=== PATIENT | male | born 1970 | race Caucasian/White ===

== ENCOUNTER 2017-05-17 10:29 | Emergency (ER) | payer MEDICAID ==
[~2017-05-17] VITALS: Ht 182.9 cm; Wt 77.2 kg
[2017-05-17 10:31] VITALS: BP 146/86; PULSE 102; RESP 20; TEMP 99; O2SAT 96
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
[2017-05-17] MEDS ORDERED: KALETRA200 PO (10:55)
[2017-05-17] MEDS ORDERED: LORA-475 PO (10:55)
[2017-05-17] MEDS ORDERED: OXYC-395 PO (10:55)
[2017-05-17] MEDS ORDERED: EMTR1TAB5 PO (10:55)
[2017-05-17] MEDS ORDERED: ACETAMINOPHEN/HYDROcodone 325 MG/7.5 MG TAB PO ONE (11:30)
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
[2017-05-17 12:39] VITALS: BP 133/86; PULSE 90; RESP 17; O2SAT 97
[2017-05-17 16:01] VITALS: BP 127/82; PULSE 100; RESP 20; O2SAT 97
[2017-05-17 22:09] VITALS: BP 135/67; PULSE 69; RESP 17; O2SAT 95
[2017-05-18] MEDS ORDERED: IBUPROFEN 800 MG TAB PO ONE (00:15)
[2017-05-18 02:00] VITALS: BP 128/75; PULSE 94; RESP 17; O2SAT 99
[2017-05-18 06:10] VITALS: BP 140/88; PULSE 77; RESP 18; O2SAT 97
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
== END 2017-05-18 12:06 | disposition home or self-care (01) ==
LOC: NEPD 10:29 → NEPJ 05-18 12:06
DX: R68.84 Jaw pain (principal); F43.20 Adjustment disorder, unspecified
CPT/HCPCS: 70450; 70486; 72125; 99285

== ENCOUNTER 2017-05-27 09:24 | Inpatient (IN) | payer MEDICAID, OTHER ==
[~2017-05-27] VITALS: Ht 182.9 cm; Wt 79.8 kg
[~2017-05-27 09:24] MED LIST: EMTR1TAB5 PO; KALETRA200 PO; LORA-475 PO; OXYC-395 PO
[2017-05-27 09:36] VITALS: BP 127/81; PULSE 84; RESP 18; TEMP 97.9; O2SAT 99
[2017-05-27] MEDS ORDERED: REME15TA PO (09:44)
[2017-05-27] MEDS ORDERED: SODIUM CHLOR 0.9% 1000 ML INJ 1,000 ML IV ONE (09:45)
[2017-05-27] MEDS ORDERED: LORazepam 2 MG/ML VIAL IV PUSH ONE (09:45)
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
[2017-05-27 10:14] VITALS: BP 118/74; PULSE 77; RESP 16; O2SAT 98
[2017-05-27 10:14] LABS: HEMATOCRIT 39.7 % (39.0-51.0); MEAN CELL VOLUME 92.2 FL (80.0-100.0); MEAN CORPUSCULAR HGB CONC 34.7 % (32.0-36.0); PLATELET COUNT 94 TH/MM3 (150-450); RED BLOOD COUNT 4.31 MIL/MM3 (4.50-5.90); RED CELL DISTRIBUTION WIDTH 17.2 % (11.6-17.2); WHITE BLOOD COUNT 1.9 TH/MM3 (4.0-11.0)
[2017-05-27 10:16] LABS: HEMO FLAGS AUTO DIFF
[2017-05-27 10:39] LABS: BICARBONATE 24.4 MEQ/L (21.0-32.0); POTASSIUM 3.3 MEQ/L (3.5-5.1)
[2017-05-27 10:49] LABS: EOSINOPHILS 2 % (0-4); NEUTROPHIL # MANUAL DIFF 0.6 TH/MM3 (1.8-7.7); PLATELET ESTIMATE SMEAR LOW (NORMAL); PLATELET MORPHOLOGY NORMAL (NORMAL); POLYS (SEG NEUTROPHILS) 34 % (16-70); SCAN/DIFF FINAL DIFF MANUAL; WBC DIFF SAMPLE 100
[2017-05-27] MEDS ORDERED: POTASSIUM CHLORIDE 20 MEQ CONTROLLED RELEASE TAB PO ONE (11:00)
[2017-05-27 12:50] VITALS: BP 130/88; PULSE 62; RESP 16; O2SAT 100
[2017-05-27 17:30] VITALS: BP 124/72; PULSE 72; RESP 18; O2SAT 99
[2017-05-27 19:00] VITALS: BP 133/94; PULSE 70; RESP 18; O2SAT 99
[2017-05-27] MEDS ORDERED: LORazepam 2 MG/ML VIAL IV PUSH PRN ×4 (20:15)
[2017-05-27] MEDS ORDERED: FLUMAZENIL 0.5 MG/5 ML VIAL IV PUSH PRN (20:15)
[2017-05-27] MEDS: LORazepam 2 MG TAB PO PRN (20:23)
[2017-05-28] MEDS: LORazepam 1 MG TAB PO PRN ×3 (02:49→20:08)
[2017-05-28 03:01] VITALS: BP 149/74; PULSE 64; RESP 18; O2SAT 97
[2017-05-28 04:02] LABS: BLOOD, URINE NEG (NEG); GLUCOSE,URINE NEG (NEG); KETONE, URINE NEG (NEG); MUCUS URINE FEW /lpf (OCC); NITRITE,URINE NEG (NEG); URINE COLOR YELLOW (YELLW/STRAW)
[2017-05-28 04:09] LABS: COMMENT (UR) CULT NOT INDICATED; CULTURE IF INDICATED CULT NOT INDICATED
[2017-05-28] MEDS: LORazepam 2 MG TAB PO PRN (06:25)
[2017-05-28 06:45] VITALS: BP 154/92; PULSE 60; RESP 18; O2SAT 96
[2017-05-28 11:52] VITALS: BP 135/89; PULSE 57; RESP 18; TEMP 96.2; O2SAT 98
[2017-05-28] MEDS ORDERED: LORazepam 2 MG/ML VIAL IV PUSH PRN ×4 (13:30)
[2017-05-28] MEDS ORDERED: FLUMAZENIL 0.5 MG/5 ML VIAL IV PUSH PRN (13:30)
[2017-05-28] MEDS ORDERED: MAGNESIUM HYDROXIDE SUSP 30 ML CUP PO PRN (14:30)
[2017-05-28] MEDS ORDERED: ALUMINUM/MAGNESIUM/SIMETH 30 ML CUP PO PRN (14:30)
--- NOTE | 2017-05-28 15:58 | EKG ---
Date Performed: 05/27/2017 Time Performed: 09:44:04 PTAGE: 46 years EKG: Sinus rhythm POSSIBLE RIGHT VENTRICULAR CONDUCTION DELAY BORDERLINE ECG NO PREVIOUS TRACING DOCTOR: Beto Gaitan Interpretating Date/Time 05/28/2017 15:58:17
[2017-05-28 17:04] VITALS: BP 128/82; PULSE 68
[2017-05-28 17:48] VITALS: BP 132/85; PULSE 92; RESP 18; O2SAT 99
--- NOTE | 2017-05-28 18:24 | PD.PSY.CON ---
Provisional Diagnosis Admission Date May 28, 2017 at 14:33 [place] I. Major depressive disorder, single episode, severe without psychotic features [place] II. deferred [place] III. HIV [place] IV. limited social support, chronic mental illness [place] V. 35 History of Present Illness Service Psychiatry Consult Requested By ED Reason for Consult psychiatric evaluation Primary Care Physician No Primary Care Physician HPI Patient is a 46 y/o man, single, employed, on disability, domiciled in a hotel, past psychiatric history of bipolar disorder and depression as per patient, 2 prior psychiatric admissions (last 1 year ago), no previous suicide attempts or self injurious behavior, past medical history of HIV, currently with hospice services, recent diagnosis of melanoma (face) who was seen in the ED for weakness but reported feeling depressed with suicidal ideations which psychiatry was consulted for evaluation. Patient was found lying on hospital bed , calm and cooperative with interview. Patient states that he has not been feeling well "I'm at the end" reporting having hospice services. "I know my CD4 cound is low" despite being compliant with his HIV medications. He states that he recently moved here from [place] has last saw his ID physician two months ago. He reports not having any services here at this time. Patient states that he has been drinking more than 12 beers daily since having arrived and reports having disturbed sleep, feeling depressed but denies change in energy, concentration and endorses suicidal ideations. He states "I want to be done, sick of all these pills". Neva deneis any manic or psychotic symptoms but continues to endorse SI at this time. Past psychiatric history: previous diagnosis of depression, bipolar disorder as per pt, 2 prior admissions, no previous suicde attempts or self injurious behaviors. Substance use history : alcohol use as stated above PMH: HIV Allergie: NKDA Social history: single, lives in a hotel, employed, on disability, highest education: master's degree BAL: 189 Review of Systems Constitutional: COMPLAINS OF: Diaphoretic episodes, Chills Endocrine: DENIES: Heat/cold intolerance, Polydipsia, Polyuria, Polyphagia Eyes: DENIES: Blurred vision, Diplopia, Eye inflammation, Eye pain, Vision loss , Photosensitivity, Double Vision Ears, nose, mouth, throat: DENIES: Tinnitus, Hearing loss, Vertigo, Nasal discharge, Oral lesions, Throat pain, Hoarseness, Ear Pain, Running Nose, Epistaxis, Sinus Pain, Toothache, Odynophagia Respiratory: DENIES: Apneas, Cough, Snoring, Wheezing, Hemoptysis, Sputum production, Shortness of breath Cardiovascular: DENIES: Chest pain, Palpitations, Syncope, Dyspnea on Exertion , PND, Lower Extremity Edema, Orthopnea, Claudication Gastrointestinal: DENIES: Abdominal pain, Black stools, Bloody stools, Constipation, Diarrhea, Nausea, Vomiting, Difficulty Swallowing, Anorexia Genitourinary: DENIES: Sexual dysfunction, Urinary frequency, Urinary incontinence, Urgency, Hematuria, Dysuria, Nocturia, Penile Discharge, Testicular Pain, Testicular Swelling Musculoskeletal: DENIES: Joint pain, Muscle aches, Stiffness, Joint Swelling, Back pain, Neck pain Integumentary: DENIES: Abnormal pigmentation, Nail changes, Pruritus, Rash Hematologic/lymphatic: DENIES: Bruising, Lymphadenopathy Immunologic/allergic: DENIES: Eczema, Urticaria Neurologic: DENIES: Abnormal gait, Headache, Localized weakness, Paresthesias, Seizures, Speech Problems, Tremor, Poor Balance Past Family Social History Coded Allergies: No Known Allergies (Unverified , 05/27/17) Reported Medications Mirtazapine (Remeron) 15 Mg Tab, 15 MG PO HS for Depression Control, #30 TAB 0 Refills 05/27/17 Lopinavir-Ritonavir (Kaletra) 200-50 Mg Tab, 1 TAB PO BID for Mgmt Viral Infection, #60 TAB 0 Refills 05/17/17 Oxycodone (Oxycodone) 10 Mg Tab, 10 MG PO Q6H Y for PAIN, TAB 0 Refills 05/17/17 Lorazepam (Ativan) 2 Mg Tab, 2 MG PO Q6H Y for ANXIETY AND/OR AGITATION, TAB 0 Refills 05/17/17 Emtricitabine-Tenofovir Disoproxil Fumarate (Truvada) 100-150 Mg Tab, 1 TAB PO DAILY for Mgmt Viral Infection, #30 TAB 0 Refills 05/17/17 Current Medications Medications (Trade) Dose Ordered Sig/Marilee Route Start Time Stop Time Status Last Admin (Ativan) 1 mg Q4H PRN PO 05/28/17 13:30 (Ativan Inj) 1 mg Q4H PRN IV PUSH 05/28/17 13:30 (Ativan) 2 mg Q2H PRN PO 05/28/17 13:30 (Ativan Inj) 2 mg Q2H PRN IV PUSH 05/28/17 13:30 (Ativan Inj) 2 mg Q1H PRN IV PUSH 05/28/17 13:30 (Ativan Inj) 2 mg Q15M PRN IV PUSH 05/28/17 13:30 (Romazicon Inj) 0.2 mg Q1M PRN IV PUSH 05/28/17 13:30 (Benadryl) 50 mg HS PRN PO 05/28/17 14:30 (Tylenol) 650 mg Q4H PRN PO 05/28/17 14:30 (Milk Of Magnesia Liq) 30 ml DAILY PRN PO 05/28/17 14:30 (Mag-Al Plus Susp Liq) 30 ml Q6H PRN PO 05/28/17 14:30 (Atarax) 50 mg Q6H PRN PO 05/28/17 14:30 (Remeron) 15 mg HS PO 05/28/17 21:00 Patient's Strengths (min. 2) verbal and communicative Physical Exam Vital Signs Vital Signs Date Time Temp Pulse Resp B/P (MAP) Pulse Ox O2 Delivery O2 Flow Rate FiO2 05/28/17 17:48 92 18 132/85 (101) 99 Room Air 05/28/17 11:52 96.2 Lab Results Labs reviewed Laboratory Tests Test 05/27/17 10:00 05/28/17 03:00 White Blood Count 1.9 TH/MM3 (4.0-11.0) Red Blood Count 4.31 MIL/MM3 (4.50-5.90) Platelet Count 94 TH/MM3 (150-450) Lymphocytes % 47 % (9-44) Monocytes % 17 % (0-8) Neutrophils # (Manual) 0.6 TH/MM3 (1.8-7.7) Platelet Estimate LOW (NORMAL) Blood Urea Nitrogen 6 MG/DL (7-18) Calcium Level 7.8 MG/DL (8.5-10.1) Potassium Level 3.3 MEQ/L (3.5-5.1) Chloride Level 109 MEQ/L (98-107) Ethyl Alcohol Level 189 MG/DL (0-5) Urine Mucus FEW /lpf (OCC) Mental Status Examination Appearance Appears stated age, in [facility], calm and cooperative with interview, fair eye contact, noted with mild tremors, diaphoretic Speech: Unremarkable Orientation: Person Memory: Unremarkable Thought Process: Linear Thought Content: Unremarkable Language fluent and spontaneous Fund of Knowledge average Hallucination Type: None Attention and Concentration: Good Suicidal Ideation: Yes Homicidal Ideation: No Previous Homicide Attempts: No Insight: Fair Judgment: WNL Affect: Anxious Mood: Anxious Motor Activity: Normal gait Assessment & Plan Problem List: (1) Major depressive disorder, single episode, severe without psychotic features ICD Codes: F32.2 - Major depressive disorder, single episode, severe without psychotic features Assessment & Plan Patient is a 46 y/o man who carries a diagnosis of depression, past medical history of HIV, recently put on hospice care, who at this time is endorsing depressive symptoms along with suicidal ideations with method of overdose in the context of worsening chronic medical conditions. Patient at this time will require inpatient psychiatric admission for safety and stabilization. Patient may be transferred to inpatient psychiatry unit if bed available or may need transfer to another facility if there in no capacity to have patient transferred here. Jaya Espino MD May 28, 2017 18:24
[2017-05-28 19:50] VITALS: BP 140/88; PULSE 79; RESP 16; TEMP 98.1
[2017-05-28] MEDS: diphenhydrAMINE HCL 50 MG CAP PO PRN (20:09)
[2017-05-28] MEDS: MIRTAZAPINE 15 MG TAB PO SCH (21:08)
[2017-05-29 05:34] VITALS: BP 119/62; PULSE 80; RESP 18; TEMP 98.6; O2SAT 95
[2017-05-29] MEDS: LORazepam 1 MG TAB PO PRN ×2 (06:23→18:17)
[2017-05-29] MEDS ORDERED: REMOVE OLD PATCH T-DERMAL SCH (09:00)
[2017-05-29] MEDS ORDERED: NICOTINE 21 MG/24 HR PATCH T-DERMAL SCH (09:00)
[2017-05-29] MEDS: LORazepam 2 MG TAB PO PRN ×2 (09:45→14:08)
[2017-05-29 14:01] LABS: ANION GAP 7 MEQ/L (5-15); BICARBONATE 26.9 MEQ/L (21.0-32.0); BLOOD UREA NITROGEN 9 MG/DL (7-18); CHLORIDE 105 MEQ/L (98-107); GLOMERULAR FILTRATION RATE 105 ML/MIN (>89); POTASSIUM 3.9 MEQ/L (3.5-5.1); SODIUM (NA) 139 MEQ/L (136-145)
[2017-05-29 14:11] LABS: HDL CHOLESTEROL 45.1 MG/DL (40.0-60.0); LDL CHOLESTEROL 86 MG/DL (0-99)
[2017-05-29] MEDS ORDERED: NON-FORMULARY DRUG (Emtricitabine-Tenofovir Disoproxil Fumarate (Truvada) 1 TAB) PO SCH (16:15)
--- NOTE | 2017-05-29 17:00 | PD.CONS ---
HPI Service [facility] Consult Requested By Psychiatry team, Dr. Espino Reason for Consult Evaluate medical conditions for management. Hx of HIV. Primary Care Physician No Primary Care Physician Diagnoses: History of Present Illness Written by Wally Henderson, acting as scribe for Dr. Prabhakar on 05/29/17 at 16: 41. Patient is a 46-year-old male with primary medical history of bladder cancer, skin cancer, HIV on HAART medications, chronic back pain who came in to the hospital with complaints of generalized weakness, suicidal ideation. Patient has prior history of bipolar disorder, depression. He is now admitted to inpatient psychiatry unit for further evaluation. Consulted for medical management. Patient seen and examined today. Verified all his medical and surgical history. Patient states that he hasn't been given his HIV medications for 2 days, reports he's taking Kaletra and Truvada. Complaints of back pain mid lower back area, states is a skeletal pain secondary to compression fracture after falling off the ladder, dull, achy, rated 6/10, nonradiating. Patient states that he takes oxycodone 20 mg. 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 States that his grandmother and he continues to feel depressed. Reports lithium has been helping him a lot. Reports he had diarrhea yesterday, but has none today. Eating well. Denies SOB / dyspnea. Denies chest pain, palpitations, headaches, dizziness. Denies fevers , chills, n/v/d. Denies dysuria. Review of Systems Psychiatric: COMPLAINS OF: Anxiety, Depression Except as stated in HPI: all other systems reviewed are Neg Past Family Social History Allergies: Coded Allergies: No Known Allergies (Unverified , 05/27/17) Past Medical History Bladder cancer Skin cancer HIV Depression Bipolar disorder Anxiety Chronic back pain Past Surgical History Cystoscopy Reported Medications Reported Meds & Active Scripts Active Reported Remeron (Mirtazapine) 15 Mg Tab 15 Mg PO HS Kaletra (Lopinavir/Ritonavir) 200-50 Mg Tab 1 Tab PO BID Oxycodone (Oxycodone HCl) 10 Mg Tab 10 Mg PO Q6H PRN Ativan (Lorazepam) 2 Mg Tab 2 Mg PO Q6H PRN Truvada (Emtricitabine-Tenofovir Disoproxil Fumarate) 100-150 Mg Tab 1 Tab PO DAILY Active Ordered Medications Current Medications Medications (Trade) Dose Ordered Sig/Marilee Route Start Time Stop Time Status Last Admin (Ativan) 1 mg Q4H PRN PO 05/28/17 13:30 05/29/17 06:23 (Ativan Inj) 1 mg Q4H PRN IV PUSH 05/28/17 13:30 (Ativan) 2 mg Q2H PRN PO 05/28/17 13:30 05/29/17 14:08 (Ativan Inj) 2 mg Q2H PRN IV PUSH 05/28/17 13:30 (Ativan Inj) 2 mg Q1H PRN IV PUSH 05/28/17 13:30 (Ativan Inj) 2 mg Q15M PRN IV PUSH 05/28/17 13:30 (Romazicon Inj) 0.2 mg Q1M PRN IV PUSH 05/28/17 13:30 (Benadryl) 50 mg HS PRN PO 05/28/17 14:30 05/28/17 20:09 (Tylenol) 650 mg Q4H PRN PO 05/28/17 14:30 (Milk Of Magnesia Liq) 30 ml DAILY PRN PO 05/28/17 14:30 (Mag-Al Plus Susp Liq) 30 ml Q6H PRN PO 05/28/17 14:30 (Atarax) 50 mg Q6H PRN PO 05/28/17 14:30 (Remeron) 15 mg HS PO 05/28/17 21:00 05/28/17 21:08 (Kaletra 200-50 Mg) 1 tab BID PO 05/29/17 21:00 (Truvada 200-300 Mg) 1 tab DAILY PO 05/30/17 09:00 (Roxicodone) 5 mg Q6H PRN PO 05/29/17 16:30 Family History Cancer on mother's side. Father is doing okay. Social History Reports alcohol use about 12 pack almost every day. Occasional tobacco use 4-5 cigarettes, every 2-3 days Denies illicit drug use Physical Exam Vital Signs Vital Signs Date Time Temp Pulse Resp B/P (MAP) Pulse Ox O2 Delivery O2 Flow Rate FiO2 05/29/17 05:34 98.6 80 18 119/62 (81) 95 05/28/17 19:50 98.1 79 16 140/88 (105) 05/28/17 19:39 05/28/17 17:48 92 18 132/85 (101) 99 Room Air 05/28/17 17:04 68 128/82 (97) Physical Exam GENERAL: This is a thinly appearing, well-developed patient, in no apparent distress. SKIN: Appears to have sun exposure, sunburnt skin, patchy erythema facial area, peeling skin. Warm and dry. HEAD: Normocephalic. EYES: Pupils equal round and reactive. No scleral icterus. No injection or drainage. ENT: Nose without bleeding. Throat without erythema. Uvula midline. Airway patent. NECK: Trachea midline. Supple. CARDIOVASCULAR: Regular rate and rhythm without murmurs, gallops, or rubs. RESPIRATORY: Clear to auscultation. Breath sounds equal bilaterally. No wheezes , rales, or rhonchi. GASTROINTESTINAL: Abdomen soft, non-tender, nondistended. Bowel sounds active 4. No guarding. MUSCULOSKELETAL: Extremities without clubbing, cyanosis, or edema. Patient lower back tenderness to palpate. NEUROLOGICAL: Awake and alert. Oriented to person, time, place. Motor and sensory grossly within normal limits. Normal speech. Laboratory Laboratory Tests Test 05/29/17 12:52 Blood Urea Nitrogen 9 Creatinine 0.80 Random Glucose 89 Calcium Level 8.5 Sodium Level 139 Potassium Level 3.9 Chloride Level 105 Carbon Dioxide Level 26.9 Anion Gap 7 Estimat Glomerular Filtration Rate 105 Triglycerides Level 125 Cholesterol Level 156 LDL Cholesterol 86 HDL Cholesterol 45.1 Cholesterol/HDL Ratio 3.45 Thyroid Stimulating Hormone 3rd Gen 1.970 Result Diagram: 05/27/17 1000 05/29/17 1252 Assessment and Plan Problem List: (1) HIV (human immunodeficiency virus infection) ICD Code: B20 - Human immunodeficiency virus [HIV] disease Status: Chronic (2) Major depressive disorder, single episode, severe without psychotic features ICD Code: F32.2 - Major depressive disorder, single episode, severe without psychotic features (3) Generalized weakness ICD Code: R53.1 - Weakness Status: Acute Assessment and Plan Patient is a 46-year-old male with primary medical history of bladder cancer, skin cancer, HIV on HAART medications, chronic back pain who came in to the hospital with complaints of generalized weakness, suicidal ideation. Patient has prior history of bipolar disorder, depression. He is now admitted to inpatient psychiatry unit for further evaluation. Consulted for medical management. Depression, suicidal ideation, anxiety, bipolar disorder - Managed by psychiatry team - Patient states he is on lithium. Obtain lithium level. - TSH 1.97 HIV Hepatitis Neutropenia - States last CD4 count 450, about 2 months ago - Continue HAART medication Truvada and Kaletra - Hepatitis, follow-up as an outpatient with infectious disease - Discuss with patient if he is moving today area he needs to coordinate all his medications properly with infectious disease doctor for follow-up as an outpatient. - Labs reviewed noted WBC 1.9, monitor. Neutropenia possibly related to HIV. Recheck CD4 if with notable symptoms. Chronic back pain - Lumbar pain, reports compression fracture from falling off the ladder injury. Has not been treated surgically secondary to lower CD4 count as per patient account - Restart oxycodone 20 mg DVT prop ambulatory Code Status Full code Discussed Condition With Patient, nursing This note was transcribed by amber Henderson. I, Dr. Francisco Edmondson personally performed the history, physical exam, and medical decision making; and confirmed the accuracy of the information in the transcribed note. Authenticated by Dr. Francisco Edmondson on 05/29/17 at 17:01. Wally Haynes May 29, 2017 17:00 Francisco Colin MD May 29, 2017 17:10
[2017-05-29 17:05] LABS: HEMOGLOBIN A1b 0.7 %; HEMOGLOBIN Ao 86.5 %; HEMOGLOBIN F 0.9 %; HEMOGLOBIN LA1C 2.1 %; HEMOGLOBIN P3 3.4 %
--- NOTE | 2017-05-29 18:09 | HHI.HP ---
Provisional Diagnosis Admission Date May 28, 2017 at 14:33 [place] I. Major depressive disorder, single episode, severe without psychotic features [place] II. deferred [place] III. HIV [place] IV. limited social support, chronic mental illness [place] V. 35 Certification of Person's Competence To Provide Express and Informed Consent I have personally examined Adam Reynoso , a person being served at [facility] on, May 29, 2017 17:59. Express and informed consent means consent voluntarily given in writing, by a competent person, after sufficient explanation and disclosure of the subject matter involved to enable the person to make a knowing and willful decision without any element of force, fraud, deceit, duress, or other form of constraint or coercion. This person is 18 years of age or older, is not now known to be incompetent to consent to treatment with a guardian advocate, and does not have a health care surrogate or proxy currently making medical treatment decisions. I have found this person to be one of the following: [x] Competent to provide express and informed consent, as defined above, for voluntary admission to this facility and is competent to provide express and informed consent for treatment. He/she has the consistent capacity to make well reasoned, willful, and knowing decisions concerning his or her medical or mental health treatment. The person fully and consistently understands the purpose of the admission for examination/placement and is fully capable of personally exercising all rights assured under [place] Incompetent to provide express and informed consent to voluntary admission, and this is incompetent to provide express and informed consent to treatment. The person must be transferred to involuntary status and a petition for a guardian advocate filed with the Circuit Court. [] Refusing to provide express and informed consent to voluntary admission but is competent to provide express and informed consent for treatment. The person must be discharged or transferred to involuntary status. Form shall be completed within 24 hours of a person's arrival at the receiving facility and filed in the clinical record of each person: 1. Admitted on a voluntary basis 2. Permitted to provide express and informed consent to his/her own treatment 3. Allowed to transfer from involuntary to voluntary status 4. Prior to permitting a person to consent to his or her own treatment after having been previously found incompetent to consent to treatment. History of Present Illness Capacity: Has Capacity HPI Patient is a 46 y/o man, single, employed, on disability, domiciled in a hotel, past psychiatric history of bipolar disorder and depression as per patient, 2 prior psychiatric admissions (last 1 year ago), no previous suicide attempts or self injurious behavior, past medical history of HIV, currently with hospice services, recent diagnosis of melanoma (face) who was seen in the ED for weakness but reported feeling depressed with suicidal ideations which psychiatry was consulted for evaluation. Patient was found lying on hospital bed , calm and cooperative with interview. Patient states that he has not been feeling well "I'm at the end" reporting having hospice services. "I know my CD4 cound is low" despite being compliant with his HIV medications. He states that he recently moved here from [place] has last saw his ID physician two months ago. He reports not having any services here at this time. Patient states that he has been drinking more than 12 beers daily since having arrived and reports having disturbed sleep, feeling depressed but denies change in energy, concentration and endorses suicidal ideations. He states "I want to be done, sick of all these pills". Neva deneis any manic or psychotic symptoms but continues to endorse SI at this time. Past psychiatric history: previous diagnosis of depression, bipolar disorder as per pt, 2 prior admissions, no previous suicde attempts or self injurious behaviors. Substance use history : alcohol use as stated above PMH: HIV Allergie: NKDA Social history: single, lives in a hotel, employed, on disability, highest education: master's degree BAL: 189 05/29/17 Patient seen today, found sitting in the common area, calm and cooperative in interview. Patient states that he hasn't feeling "better", reports tolerating mirtazapine at night. Patient states that he is not eating as much as he would like. Patient reports that his current feeling of depression as 6 out of 10 ( 10 being at its worse) patient continued to report suicidal ideations. Patient states that he was previously on lithium prior to him moving to [place] and would like to restart that as he states it was helpful in the past. Review of Systems Except as stated in HPI: all other systems reviewed are Neg Past Psych History Violence risk - others (6 mos) Low Violence risk - self (6 mos) Moderate Substance Abuse History Drugs/Alcohol past 12 months Alcohol use, more than 12 beers daily for the past several weeks. Past Family Social History Coded Allergies: No Known Allergies (Unverified , 05/27/17) Reported Medications Mirtazapine (Remeron) 15 Mg Tab, 15 MG PO HS for Depression Control, #30 TAB 0 Refills 05/27/17 Lopinavir-Ritonavir (Kaletra) 200-50 Mg Tab, 1 TAB PO BID for Mgmt Viral Infection, #60 TAB 0 Refills 05/17/17 Oxycodone (Oxycodone) 10 Mg Tab, 10 MG PO Q6H Y for PAIN, TAB 0 Refills 05/17/17 Lorazepam (Ativan) 2 Mg Tab, 2 MG PO Q6H Y for ANXIETY AND/OR AGITATION, TAB 0 Refills 05/17/17 Emtricitabine-Tenofovir Disoproxil Fumarate (Truvada) 100-150 Mg Tab, 1 TAB PO DAILY for Mgmt Viral Infection, #30 TAB 0 Refills 05/17/17 Current Medications Medications (Trade) Dose Ordered Sig/Marilee Route Start Time Stop Time Status Last Admin (Ativan) 1 mg Q4H PRN PO 05/28/17 13:30 05/29/17 06:23 (Ativan Inj) 1 mg Q4H PRN IV PUSH 05/28/17 13:30 (Ativan) 2 mg Q2H PRN PO 05/28/17 13:30 05/29/17 14:08 (Ativan Inj) 2 mg Q2H PRN IV PUSH 05/28/17 13:30 (Ativan Inj) 2 mg Q1H PRN IV PUSH 05/28/17 13:30 (Ativan Inj) 2 mg Q15M PRN IV PUSH 05/28/17 13:30 (Romazicon Inj) 0.2 mg Q1M PRN IV PUSH 05/28/17 13:30 (Benadryl) 50 mg HS PRN PO 05/28/17 14:30 05/28/17 20:09 (Tylenol) 650 mg Q4H PRN PO 05/28/17 14:30 (Milk Of Magnesia Liq) 30 ml DAILY PRN PO 05/28/17 14:30 (Mag-Al Plus Susp Liq) 30 ml Q6H PRN PO 05/28/17 14:30 (Atarax) 50 mg Q6H PRN PO 05/28/17 14:30 (Remeron) 15 mg HS PO 05/28/17 21:00 05/28/17 21:08 (Kaletra 200-50 Mg) 1 tab BID PO 05/29/17 21:00 (Truvada 200-300 Mg) 1 tab DAILY PO 05/30/17 09:00 (Roxicodone) 5 mg Q6H PRN PO 05/29/17 16:30 Social History single, lives in a hotel, employed, on disability, highest education: master's degree Patient's Strengths (min. 2) verbal and communicative Physical Exam No gross tremors, no EPS, slightly diaphoretic, no gait disturbances, no psychomotor agitation or retardation noted Vital Signs Vital Signs Date Time Temp Pulse Resp B/P (MAP) Pulse Ox O2 Delivery O2 Flow Rate FiO2 05/29/17 05:34 98.6 80 18 119/62 (81) 95 05/28/17 17:48 Room Air Lab Results Labs reviewed Laboratory Tests Test 05/27/17 10:00 05/28/17 03:00 05/29/17 12:52 White Blood Count 1.9 TH/MM3 (4.0-11.0) Red Blood Count 4.31 MIL/MM3 (4.50-5.90) Platelet Count 94 TH/MM3 (150-450) Lymphocytes % 47 % (9-44) Monocytes % 17 % (0-8) Neutrophils # (Manual) 0.6 TH/MM3 (1.8-7.7) Platelet Estimate LOW (NORMAL) Blood Urea Nitrogen 6 MG/DL (7-18) Calcium Level 7.8 MG/DL (8.5-10.1) Potassium Level 3.3 MEQ/L (3.5-5.1) Chloride Level 109 MEQ/L (98-107) Ethyl Alcohol Level 189 MG/DL (0-5) Urine Mucus FEW /lpf (OCC) Mental Status Examination Appearance Appears stated age, in hospital [facility], fair hygiene and grooming, calm and cooperative interview, fair eye contact Speech: Unremarkable Orientation: Person Memory: Unremarkable Thought Process: Linear Thought Content: Unremarkable Language Fluent and spontaneous Fund of Knowledge Average Hallucination Type: None Attention and Concentration: Good Suicidal Ideation: Yes Previous Suicide Attempts: No Homicidal Ideation: No Previous Homicide Attempts: No Insight: Fair Judgment: WNL Affect: Sad Mood: Sad Motor Activity: Normal gait Assessment & Plan Problem List: (1) Major depressive disorder, single episode, severe without psychotic features ICD Codes: F32.2 - Major depressive disorder, single episode, severe without psychotic features Assessment & Plan Estimated LOS: 5- days. Patient is a 46 y/o man who carries a diagnosis of depression, past medical history of HIV, recently put on hospice care, who at this time is endorsing depressive symptoms along with suicidal ideations with method of overdose in the context of worsening chronic medical conditions. Patient at this time will sign for voluntary admission and will require inpatient psychiatric admission for safety and stabilization. Recommendations as per primary medical team. Continue mirtazaJaya Wayne MD May 29, 2017 18:09
[2017-05-29] MEDS: LITHIUM CARBONATE 300 MG TAB PO SCH (21:10)
[2017-05-29] MEDS: MIRTAZAPINE 15 MG TAB PO SCH (21:10)
[2017-05-29] MEDS: LOPINAVIR/RITONAVIR 200 MG/50 MG TAB PO SCH (21:10)
[2017-05-30 05:51] VITALS: BP 118/69; PULSE 82; RESP 17; TEMP 97.9; O2SAT 97
[2017-05-30] MEDS: LITHIUM CARBONATE 300 MG TAB PO SCH ×2 (08:54→20:42)
[2017-05-30] MEDS: EMTRICITABINE/TENOFOVIR 200 MG/300 MG TAB PO SCH (08:54)
[2017-05-30] MEDS: LOPINAVIR/RITONAVIR 200 MG/50 MG TAB PO SCH ×2 (08:54→20:41)
[2017-05-30] MEDS: LORazepam 1 MG TAB PO PRN ×2 (10:35→14:34)
--- NOTE | 2017-05-30 14:42 | HHI.PYPN ---
Subjective Remarks Patient seen for follow-up, chart review. Patient found lying in hospital bed noted recall cooperative interview. Patient states that he sitting better than yesterday although a little anxious. Patient states that he was glad that palliative care was going to see him today.. Patient reported that because he had hospice services implemented previously admitted feeling hopeless and that he was "not going to live his life these other people". Patient noted to be slightly more hopeful today stating that he feels better being on his medications and was goal-directed stating that he needs a place to stay permanently. 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 Patient requested nicotine patch. Patient denies any perceptual disturbances or any psychotic symptoms. Review of Systems Except as stated in HPI: all other systems reviewed are Neg Objective Alert: Yes [place]: Person, Place, Date Mood: Calm Affect: Appropriate Memory Intact: Comment (contact) Hallucinations: Other (denies) Delusions: No Delusion Type: Other (denies) Suicidal: Ideation (continues to endorse) Homicidal: Ideation (denies) Insight/Judgment Fair insight, impulse control and judgment Labs Laboratory Tests Test 05/28/17 03:00 05/29/17 12:52 Urine Mucus FEW /lpf (OCC) Vitals/IOs Vital Signs Date Time Temp Pulse Resp B/P (MAP) Pulse Ox O2 Delivery O2 Flow Rate FiO2 05/30/17 05:51 97.9 82 17 118/69 (85) 97 05/28/17 17:48 Room Air Assessment & Plan Problem List: (1) Major depressive disorder, single episode, severe without psychotic features ICD Codes: F32.2 - Major depressive disorder, single episode, severe without psychotic features Assessment & Plan Patient continues to endorse some depressive symptoms along with passive suicidal ideations but stated that his mood is improving slowly. Due to having had hospice care January previously prior to this admission patient reported feeling hopeless but currently now feeling more future oriented. Weaver Dobby Loom spoke with palliative care and discussed their evaluation which she does not meet criteria for hospice at this time it unclear under what diagnosis he was accepted to have hospice previously. Consult input appreciated. Patient to continue current treatment. Will draw lithium levels in a few days. Supportive psychotherapy provided. Discharge planning in progress Justification for Cont. Inpt. Patient at risk for further decompensation if at a lower level of care Jaya Espino MD May 30, 2017 14:42
--- NOTE | 2017-05-30 14:50 | HHI.HCPN ---
Mr. Reynoso is a 46-year-old male with a medical history significant for bipolar disorder, depression, HIV on HAART, skin and bladder cancer, hypertension and hepatitis. Patient presented to ED on 05/27/17 endorsing generalized weakness and not feeling well. Patient requested a psych consultation secondary to suicidal ideations. Patient was evaluated by psychiatry, Dr. Espino on 05/28/17. Patient diagnosed with major depressive disorder without psychotic features. Patient was admitted into psychiatric floor for safety and his stability sedation. During psychiatric evaluation, patient was found with fair insight and judgment within normal limits. Patient seen in psychiatric floor. He was resting in bed in no acute distress. Alert and oriented x self, place and situation. In this first visit, introduced palliative care in regards to symptom management as well as assistance in goals of care discussion. Patient declined palliative care consultation. He reports that he is returning to [place] upon discharge. Patient reports that he has an established primary care provider and infectious disease physician who he follows for HIV management. Patient reports that he is under hospice services in [place]. Patient further tells me that he already has transportation available for his return to [place]. Case discussed with Danna from [facility] and Dr. Espino. Base of medical records and physical exam, patient does not appear terminal at this time /not hospice eligible. As per patient, his last CD4 count 2 months ago was 450. In addition, patient independent with all ADLs, ambulatory, appears in good physical condition. Patient with history of bladder and skin cancer. During prior ED visit on 05/17/17, CT of cervical spine and head negative for acute process or metastatic disease. Discussed recommendations with Dr. Espino, palliative care will continue to follow-up peripherally as patient has declined our consultation. Recommendation is to maximize his medical and psychiatric management, may consider CD4 count to evaluate progression of HIV. Telephone call to [facility] in [place]. Confirmed that they have received a referral last week from [facility], ER physician Michelle Lara. [facility] was unable to enroll patient for services. Patient reports that he is under hospice services in [place] with [facility] Confirmed with [facility] [place] that patient is not enroll into their services. . Brenda Mora May 30, 2017 14:50
[2017-05-30] MEDS: NICOTINE 21 MG/24 HR PATCH T-DERMAL SCH (15:00)
[2017-05-30] MEDS: THIAMINE HCL 100 MG TAB PO SCH (17:45)
[2017-05-30] MEDS: FOLIC ACID 1 MG TAB PO SCH (17:45)
[2017-05-30 18:01] VITALS: BP 112/70; PULSE 74; RESP 18; TEMP 98.4; O2SAT 74
[2017-05-30] MEDS: hydrOXYzine HCL 50 MG TAB PO PRN (19:44)
[2017-05-30] MEDS: MIRTAZAPINE 15 MG TAB PO SCH (20:41)
[2017-05-30] MEDS: diphenhydrAMINE HCL 50 MG CAP PO PRN (21:25)
[2017-05-31] MEDS: LORazepam 1 MG TAB PO PRN ×2 (01:06→09:27)
[2017-05-31 05:56] VITALS: BP 94/64; PULSE 73; RESP 18; TEMP 98.4; O2SAT 98
[2017-05-31] MEDS: LOPINAVIR/RITONAVIR 200 MG/50 MG TAB PO SCH ×2 (08:39→20:31)
[2017-05-31] MEDS: THIAMINE HCL 100 MG TAB PO SCH (08:39)
[2017-05-31] MEDS: LITHIUM CARBONATE 300 MG TAB PO SCH ×2 (08:39→20:30)
[2017-05-31] MEDS: EMTRICITABINE/TENOFOVIR 200 MG/300 MG TAB PO SCH (08:39)
[2017-05-31] MEDS: FOLIC ACID 1 MG TAB PO SCH (08:39)
[2017-05-31] MEDS: NICOTINE 21 MG/24 HR PATCH T-DERMAL SCH (08:40)
[2017-05-31] MEDS: REMOVE OLD PATCH T-DERMAL SCH (08:40)
--- NOTE | 2017-05-31 13:46 | HHI.PYPN ---
Subjective Remarks Patient seen for follow-up, chart reviewed. Patient states that he continues to feel sad and depressed but much better than he first arrived. Patient mentioned that he had difficulty sleeping last evening. Patient was concerned about his current CD4 count which labs were drawn better today to determine his CD4 count of R load. Patient states that he had been seen by palliative care yesterday and that he was told that he is not qualified for hospice at this time. Patient states that he is motivated to once he feels better to be able to participate in voluntary work. Patient reported eating and drinking okay with good appetite is slightly decreased energy due to poor sleep last night. Patient at this time denies any SI, HI, AVH or delusions. Review of Systems Except as stated in HPI: all other systems reviewed are Neg Objective Alert: Yes [place]: Person, Place, Date Mood: Calm Affect: Appropriate Memory Intact: Comment (contact) Hallucinations: Other (denies) Delusions: No Delusion Type: Other (denies) Suicidal: Ideation (continues to endorse) Homicidal: Ideation (denies) Insight/Judgment Fair insight, impulse control and judgment Labs Test 05/31/17 12:30 Vitals/IOs Vital Signs Date Time Temp Pulse Resp B/P (MAP) Pulse Ox O2 Delivery O2 Flow Rate FiO2 05/31/17 05:56 98.4 73 18 94/64 (74) 98 05/28/17 17:48 Room Air Assessment & Plan Problem List: (1) Major depressive disorder, single episode, severe without psychotic features ICD Codes: F32.2 - Major depressive disorder, single episode, severe without psychotic features Assessment & Plan Patient at this time continues to endorse some depressive symptoms but no longer endorses suicidal ideations. Patient tolerating medication well reports feeling better with current regimen. We'll start trazodone 50 mg at bedtime for insomnia. Labs ordered (CD4 count and vital load). Continue current treatment. Patient encouraged to maintain personal hygiene and participate in groups and activities while on the unit. Discharge planning in progress Justification for Cont. Inpt. Patient at risk for further decompensation if at a lower level of care Jaya Espino MD May 31, 2017 13:46
--- NOTE | 2017-05-31 15:18 | HHI.PR ---
Subjective Remarks The patient was watching a movie in a common room. He was concerned about his low white blood cell count. He wanted to know if he could be put back on Bactrim and azithromycin. He said there seemed to be some confusion regarding hospice. He requested increased pain medication for his compression fracture. Discussed with nursing. Objective Vitals Vital Signs Date Time Temp Pulse Resp B/P (MAP) Pulse Ox O2 Delivery O2 Flow Rate FiO2 05/31/17 05:56 98.4 73 18 94/64 (74) 98 05/30/17 18:01 98.4 74 18 112/70 (84) 74 Result Diagram: 05/27/17 1000 05/29/17 1252 Objective Remarks GENERAL: This is a thin appearing, well-developed patient, in no apparent distress. SKIN: Appears to have sun exposure, sunburnt skin, patchy erythema facial area, peeling skin. Warm and dry. HEAD: Normocephalic. EYES: Pupils equal round and reactive. No scleral icterus. No injection or drainage. ENT: Nose without bleeding. Throat without erythema. Uvula midline. Airway patent. NECK: Trachea midline. Supple. CARDIOVASCULAR: Regular rate and rhythm without murmurs, gallops, or rubs. RESPIRATORY: Clear to auscultation. Breath sounds equal bilaterally. No wheezes , rales, or rhonchi. GASTROINTESTINAL: Abdomen soft, non-tender, nondistended. Bowel sounds active 4. No guarding. MUSCULOSKELETAL: Extremities without clubbing, cyanosis, or edema. Patient lower back tenderness to palpation. NEUROLOGICAL: Awake and alert. Oriented to person, time, place. Motor and sensory grossly within normal limits. Normal speech. PSYCH: Mood and affect Medications and IVs Current Medications Medications (Trade) Dose Ordered Sig/Marilee Route Start Time Stop Time Status Last Admin (Ativan) 1 mg Q4H PRN PO 05/28/17 13:30 05/31/17 09:27 (Ativan Inj) 1 mg Q4H PRN IV PUSH 05/28/17 13:30 (Ativan) 2 mg Q2H PRN PO 05/28/17 13:30 05/29/17 14:08 (Ativan Inj) 2 mg Q2H PRN IV PUSH 05/28/17 13:30 (Ativan Inj) 2 mg Q1H PRN IV PUSH 05/28/17 13:30 (Ativan Inj) 2 mg Q15M PRN IV PUSH 05/28/17 13:30 (Romazicon Inj) 0.2 mg Q1M PRN IV PUSH 05/28/17 13:30 (Benadryl) 50 mg HS PRN PO 05/28/17 14:30 05/30/17 21:25 (Tylenol) 650 mg Q4H PRN PO 05/28/17 14:30 (Milk Of Magnesia Liq) 30 ml DAILY PRN PO 05/28/17 14:30 (Mag-Al Plus Susp Liq) 30 ml Q6H PRN PO 05/28/17 14:30 (Atarax) 50 mg Q6H PRN PO 05/28/17 14:30 05/30/17 19:44 (Remeron) 15 mg HS PO 05/28/17 21:00 05/30/17 20:41 (Kaletra 200-50 Mg) 1 tab BID PO 05/29/17 21:00 05/31/17 08:39 (Truvada 200-300 Mg) 1 tab DAILY PO 05/30/17 09:00 05/31/17 08:39 (Roxicodone) 5 mg Q6H PRN PO 05/29/17 16:30 05/31/17 11:59 (Lithotabs) 300 mg Q12HR PO 05/29/17 21:00 05/31/17 08:39 (Habitrol 21 Mg Patch.24 Hr) 1 patch DAILY T-DERMAL 05/30/17 15:00 05/31/17 08:40 Miscellaneous Information 1 DAILY T-DERMAL 05/31/17 09:00 05/31/17 08:40 (Folate) 1 mg DAILY PO 05/30/17 17:45 05/31/17 08:39 (Vitamin B1) 100 mg DAILY PO 05/30/17 17:45 05/31/17 08:39 (Desyrel) 50 mg HS PO 05/31/17 21:00 (Bactrim Ds 800-160 Mg) 1 tab MoWeFr@09 PO 05/31/17 15:15 UNV A/P Problem List: (1) HIV (human immunodeficiency virus infection) ICD Code: B20 - Human immunodeficiency virus [HIV] disease Status: Chronic (2) Major depressive disorder, single episode, severe without psychotic features ICD Code: F32.2 - Major depressive disorder, single episode, severe without psychotic features (3) Generalized weakness ICD Code: R53.1 - Weakness Status: Acute Assessment and Plan Patient is a 46-year-old male with primary medical history of bladder cancer, skin cancer, HIV on HAART medications, chronic back pain who came in to the hospital with complaints of generalized weakness, suicidal ideation. Patient has prior history of bipolar disorder, depression. He is now admitted to inpatient psychiatry unit for further evaluation. Consulted for medical management. Depression, suicidal ideation, anxiety, bipolar disorder - Managed by psychiatry team - Patient states he is on lithium. Obtain lithium level per psych. - TSH 1.97 HIV Hepatitis Neutropenia - States last CD4 count 450, about 2 months ago - Continue HAART medication Truvada and Kaletra - Hepatitis, follow-up as an outpatient with infectious disease - Discuss with patient if he is moving today area he needs to coordinate all his medications properly with infectious disease doctor for follow-up as an outpatient. - Labs reviewed noted WBC 1.9, monitor. Neutropenia possibly related to HIV. Recheck CD4. Neutropenic precautions. - Bactrim started for prophylaxis. Chronic back pain - Lumbar pain, reports compression fracture from falling off the ladder injury. Has not been treated surgically secondary to lower CD4 count as per patient account - Restart oxycodone DVT prop ambulatory Nelson Mccoy DO May 31, 2017 15:18
[2017-05-31] MEDS: SULFAMETHOXAZOLE-TRIMETHOPRIM DS 800-160 MG TAB PO SCH (15:30)
[2017-05-31] MEDS: hydrOXYzine HCL 50 MG TAB PO PRN (16:13)
[2017-05-31 18:00] VITALS: BP 105/78; PULSE 83; RESP 18; TEMP 98; O2SAT 95
[2017-05-31] MEDS: MIRTAZAPINE 15 MG TAB PO SCH (20:31)
[2017-05-31] MEDS: traZODone HCL 50 MG TAB PO SCH (20:31)
[2017-06-01 05:55] VITALS: BP 100/62; PULSE 65; RESP 16; TEMP 98.3
[2017-06-01] MEDS: LITHIUM CARBONATE 300 MG TAB PO SCH ×2 (08:36→21:43)
[2017-06-01] MEDS: LOPINAVIR/RITONAVIR 200 MG/50 MG TAB PO SCH ×2 (08:36→21:43)
[2017-06-01] MEDS: THIAMINE HCL 100 MG TAB PO SCH (08:36)
[2017-06-01] MEDS: EMTRICITABINE/TENOFOVIR 200 MG/300 MG TAB PO SCH (08:36)
[2017-06-01] MEDS: FOLIC ACID 1 MG TAB PO SCH (08:36)
[2017-06-01] MEDS: REMOVE OLD PATCH T-DERMAL SCH (09:00)
[2017-06-01] MEDS: NICOTINE 21 MG/24 HR PATCH T-DERMAL SCH (09:00)
[2017-06-01 12:12] LABS: AUTOMATED NEUTROPHIL # 1.1 TH/MM3 (1.8-7.7); BASOPHIL % 0.1 % (0.0-2.0); EOSINOPHIL # 0.1 TH/MM3 (0-0.4); EOSINOPHIL % 2.5 % (0.0-4.0); HEMATOCRIT 44.4 % (39.0-51.0); LYMPH % 55.9 % (9.0-44.0); LYMPHOCYTE # 2.3 TH/MM3 (1.0-4.8); MEAN CORPUSCULAR HEMOGLOBIN 31.5 PG (27.0-34.0); MEAN CORPUSCULAR HGB CONC 33.5 % (32.0-36.0); MONO % 14.8 % (0.0-8.0); NEUT % 26.7 % (16.0-70.0); PLATELET COUNT 128 TH/MM3 (150-450); RED BLOOD COUNT 4.72 MIL/MM3 (4.50-5.90); RED CELL DISTRIBUTION WIDTH 17.9 % (11.6-17.2); WHITE BLOOD COUNT 4.2 TH/MM3 (4.0-11.0)
[2017-06-01 12:17] LABS: HEMO FLAGS AUTO DIFF
[2017-06-01 13:29] LABS: SCAN/DIFF AUTO DIFF CONFIRMED
--- NOTE | 2017-06-01 16:53 | HHI.PYPN ---
Subjective Remarks Patient seen for follow-up, chart reviewed. Also discussed with nursing staff, labs are pending, continues to have occasional suicidal ideation, focused on medical issues at this time sleeping well. Patient states that his mood has been "better", reports having spoken to his father which went well. He states that he is tolerating medications well without adverse drug reactions. States the sleeping well as well. Patient is wondering how the results from his recent lab work but was notified that results were not any. Patient this time denies SI, HI, AVH or delusions. Review of Systems Except as stated in HPI: all other systems reviewed are Neg Objective Alert: Yes [place]: Person, Place, Date Mood: Calm Affect: Appropriate Memory Intact: Comment (intact) Hallucinations: Other (denies) Delusions: No Delusion Type: Other (denies) Suicidal: Ideation (continues to endorse) Homicidal: Ideation (denies) Insight/Judgment Fair insight, impulse control and judgment Labs Labs reviewed. Test 06/01/17 11:26 White Blood Count 4.2 TH/MM3 Red Blood Count 4.72 MIL/MM3 Hemoglobin 14.9 GM/DL Hematocrit 44.4 % Mean Corpuscular Volume 94.0 FL Mean Corpuscular Hemoglobin 31.5 PG Mean Corpuscular Hemoglobin Concent 33.5 % Red Cell Distribution Width 17.9 % Platelet Count 128 TH/MM3 Mean Platelet Volume 8.7 FL Neutrophils (%) (Auto) 26.7 % Lymphocytes (%) (Auto) 55.9 % Monocytes (%) (Auto) 14.8 % Eosinophils (%) (Auto) 2.5 % Basophils (%) (Auto) 0.1 % Neutrophils # (Auto) 1.1 TH/MM3 Lymphocytes # (Auto) 2.3 TH/MM3 Monocytes # (Auto) 0.6 TH/MM3 Eosinophils # (Auto) 0.1 TH/MM3 Basophils # (Auto) 0.0 TH/MM3 CBC Comment AUTO DIFF Differential Comment AUTO DIFF CONFIRMED Vitals/IOs Vital Signs Date Time Temp Pulse Resp B/P (MAP) Pulse Ox O2 Delivery O2 Flow Rate FiO2 06/01/17 05:55 98.3 65 16 100/62 (75) 05/31/17 18:00 95 05/28/17 17:48 Room Air Intake and Output 06/01/17 06/01/17 06/02/17 08:00 16:00 00:00 Intake Total 240 ml Balance 240 ml Assessment & Plan Problem List: (1) Major depressive disorder, single episode, severe without psychotic features ICD Codes: F32.2 - Major depressive disorder, single episode, severe without psychotic features Assessment & Plan Patient noted to have improved mood, continued to have occasional passive suicide ideation. Patient compliant with medications and tolerating well. Continue current treatment, his CD4 count and viral load pending. Discharge planning in progress Justification for Cont. Inpt. Patient at risk for further decompensation if at a lower level of care Jaya Espino MD Jun 01, 2017 16:53
[2017-06-01 18:46] VITALS: BP 126/83; PULSE 93; RESP 18; TEMP 98; O2SAT 97
[2017-06-01] MEDS: LORazepam 1 MG TAB PO PRN (20:40)
[2017-06-01] MEDS: traZODone HCL 50 MG TAB PO SCH (21:43)
[2017-06-01] MEDS: MIRTAZAPINE 15 MG TAB PO SCH (21:44)
[2017-06-02 05:14] VITALS: BP 97/62; PULSE 76; RESP 17; TEMP 97.8; O2SAT 94
[2017-06-02 07:52] LABS: CD4/CD8 RATIO 0.1 (0.86-5.00)
[2017-06-02] MEDS: THIAMINE HCL 100 MG TAB PO SCH (08:16)
[2017-06-02] MEDS: SULFAMETHOXAZOLE-TRIMETHOPRIM DS 800-160 MG TAB PO SCH (08:16)
[2017-06-02] MEDS: EMTRICITABINE/TENOFOVIR 200 MG/300 MG TAB PO SCH (08:16)
[2017-06-02] MEDS: FOLIC ACID 1 MG TAB PO SCH (08:16)
[2017-06-02] MEDS: LOPINAVIR/RITONAVIR 200 MG/50 MG TAB PO SCH ×2 (08:16→21:08)
[2017-06-02] MEDS: LITHIUM CARBONATE 300 MG TAB PO SCH ×2 (08:58→21:09)
[2017-06-02] MEDS: REMOVE OLD PATCH T-DERMAL SCH (08:59)
[2017-06-02] MEDS: NICOTINE 21 MG/24 HR PATCH T-DERMAL SCH (08:59)
--- NOTE | 2017-06-02 16:53 | HHI.PYPN ---
Subjective Remarks Patient seen for follow-up, chart reviewed. Patient found in group was able participate in interview today. Patient states that she is feeling "okay" but mentions that he was a found out that an acquaintance of his had fatal overdose on heroin which she was somewhat sad about. Patient reports that this morning feeling a little groggy and feels that the medication in the evening is likely the cause. Patient states that he is also pleased that he was approved for his apartment here in [place]. Patient states that he hasn't felt suicidal but continues to try to stay positive and occasionally feels a little sad at times. Patient this time denies SI, HI, AVH or delusions Review of Systems Except as stated in HPI: all other systems reviewed are Neg Objective Alert: Yes [place]: Person, Place, Date Mood: Other (a little sad) Affect: Appropriate Memory Intact: Comment (intact) Hallucinations: Other (denies) Delusions: No Delusion Type: Other (denies) Suicidal: Ideation (continues to endorse) Homicidal: Ideation (denies) Insight/Judgment Fair insight, impulse control and judgment Vitals/IOs Vital Signs Date Time Temp Pulse Resp B/P (MAP) Pulse Ox O2 Delivery O2 Flow Rate FiO2 06/02/17 05:14 97.8 76 17 97/62 (04) 94 Assessment & Plan Problem List: (1) Major depressive disorder, single episode, severe without psychotic features ICD Codes: F32.2 - Major depressive disorder, single episode, severe without psychotic features Assessment & Plan Patient this time continues to be noted to have improved mood the longer having suicidal ideations. Patient reports having feelings of grogginess in the morning. Well reduce hydroxyzine to 25 mg by mouth at bedtime for insomnia. Continue mirtazapine with increased dose of 30 mg by mouth at bedtime for depression. Monitor for medication which wasn't adverse drug reactions. Discharge planning in progress Justification for Cont. Inpt. Patient at risk for further decompensation if at a lower level of care Jaya Espino MD Jun 02, 2017 16:53
[2017-06-02] MEDS ORDERED: PILL SPLITTER OTHER PRN (17:15)
[2017-06-02 17:44] VITALS: BP 126/73; PULSE 81; RESP 16; TEMP 97.6; O2SAT 96
[2017-06-02 19:52] LABS: HIV RNA LOG COPIES 4.86 (<1.30)
[2017-06-02] MEDS: traZODone HCL 50 MG TAB PO SCH (21:09)
[2017-06-02] MEDS: LORazepam 1 MG TAB PO PRN (21:09)
[2017-06-02] MEDS: MIRTAZAPINE 15 MG TAB PO SCH (21:10)
[2017-06-03 06:03] VITALS: BP 98/58; PULSE 64; RESP 17; TEMP 97.2; O2SAT 98
[2017-06-03] MEDS: EMTRICITABINE/TENOFOVIR 200 MG/300 MG TAB PO SCH (08:26)
[2017-06-03] MEDS: LOPINAVIR/RITONAVIR 200 MG/50 MG TAB PO SCH ×2 (08:26→21:07)
[2017-06-03] MEDS: THIAMINE HCL 100 MG TAB PO SCH (08:27)
[2017-06-03] MEDS: FOLIC ACID 1 MG TAB PO SCH (08:27)
[2017-06-03] MEDS: LITHIUM CARBONATE 300 MG TAB PO SCH ×2 (08:27→21:07)
[2017-06-03] MEDS: REMOVE OLD PATCH T-DERMAL SCH (08:29)
[2017-06-03] MEDS: NICOTINE 21 MG/24 HR PATCH T-DERMAL SCH (08:54)
[2017-06-03] MEDS: LORazepam 1 MG TAB PO PRN (14:02)
--- NOTE | 2017-06-03 15:10 | HHI.PYPN ---
Subjective Remarks Pt seen and discussed with staff. He has been entitled and demanding with staff at times. He remains depressed and c/o SI intermittently.He reports that he is struggling with grief due to close friend's from overdose and coming to terms with entering into hospice care. No medication side effects. He reports that sleep has improved. Objective Alert: Yes [place]: Person, Place, Date Mood: Depressed Affect: Restricted Memory Intact: Comment (intact) Hallucinations: Other (denies) Delusions: No Delusion Type: Other (denies) Suicidal: Ideation (continues to endorse) Homicidal: Ideation (denies) Insight/Judgment fair Labs Test 06/03/17 07:50 [place] Level 0.8 MEQ/L Vitals/IOs Vital Signs Date Time Temp Pulse Resp B/P (MAP) Pulse Ox O2 Delivery O2 Flow Rate FiO2 06/03/17 06:03 97.2 64 17 98/58 (71) 98 Assessment & Plan Problem List: (1) Major depressive disorder, single episode, severe without psychotic features ICD Codes: F32.2 - Major depressive disorder, single episode, severe without psychotic features Assessment & Plan Continue current tx plan. Estimated LOS: days Justification for Cont. Inpt. impairments in safety Hayley Jones MD Jun 03, 2017 15:10
[2017-06-03 17:43] VITALS: BP 125/76; PULSE 64; RESP 18; TEMP 98.1; O2SAT 98
[2017-06-03] MEDS: traZODone HCL 50 MG TAB PO SCH (21:05)
[2017-06-03] MEDS: MIRTAZAPINE 15 MG TAB PO SCH (21:06)
[2017-06-03] MEDS: hydrOXYzine HCL 50 MG TAB PO PRN (21:35)
[2017-06-04 06:26] VITALS: BP 86/51; PULSE 64; RESP 17; TEMP 98.8; O2SAT 98
[2017-06-04] MEDS: LOPINAVIR/RITONAVIR 200 MG/50 MG TAB PO SCH ×2 (08:55→20:34)
[2017-06-04] MEDS: EMTRICITABINE/TENOFOVIR 200 MG/300 MG TAB PO SCH (08:55)
[2017-06-04] MEDS: THIAMINE HCL 100 MG TAB PO SCH (08:56)
[2017-06-04] MEDS: LITHIUM CARBONATE 300 MG TAB PO SCH ×2 (08:56→20:35)
[2017-06-04] MEDS: FOLIC ACID 1 MG TAB PO SCH (08:56)
[2017-06-04] MEDS: REMOVE OLD PATCH T-DERMAL SCH (09:00)
[2017-06-04] MEDS: NICOTINE 21 MG/24 HR PATCH T-DERMAL SCH (09:00)
[2017-06-04] MEDS: LORazepam 1 MG TAB PO PRN ×2 (11:58→18:33)
--- NOTE | 2017-06-04 15:44 | HHI.PYPN ---
Subjective Remarks Pt seen and discussed with staff. He has been out of his room and more engaged in unit activities today. Depression has decreased and he denied SI/HI today. Last CIWA score was 0. Objective Alert: Yes [place]: Person, Place, Date Mood: Depressed Affect: Restricted Memory Intact: Comment (intact) Hallucinations: Other (denies) Delusions: No Delusion Type: Other (denies) Suicidal: Ideation (denies today) Homicidal: Ideation (denies) Insight/Judgment improving Vitals/IOs Vital Signs Date Time Temp Pulse Resp B/P (MAP) Pulse Ox O2 Delivery O2 Flow Rate FiO2 06/04/17 06:26 98.8 64 17 86/51 (63) 98 Assessment & Plan Problem List: (1) Major depressive disorder, single episode, severe without psychotic features ICD Codes: F32.2 - Major depressive disorder, single episode, severe without psychotic features Assessment & Plan Pt improving. Continue current tx plan. Estimated LOS: days Justification for Cont. Inpt. risk of decompensation Hayley Jones MD Jun 04, 2017 15:44
[2017-06-04 16:14] VITALS: BP 91/60; PULSE 70; RESP 18; TEMP 98.6; O2SAT 97
[2017-06-04] MEDS: ACETAMINOPHEN 325 MG TAB PO PRN (18:34)
[2017-06-04] MEDS: traZODone HCL 50 MG TAB PO SCH (20:36)
[2017-06-04] MEDS: MIRTAZAPINE 15 MG TAB PO SCH (20:36)
[2017-06-05 06:13] VITALS: BP 99/58; PULSE 52; RESP 18; TEMP 97.6; O2SAT 98
[2017-06-05] MEDS: LOPINAVIR/RITONAVIR 200 MG/50 MG TAB PO SCH ×2 (08:03→20:01)
[2017-06-05] MEDS: SULFAMETHOXAZOLE-TRIMETHOPRIM DS 800-160 MG TAB PO SCH (08:03)
[2017-06-05] MEDS: EMTRICITABINE/TENOFOVIR 200 MG/300 MG TAB PO SCH (08:03)
[2017-06-05] MEDS: THIAMINE HCL 100 MG TAB PO SCH (08:03)
[2017-06-05] MEDS: FOLIC ACID 1 MG TAB PO SCH (08:04)
[2017-06-05] MEDS: LITHIUM CARBONATE 300 MG TAB PO SCH ×2 (08:04→20:03)
[2017-06-05] MEDS: NICOTINE 21 MG/24 HR PATCH T-DERMAL SCH (08:06)
[2017-06-05] MEDS: REMOVE OLD PATCH T-DERMAL SCH (08:06)
[2017-06-05] MEDS: LORazepam 1 MG TAB PO PRN (11:08)
[2017-06-05] MEDS: ACETAMINOPHEN 325 MG TAB PO PRN (11:49)
--- NOTE | 2017-06-05 13:45 | HHI.PYPN ---
Subjective Remarks Patient seen for follow-up, chart reviewed. Patient found in group psychotherapy but able to engage in interview. Patient states that this past weekend it has been a "perfect weekend...I'm good". He reports sleeping well, eating and drinking well, reports tolerating the medications well, denies any ADRs. Patient reports feeling worried about his recent lab results and would like to have his medical services in place for outpatient follow up. Denies SI and states not having any suicidal ideations for the past couple of days. He reports feeling sad at times but overall better. Review of Systems Except as stated in HPI: all other systems reviewed are Neg Objective Alert: Yes [place]: Person, Place, Date Mood: Calm Affect: Appropriate Memory Intact: Comment (intact) Hallucinations: Other (denies) Delusions: No Delusion Type: Other (denies) Suicidal: Ideation (denies today) Homicidal: Ideation (denies) Insight/Judgment Fair insight, impulse control and judgement Vitals/IOs Vital Signs Date Time Temp Pulse Resp B/P (MAP) Pulse Ox O2 Delivery O2 Flow Rate FiO2 06/05/17 06:13 97.6 52 18 99/58 (72) 98 Assessment & Plan Problem List: (1) Major depressive disorder, single episode, severe without psychotic features ICD Codes: F32.2 - Major depressive disorder, single episode, severe without psychotic features Assessment & Plan Patient currently responding well to current treatment, reports having improved mood no longer having suicidal ideations for the past couple of days although feeling sad at times. Patient currently worried about recent labwork as CD4 count was 52 and followed [id number]. The patient consult was requested along with palliative care consult. [place] level within therapeutic range. Continue current treatment. Discharge planning in progress. Justification for Cont. Inpt. At risk for further decompensation if at lower level of care. Jaya Espino MD Jun 05, 2017 13:45
--- NOTE | 2017-06-05 14:42 | HHI.HCPN ---
Palliative care chart review. As per medical records, patient has expressed his wishes to enroll into hospice services; however, has previously declined palliative care consultation. Reviewed laboratory results from 05/31/17. Patient with a primary hospice diagnosis of HIV, most recent CD4 count 52, Viral load 28953. Patient independent with all ADLs -PPS 90%. As per medical records, no history of toxoplasmosis, lymphoma, wasting, chronic diarrhea, CHF or advanced dementia. Has continue with HIV disease specific treatment/HAART. Based on the above, Mr. Reynoso does not appears to meet medical criteria for hospice admission at this time. In addition, goals of therapy not in line with hospice/comfort-directed care as patient has continued taking HAART. Palliative care will continue to follow-up peripherally. Should you have any questions, please contact our office at . Brenda Mora Jun 05, 2017 14:42
[2017-06-05] MEDS: PENICILLIN V POTASSIUM 250 MG TAB PO SCH ×2 (14:45→19:00)
--- NOTE | 2017-06-05 15:08 | HHI.PR ---
Subjective Remarks The patient was surprised to hear that his CD4 count was so low. He said he has been taking his medication regularly. He is not currently following with an infectious disease specialist in this area. He says he has a toothache in his left lower mouth. He currently denies any other symptom. 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 Objective Vitals Vital Signs Date Time Temp Pulse Resp B/P (MAP) Pulse Ox O2 Delivery O2 Flow Rate FiO2 06/05/17 06:13 97.6 52 18 99/58 (72) 98 06/04/17 16:14 98.6 70 18 91/60 (70) 97 Result Diagram: 06/01/17 1126 Objective Remarks GENERAL: This is a thin appearing, well-developed patient, in no apparent distress. SKIN: Appears to have sun exposure, sunburnt skin, patchy erythema facial area, peeling skin. Warm and dry. Kaposi sarcoma noted on lower extremities. HEAD: Normocephalic. EYES: Pupils equal round and reactive. No scleral icterus. No injection or drainage. ENT: Nose without bleeding. Throat without erythema. Uvula midline. Airway patent. NECK: Trachea midline. Supple. CARDIOVASCULAR: Regular rate and rhythm without murmurs, gallops, or rubs. RESPIRATORY: Clear to auscultation. Breath sounds equal bilaterally. No wheezes , rales, or rhonchi. GASTROINTESTINAL: Abdomen soft, non-tender, nondistended. Bowel sounds active 4. No guarding. MUSCULOSKELETAL: Extremities without clubbing, cyanosis, or edema. Patient lower back tenderness to palpation. NEUROLOGICAL: Awake and alert. Oriented to person, time, place. Motor and sensory grossly within normal limits. Normal speech. PSYCH: Mood and affect Medications and IVs Current Medications Medications (Trade) Dose Ordered Sig/Marilee Route Start Time Stop Time Status Last Admin (Romazicon Inj) 0.2 mg Q1M PRN IV PUSH 05/28/17 13:30 (Benadryl) 50 mg HS PRN PO 05/28/17 14:30 05/30/17 21:25 (Tylenol) 650 mg Q4H PRN PO 05/28/17 14:30 06/05/17 11:49 (Milk Of Magnesia Liq) 30 ml DAILY PRN PO 05/28/17 14:30 (Mag-Al Plus Susp Liq) 30 ml Q6H PRN PO 05/28/17 14:30 (Atarax) 50 mg Q6H PRN PO 05/28/17 14:30 06/03/17 21:35 (Kaletra 200-50 Mg) 1 tab BID PO 05/29/17 21:00 06/05/17 08:03 (Truvada 200-300 Mg) 1 tab DAILY PO 05/30/17 09:00 06/05/17 08:03 (Roxicodone) 5 mg Q6H PRN PO 05/29/17 16:30 06/05/17 13:30 (Lithotabs) 300 mg Q12HR PO 05/29/17 21:00 06/05/17 08:04 (Habitrol 21 Mg Patch.24 Hr) 1 patch DAILY T-DERMAL 05/30/17 15:00 06/01/17 09:00 Miscellaneous Information 1 DAILY T-DERMAL 05/31/17 09:00 06/01/17 09:00 (Folate) 1 mg DAILY PO 05/30/17 17:45 06/05/17 08:04 (Vitamin B1) 100 mg DAILY PO 05/30/17 17:45 06/05/17 08:03 (Bactrim Ds 800-160 Mg) 1 tab MoWeFr@09 PO 05/31/17 15:30 06/05/17 08:03 (Desyrel) 25 mg HS PO 06/02/17 21:00 06/04/17 20:36 (Remeron) 30 mg HS PO 06/02/17 21:00 06/04/17 20:36 (Pill Splitter) 1 ea UNSCH PRN OTHER 06/02/17 17:15 (Veetids) 250 mg Q6HR PO 06/05/17 14:45 (Motrin) 800 mg Q8H PRN PO 06/05/17 14:45 A/P Problem List: (1) HIV (human immunodeficiency virus infection) ICD Code: B20 - Human immunodeficiency virus [HIV] disease Status: Chronic (2) Major depressive disorder, single episode, severe without psychotic features ICD Code: F32.2 - Major depressive disorder, single episode, severe without psychotic features (3) Generalized weakness ICD Code: R53.1 - Weakness Status: Acute Assessment and Plan Patient is a 46-year-old male with primary medical history of bladder cancer, skin cancer, HIV on HAART medications, chronic back pain who came in to the hospital with complaints of generalized weakness, suicidal ideation. Patient has prior history of bipolar disorder, depression. He is now admitted to inpatient psychiatry unit for further evaluation. Consulted for medical management. Depression, suicidal ideation, anxiety, bipolar disorder - Managed by psychiatry team - Patient states he is on lithium. Obtain lithium level per psych. 0.8. - TSH 1.97 HIV Hepatitis Neutropenia - States last CD4 count 450, about 2 months ago. Repeat level was 52. - Continue HAART medication Truvada and Kaletra - Hepatitis, follow-up as an outpatient with infectious disease - Discuss with patient if he is moving today area he needs to coordinate all his medications properly with infectious disease doctor for follow-up as an outpatient. - Labs reviewed noted WBC 1.9, monitor. Neutropenia possibly related to HIV. Recheck CD4. Neutropenic precautions. Resolved. - Bactrim started for prophylaxis. - ID consult placed in light of low CD4 count and no current ID provider. Tooth infection The pt states he has a tooth infection that has responded well to penicillin in the past. - PCN ordered. - ibuprofen for pain. - ID consult pending. Chronic back pain - Lumbar pain, reports compression fracture from falling off the ladder injury. Has not been treated surgically secondary to lower CD4 count as per patient account - Restart oxycodone DVT prop ambulatory Nelson Mccoy DO Jun 05, 2017 15:08
[2017-06-05] MEDS: IBUPROFEN 800 MG TAB PO PRN (15:28)
[2017-06-05 16:51] VITALS: BP 115/68; PULSE 60; RESP 18; TEMP 98.2; O2SAT 98
[2017-06-05] MEDS: MIRTAZAPINE 15 MG TAB PO SCH (20:02)
[2017-06-05] MEDS: traZODone HCL 50 MG TAB PO SCH (20:02)
[2017-06-06] MEDS: PENICILLIN V POTASSIUM 250 MG TAB PO SCH ×4 (01:57→17:57)
[2017-06-06 05:42] VITALS: BP 103/52; PULSE 53; RESP 18; TEMP 98.3; O2SAT 99
[2017-06-06 06:09] VITALS: BP 103/52; PULSE 53; RESP 18; TEMP 98.3; O2SAT 99
[2017-06-06] MEDS: REMOVE OLD PATCH T-DERMAL SCH (09:00)
[2017-06-06] MEDS: NICOTINE 21 MG/24 HR PATCH T-DERMAL SCH (09:00)
[2017-06-06] MEDS: THIAMINE HCL 100 MG TAB PO SCH (09:14)
[2017-06-06] MEDS: EMTRICITABINE/TENOFOVIR 200 MG/300 MG TAB PO SCH (09:14)
[2017-06-06] MEDS: LOPINAVIR/RITONAVIR 200 MG/50 MG TAB PO SCH ×2 (09:14→20:14)
[2017-06-06] MEDS: FOLIC ACID 1 MG TAB PO SCH (09:14)
[2017-06-06] MEDS: LITHIUM CARBONATE 300 MG TAB PO SCH ×2 (09:14→20:14)
[2017-06-06] MEDS: IBUPROFEN 800 MG TAB PO PRN ×2 (09:15→20:31)
--- NOTE | 2017-06-06 10:10 | HHI.HCPN ---
Palliative care reconsulted. Patient seen and psychiatry floor, he was resting in bed in moderate distress secondary to toothache. Patient declined palliative care consult; however, receptive to follow-up once his pain is better controlled. Brief introduction to advance directives -living will and designation of healthcare surrogate. Patient verbalized that he is and would likely designate his father as HCS. Advance directives left with patient for review. As per notes, patient has expressed his wishes to enroll into hospice services. Reviewed most recent laboratory results from 05/31/17. Patient with a primary hospice diagnosis of HIV, most recent CD4 count 52, Viral load [id number]. Patient independent with all ADLs -PPS 90%. There appears no history of toxoplasmosis, lymphoma, wasting, chronic diarrhea, CHF or advanced dementia. Has continue with HIV disease specific treatment/HAART. Infectious disease has been consulted. Based on the above, Mr. Reynoso does not appears to meet medical criteria for hospice admission at this time. In addition, goals of therapy not in line with hospice/comfort-directed care as patient has continued HAART medications. Palliative care will continue to follow-up peripherally. Case has been discussed with referring physician, Dr. Espino. Should you have any questions, please contact our office at . Brenda Mora Jun 06, 2017 10:10
[2017-06-06 13:10] LABS: BICARBONATE 28.1 MEQ/L (21.0-32.0); MAGNESIUM 2.2 MG/DL (1.5-2.5); POTASSIUM 4.3 MEQ/L (3.5-5.1)
[2017-06-06 13:46] LABS: HEMATOCRIT 48.5 % (39.0-51.0); MEAN CELL VOLUME 94.8 FL (80.0-100.0); MEAN CORPUSCULAR HEMOGLOBIN 30.9 PG (27.0-34.0); MEAN CORPUSCULAR HGB CONC 32.6 % (32.0-36.0); PLATELET COUNT 146 TH/MM3 (150-450); RED BLOOD COUNT 5.12 MIL/MM3 (4.50-5.90); RED CELL DISTRIBUTION WIDTH 17.5 % (11.6-17.2); REVIEW FLAG FINAL; WHITE BLOOD COUNT 4.1 TH/MM3 (4.0-11.0)
--- NOTE | 2017-06-06 14:11 | HHI.PYPN ---
Subjective Remarks Patient seen for follow-up, chart reviewed. After discussion with nursing staff patient noted to be slightly irritable and requesting pain medication due to tooth pain. Patient found lying in hospital bed, reports that he isn't having to think for the past 2 days busy feeling "okay" he states that he plans to go to the dentist upon discharge. Patient reports that his mood has been "pretty good" denies any suicidality and states that he has contacted some friends will help him after his discharge from the hospital. Review of Systems Except as stated in HPI: all other systems reviewed are Neg Objective Alert: Yes [place]: Person, Place, Date Mood: Calm Affect: Appropriate Memory Intact: Comment (intact) Hallucinations: Other (denies) Delusions: No Delusion Type: Other (denies) Suicidal: Ideation (denies today) Homicidal: Ideation (denies) Insight/Judgment Fair insight, impulse control and judgment Labs Labs reviewed. Test 06/06/17 11:28 White Blood Count 4.1 TH/MM3 Red Blood Count 5.12 MIL/MM3 Hemoglobin 15.8 GM/DL Hematocrit 48.5 % Mean Corpuscular Volume 94.8 FL Mean Corpuscular Hemoglobin 30.9 PG Mean Corpuscular Hemoglobin Concent 32.6 % Red Cell Distribution Width 17.5 % Platelet Count 146 TH/MM3 Mean Platelet Volume 9.4 FL Blood Urea Nitrogen 12 MG/DL Creatinine 1.17 MG/DL Random Glucose 68 MG/DL Calcium Level 8.5 MG/DL Magnesium Level 2.2 MG/DL Sodium Level 138 MEQ/L Potassium Level 4.3 MEQ/L Chloride Level 103 MEQ/L Carbon Dioxide Level 28.1 MEQ/L Anion Gap 7 MEQ/L Estimat Glomerular Filtration Rate 67 ML/MIN Vitals/IOs Vital Signs Date Time Temp Pulse Resp B/P (MAP) Pulse Ox O2 Delivery O2 Flow Rate FiO2 06/06/17 06:09 98.3 53 18 103/52 (69) 99 Assessment & Plan Problem List: (1) Major depressive disorder, single episode, severe without psychotic features ICD Codes: F32.2 - Major depressive disorder, single episode, severe without psychotic features Assessment & Plan Patient at this time continues to endorse stable mood denies any suicidal ideations and continues on medical management for HIV. Palliative care input appreciated. As per infectious disease, patient will likely require outpatient follow-up for management/changes to his current HAART regimen. Continue current treatment treatment, discharge planning in progress Justification for Cont. Inpt. At risk for further decompensation if at lower level of care. Jaya Espino MD Jun 06, 2017 14:11
[2017-06-06] MEDS: ACETAMINOPHEN 325 MG TAB PO PRN (14:13)
[2017-06-06 18:09] VITALS: BP 99/52; PULSE 58; RESP 19; TEMP 98.9
[2017-06-06] MEDS: MIRTAZAPINE 15 MG TAB PO SCH (20:14)
[2017-06-06] MEDS: traZODone HCL 50 MG TAB PO SCH (20:15)
[2017-06-06] MEDS: hydrOXYzine HCL 50 MG TAB PO PRN (20:30)
[2017-06-07] MEDS: ACETAMINOPHEN 325 MG TAB PO PRN (00:30)
[2017-06-07] MEDS: PENICILLIN V POTASSIUM 250 MG TAB PO SCH ×4 (00:30→18:15)
[2017-06-07] MEDS: hydrOXYzine HCL 50 MG TAB PO PRN (06:16)
[2017-06-07] MEDS: IBUPROFEN 800 MG TAB PO PRN ×3 (06:17→21:16)
[2017-06-07 06:33] VITALS: BP 100/55; PULSE 57; RESP 17; TEMP 98.1; O2SAT 96
[2017-06-07] MEDS: REMOVE OLD PATCH T-DERMAL SCH (09:00)
[2017-06-07] MEDS: NICOTINE 21 MG/24 HR PATCH T-DERMAL SCH (09:00)
[2017-06-07] MEDS: SULFAMETHOXAZOLE-TRIMETHOPRIM DS 800-160 MG TAB PO SCH (09:14)
[2017-06-07] MEDS: THIAMINE HCL 100 MG TAB PO SCH (09:14)
[2017-06-07] MEDS: FOLIC ACID 1 MG TAB PO SCH (09:14)
[2017-06-07] MEDS: EMTRICITABINE/TENOFOVIR 200 MG/300 MG TAB PO SCH (09:14)
[2017-06-07] MEDS: LOPINAVIR/RITONAVIR 200 MG/50 MG TAB PO SCH ×2 (09:14→21:00)
[2017-06-07] MEDS: LITHIUM CARBONATE 300 MG TAB PO SCH ×2 (09:14→21:15)
--- NOTE | 2017-06-07 11:06 | HHI.PR ---
Subjective Remarks Follow up HIV and tooth ache. Patient seen and examined today. Sitting at table comfortably. Complaints of continued tooth pain. Denies any new acute complaints overnight. Denies any recent fever, chills, cough, sob, n/v/d, dysuria. Objective Vitals Vital Signs Date Time Temp Pulse Resp B/P (MAP) Pulse Ox O2 Delivery O2 Flow Rate FiO2 06/07/17 06:33 98.1 57 17 100/55 (70) 96 06/06/17 18:09 98.9 58 19 99/52 (68) I/O 06/06/17 06/06/17 06/06/17 06/07/17 06/07/17 06/07/17 06:59 14:59 22:59 06:59 14:59 22:59 Intake Total 640 ml Balance 640 ml Intake Oral 640 ml Result Diagram: 06/06/17 1128 06/06/17 1128 Objective Remarks GENERAL: This is a thin appearing, well-developed patient, in no apparent distress. SKIN: Appears to have sun exposure, sunburnt skin, patchy erythema facial area, peeling skin. Warm and dry. Kaposi sarcoma noted on lower extremities. HEAD: Normocephalic. EYES: Pupils equal round and reactive. No scleral icterus. No injection or drainage. ENT: Nose without bleeding. Throat without erythema. Uvula midline. Airway patent. NECK: Trachea midline. Supple. Left Anterior cervical lymph nodes swollen. CARDIOVASCULAR: Regular rate and rhythm without murmurs, gallops, or rubs. RESPIRATORY: Clear to auscultation. Breath sounds equal bilaterally. No wheezes , rales, or rhonchi. GASTROINTESTINAL: Abdomen soft, non-tender, nondistended. Bowel sounds active 4. No guarding. MUSCULOSKELETAL: Extremities without clubbing, cyanosis, or edema. Patient lower back tenderness to palpation. NEUROLOGICAL: Awake and alert. Oriented to person, time, place. Motor and sensory grossly within normal limits. Normal speech. A/P Problem List: (1) HIV (human immunodeficiency virus infection) ICD Code: B20 - Human immunodeficiency virus [HIV] disease Status: Chronic (2) Major depressive disorder, single episode, severe without psychotic features ICD Code: F32.2 - Major depressive disorder, single episode, severe without psychotic features (3) Generalized weakness ICD Code: R53.1 - Weakness Status: Acute Assessment and Plan Patient is a 46-year-old male with primary medical history of bladder cancer, skin cancer, HIV on HAART medications, chronic back pain who came in to the hospital with complaints of generalized weakness, suicidal ideation. Patient has prior history of bipolar disorder, depression. He is now admitted to inpatient psychiatry unit for further evaluation. Consulted for medical management. Depression, suicidal ideation, anxiety, bipolar disorder - Managed by psychiatry team - Patient states he is on lithium. Obtain lithium level per psych. 0.8. - TSH 1.97 HIV Hepatitis Neutropenia - States last CD4 count 450 about 2 months ago. Repeat level was 52. - Continue HAART medication Truvada and Kaletra - Hepatitis, follow-up as an outpatient with infectious disease - Discuss with patient if he is moving today area he needs to coordinate all his medications properly with infectious disease doctor for follow-up as an outpatient. - Labs reviewed noted WBC 1.9-->4.1, monitor. Neutropenia possibly related to HIV. Recheck CD4 52. Neutropenic precautions. Resolved. - Bactrim started for prophylaxis. Tooth infection The pt states he has a tooth infection that has responded well to penicillin in the past. - PCN ordered. - ibuprofen for pain. - Patient states he has a dentist appointment later this week. - ID reviewed patient record and has signed off, agreeable to plan and current HIV antibiotic regimen. Chronic back pain - Lumbar pain, reports compression fracture from falling off the ladder injury. Has not been treated surgically secondary to lower CD4 count as per patient account - Oxycodone DVT prop ambulatory Patient stable at this time and will sign off, reconsult as needed. Dolores Minaya Jun 07, 2017 11:06
--- NOTE | 2017-06-07 16:27 | HHI.PYPN ---
Subjective Remarks Patient seen for follow-up, chart reviewed. Patient reports he continues to have this pain which is the management of medical team for pain and was given antibiotic treatment for the same. Patient aware that he will need to follow up with outpatient infectious disease service for management of his HIV. Patient states that he is feeling slightly depressed due to some of the intense tooth pain states that his mood lately has been "okay". Patient continues to be worried about what his prognosis with his chronic medical illness will be. Patient at this time denies SI, HI, AVH or delusions. Review of Systems Except as stated in HPI: all other systems reviewed are Neg Objective Alert: Yes [place]: Person, Place, Date Mood: Calm Affect: Appropriate Memory Intact: Comment (intact) Hallucinations: Other (denies) Delusions: No Delusion Type: Other (denies) Suicidal: Ideation (denies today) Homicidal: Ideation (denies) Insight/Judgment Fair insight, impulse control and judgment Vitals/IOs Vital Signs Date Time Temp Pulse Resp B/P (MAP) Pulse Ox O2 Delivery O2 Flow Rate FiO2 06/07/17 06:33 98.1 57 17 100/55 (70) 96 Intake and Output 06/07/17 06/07/17 06/07/17 07:59 15:59 23:59 Intake Total 240 ml Balance 240 ml Assessment & Plan Problem List: (1) Major depressive disorder, single episode, severe without psychotic features ICD Codes: F32.2 - Major depressive disorder, single episode, severe without psychotic features Assessment & Plan Patient at this time continues to respond well to current treatment I will has periods of feeling depressed due to current medical illnesses and recent tooth pain which may require dental intervention after discharge. We'll continue current treatment for now. Patient likely be discharged by the end of the week. Discharge planning in progress Justification for Cont. Inpt. At risk for further decompensation if at lower level of care Jaya Espino MD Jun 07, 2017 16:27
[2017-06-07 18:23] VITALS: BP 102/60; PULSE 61; RESP 17; TEMP 97.9; O2SAT 97
[2017-06-07] MEDS: MIRTAZAPINE 15 MG TAB PO SCH (21:15)
[2017-06-07] MEDS: diphenhydrAMINE HCL 50 MG CAP PO PRN (21:15)
[2017-06-07] MEDS: traZODone HCL 50 MG TAB PO SCH (21:16)
[2017-06-08] MEDS: PENICILLIN V POTASSIUM 250 MG TAB PO SCH ×5 (01:07→22:39)
[2017-06-08] MEDS: IBUPROFEN 800 MG TAB PO PRN ×3 (05:11→21:43)
[2017-06-08] MEDS: hydrOXYzine HCL 50 MG TAB PO PRN (05:19)
[2017-06-08 05:35] VITALS: BP 93/60; PULSE 83; RESP 18; TEMP 98.3; O2SAT 95
[2017-06-08] MEDS: REMOVE OLD PATCH T-DERMAL SCH (09:00)
[2017-06-08] MEDS: NICOTINE 21 MG/24 HR PATCH T-DERMAL SCH (09:00)
[2017-06-08] MEDS: LOPINAVIR/RITONAVIR 200 MG/50 MG TAB PO SCH ×2 (09:05→20:19)
[2017-06-08] MEDS: FOLIC ACID 1 MG TAB PO SCH (09:06)
[2017-06-08] MEDS: THIAMINE HCL 100 MG TAB PO SCH (09:06)
[2017-06-08] MEDS: LITHIUM CARBONATE 300 MG TAB PO SCH ×2 (09:06→20:19)
[2017-06-08] MEDS: EMTRICITABINE/TENOFOVIR 200 MG/300 MG TAB PO SCH (09:06)
--- NOTE | 2017-06-08 10:11 | HHI.HCPN ---
Palliative care follow up, patient declined visit. Patient verbalized not having any questions regarding advance directives previously left in his room. Patient declined assistance with completion of living will or designation of healthcare surrogate decision maker. No further follow-ups at this time. Should you have any questions, please contact palliative care at . Brenda Mora Jun 08, 2017 10:11
[2017-06-08] MEDS: ACETAMINOPHEN 325 MG TAB PO PRN ×2 (11:41→20:18)
--- NOTE | 2017-06-08 16:30 | HHI.PYPN ---
Subjective Remarks Patient seen for follow-up, chart reviewed. Patient found sitting on hospital chair, calm and cooperative with interview. Patient states that he has been feeling "fine", reports feeling somewhat "groggy" in the morning after taking medication to help him sleep. Patient reports wanting to try and sleep without medication this evening.. He reports no longer feeling depressed, is hopeful and no longer having suicidal ideations. Review of Systems Except as stated in HPI: all other systems reviewed are Neg Objective Alert: Yes [place]: Person, Place, Date Mood: Calm Affect: Appropriate Memory Intact: Comment (intact) Hallucinations: Other (denies) Delusions: No Delusion Type: Other (denies) Suicidal: Ideation (denies today) Homicidal: Ideation (denies) Insight/Judgment fair insight, impulse control and judgement Vitals/IOs Vital Signs Date Time Temp Pulse Resp B/P (MAP) Pulse Ox O2 Delivery O2 Flow Rate FiO2 06/08/17 05:35 98.3 83 18 93/60 (71) 95 Intake and Output 06/08/17 06/08/17 06/08/17 07:59 15:59 23:59 Intake Total 240 ml 240 ml Balance 240 ml 240 ml Assessment & Plan Problem List: (1) Major depressive disorder, single episode, severe without psychotic features ICD Codes: F32.2 - Major depressive disorder, single episode, severe without psychotic features Assessment & Plan Patient reports euthymic mood, denies any depressive symptoms or suicidality. Patient to continue treatment. Likely for discharge tomorrow. Justification for Cont. Inpt. At risk for decompensation if at lower level of care Jaya Espino MD Jun 08, 2017 16:30
[2017-06-08 18:17] VITALS: BP 120/62; PULSE 62; RESP 18; TEMP 98.9; O2SAT 98
[2017-06-08] MEDS: traZODone HCL 50 MG TAB PO SCH (20:19)
[2017-06-08] MEDS: MIRTAZAPINE 15 MG TAB PO SCH (20:19)
[2017-06-09 05:12] VITALS: BP 100/62; PULSE 52; RESP 18; TEMP 97.6; O2SAT 94
[2017-06-09] MEDS: PENICILLIN V POTASSIUM 250 MG TAB PO SCH ×2 (05:39→12:00)
[2017-06-09] MEDS: IBUPROFEN 800 MG TAB PO PRN (06:49)
[2017-06-09] MEDS: REMOVE OLD PATCH T-DERMAL SCH (09:00)
[2017-06-09] MEDS: NICOTINE 21 MG/24 HR PATCH T-DERMAL SCH (09:00)
[2017-06-09] MEDS: LITHIUM CARBONATE 300 MG TAB PO SCH (09:15)
[2017-06-09] MEDS: SULFAMETHOXAZOLE-TRIMETHOPRIM DS 800-160 MG TAB PO SCH (09:15)
[2017-06-09] MEDS: FOLIC ACID 1 MG TAB PO SCH (09:15)
[2017-06-09] MEDS: LOPINAVIR/RITONAVIR 200 MG/50 MG TAB PO SCH (09:15)
[2017-06-09] MEDS: THIAMINE HCL 100 MG TAB PO SCH (09:15)
[2017-06-09] MEDS: EMTRICITABINE/TENOFOVIR 200 MG/300 MG TAB PO SCH (09:15)
[2017-06-09] MEDS ORDERED: MIRTA15 PO (10:36)
[2017-06-09] MEDS ORDERED: GNP100TA3 PO (10:36)
[2017-06-09] MEDS ORDERED: SULF1TAB23 PO (10:36)
[2017-06-09] MEDS ORDERED: LITH300T3 PO (10:36)
[2017-06-09] MEDS ORDERED: TRAZ50TA12 PO (10:36)
[2017-06-09] MEDS ORDERED: EMTR1TAB PO (10:36)
[2017-06-09] MEDS ORDERED: FOLI1TAB6 PO (10:36)
[2017-06-09] MEDS ORDERED: KALETRA200 PO (10:36)
[2017-06-09] MEDS ORDERED: NICO21DI25 T-DERMAL (10:36)
--- NOTE | 2017-06-09 10:37 | HHI.DS ---
Psychiatry Discharge Summary Inpatient Psychiatric care?: Yes Advance Directive: No Reason Not Provided: not interested Mental Health AdvanceDirective: No Health Care Proxy: No Admission Admission Date May 28, 2017 at 14:33 Admission Diagnosis: (1) Major depressive disorder, single episode, severe without psychotic features ICD Code: F32.2 - Major depressive disorder, single episode, severe without psychotic features Brief History Patient is a 46 y/o man, single, employed, on disability, domiciled in a hotel, past psychiatric history of bipolar disorder and depression as per patient, 2 prior psychiatric admissions (last 1 year ago), no previous suicide attempts or self injurious behavior, past medical history of HIV, currently with hospice services, recent diagnosis of melanoma (face) who was seen in the ED for weakness but reported feeling depressed with suicidal ideations which psychiatry was consulted for evaluation. Patient was found lying on hospital bed , calm and cooperative with interview. Patient states that he has not been feeling well "I'm at the end" reporting having hospice services. "I know my CD4 cound is low" despite being compliant with his HIV medications. He states that he recently moved here from [place] has last saw his ID physician two months ago. He reports not having any services here at this time. Patient states that he has been drinking more than 12 beers daily since having arrived and reports having disturbed sleep, feeling depressed but denies change in energy, concentration and endorses suicidal ideations. He states "I want to be done, sick of all these pills". Neva deneis any manic or psychotic symptoms but continues to endorse SI at this time. Past psychiatric history: previous diagnosis of depression, bipolar disorder as per pt, 2 prior admissions, no previous suicde attempts or self injurious behaviors. Substance use history : alcohol use as stated above PMH: HIV Allergie: NKDA Social history: single, lives in a hotel, employed, on disability, highest education: master's degree BAL: 189 05/29/17 Patient seen today, found sitting in the common area, calm and cooperative in interview. Patient states that he hasn't feeling "better", reports tolerating mirtazapine at night. Patient states that he is not eating as much as he would like. Patient reports that his current feeling of depression as 6 out of 10 ( 10 being at its worse) patient continued to report suicidal ideations. Patient states that he was previously on lithium prior to him moving to [place] and would like to restart that as he states it was helpful in the past. Tobacco Use In Past 30 Days: 5 or More Cigarettes/Day Alcohol Use: 4 or More Times Per Week Hospital Course Patient is a 46 y/o man, single, employed, on disability, domiciled in a hotel, past psychiatric history of bipolar disorder and depression as per patient, 2 prior psychiatric admissions (last 1 year ago), no previous suicide attempts or self injurious behavior, past medical history of HIV, currently with hospice services, recent diagnosis of melanoma (face) who was seen in the ED for weakness but reported feeling depressed with suicidal ideations which he was admitted to the inpatient psychiatry unit for further evaluation and management. Patient was started on mirtazapine 15mg PO HS, lithium 300mg PO BID for mood stabilization. Patient continued with treatment, responded well to regimen with improved mood, appetite, sleep, noted to be more hopeful and future -oriented. Patient continued on HAART for HIV and was followed closely by the medical team. Patient upon discharge was found to be future-oriented, reports feeling pretty good, had plans to continue current treatment and engage in outpatient medical and mental health follow up for continuity of care. Supportive psychotherapy provided. Results Blood Pressure 100 / 62 Vital Signs Date Time Temp Pulse Resp B/P (MAP) Pulse Ox O2 Delivery O2 Flow Rate FiO2 06/09/17 05:12 97.6 52 18 100/62 (75) 94 Laboratory Tests Test 06/06/17 11:28 Red Cell Distribution Width 17.5 % (11.6-17.2) Platelet Count 146 TH/MM3 (150-450) Random Glucose 68 MG/DL (74-106) Estimat Glomerular Filtration Rate 67 ML/MIN (>89) Laboratory Results Test 05/29/17 12:52 06/03/17 07:50 Cholesterol Level 156 MG/DL (120-200) HDL Cholesterol 45.1 MG/DL (40.0-60.0) Hemoglobin A1c 4.9 % (4.3-6.0) LDL Cholesterol 86 MG/DL (0-99) Triglycerides Level 125 MG/DL (42-150) [place] Level 0.8 MEQ/L (0.5-1.5) Summary of Procedures None Pending results at discharge: No Medications # of Antipsychotic meds at D/C: 0 Approp Antipsych med options 1 - Minimum of three failed multiple trials of monotherapy. 2 - Documented plan to taper to monotherapy due to previous use of multiple meds OR cross-taper in progress at D/C. 3 - Documentation of augmentation of Clozapine. 4 - Justification other than those listed in allowable values 1-3, document here : Discharge Discharge Date: Jun 09, 2017 Discharge Diagnosis: (1) Major depressive disorder, single episode, severe without psychotic features Diagnosis: Principal ICD Code: F32.2 - Major depressive disorder, single episode, severe without psychotic features Mental Status Exam at Disch Appearance/Behavior: appears stated age, in hospital [facility], fair grooming and hygiene, calm and cooperative with interview; fair eye contact; no psychomotor agitation nor retardation noted. Speech: Normal rate tone and prosody Mood: Pretty good Affect: Full, euthymic Thought process: Linear, future oriented, goal directed Thought content: Denies SI, HI, AVH or delusions Insight/impulse control/judgment: Fair Alert and oriented 3 Pt Condition on Discharge: Stable Discharge Disposition: Discharge Home Discharge Instructions Diet Instructions: Heart Healthy Diet Activities you can perform: Regular-No Restrictions Scheduled Appointment: Paul Huertas Appointment Date: Jun 13, 2017 Appointment Time: 730 Discharge Time > 30 minutes Discharge/Advance Care Plan Health Problems: (1) Major depressive disorder, single episode, severe without psychotic features Goals to promote your health * To prevent worsening of your condition and complications * To maintain your health at the optimal level Directions to meet your goals Take your medications as prescribed Follow your dietary instruction Follow activity as directed Keep your appointments as scheduled Take your immunizations and boosters as scheduled If your symptoms worsen call your PCP, if no PCP go to Urgent Care Center or Emergency Room For 24/ questions related to your inpatient stay or results of tests pending at discharge, please contact Dr. Jaya Espino at Smoking is Dangerous to Your Health. Avoid second hand smoking Jaya Espino MD Jun 09, 2017 10:37
== END 2017-06-09 11:40 | disposition home or self-care (01) | DRG 885 ==
LOC: NEPE 09:24 → NEDA 05-28 14:33 → H250 05-28 19:45 → H260 05-29 17:05
PROVIDERS: ADMIT Student in an Organized Health Care Education/Training Program; ATTEND Student in an Organized Health Care Education/Training Program
DX: F32.2 Major depressive disorder, single episode, severe without psychotic features (principal); B20 Human immunodeficiency virus [HIV] disease; C46.0 Kaposi's sarcoma of skin; D70.9 Neutropenia, unspecified; R45.851 Suicidal ideations; Z85.51 Personal history of malignant neoplasm of bladder; G89.29 Other chronic pain; R53.1 Weakness; Z85.820 Personal history of malignant melanoma of skin; K04.7 Periapical abscess without sinus; M54.5 Low back pain; I10 Essential (primary) hypertension; K75.9 Inflammatory liver disease, unspecified; F41.9 Anxiety disorder, unspecified; G47.00 Insomnia, unspecified
CPT/HCPCS: 80048; 80061; 80178; 80307; 81001; 83036; 83735; 84443; 85007; 85025; 85027; 86355; 86357; 86359; 86360; 87536; 93005; 96361; 96374; J2060; J7030; Q0163

== ENCOUNTER 2017-06-27 22:26 | Inpatient (IN) | payer MEDICAID, OTHER ==
[~2017-06-27] VITALS: Ht 185.4 cm; Wt 75.8 kg
[~2017-06-27 22:26] MED LIST changes: +EMTR1TAB PO; -EMTR1TAB5 PO; +FOLI1TAB6 PO; +GNP100TA3 PO; +LITH300T3 PO; +MIRTA15 PO; +NICO21DI25 T-DERMAL; +REME15TA PO; +SULF1TAB23 PO; +TRAZ50TA12 PO
[2017-06-27 22:53] VITALS: BP 135/88; PULSE 90; RESP 18; TEMP 98.9; O2SAT 97
[2017-06-27] MEDS ORDERED: SODIUM CHLOR 0.9% 1000 ML INJ 800 ML IV ONE (22:59)
[2017-06-27] MEDS ORDERED: SODIUM CHLOR 0.9% 1000 ML INJ 1,000 ML IV ONE (22:59)
[2017-06-27] MEDS ORDERED: LORazepam 2 MG/ML VIAL IV PUSH ONE (23:00)
--- NOTE | 2017-06-27 23:17 | PD ---
HPI Chief Complaint: General Weakness Time Seen by Provider: 22:32 Travel History International Travel<30 days: No Contact w/Intl Traveler<30days: No Traveled to known affect area: No History of Present Illness HPI 47-year-old male with history of HIV, last CD4 count in the 40s, on antiretroviral therapy, bladder cancer in remission brought in by ambulance from home for evaluation of generalized weakness. The patient admits to drinking alcohol throughout the day today and believes he may have drank too much alcohol. He admits to drinking about 12 beers today. He denies illicit drug use or IVDU. He is feeling overall generalized weak and is having a nonproductive cough. No fevers. No abdominal pain. He tells me that he is feeling very depressed and no longer wants to live. He denies any toxic ingestions. He was admitted to psychiatry on 05/28/17 and was diagnosed with major depressive disorder. He tells me he is not on any medications for depression. The patient tells me he was approved for hospice care, however has not actually had any hospice care. PFSH Past Medical History Autoimmune Disease: Yes (HIV+) Depression: Yes Cancer: Yes (Melanoma) Cardiovascular Problems: No Diabetes: No Patient Takes Glucophage: No Diminished Hearing: No Genitourinary: Yes (HX BLADDER CA) Headaches: Yes (he states because he is withdrawing ) Hepatitis: Yes (HEP C) Hypertension: Yes Immune Disorder: Yes (HEP C) Musculoskeletal: No Neurologic: No Psychiatric: Yes Reproductive: No Respiratory: No Seizures: No Social History Alcohol Use: Yes (12 PACK DAILY) Tobacco Use: Yes Substance Use: No Allergies-Medications (Allergen,Severity, Reaction): Coded Allergies: No Known Allergies (Unverified , 05/27/17) Reported Meds & Prescriptions Reported Meds & Active Scripts Active Sulfamethoxazole-Trimethoprim 800-160 Mg Tab 1 Tab PO MOWEFR@09 30 Days Gnp Vitamin B-1 (Thiamine HCl) 100 Mg Tab 100 Mg PO DAILY 30 Days Folic Acid 1 Mg Tablet 1 Mg PO DAILY 30 Days [place] Carbonate 300 Mg Tab 300 Mg PO Q12HR 30 Days Kaletra (Lopinavir/Ritonavir) 200-50 Mg Tab 1 Tab PO BID 30 Days Truvada (Emtricitabine-Tenofovir Disoproxil Fumarate) 200-300 Mg Tab 1 Tab PO DAILY 30 Days Reported Remeron (Mirtazapine) 15 Mg Tab 15 Mg PO HS Oxycodone (Oxycodone HCl) 10 Mg Tab 10 Mg PO Q6H PRN Ativan (Lorazepam) 2 Mg Tab 2 Mg PO Q6H PRN Review of Systems Except as stated in HPI: all other systems reviewed are Neg Physical Exam Narrative GENERAL: Well-developed, well-nourished, awake, alert, no apparent distress. SKIN: Focused skin assessment warm/dry. HEAD: Atraumatic. Normocephalic. EYES: Pupils equal and round. No scleral icterus. No injection or drainage. ENT: No nasal bleeding or discharge. Mucous membranes pink and dry. NECK: Trachea midline. No JVD. No nuchal rigidity. CARDIOVASCULAR: Regular rate and rhythm. No murmur appreciated. RESPIRATORY: No accessory muscle use. Clear to auscultation. Breath sounds equal bilaterally. GASTROINTESTINAL: Abdomen soft, non-tender, nondistended. MUSCULOSKELETAL: No obvious deformities. No clubbing. No cyanosis. No edema. NEUROLOGICAL: Awake and alert. No obvious cranial nerve deficits. Motor grossly within normal limits. Normal speech. PSYCHIATRIC: Depressed mood. Flat affect. Data Data Last Documented VS Vital Signs Date Time Temp Pulse Resp B/P (MAP) Pulse Ox O2 Delivery O2 Flow Rate FiO2 06/27/17 23:23 96 06/27/17 22:53 98.9 90 18 Room Air Orders Orders Complete Blood Count With Diff (06/27/17 22:59) Comprehensive Metabolic Panel (06/27/17 22:59) Prothrombin Time / Inr (Pt) (06/27/17 22:59) Act Partial Throm Time (Ptt) (06/27/17 22:59) Urinalysis - C+S If Indicated (06/27/17 22:59) Chest, Single Ap (06/27/17 22:59) Ecg Monitoring (06/27/17 22:59) Iv Access Insert/Monitor (06/27/17 22:59) Oximetry (06/27/17 22:59) Sodium Chlor 0.9% 1000 Ml Inj (Ns 1000 M (06/27/17 22:59) Sodium Chlor 0.9% 1000 Ml Inj (Ns 1000 M (06/27/17 22:59) Creatine Kinase (Cpk) (06/27/17 22:59) Alcohol (Ethanol) (06/27/17 22:59) Lorazepam Inj (Ativan Inj) (06/27/17 23:00) [place] (Li) (06/27/17 23:02) Ceftriaxone Inj (Rocephin Inj) (06/27/17 23:45) Azithromycin Inj (Zithromax Inj) (06/27/17 23:45) Blood Culture (06/27/17 23:43) Sputum Culture And Gram Stain (06/27/17 23:43) Sputum Afb Culture And Stain (06/27/17 23:43) Labs Laboratory Tests Test 06/27/17 23:05 White Blood Count 2.4 TH/MM3 Red Blood Count 4.11 MIL/MM3 Hemoglobin 12.9 GM/DL Hematocrit 37.9 % Mean Corpuscular Volume 92.2 FL Mean Corpuscular Hemoglobin 31.4 PG Mean Corpuscular Hemoglobin Concent 34.0 % Red Cell Distribution Width 17.3 % Platelet Count 118 TH/MM3 Mean Platelet Volume 8.4 FL CBC Comment AUTO DIFF Differential Total Cells Counted 100 Neutrophils % (Manual) 20 % Lymphocytes % 72 % Monocytes % 8 % Neutrophils # (Manual) 0.5 TH/MM3 Differential Comment FINAL DIFF MANUAL Platelet Estimate LOW Platelet Morphology Comment NORMAL Red Cell Morphology Comment NORMAL Prothrombin Time 10.3 SEC Prothromb Time International Ratio 0.9 RATIO Activated Partial Thromboplast Time 26.5 SEC Blood Urea Nitrogen 5 MG/DL Creatinine 0.85 MG/DL Random Glucose 106 MG/DL Total Protein 8.0 GM/DL Albumin 3.0 GM/DL Calcium Level 7.7 MG/DL Alkaline Phosphatase 78 U/L Aspartate Amino Transf (AST/SGOT) 102 U/L Alanine Aminotransferase (ALT/SGPT) 113 U/L Total Bilirubin 0.2 MG/DL Sodium Level 140 MEQ/L Potassium Level 3.4 MEQ/L Chloride Level 108 MEQ/L Carbon Dioxide Level 22.2 MEQ/L Anion Gap 10 MEQ/L Estimat Glomerular Filtration Rate 97 ML/MIN Total Creatine Kinase 112 U/L [place] Level LESS THAN 0.1 MEQ/L Ethyl Alcohol Level 152 MG/DL [facility] Medical Decision Making Medical Screen Exam Complete: Yes Emergency Medical Condition: Yes Medical Record Reviewed: Yes Differential Diagnosis Alcohol intoxication, generalized malaise, depression, metabolic abnormality Narrative Course Vital signs show heart rate 90, blood pressure 135/88, pulse ox 96% on room air , oral temp of 98.9F. CBC shows WBC 2.4, hemoglobin 12.9, hematocrit 37.9, platelets 118, neutrophils 20% manual diff neutrophils 0.5. CMP is markable for AST 102, ALT 113. Alcohol level is 152. Chest x-ray shows right lower lobe infiltrate. Absolute neutrophil count is 480. Blood cultures obtained and the patient was started on IV Rocephin and IV azithromycin. Sputum culture ordered. Patient tells me that he was approved for home hospice by [facility], however has not actually received any hospice care. [facility] was contacted and he is not in their system. He recently moved here from [place] about a month ago and has no local physicians. At this point I believe he requires medical admission for further IV antibiotic therapy for neutropenia and pneumonia. The patient also reports feeling depressed and no longer wishing to live. He will also need a psychiatry evaluation. Case discussed with hospitalist Dr. Phillips who will admit the patient to her service. Diagnosis Primary Impression: Pneumonia Qualified Codes: J18.1 - Lobar pneumonia, unspecified organism Additional Impressions: Neutropenia Qualified Codes: D70.8 - Other neutropenia Alcohol intoxication Qualified Codes: F10.920 - Alcohol use, unspecified with intoxication, uncomplicated Depression with suicidal ideation Admitting Information Admitting Physician Requests: Admit Kenneth Hopper MD Jun 27, 2017 23:17
[2017-06-27 23:18] LABS: HEMATOCRIT 37.9 % (39.0-51.0); MEAN CELL VOLUME 92.2 FL (80.0-100.0); MEAN CORPUSCULAR HEMOGLOBIN 31.4 PG (27.0-34.0); PLATELET COUNT 118 TH/MM3 (150-450); RED BLOOD COUNT 4.11 MIL/MM3 (4.50-5.90); RED CELL DISTRIBUTION WIDTH 17.3 % (11.6-17.2); WHITE BLOOD COUNT 2.4 TH/MM3 (4.0-11.0)
[2017-06-27 23:23] VITALS: O2SAT 96
[2017-06-27 23:30] LABS: HEMO FLAGS AUTO DIFF
--- NOTE | 2017-06-27 23:32 | RADRPT ---
EXAM DATE/TIME: 06/27/2017 23:08 [place] COMPARISON: No previous studies available for comparison. INDICATIONS : Cough for several days. MEDICAL HISTORY : None. SURGICAL HISTORY : None. ENCOUNTER: Initial ACUITY: 1 day PAIN SCORE: 0/10 LOCATION: Bilateral chest FINDINGS: A single portable frontal view the chest is a subtle opacity within the medial right lung base. Remai bruna lungs are clear. No effusions. Heart normal in size. Bony structures are normal. CONCLUSION: Right lower lobe infiltrate. Jasson Matthews Jr., MD on June 27, 2017 at 23:30 Board Certified Radiologist. This report was verified electronically.
[2017-06-27 23:37] LABS: ANION GAP 10 MEQ/L (5-15); AST (GOT) 102 U/L (15-37); BICARBONATE 22.2 MEQ/L (21.0-32.0); BLOOD UREA NITROGEN 5 MG/DL (7-18); CHLORIDE 108 MEQ/L (98-107); GLOMERULAR FILTRATION RATE 97 ML/MIN (>89); POTASSIUM 3.4 MEQ/L (3.5-5.1); SODIUM (NA) 140 MEQ/L (136-145)
[2017-06-27 23:38] LABS: ALT (GPT) 113 U/L (12-78)
[2017-06-27 23:40] LABS: ALKALINE PHOSPHATASE 78 U/L (45-117); CREATINE KINASE 112 U/L (39-308); TOTAL BILIRUBIN ADULT 0.2 MG/DL (0.2-1.0)
[2017-06-27 23:41] LABS: ALCOHOL 152 MG/DL (0-5)
[2017-06-27 23:44] LABS: APTT (PATIENT) 26.5 SEC (24.3-30.1); INTERNATIONAL NORMALIZED RATIO 0.9 RATIO; PROTHROMBIN TIME - PATIENT 10.3 SEC (9.8-11.6)
[2017-06-27] MEDS ORDERED: cefTRIAXone INJ 1,000 MG in SODIUM CHLORIDE 0.9% INJ 100 ML IV ONE (23:45)
[2017-06-27] MEDS ORDERED: AZITHROMYCIN INJ 500 MG in SODIUM CHLOR 0.9% 250 ML INJ 250 ML IV ONE (23:45)
[2017-06-27 23:56] LABS: NEUTROPHIL # MANUAL DIFF 0.5 TH/MM3 (1.8-7.7); POLYS (SEG NEUTROPHILS) 20 % (16-70); WBC DIFF SAMPLE 100
[2017-06-27 23:58] LABS: PLATELET ESTIMATE SMEAR LOW (NORMAL); PLATELET MORPHOLOGY NORMAL (NORMAL); SCAN/DIFF FINAL DIFF MANUAL
[2017-06-28] VITALS (11 sets, daily range): BP systolic 119–148; BP diastolic 76–89; PULSE 53–92; RESP 17–20; TEMP 97.8–98.7; O2SAT 93–97
[2017-06-28] MEDS ORDERED: NALOXONE HCL 0.4 MG/ML AMP IV PUSH PRN (01:00)
[2017-06-28] MEDS ORDERED: SODIUM CHLORIDE 0.9% FLUSH 10 ML FLUSH IV FLUSH PRN (01:00)
--- NOTE | 2017-06-28 03:05 | HHI.HP ---
[facility] Admission Diagnosis pneumonia, neutropenia, EtOH, suicidal ideation Diagnoses: (1) Pneumonia Chief Complaint: weakness, feeling poorly Travel History International Travel<30 Days: No Contact w/Intl Traveler <30 Da: No Traveled to Known Affected Are: No History of Present Illness Written by Estefany Davis, acting as scribe for Dr. Phillips on 06/28/17 at 03:05. Patient states he doesn't feel good. He feels weak. He reports cough with yellow sputum. Symptoms present x 1 day. He reports being brought in to ER by EMS. He is quite sleepy during interview and frequently nods off during visit. Denies any associated nausea, vomiting, diarrhea, dysuria, dizziness, falls, syncopal, black or red stool, dysuria, or hematuria. . Review of Systems Except as stated in HPI: all other systems reviewed are Neg Past Family Social History Past Medical History Hypertension Bladder cancer [place] Sarcoma AIDS - CD4 - 40 about one month ago Denies diabetes, heart problems, breathing problems, liver problems, kidney problems, DVT, PE, CVA, seizures, or thyroid problems . Past Surgical History Bladder cancer resection . Reported Medications Kaletra two pill BID Truvada once a day Oxycodone Remeron [place] Zithromax Ativan Allergies: Coded Allergies: No Known Allergies (Unverified , 05/27/17) Active Ordered Medications . Current Medications Sodium Chloride 1,000 ml @ 1,000 mls/hr Q1H ONCE IV Last administered on 23:13; Start 06/27/17 at 22:59; Stop 06/27/17 at 23:58; Status DC Sodium Chloride 800 ml @ 1,000 mls/hr Q48M ONCE IV Last administered on 00:16; Start 06/27/17 at 22:59; Stop 06/27/17 at 23:46; Status DC Lorazepam (Ativan Inj) 1 mg ONCE ONCE IV PUSH Last administered on 06/27/17 23:13; Start 06/27/17 at 23:00; Stop 06/27/17 at 23:02; Status DC Ceftriaxone Sodium 1000 mg/ Sodium Chloride 100 ml @ 200 mls/hr ONCE ONCE IV Last administered on 06/28/17 00:16; Start 06/27/17 at 23:45; Stop 06/28/17 at 00:14; Status DC Azithromycin 500 mg/Sodium Chloride 250 ml @ 250 mls/hr ONCE ONCE IV Last administered on 06/27/17 00:05; Start 06/27/17 at 23:45; Stop 06/28/17 at 00:44 ; Status DC Sodium Chloride (NS Flush) 2 ml UNSCH PRN IV FLUSH FLUSH AFTER USING IV ACCESS ; Start 06/28/17 at 01:00 Sodium Chloride (NS Flush) 2 ml BID IV FLUSH ; Start 06/28/17 at 09:00 Naloxone HCl (Narcan Inj) 0.4 mg UNSCH PRN IV PUSH SEE LABEL COMMENTS; Start at 01:00 Family History Aunt with brain CA . Social History Tobacco: 1 ppd Alcohol: 12 pack per day Illicit Drugs: denies . Physical Exam Vital Signs Vital Signs Date Time Temp Pulse Resp B/P (MAP) Pulse Ox O2 Delivery O2 Flow Rate FiO2 06/28/17 02:30 98.7 92 18 119/76 (90) 95 06/27/17 23:23 96 06/27/17 22:53 98.9 90 18 135/88 (104) 97 Room Air 06/27/17 22:50 18 Room Air Physical Exam GENERAL: This is a drowsy male patient, in no apparent distress. Smells of alcohol. SKIN: No rashes, ecchymoses or lesions. Cool and dry. HEAD: Atraumatic. Normocephalic. EYES: No scleral icterus. No injection or drainage. ENT: Nose without bleeding, purulent drainage. Airway patent. NECK: Trachea midline. No JVD or lymphadenopathy. Supple, nontender, no meningeal signs. CARDIOVASCULAR: Regular rate and rhythm without murmurs, gallops, or rubs. RESPIRATORY: Clear to auscultation. Breath sounds equal bilaterally. No wheezes , rales, or rhonchi. GASTROINTESTINAL: Abdomen soft, non-tender, nondistended. No guarding. MUSCULOSKELETAL: Extremities without clubbing, cyanosis, or edema. No calf tenderness. NEUROLOGICAL: Drowsy. Motor and sensory grossly within normal limits. Normal speech. . Laboratory Laboratory Tests Test 06/27/17 23:05 White Blood Count 2.4 Red Blood Count 4.11 Hemoglobin 12.9 Hematocrit 37.9 Mean Corpuscular Volume 92.2 Mean Corpuscular Hemoglobin 31.4 Mean Corpuscular Hemoglobin Concent 34.0 Red Cell Distribution Width 17.3 Platelet Count 118 Mean Platelet Volume 8.4 CBC Comment AUTO DIFF Differential Total Cells Counted 100 Neutrophils % (Manual) 20 Lymphocytes % 72 Monocytes % 8 Neutrophils # (Manual) 0.5 Differential Comment FINAL DIFF MANUAL Platelet Estimate LOW Platelet Morphology Comment NORMAL Red Cell Morphology Comment NORMAL Prothrombin Time 10.3 Prothromb Time International Ratio 0.9 Activated Partial Thromboplast Time 26.5 Blood Urea Nitrogen 5 Creatinine 0.85 Random Glucose 106 Total Protein 8.0 Albumin 3.0 Calcium Level 7.7 Alkaline Phosphatase 78 Aspartate Amino Transf (AST/SGOT) 102 Alanine Aminotransferase (ALT/SGPT) 113 Total Bilirubin 0.2 Sodium Level 140 Potassium Level 3.4 Chloride Level 108 Carbon Dioxide Level 22.2 Anion Gap 10 Estimat Glomerular Filtration Rate 97 Total Creatine Kinase 112 [place] Level LESS THAN 0.1 Ethyl Alcohol Level 152 Date/Time Source Procedure Growth Status 06/28/17 00:10 Blood Peripheral Aerobic Blood Culture Pending Received 06/28/17 00:10 Blood Peripheral Anaerobic Blood Culture Pending Received 06/28/17 00:05 Sputum Expectorated Sputum Acid Fast Stain Pending Received 06/28/17 00:05 Sputum Expectorated Sputum Mycobacterial Culture Pending Received Result Diagram: 06/27/[id number]/27/[id number] Imaging Last Impressions Chest X-Ray 06/27/172258 Signed Impressions: Service Date/Time: Tuesday, June 27, 2017 23:08 - CONCLUSION: Right lower lobe infiltrate. Jasson Matthews Jr., MD . Caprini VTE Risk Assessment Caprini VTE Risk Assessment: Mod/High Risk (score >= 2) Caprini Risk Assessment Model Point Value = 1 Point Value = 2 Point Value = 3 Point Value = 5 Age 41-60 Minor surgery BMI > 25 kg/m2 Swollen legs Varicose veins or History of unexplained or recurrent spontaneous Oral contraceptives or hormone replacement Sepsis (< 1 month) Serious lung disease, including pneumonia (< 1 month) Abnormal pulmonary function Acute myocardial infarction Congestive heart failure (< 1 month) History of inflammatory bowel disease Medical patient at bed rest Age 61-74 Arthroscopic surgery Major open surgery (> 45 min) Laparoscopic surgery (> 45 min) Malignancy Confined to bed (> 72 hours) Immobilizing plaster cast Central venous access Age >= 75 History of VTE Family history of VTE Factor V Leiden Prothrombin [id number] Lupus anticoagulant Anticardiolipin antibodies Elevated serum homocysteine Heparin-induced thrombocytopenia Other congenital or acquired thrombophilia Stroke (< 1 month) Elective arthroplasty Hip, pelvis, or leg fracture Acute spinal cord injury (< 1 month) Prophylaxis Regimen Total Risk Factor Score Risk Level Prophylaxis Regimen 0-1 Low Early ambulation 2 Moderate Order ONE of the following: *Sequential Compression Device (SCD) *Heparin 5000 units SQ BID 3-4 Higher Order ONE of the following medications: *Heparin 5000 units SQ TID *Enoxaparin/Lovenox 40 mg SQ daily (WT < 150 kg, CrCl > 30 mL/min) *Enoxaparin/Lovenox 30 mg SQ daily (WT < 150 kg, CrCl > 10-29 mL/min) *Enoxaparin/Lovenox 30 mg SQ BID (WT < 150 kg, CrCl > 30 mL/min) AND/OR *Sequential Compression Device (SCD) 5 or more Highest Order ONE of the following medications: *Heparin 5000 units SQ TID (Preferred with Epidurals) *Enoxaparin/Lovenox 40 mg SQ daily (WT < 150 kg, CrCl > 30 mL/min) *Enoxaparin/Lovenox 30 mg SQ daily (WT < 150 kg, CrCl > 10-29 mL/min) *Enoxaparin/Lovenox 30 mg SQ BID (WT < 150 kg, CrCl > 30 mL/min) AND *Sequential Compression Device (SCD) Assessment and Plan Problem List: (1) Pneumonia ICD Code: J18.9 - Pneumonia, unspecified organism Status: Acute (2) Neutropenia ICD Code: D70.9 - Neutropenia, unspecified Status: Acute (3) Alcohol withdrawal ICD Code: F10.239 - Alcohol dependence with withdrawal, unspecified Assessment and Plan 47 y/o male with HIV/AIDS who presented to the ED with generalized weakness: Pneumonia, right lower lobe infiltrate on CXR - Rocephin and Azithromycin IV in Ed - Antibiotics: Cefepime 2 gm q12h IV and Clindamycin 600 mg q6h IV - consult infectious disease specialist - appreciate assistance - physical therapy to prevent deconditioning - check CD4 and CD8 counts Neutropenia - neutropenic precautions - monitor CBC Alcohol withdrawal anticipated - Ativan 1 mg IV q2h withdrawal symptoms - Librium 25 mg TID p.o. - Protonix 40 mg p.o. daily DVT prophylaxis - Lovenox 40 mg qday - closely monitor platelets . This note was transcribed by scribe [Estefany Davis]. I, Dr. Fabiola Phillips personally performed the history, physical exam, and medical decision making; and confirmed the accuracy of the information in the transcribed note. Authenticated by Dr. Fabiola Phillips on 06/28/17 at 03:05. Discussed Condition With ER physician, patient, and RN . Problem Qualifiers (1) Pneumonia: Qualified Codes: J18.1 - Lobar pneumonia, unspecified organism (2) Neutropenia: Qualified Codes: D70.8 - Other neutropenia Estefany Davis Jun 28, 2017 03:05 Fabiola Phillips MD Jun 28, 2017 05:48
[2017-06-28] MEDS: CLINDAMYCIN INJ 600 MG in SODIUM CHLORIDE 0.9% INJ 100 ML IV SCH ×2 (03:54→11:15)
[2017-06-28] MEDS: LORazepam 2 MG/ML VIAL IV PUSH PRN ×3 (06:03→21:17)
[2017-06-28] MEDS ORDERED: CEFEPIME INJ 2,000 MG in SODIUM CHLORIDE 0.9% INJ 100 ML IV SCH (09:00)
[2017-06-28] MEDS: FOLIC ACID 1 MG TAB PO SCH (10:17)
[2017-06-28] MEDS: LACTOBACILLUS ACIDOPHILUS TAB PO SCH ×3 (10:17→18:38)
[2017-06-28] MEDS: THIAMINE HCL 100 MG TAB PO SCH (10:17)
[2017-06-28] MEDS: ENOXAPARIN SODIUM 40 MG/0.4 ML SYRINGE SQ SCH (10:18)
[2017-06-28] MEDS: LITHIUM CARBONATE 300 MG TAB PO SCH ×2 (10:18→20:54)
[2017-06-28] MEDS: chlordiazePOXIDE 25 MG CAP PO SCH ×3 (10:18→18:39)
[2017-06-28] MEDS: PANTOPRAZOLE SOD 40 MG DELAYED RELEASE TAB PO SCH (10:18)
[2017-06-28] MEDS: EMTRICITABINE/TENOFOVIR 200 MG/300 MG TAB PO SCH (10:19)
[2017-06-28] MEDS: LOPINAVIR/RITONAVIR 200 MG/50 MG TAB PO SCH ×2 (10:19→20:54)
[2017-06-28] MEDS: SULFAMETHOXAZOLE-TRIMETHOPRIM DS 800-160 MG TAB PO SCH (10:19)
[2017-06-28] MEDS: SODIUM CHLORIDE 0.9% FLUSH 10 ML FLUSH IV FLUSH SCH ×2 (10:28→20:55)
--- NOTE | 2017-06-28 15:03 | MB ---
cc: KISHAN MURILLO MD,BETINA CANNON DATE OF CONSULTATION: 06/28/[address] Phillips. REASON FOR CONSULTATION AIDS patient with neutropenic fever. Pneumonia. HISTORY OF PRESENT ILLNESS This is a 47-year-old white male who has HIV disease. The patient presented to the emergency department yesterday evening with generalized weakness. He states that this began two days ago. He started feeling generally weak and he also notes having a nonproductive cough and also some diarrhea. He states that he feels rundown like he is getting the flu. The patient also was noted to be consuming alcohol heavily throughout the day yesterday. He was noted to have a white count of 2.4 and elevated liver function tests and a high alcohol level. Chest x-ray was obtained and it shows a right lower lobe infiltrate. The patient notes that his CD4 count was 50 last month. He is on HIV medication and states that he is taking his medication regularly. The patient was noted to be very sleepy during the interview by another physician yesterday evening. Currently he is awake but he does look somewhat drowsy. PAST MEDICAL HISTORY 1. Hypertension. 2. Bladder cancer. 3. Kaposi's sarcoma. 4. AIDS. PAST SURGICAL HISTORY Significant for bladder cancer resection. ALLERGIES No known drug allergies. MEDICATIONS 1. Truvada. 2. Kaletra. 3. Protonix. 4. Lovenox. 5. Lactinex. 6. Remeron. 7. [place] carbonate. 8. Folic acid. 9. Bactrim. 10.Clindamycin. 11.Thiamine. SOCIAL HISTORY The patient smokes a pack of cigarettes a day. Positive alcohol. No illicit drugs reported. FAMILY HISTORY Noncontributory. REVIEW OF SYSTEMS Pertinent features mentioned above. Otherwise negative on 10-point review. PHYSICAL EXAMINATION GENERAL: This is a slender male who is awake and alert although somewhat drowsy. He is in no acute distress. VITAL SIGNS: Temperature 98.1, BP 127/81, respirations 20, heart rate 70. HEENT: Head is head is atraumatic. Extraocular movements grossly intact. Pupils reactive to light. No icterus. No conjunctival erythema. Nasal septum is midline. Oropharynx moist mucosa without visible lesions. NECK: Supple. No adenopathy. LUNGS: Rhonchi at the right base. HEART: Regular S1 and S2. No murmurs. ABDOMEN: Bowel sounds present. Soft, nontender. RECTAL: Not performed. EXTREMITIES: No clubbing, cyanosis or edema. SKIN: No rash. NEUROLOGIC: No gross focal findings. PSYCHIATRIC: The patient is calm, however, his affect appears somewhat flat. LABORATORY DATA WBC 2.4, platelets 118, 20% neutrophils, 72% lymphocytes, hemoglobin 12.9, creatinine 0.85, BUN 5, sodium 140, AST 102, ALT 113. Sputum culture pending. Blood culture pending. IMPRESSION 1. Right lower lobe pneumonia. 2. HIV disease/AIDS. 3. Leukopenia and elevated liver function tests, likely secondary to alcohol effect. RECOMMENDATIONS 1. Discontinue cefepime. 2. Discontinue clindamycin. 3. Begin ceftriaxone. 4. Begin azithromycin. 5. Continue treatment for HIV disease with the patient's current HIV medications. 6. Monitor the patient's clinical response. 7. Monitor white blood cell count. 8. Monitor blood cultures. Thank you for this consultation. I will follow the patient's progress with you and make further recommendations upon follow-up if necessary. Kishan Murillo MD FD/STEVO /2:01 PM /2:45 PM
[2017-06-28] MEDS: AZITHROMYCIN 250 MG TAB PO SCH (15:15)
[2017-06-28] MEDS: cefTRIAXone INJ 2,000 MG in SODIUM CHLORIDE 0.9% INJ 100 ML IV SCH (16:42)
[2017-06-28] MEDS: MIRTAZAPINE 15 MG TAB PO SCH (20:54)
[2017-06-29] VITALS (10 sets, daily range): BP systolic 97–145; BP diastolic 66–80; PULSE 68–90; RESP 18–20; TEMP 97.7–99.3; O2SAT 95–97
[2017-06-29 06:43] LABS: AUTOMATED NEUTROPHIL # 0.8 TH/MM3 (1.8-7.7); BASOPHIL % 0.1 % (0.0-2.0); EOSINOPHIL # 0.1 TH/MM3 (0-0.4); EOSINOPHIL % 4.1 % (0.0-4.0); HEMATOCRIT 38.9 % (39.0-51.0); LYMPH % 46.1 % (9.0-44.0); MEAN CORPUSCULAR HEMOGLOBIN 31.4 PG (27.0-34.0); MEAN CORPUSCULAR HGB CONC 33.7 % (32.0-36.0); MONO % 13.2 % (0.0-8.0); NEUT % 36.5 % (16.0-70.0); PLATELET COUNT 91 TH/MM3 (150-450); RED BLOOD COUNT 4.18 MIL/MM3 (4.50-5.90); RED CELL DISTRIBUTION WIDTH 16.9 % (11.6-17.2); WHITE BLOOD COUNT 2.2 TH/MM3 (4.0-11.0)
[2017-06-29 06:51] LABS: HEMO FLAGS AUTO DIFF
[2017-06-29 07:08] LABS: BICARBONATE 24.6 MEQ/L (21.0-32.0); POTASSIUM 3.3 MEQ/L (3.5-5.1)
[2017-06-29 07:29] LABS: BANDS 1 % (0-6); EOSINOPHILS 5 % (0-4); NEUTROPHIL # MANUAL DIFF 1.1 TH/MM3 (1.8-7.7); POLYS (SEG NEUTROPHILS) 51 % (16-70); WBC DIFF SAMPLE 100
[2017-06-29 07:32] LABS: PLATELET ESTIMATE SMEAR LOW (NORMAL); PLATELET MORPHOLOGY NORMAL (NORMAL); SCAN/DIFF FINAL DIFF MANUAL
[2017-06-29] MEDS: PANTOPRAZOLE SOD 40 MG DELAYED RELEASE TAB PO SCH (09:08)
[2017-06-29] MEDS: SODIUM CHLORIDE 0.9% FLUSH 10 ML FLUSH IV FLUSH SCH ×2 (09:08→20:40)
[2017-06-29] MEDS: LOPINAVIR/RITONAVIR 200 MG/50 MG TAB PO SCH ×2 (09:10→20:40)
[2017-06-29] MEDS: AZITHROMYCIN 250 MG TAB PO SCH (09:10)
[2017-06-29] MEDS: FOLIC ACID 1 MG TAB PO SCH (09:10)
[2017-06-29] MEDS: EMTRICITABINE/TENOFOVIR 200 MG/300 MG TAB PO SCH (09:10)
[2017-06-29] MEDS: THIAMINE HCL 100 MG TAB PO SCH (09:10)
[2017-06-29] MEDS: LACTOBACILLUS ACIDOPHILUS TAB PO SCH ×3 (09:10→17:32)
[2017-06-29] MEDS: LITHIUM CARBONATE 300 MG TAB PO SCH ×2 (09:11→20:40)
[2017-06-29] MEDS: chlordiazePOXIDE 25 MG CAP PO SCH ×3 (09:11→17:32)
[2017-06-29] MEDS: ENOXAPARIN SODIUM 40 MG/0.4 ML SYRINGE SQ SCH (10:45)
[2017-06-29] MEDS: LORazepam 2 MG/ML VIAL IV PUSH PRN ×2 (12:01→18:38)
--- NOTE | 2017-06-29 13:00 | HHI.IDPN ---
Note Infectious Disease Note Patient says he feels a little better. Notes that he is coughing up slight yellow sputum and gets anterior chest pain. Afebrile. No chills. (+) SOB. PAST MEDICAL HISTORY 1. Hypertension. 2. Bladder cancer. 3. Kaposi's sarcoma. 4. AIDS. PAST SURGICAL HISTORY Significant for bladder cancer resection. ALLERGIES No known drug allergies. MEDICATIONS 1. Ceftriaxone. 2. Bactrim. 3. Azithromycin. SOCIAL HISTORY The patient smokes a pack of cigarettes a day. Positive alcohol. No illicit drugs reported. OBJECTIVE: Vital Signs Date Time Temp Pulse Resp B/P (MAP) Pulse Ox O2 Delivery O2 Flow Rate FiO2 06/29/17 11:51 77 06/29/17 08:00 99.0 80 20 114/80 (91) 95 06/29/17 08:00 68 06/29/17 04:00 68 06/29/17 04:00 98.2 81 18 121/75 (90) 95 06/29/17 03:01 90 06/29/17 00:00 97.7 74 18 145/75 (98) 95 06/28/17 22:15 16 06/28/17 22:10 97.8 66 17 148/89 (108) 95 06/28/17 19:18 98.1 70 18 128/85 (99) 97 06/28/17 16:39 53 06/28/17 14:50 98.2 70 129/76 (93) 97 Laboratory Tests Test 06/27/17 23:05 06/29/17 05:56 White Blood Count 2.4 TH/MM3 2.2 TH/MM3 Red Blood Count 4.11 MIL/MM3 4.18 MIL/MM3 Hemoglobin 12.9 GM/DL 13.1 GM/DL Hematocrit 37.9 % 38.9 % Mean Corpuscular Volume 92.2 FL 93.0 FL Mean Corpuscular Hemoglobin 31.4 PG 31.4 PG Mean Corpuscular Hemoglobin Concent 34.0 % 33.7 % Red Cell Distribution Width 17.3 % 16.9 % Platelet Count 118 TH/MM3 91 TH/MM3 Mean Platelet Volume 8.4 FL 9.7 FL CBC Comment AUTO DIFF AUTO DIFF Differential Total Cells Counted 100 100 Neutrophils % (Manual) 20 % 51 % Lymphocytes % 72 % 24 % Monocytes % 8 % 19 % Neutrophils # (Manual) 0.5 TH/MM3 1.1 TH/MM3 Differential Comment FINAL DIFF MANUAL FINAL DIFF MANUAL Platelet Estimate LOW LOW Platelet Morphology Comment NORMAL NORMAL Red Cell Morphology Comment NORMAL Neutrophils (%) (Auto) 36.5 % Lymphocytes (%) (Auto) 46.1 % Monocytes (%) (Auto) 13.2 % Eosinophils (%) (Auto) 4.1 % Basophils (%) (Auto) 0.1 % Neutrophils # (Auto) 0.8 TH/MM3 Lymphocytes # (Auto) 1.0 TH/MM3 Monocytes # (Auto) 0.3 TH/MM3 Eosinophils # (Auto) 0.1 TH/MM3 Basophils # (Auto) 0.0 TH/MM3 Band Neutrophils % 1 % Eosinophils % 5 % Laboratory Tests Test 06/27/17 23:05 06/29/17 05:56 Blood Urea Nitrogen 5 MG/DL 5 MG/DL Creatinine 0.85 MG/DL 0.90 MG/DL Random Glucose 106 MG/DL 97 MG/DL Total Protein 8.0 GM/DL Albumin 3.0 GM/DL Calcium Level 7.7 MG/DL 7.7 MG/DL Alkaline Phosphatase 78 U/L Aspartate Amino Transf (AST/SGOT) 102 U/L Alanine Aminotransferase (ALT/SGPT) 113 U/L Total Bilirubin 0.2 MG/DL Sodium Level 140 MEQ/L 137 MEQ/L Potassium Level 3.4 MEQ/L 3.3 MEQ/L Chloride Level 108 MEQ/L 106 MEQ/L Carbon Dioxide Level 22.2 MEQ/L 24.6 MEQ/L Anion Gap 10 MEQ/L 6 MEQ/L Estimat Glomerular Filtration Rate 97 ML/MIN 91 ML/MIN Total Creatine Kinase 112 U/L Microbiology Date/Time Source Procedure Growth Status 06/28/17 00:10 Blood Peripheral Aerobic Blood Culture - Preliminary NO GROWTH IN 1 DAY Resulted 06/28/17 00:10 Blood Peripheral Anaerobic Blood Culture - Preliminary NO GROWTH IN 1 DAY Resulted 06/28/17 00:05 Blood Peripheral Aerobic Blood Culture - Preliminary NO GROWTH IN 1 DAY Resulted 06/28/17 00:05 Blood Peripheral Anaerobic Blood Culture - Preliminary NO GROWTH IN 1 DAY Resulted 06/28/17 00:05 Sputum Expectorated Sputum Acid Fast Stain - Final NO ACID FAST BACILLI SEEN Resulted 06/28/17 00:05 Sputum Expectorated Sputum Mycobacterial Culture Pending Resulted 06/28/17 00:05 Sputum Expectorated Sputum Gram Stain - Final Resulted 06/28/17 00:05 Sputum Expectorated Sputum Sputum Culture - Preliminary HEAVY GROWTH NORMAL RESPIRATORY ELIZABETH... Resulted PHYSICAL EXAMINATION GENERAL: No acute distress. HEENT: No icterus. No conjunctival erythema. Nasal septum is midline. Oropharynx moist mucosa without visible lesions. NECK: Supple. No adenopathy. LUNGS: Rhonchi at the right base. HEART: Regular S1 and S2. No murmurs. ABDOMEN: Bowel sounds present. Soft, nontender. EXTREMITIES: No clubbing, cyanosis or edema. SKIN: No rash. NEUROLOGIC: No gross focal findings. PSYCHIATRIC: The patient is calm. IMPRESSION 1. Right lower lobe pneumonia. 2. HIV disease/AIDS. 3. Leukopenia and elevated liver function tests, likely secondary to alcohol effect. RECOMMENDATIONS 1. Continue ceftriaxone. 2. Continue azithromycin. 3. Continue treatment for HIV disease with the patient's current HIV medications. 4. Monitor the patient's clinical response. 5. Monitor white blood cell count. 6. Monitor blood cultures. Kishan Prasad MD Jun 29, 2017 13:00
--- NOTE | 2017-06-29 14:18 | HHI.PR ---
Subjective Remarks Patient in bed, still have some cough He requested to have psychiatry because he feels significantly down, I discussed with the nurse no clear suicide ideation No fever or chills Objective Vitals Vital Signs Date Time Temp Pulse Resp B/P (MAP) Pulse Ox O2 Delivery O2 Flow Rate FiO2 06/29/17 12:00 99.2 78 20 105/75 (85) 97 06/29/17 11:51 77 06/29/17 08:00 99.0 80 20 114/80 (91) 95 06/29/17 08:00 68 06/29/17 04:00 68 06/29/17 04:00 98.2 81 18 121/75 (90) 95 06/29/17 03:01 90 06/29/17 00:00 97.7 74 18 145/75 (98) 95 06/28/17 22:15 16 06/28/17 22:10 97.8 66 17 148/89 (108) 95 06/28/17 19:18 98.1 70 18 128/85 (99) 97 06/28/17 16:39 53 06/28/17 14:50 98.2 70 129/76 (93) 97 I/O 06/28/17 06/28/17 06/28/17 06/29/17 06/29/17 06/29/17 07:00 15:00 23:00 07:00 15:00 23:00 Intake Total 2250 ml Output Total 200 ml 1800 ml 1000 ml Balance 2050 ml -1800 ml -1000 ml Intake IV Total 2250 ml Output Urine Total 200 ml 1800 ml 1000 ml # Voids 1 # Bowel Movements 1 Result Diagram: 06/29/17 0556 06/29/17 0556 Objective Remarks GENERAL: This is a well-nourished, well-developed patient, in no apparent distress. SKIN: No rashes, warm and dry HEAD: Atraumatic. Normocephalic. EYES: Pupils equal round and reactive. Extraocular motions intact. No scleral icterus. ENT: Nose without bleeding, or drainage, Airway patent. NECK: Trachea midline. Supple CARDIOVASCULAR: Regular rate and rhythm without murmurs, gallops, or rubs. RESPIRATORY: Genesis breath sounds bibasilar but more on the right side GASTROINTESTINAL: Abdomen soft, non-tender, nondistended. Positive bowel sounds MUSCULOSKELETAL: Extremities without clubbing, cyanosis, or edema. Pedal pulses appreciated NEUROLOGICAL: Awake and alert. Moves all extremity. Normal speech.no focal neurological deficit A/P Problem List: (1) Pneumonia ICD Code: J18.9 - Pneumonia, unspecified organism Status: Acute (2) Neutropenia ICD Code: D70.9 - Neutropenia, unspecified Status: Acute (3) Alcohol withdrawal ICD Code: F10.239 - Alcohol dependence with withdrawal, unspecified Assessment and Plan 47 y/o male with HIV/AIDS who presented to the ED with generalized weakness: Pneumonia, right lower lobe infiltrate on CXR - Rocephin and Azithromycin IV in Ed - Antibiotics: Cefepime 2 gm q12h IV and Clindamycin 600 mg q6h IV -Appreciate ID consultation, recommended continuing iv antibiotic as above, and follow culture - physical therapy to prevent deconditioning Depressed mood, patient requested psych consult -Psychiatry consulted Neutropenia still at 2.2 - neutropenic precautions - monitor CBC Alcohol withdrawal anticipated - Ativan 1 mg IV q2h withdrawal symptoms - Librium 25 mg TID p.o. - Protonix 40 mg p.o. daily DVT prophylaxis - Lovenox 40 mg qday - closely monitor platelets Problem Qualifiers (1) Pneumonia: Qualified Codes: J18.1 - Lobar pneumonia, unspecified organism (2) Neutropenia: Qualified Codes: D70.8 - Other neutropenia Dagoberto Blake MD Jun 29, 2017 14:18
[2017-06-29] MEDS: cefTRIAXone INJ 2,000 MG in SODIUM CHLORIDE 0.9% INJ 100 ML IV SCH (16:49)
[2017-06-29] MEDS: MIRTAZAPINE 15 MG TAB PO SCH (20:41)
[2017-06-29 22:27] LABS: BLOOD, URINE NEG (NEG); GLUCOSE,URINE NEG (NEG); KETONE, URINE NEG (NEG); NITRITE,URINE NEG (NEG); PH, URINE 6.5 (5.0-8.5); URINE COLOR LIGHT-YELLOW (YELLW/STRAW)
[2017-06-29 22:28] LABS: COMMENT (UR) CATH-CULT NOT IND; CULTURE IF INDICATED CATH CULTURE NOT IND
[2017-06-30] VITALS (12 sets, daily range): BP systolic 103–153; BP diastolic 61–71; PULSE 64–75; RESP 18–19; TEMP 96.2–98.9; O2SAT 94–99
[2017-06-30 03:52] LABS: CD4/CD8 RATIO 0.1 (0.86-5.00)
[2017-06-30] MEDS: LACTOBACILLUS ACIDOPHILUS TAB PO SCH ×3 (08:22→17:00)
[2017-06-30] MEDS: ENOXAPARIN SODIUM 40 MG/0.4 ML SYRINGE SQ SCH (08:22)
[2017-06-30] MEDS: LITHIUM CARBONATE 300 MG TAB PO SCH ×2 (08:23→20:19)
[2017-06-30] MEDS: FOLIC ACID 1 MG TAB PO SCH (08:23)
[2017-06-30] MEDS: SULFAMETHOXAZOLE-TRIMETHOPRIM DS 800-160 MG TAB PO SCH (08:23)
[2017-06-30] MEDS: EMTRICITABINE/TENOFOVIR 200 MG/300 MG TAB PO SCH (08:23)
[2017-06-30] MEDS: chlordiazePOXIDE 25 MG CAP PO SCH ×3 (08:23→17:00)
[2017-06-30] MEDS: THIAMINE HCL 100 MG TAB PO SCH (08:23)
[2017-06-30] MEDS: AZITHROMYCIN 250 MG TAB PO SCH (08:23)
[2017-06-30] MEDS: LOPINAVIR/RITONAVIR 200 MG/50 MG TAB PO SCH ×2 (08:23→20:16)
[2017-06-30] MEDS: PANTOPRAZOLE SOD 40 MG DELAYED RELEASE TAB PO SCH (08:23)
[2017-06-30] MEDS: LORazepam 2 MG/ML VIAL IV PUSH PRN ×3 (08:24→22:14)
[2017-06-30] MEDS: SODIUM CHLORIDE 0.9% FLUSH 10 ML FLUSH IV FLUSH SCH ×2 (08:24→20:19)
--- NOTE | 2017-06-30 12:12 | HHI.IDPN ---
Note Infectious Disease Note Patient is comfortable on room air. Notes that he is still coughing up slight yellow sputum and gets anterior chest pain. Notes diarrhea. 4 stools today. Afebrile. No chills. Less SOB. PAST MEDICAL HISTORY 1. Hypertension. 2. Bladder cancer. 3. Kaposi's sarcoma. 4. AIDS. PAST SURGICAL HISTORY Significant for bladder cancer resection. ALLERGIES No known drug allergies. MEDICATIONS 1. Ceftriaxone. 2. Azithromycin. Bactrim prophylaxis. SOCIAL HISTORY The patient smokes a pack of cigarettes a day. Positive alcohol. No illicit drugs reported. OBJECTIVE: Vital Signs Date Time Temp Pulse Resp B/P (MAP) Pulse Ox O2 Delivery O2 Flow Rate FiO2 06/30/17 12:01 75 06/30/17 08:02 67 06/30/17 08:00 96.2 70 19 112/69 (83) 99 06/30/17 04:04 64 06/30/17 04:00 97.8 66 18 106/66 (79) 95 06/30/17 00:34 98.9 73 18 103/71 (82) 94 06/30/17 00:01 71 06/29/17 20:07 76 06/29/17 20:00 99.1 80 20 97/66 (76) 96 06/29/17 16:50 99.3 70 20 106/72 (83) 97 06/29/17 16:00 70 Laboratory Tests Test 06/29/17 05:56 White Blood Count 2.2 TH/MM3 Red Blood Count 4.18 MIL/MM3 Hemoglobin 13.1 GM/DL Hematocrit 38.9 % Mean Corpuscular Volume 93.0 FL Mean Corpuscular Hemoglobin 31.4 PG Mean Corpuscular Hemoglobin Concent 33.7 % Red Cell Distribution Width 16.9 % Platelet Count 91 TH/MM3 Mean Platelet Volume 9.7 FL Neutrophils (%) (Auto) 36.5 % Lymphocytes (%) (Auto) 46.1 % Monocytes (%) (Auto) 13.2 % Eosinophils (%) (Auto) 4.1 % Basophils (%) (Auto) 0.1 % Neutrophils # (Auto) 0.8 TH/MM3 Lymphocytes # (Auto) 1.0 TH/MM3 Monocytes # (Auto) 0.3 TH/MM3 Eosinophils # (Auto) 0.1 TH/MM3 Basophils # (Auto) 0.0 TH/MM3 CBC Comment AUTO DIFF Differential Total Cells Counted 100 Neutrophils % (Manual) 51 % Band Neutrophils % 1 % Lymphocytes % 24 % Monocytes % 19 % Eosinophils % 5 % Neutrophils # (Manual) 1.1 TH/MM3 Differential Comment FINAL DIFF MANUAL Platelet Estimate LOW Platelet Morphology Comment NORMAL Laboratory Tests Test 06/29/17 05:56 Blood Urea Nitrogen 5 MG/DL Creatinine 0.90 MG/DL Random Glucose 97 MG/DL Calcium Level 7.7 MG/DL Sodium Level 137 MEQ/L Potassium Level 3.3 MEQ/L Chloride Level 106 MEQ/L Carbon Dioxide Level 24.6 MEQ/L Anion Gap 6 MEQ/L Estimat Glomerular Filtration Rate 91 ML/MIN Microbiology Date/Time Source Procedure Growth Status 06/28/17 00:10 Blood Peripheral Aerobic Blood Culture - Preliminary NO GROWTH IN 2 DAYS Resulted 06/28/17 00:10 Blood Peripheral Anaerobic Blood Culture - Preliminary NO GROWTH IN 2 DAYS Resulted 06/28/17 00:05 Blood Peripheral Aerobic Blood Culture - Preliminary NO GROWTH IN 2 DAYS Resulted 06/28/17 00:05 Blood Peripheral Anaerobic Blood Culture - Preliminary NO GROWTH IN 2 DAYS Resulted 06/28/17 00:05 Sputum Expectorated Sputum Acid Fast Stain - Final NO ACID FAST BACILLI SEEN Resulted 06/28/17 00:05 Sputum Expectorated Sputum Mycobacterial Culture Pending Resulted 06/28/17 00:05 Sputum Expectorated Sputum Gram Stain - Final Complete 06/28/17 00:05 Sputum Expectorated Sputum Sputum Culture - Final HEAVY GROWTH NORMAL RESPIRATORY ELIZABETH Complete PHYSICAL EXAMINATION GENERAL: No acute distress. HEENT: No icterus. No conjunctival erythema. Nasal septum is midline. Oropharynx moist mucosa without visible lesions. NECK: Supple. No adenopathy. LUNGS: Rhonchi at the right base. Breath sounds decreased. HEART: Regular S1 and S2. No murmurs. ABDOMEN: Bowel sounds present. Soft, nontender. EXTREMITIES: No clubbing, cyanosis or edema. SKIN: No rash. NEUROLOGIC: No gross focal findings. PSYCHIATRIC: The patient is calm. Anxious. IMPRESSION 1. Right lower lobe pneumonia. 2. HIV disease/AIDS. 3. Leukopenia and elevated liver function tests, likely secondary to alcohol effect vs HIV. RECOMMENDATIONS 1. Continue ceftriaxone. 2. Continue azithromycin. 3. Continue treatment for HIV disease with the patient's current HIV medications. 4. Repeat the CXR. 5. Sub Q neupogen x 1 for leukopenia. 6. Stool for c. diff and O&P. 7. Monitor white blood cell count. Kishan Prasad MD Jun 30, 2017 12:12
[2017-06-30] MEDS ORDERED: FILGRASTIM 300 MCG/ML VIAL SQ ONE (12:15)
[2017-06-30 12:44] LABS: AUTOMATED NEUTROPHIL # 1.1 TH/MM3 (1.8-7.7); BASOPHIL % 0.2 % (0.0-2.0); EOSINOPHIL # 0.1 TH/MM3 (0-0.4); HEMATOCRIT 42.2 % (39.0-51.0); LYMPH % 49.6 % (9.0-44.0); LYMPHOCYTE # 1.6 TH/MM3 (1.0-4.8); MEAN CELL VOLUME 94.3 FL (80.0-100.0); MEAN CORPUSCULAR HEMOGLOBIN 31.1 PG (27.0-34.0); NEUT % 34.2 % (16.0-70.0); PLATELET COUNT 92 TH/MM3 (150-450); RED BLOOD COUNT 4.48 MIL/MM3 (4.50-5.90); RED CELL DISTRIBUTION WIDTH 17.2 % (11.6-17.2); WHITE BLOOD COUNT 3.3 TH/MM3 (4.0-11.0)
[2017-06-30 12:50] LABS: HEMO FLAGS AUTO DIFF
[2017-06-30 13:05] LABS: POTASSIUM 3.6 MEQ/L (3.5-5.1)
[2017-06-30 13:09] LABS: INDIRECT BILIRUBIN 0.6 MG/DL (0.0-0.8); TOTAL BILIRUBIN ADULT 0.8 MG/DL (0.2-1.0)
[2017-06-30 13:18] LABS: PLATELET ESTIMATE SMEAR LOW (NORMAL); PLATELET MORPHOLOGY ENLARGED (NORMAL); SCAN/DIFF AUTO DIFF CONFIRMED
--- NOTE | 2017-06-30 15:01 | RADRPT ---
EXAM DATE/TIME: 06/30/2017 13:39 [facility] COMPARISON: CHEST SINGLE AP, June 27, 2017, 23:08. INDICATIONS : Evaluate for pneumonia. MEDICAL HISTORY : Hypertension. Carcinoma, bladder. SURGICAL HISTORY : None. ENCOUNTER: Subsequent ACUITY: 3 days PAIN SCORE: 0/10 LOCATION: Bilateral chest FINDINGS: A single view of the chest demonstrates the lungs to be symmetrically aerated without evidence of mas s, infiltrate or effusion. Left basilar density. The cardiomediastinal contours are unremarkable. Os seous structures are intact. CONCLUSION: Left basilar density could be atelectasis or infiltrate. Jaya Pascual MD on June 30, 2017 at 14:59 Board Certified Radiologist. This report was verified electronically.
[2017-06-30] MEDS: cefTRIAXone INJ 2,000 MG in SODIUM CHLORIDE 0.9% INJ 100 ML IV SCH (16:00)
--- NOTE | 2017-06-30 16:21 | HHI.PR ---
Subjective Remarks Patient resting in bed, no fever or chills, slight cough with yellowish phlegm Awaiting psych consult Objective Vitals Vital Signs Date Time Temp Pulse Resp B/P (MAP) Pulse Ox O2 Delivery O2 Flow Rate FiO2 06/30/17 12:21 96.9 71 19 112/70 (84) 99 06/30/17 12:01 75 06/30/17 08:02 67 06/30/17 08:00 96.2 70 19 112/69 (83) 99 06/30/17 04:04 64 06/30/17 04:00 97.8 66 18 106/66 (79) 95 06/30/17 00:34 98.9 73 18 103/71 (82) 94 06/30/17 00:01 71 06/29/17 20:07 76 06/29/17 20:00 99.1 80 20 97/66 (76) 96 06/29/17 16:50 99.3 70 20 106/72 (83) 97 I/O 06/29/17 06/29/17 06/29/17 06/30/17 06/30/17 06/30/17 07:00 15:00 23:00 07:00 15:00 23:00 Intake Total 440 ml Output Total 1000 ml 400 ml 700 ml Balance -1000 ml 40 ml -700 ml Intake Oral 440 ml Output Urine Total 1000 ml 400 ml 700 ml # Voids 11 # Bowel Movements 2 Result Diagram: 06/30/17 1137 06/30/17 1137 Objective Remarks GENERAL: This is a well-nourished, well-developed patient, in no apparent distress. SKIN: No rashes, warm and dry HEAD: Atraumatic. Normocephalic. EYES: Pupils equal round and reactive. Extraocular motions intact. No scleral icterus. ENT: Nose without bleeding, or drainage, Airway patent. NECK: Trachea midline. Supple CARDIOVASCULAR: Regular rate and rhythm without murmurs, gallops, or rubs. RESPIRATORY: Genesis breath sounds bibasilar but more on the right side GASTROINTESTINAL: Abdomen soft, non-tender, nondistended. Positive bowel sounds MUSCULOSKELETAL: Extremities without clubbing, cyanosis, or edema. Pedal pulses appreciated NEUROLOGICAL: Awake and alert. Moves all extremity. Normal speech.no focal neurological deficit A/P Problem List: (1) Pneumonia ICD Code: J18.9 - Pneumonia, unspecified organism Status: Acute (2) Neutropenia ICD Code: D70.9 - Neutropenia, unspecified Status: Acute (3) Alcohol withdrawal ICD Code: F10.239 - Alcohol dependence with withdrawal, unspecified Assessment and Plan 47 y/o male with HIV/AIDS who presented to the ED with generalized weakness: Pneumonia, right lower lobe infiltrate on CXR - Rocephin and Azithromycin IV in Ed - Antibiotics: Cefepime 2 gm q12h IV and Clindamycin 600 mg q6h IV -Appreciate ID consultation, recommended continuing iv antibiotic as above, and follow culture - physical therapy to prevent deconditioning Depressed mood, patient requested psych consult -Psychiatry consulted Neutropenia still at 2.2 - neutropenic precautions - monitor CBC Increase transaminase Repeat LFT in a.m., most likely alcoholic hepatitis Alcohol withdrawal anticipated - Ativan 1 mg IV q2h withdrawal symptoms - Librium 25 mg TID p.o. - Protonix 40 mg p.o. daily DVT prophylaxis - Lovenox 40 mg qday - closely monitor platelets Problem Qualifiers (1) Pneumonia: Qualified Codes: J18.1 - Lobar pneumonia, unspecified organism (2) Neutropenia: Qualified Codes: D70.8 - Other neutropenia Dagoberto Blake MD Jun 30, 2017 16:20
[2017-06-30] MEDS: MIRTAZAPINE 15 MG TAB PO SCH (20:19)
[2017-07-01] VITALS (11 sets, daily range): BP systolic 92–112; BP diastolic 56–70; PULSE 66–91; RESP 16–19; TEMP 97.2–99.3; O2SAT 92–99
[2017-07-01 07:20] LABS: AUTOMATED NEUTROPHIL # 14.5 TH/MM3 (1.8-7.7); BASOPHIL % 0.1 % (0.0-2.0); EOSINOPHIL # 0.2 TH/MM3 (0-0.4); EOSINOPHIL % 1.2 % (0.0-4.0); HEMATOCRIT 40.7 % (39.0-51.0); LYMPH % 10.4 % (9.0-44.0); LYMPHOCYTE # 1.8 TH/MM3 (1.0-4.8); MEAN CORPUSCULAR HEMOGLOBIN 31.3 PG (27.0-34.0); MEAN CORPUSCULAR HGB CONC 33.2 % (32.0-36.0); MONO % 3.1 % (0.0-8.0); NEUT % 85.2 % (16.0-70.0); PLATELET COUNT 94 TH/MM3 (150-450); RED BLOOD COUNT 4.33 MIL/MM3 (4.50-5.90); RED CELL DISTRIBUTION WIDTH 16.9 % (11.6-17.2)
[2017-07-01 08:19] LABS: HEMO FLAGS AUTO DIFF
[2017-07-01] MEDS: FOLIC ACID 1 MG TAB PO SCH (09:20)
[2017-07-01] MEDS: LITHIUM CARBONATE 300 MG TAB PO SCH ×2 (09:20→22:06)
[2017-07-01] MEDS: PANTOPRAZOLE SOD 40 MG DELAYED RELEASE TAB PO SCH (09:20)
[2017-07-01] MEDS: AZITHROMYCIN 250 MG TAB PO SCH (09:20)
[2017-07-01] MEDS: THIAMINE HCL 100 MG TAB PO SCH (09:20)
[2017-07-01] MEDS: LACTOBACILLUS ACIDOPHILUS TAB PO SCH ×3 (09:21→17:16)
[2017-07-01] MEDS: LOPINAVIR/RITONAVIR 200 MG/50 MG TAB PO SCH ×2 (09:21→22:06)
[2017-07-01] MEDS: chlordiazePOXIDE 25 MG CAP PO SCH ×3 (09:21→17:16)
[2017-07-01] MEDS: ENOXAPARIN SODIUM 40 MG/0.4 ML SYRINGE SQ SCH (09:21)
[2017-07-01] MEDS: EMTRICITABINE/TENOFOVIR 200 MG/300 MG TAB PO SCH (09:21)
[2017-07-01] MEDS: SODIUM CHLORIDE 0.9% FLUSH 10 ML FLUSH IV FLUSH SCH ×2 (09:22→22:05)
[2017-07-01] MEDS: LORazepam 2 MG/ML VIAL IV PUSH PRN ×3 (10:01→22:05)
[2017-07-01 11:19] LABS: BANDS 10 % (0-6); NEUTROPHIL # MANUAL DIFF 16.3 TH/MM3 (1.8-7.7); POLYS (SEG NEUTROPHILS) 86 % (16-70); WBC DIFF SAMPLE 100
[2017-07-01 11:20] LABS: PLATELET ESTIMATE SMEAR LOW (NORMAL); PLATELET MORPHOLOGY ENLARGED (NORMAL); SCAN/DIFF FINAL DIFF MANUAL
--- NOTE | 2017-07-01 11:37 | HHI.PR ---
Subjective Remarks Patient having positive wheezes today, he also complained of diarrhea we will check for C. difficile, no fever or chills or abdominal pain, WBC increased to 17 K questionable reconstitution immunity, patient has been on Epogen 1 dose by ID Objective Vitals Vital Signs Date Time Temp Pulse Resp B/P (MAP) Pulse Ox O2 Delivery O2 Flow Rate FiO2 07/01/17 09:50 110/70 (83) 07/01/17 09:00 97.7 77 16 102/64 (77) 92 07/01/17 04:13 66 07/01/17 04:00 97.5 68 19 92/57 (69) 95 07/01/17 00:37 70 07/01/17 00:00 97.2 76 18 103/65 (78) 96 06/30/17 21:35 16 06/30/17 20:15 73 06/30/17 20:00 97.8 68 19 112/68 (83) 97 06/30/17 16:41 97.3 75 19 153/61 (91) 97 06/30/17 16:00 72 06/30/17 12:21 96.9 71 19 112/70 (84) 99 06/30/17 12:01 75 I/O 06/30/17 06/30/17 06/30/17 07/01/17 07/01/17 07/01/17 07:00 15:00 23:00 07:00 15:00 23:00 Intake Total 3360 ml 240 ml Output Total 700 ml 200 ml 275 ml Balance -700 ml 3160 ml -35 ml Intake Oral 3360 ml 240 ml Output Urine Total 700 ml 200 ml 275 ml # Voids 10 # Bowel Movements 1 Result Diagram: 07/01/17 0530 06/30/17 1137 Objective Remarks GENERAL: This is a well-nourished, well-developed patient, in no apparent distress. SKIN: No rashes, warm and dry HEAD: Atraumatic. Normocephalic. EYES: Pupils equal round and reactive. Extraocular motions intact. No scleral icterus. ENT: Nose without bleeding, or drainage, Airway patent. NECK: Trachea midline. Supple CARDIOVASCULAR: Regular rate and rhythm without murmurs, gallops, or rubs. RESPIRATORY: Genesis breath sounds bibasilar but more on the right side GASTROINTESTINAL: Abdomen soft, non-tender, nondistended. Positive bowel sounds MUSCULOSKELETAL: Extremities without clubbing, cyanosis, or edema. Pedal pulses appreciated NEUROLOGICAL: Awake and alert. Moves all extremity. Normal speech.no focal neurological deficit A/P Problem List: (1) Pneumonia ICD Code: J18.9 - Pneumonia, unspecified organism Status: Acute (2) Neutropenia ICD Code: D70.9 - Neutropenia, unspecified Status: Acute (3) Alcohol withdrawal ICD Code: F10.239 - Alcohol dependence with withdrawal, unspecified Assessment and Plan 07/01: Patient reported diarrhea will need to check C. difficile, positive wheezes with DuoNeb Neutropenia change to leukocytosis today 17.4> patient was given 1 dose of Neupogen and he is on HAART ? Immunity constitution, will monitor closely for any fever, repeat CBC in a.m. Platelet 95 today so monitor closely A/P: 47 y/o male with HIV/AIDS who presented to the ED with generalized weakness: Pneumonia, right lower lobe infiltrate on CXR - Rocephin and Azithromycin IV in Ed - Antibiotics: Cefepime 2 gm q12h IV and Clindamycin 600 mg q6h IV -Appreciate ID consultation, recommended continuing iv antibiotic as above, and follow culture - physical therapy to prevent deconditioning Depressed mood, patient requested psych consult -Psychiatry consulted Neutropenia still at 2.2 - neutropenic precautions - monitor CBC Increase transaminase Repeat LFT in a.m., most likely alcoholic hepatitis Alcohol withdrawal anticipated - Ativan 1 mg IV q2h withdrawal symptoms - Librium 25 mg TID p.o. - Protonix 40 mg p.o. daily DVT prophylaxis - Lovenox 40 mg qday - closely monitor platelets Problem Qualifiers (1) Pneumonia: Qualified Codes: J18.1 - Lobar pneumonia, unspecified organism (2) Neutropenia: Qualified Codes: D70.8 - Other neutropenia Dagoberto Blake MD Jul 01, 2017 11:37
--- NOTE | 2017-07-01 13:12 | HHI.PYPN ---
Subjective Remarks Patient wants therapy with Dr. Jaya Espino. Inappropriate request for psychiatric consult. Review of Systems Except as stated in HPI: all other systems reviewed are Neg Objective Alert: Yes [place]: Person, Place, Date, Situation Mood: Calm Affect: Euthymic Memory Intact: Immediate, Recent, Remote Hallucinations: Other Delusions: No Delusion Type: Other Suicidal: Ideation (no) Homicidal: Ideation (no) Insight/Judgment Adequate Labs Test 07/01/17 05:30 White Blood Count 17.0 TH/MM3 Red Blood Count 4.33 MIL/MM3 Hemoglobin 13.5 GM/DL Hematocrit 40.7 % Mean Corpuscular Volume 94.0 FL Mean Corpuscular Hemoglobin 31.3 PG Mean Corpuscular Hemoglobin Concent 33.2 % Red Cell Distribution Width 16.9 % Platelet Count 94 TH/MM3 Mean Platelet Volume 9.7 FL Neutrophils (%) (Auto) 85.2 % Lymphocytes (%) (Auto) 10.4 % Monocytes (%) (Auto) 3.1 % Eosinophils (%) (Auto) 1.2 % Basophils (%) (Auto) 0.1 % Neutrophils # (Auto) 14.5 TH/MM3 Lymphocytes # (Auto) 1.8 TH/MM3 Monocytes # (Auto) 0.5 TH/MM3 Eosinophils # (Auto) 0.2 TH/MM3 Basophils # (Auto) 0.0 TH/MM3 CBC Comment AUTO DIFF Differential Total Cells Counted 100 Neutrophils % (Manual) 86 % Band Neutrophils % 10 % Lymphocytes % 2 % Monocytes % 2 % Neutrophils # (Manual) 16.3 TH/MM3 Differential Comment FINAL DIFF MANUAL Platelet Estimate LOW Platelet Morphology Comment ENLARGED Date/Time Source Procedure Growth Status 06/28/17 00:10 Blood Peripheral Aerobic Blood Culture - Preliminary NO GROWTH IN 3 DAYS Resulted 06/28/17 00:10 Blood Peripheral Anaerobic Blood Culture - Preliminary NO GROWTH IN 3 DAYS Resulted 06/28/17 00:05 Sputum Expectorated Sputum Acid Fast Stain - Final NO ACID FAST BACILLI SEEN Resulted 06/28/17 00:05 Sputum Expectorated Sputum Mycobacterial Culture Pending Resulted Vitals/IOs Vital Signs Date Time Temp Pulse Resp B/P (MAP) Pulse Ox O2 Delivery O2 Flow Rate FiO2 07/01/17 12:13 112/62 (79) 07/01/17 09:00 97.7 77 16 92 06/27/17 22:53 Room Air Intake and Output 07/01/17 07/01/17 07/02/17 08:00 16:00 00:00 Intake Total 240 ml Output Total 275 ml Balance -35 ml Assessment & Plan Problem List: (1) Adjustment disorder with depressed mood ICD Codes: F43.21 - Adjustment disorder with depressed mood Assessment & Plan Estimated LOS: days patient should see a therapist on outpatient basis. Justification for Cont. Inpt. None Beto Bruno MD Jul 01, 2017 13:12
[2017-07-01] MEDS: RESP: ALBUTEROL 2.5 MG/IPRATROPIUM 0.5 MG NEB (SCH) NEB ×5 (15:43→23:37)
[2017-07-01] MEDS: NICOTINE 21 MG/24 HR PATCH T-DERMAL SCH (17:15)
[2017-07-01] MEDS: cefTRIAXone INJ 2,000 MG in SODIUM CHLORIDE 0.9% INJ 100 ML IV SCH (17:16)
[2017-07-01] MEDS: REMOVE OLD PATCH T-DERMAL SCH (21:00)
[2017-07-02] VITALS (12 sets, daily range): BP systolic 94–114; BP diastolic 53–70; PULSE 75–94; RESP 15–16; TEMP 96.6–98.3; O2SAT 94–100
[2017-07-02] MEDS: MIRTAZAPINE 15 MG TAB PO SCH ×2 (01:00→21:36)
[2017-07-02] MEDS: RESP: ALBUTEROL 2.5 MG/IPRATROPIUM 0.5 MG NEB (SCH) NEB ×6 (02:00→15:24)
[2017-07-02] MEDS: NICOTINE 21 MG/24 HR PATCH T-DERMAL SCH (08:24)
[2017-07-02] MEDS: SODIUM CHLORIDE 0.9% FLUSH 10 ML FLUSH IV FLUSH SCH ×2 (08:24→21:00)
[2017-07-02] MEDS: ENOXAPARIN SODIUM 40 MG/0.4 ML SYRINGE SQ SCH (08:24)
[2017-07-02] MEDS: PANTOPRAZOLE SOD 40 MG DELAYED RELEASE TAB PO SCH (08:25)
[2017-07-02] MEDS: chlordiazePOXIDE 25 MG CAP PO SCH ×3 (08:25→16:08)
[2017-07-02] MEDS: THIAMINE HCL 100 MG TAB PO SCH (08:25)
[2017-07-02] MEDS: LACTOBACILLUS ACIDOPHILUS TAB PO SCH ×3 (08:25→16:07)
[2017-07-02] MEDS: EMTRICITABINE/TENOFOVIR 200 MG/300 MG TAB PO SCH (08:25)
[2017-07-02] MEDS: LITHIUM CARBONATE 300 MG TAB PO SCH ×2 (08:25→20:54)
[2017-07-02] MEDS: AZITHROMYCIN 250 MG TAB PO SCH (08:25)
[2017-07-02] MEDS: LORazepam 2 MG/ML VIAL IV PUSH PRN ×2 (08:26→22:05)
[2017-07-02] MEDS: FOLIC ACID 1 MG TAB PO SCH (08:26)
[2017-07-02] MEDS: LOPINAVIR/RITONAVIR 200 MG/50 MG TAB PO SCH ×2 (08:26→20:54)
[2017-07-02 09:01] LABS: AUTOMATED NEUTROPHIL # 4.9 TH/MM3 (1.8-7.7); BASOPHIL % 0.1 % (0.0-2.0); EOSINOPHIL # 0.1 TH/MM3 (0-0.4); EOSINOPHIL % 1.8 % (0.0-4.0); HEMATOCRIT 38.5 % (39.0-51.0); HEMO FLAGS DIFF FINAL; LYMPH % 31.6 % (9.0-44.0); LYMPHOCYTE # 2.5 TH/MM3 (1.0-4.8); MEAN CELL VOLUME 94.3 FL (80.0-100.0); MEAN CORPUSCULAR HEMOGLOBIN 31.7 PG (27.0-34.0); MEAN CORPUSCULAR HGB CONC 33.6 % (32.0-36.0); MONO % 5.2 % (0.0-8.0); NEUT % 61.3 % (16.0-70.0); PLATELET COUNT 106 TH/MM3 (150-450); RED BLOOD COUNT 4.08 MIL/MM3 (4.50-5.90); RED CELL DISTRIBUTION WIDTH 16.7 % (11.6-17.2); WHITE BLOOD COUNT 7.9 TH/MM3 (4.0-11.0)
--- NOTE | 2017-07-02 13:48 | HHI.PR ---
Subjective Remarks still having mild cough but no f/c , no chest tightness Objective Vitals Vital Signs Date Time Temp Pulse Resp B/P (MAP) Pulse Ox O2 Delivery O2 Flow Rate FiO2 07/02/17 12:00 97.4 78 16 110/70 (83) 94 07/02/17 08:14 97.1 82 16 114/64 (81) 95 07/02/17 04:03 85 07/02/17 04:00 97.1 91 16 94/53 (67) 97 07/02/17 02:31 16 07/02/17 00:14 92 07/02/17 00:00 98.3 89 16 103/57 (72) 100 07/01/17 20:15 91 07/01/17 20:00 98.0 81 17 107/65 (79) 99 07/01/17 16:00 99.3 78 18 110/56 (74) 98 I/O 07/01/17 07/01/17 07/01/17 07/02/17 07/02/17 07/02/17 07:00 15:00 23:00 07:00 15:00 23:00 Intake Total 240 ml 1320 ml 480 ml Output Total 275 ml 400 ml Balance -35 ml 1320 ml 80 ml Intake Oral 240 ml 1320 ml 480 ml Output Urine Total 275 ml 400 ml # Voids 14 2 # Bowel Movements 4 Result Diagram: 07/02/17 0821 06/30/17 1137 Objective Remarks GENERAL: This is a well-nourished, well-developed patient, in no apparent distress. SKIN: No rashes, warm and dry HEAD: Atraumatic. Normocephalic. EYES: Pupils equal round and reactive. Extraocular motions intact. No scleral icterus. ENT: Nose without bleeding, or drainage, Airway patent. NECK: Trachea midline. Supple CARDIOVASCULAR: Regular rate and rhythm without murmurs, gallops, or rubs. RESPIRATORY: Genesis breath sounds bibasilar but more on the right side GASTROINTESTINAL: Abdomen soft, non-tender, nondistended. Positive bowel sounds MUSCULOSKELETAL: Extremities without clubbing, cyanosis, or edema. Pedal pulses appreciated NEUROLOGICAL: Awake and alert. Moves all extremity. Normal speech.no focal neurological deficit A/P Problem List: (1) Pneumonia ICD Code: J18.9 - Pneumonia, unspecified organism Status: Acute (2) Neutropenia ICD Code: D70.9 - Neutropenia, unspecified Status: Acute (3) Alcohol withdrawal ICD Code: F10.239 - Alcohol dependence with withdrawal, unspecified Assessment and Plan 07/01: Patient reported diarrhea will need to check C. difficile, positive wheezes with DuoNeb Neutropenia change to leukocytosis today 17.4> patient was given 1 dose of Neupogen and he is on HAART ? Immunity constitution, will monitor closely for any fever, repeat CBC in a.m. Platelet 95 today so monitor closely 07/02: repeat cbc today Pending , cont abx , ff with ID A/P: 47 y/o male with HIV/AIDS who presented to the ED with generalized weakness: Pneumonia, right lower lobe infiltrate on CXR - Rocephin and Azithromycin IV in Ed - Antibiotics: Cefepime 2 gm q12h IV and Clindamycin 600 mg q6h IV -Appreciate ID consultation, recommended continuing iv antibiotic as above, and follow culture - physical therapy to prevent deconditioning Depressed mood, patient requested psych consult -Psychiatry consulted Neutropenia still at 2.2 - neutropenic precautions - monitor CBC Increase transaminase Repeat LFT in a.m., most likely alcoholic hepatitis Alcohol withdrawal anticipated - Ativan 1 mg IV q2h withdrawal symptoms - Librium 25 mg TID p.o. - Protonix 40 mg p.o. daily DVT prophylaxis - Lovenox 40 mg qday - closely monitor platelets Problem Qualifiers (1) Pneumonia: Qualified Codes: J18.1 - Lobar pneumonia, unspecified organism (2) Neutropenia: Qualified Codes: D70.8 - Other neutropenia Dagoberto Blake MD Jul 02, 2017 13:48
[2017-07-02] MEDS: cefTRIAXone INJ 2,000 MG in SODIUM CHLORIDE 0.9% INJ 100 ML IV SCH (16:07)
[2017-07-02] MEDS: REMOVE OLD PATCH T-DERMAL SCH (21:01)
[2017-07-03] VITALS (11 sets, daily range): BP systolic 93–112; BP diastolic 55–78; PULSE 75–93; RESP 16–20; TEMP 96.1–98.1; O2SAT 92–98
[2017-07-03] MEDS: SULFAMETHOXAZOLE-TRIMETHOPRIM DS 800-160 MG TAB PO SCH (09:50)
[2017-07-03] MEDS: FOLIC ACID 1 MG TAB PO SCH (09:50)
[2017-07-03] MEDS: LOPINAVIR/RITONAVIR 200 MG/50 MG TAB PO SCH ×2 (09:50→21:21)
[2017-07-03] MEDS: AZITHROMYCIN 250 MG TAB PO SCH (09:50)
[2017-07-03] MEDS: chlordiazePOXIDE 25 MG CAP PO SCH ×3 (09:50→18:55)
[2017-07-03] MEDS: LITHIUM CARBONATE 300 MG TAB PO SCH ×2 (09:50→21:21)
[2017-07-03] MEDS: THIAMINE HCL 100 MG TAB PO SCH (09:51)
[2017-07-03] MEDS: ENOXAPARIN SODIUM 40 MG/0.4 ML SYRINGE SQ SCH (09:51)
[2017-07-03] MEDS: LACTOBACILLUS ACIDOPHILUS TAB PO SCH ×3 (09:51→18:55)
[2017-07-03] MEDS: PANTOPRAZOLE SOD 40 MG DELAYED RELEASE TAB PO SCH (09:51)
[2017-07-03] MEDS: EMTRICITABINE/TENOFOVIR 200 MG/300 MG TAB PO SCH (09:51)
[2017-07-03] MEDS: NICOTINE 21 MG/24 HR PATCH T-DERMAL SCH (09:52)
[2017-07-03] MEDS: SODIUM CHLORIDE 0.9% FLUSH 10 ML FLUSH IV FLUSH SCH ×2 (10:01→21:19)
[2017-07-03] MEDS: LORazepam 2 MG/ML VIAL IV PUSH PRN ×4 (11:21→22:42)
--- NOTE | 2017-07-03 13:03 | HHI.IDPN ---
Note Infectious Disease Note Patient looks drowsy. No complaints except that he feels suicidal. Afebrile. No chills. No SOB. PAST MEDICAL HISTORY 1. Hypertension. 2. Bladder cancer. 3. Kaposi's sarcoma. 4. AIDS. PAST SURGICAL HISTORY Significant for bladder cancer resection. ALLERGIES No known drug allergies. MEDICATIONS 1. Ceftriaxone. 2. Azithromycin. Bactrim prophylaxis. SOCIAL HISTORY The patient smokes a pack of cigarettes a day. Positive alcohol. No illicit drugs reported. OBJECTIVE: Vital Signs Date Time Temp Pulse Resp B/P (MAP) Pulse Ox O2 Delivery O2 Flow Rate FiO2 07/03/17 12:32 97.6 78 20 104/63 (77) 96 07/03/17 11:37 77 112/69 (83) 97 07/03/17 08:48 97.4 80 20 93/55 (68) 93 Manual Cuff/Auscultation 07/03/17 04:32 97.0 76 16 93/55 (68) 98 07/03/17 04:00 75 07/03/17 00:01 91 07/03/17 00:00 98.1 93 17 107/68 (81) 97 07/02/17 20:25 92 07/02/17 20:00 97.6 88 16 111/67 (82) 95 07/02/17 16:15 89 07/02/17 15:59 96.6 94 15 102/63 (76) 95 IMAGING: Chest X-Ray 06/30/17 0000 Signed Impressions: Service Date/Time: Friday, June 30, 2017 13:39 - CONCLUSION: Left basilar density could be atelectasis or infiltrate. Jaya Pascual MD PHYSICAL EXAMINATION GENERAL: No acute distress. HEENT: No icterus. Oropharynx moist mucosa without visible lesions. NECK: Supple. No adenopathy. LUNGS: Breath sounds decreased. No rhonchi. HEART: Regular S1 and S2. No murmurs. ABDOMEN: Bowel sounds present. Soft, nontender. EXTREMITIES: No clubbing, cyanosis or edema. SKIN: No rash. NEUROLOGIC: No gross focal findings. PSYCHIATRIC: The patient is calm. Appears anxious. IMPRESSION 1. Right lower lobe pneumonia. Improved. 2. HIV disease/AIDS. 3. Leukopenia and elevated liver function tests, likely secondary to alcohol effect vs HIV. WBC increased. RECOMMENDATIONS 1. Stop ceftriaxone. 2. Continue azithromycin x 5 days more 3. Continue treatment for HIV disease. Increase the Kaletra to 2 tabs bid. Patient is currently stable from infection standpoint. I will sign off now. Kishan Prasad MD Jul 03, 2017 13:03
--- NOTE | 2017-07-03 14:21 | HHI.PR ---
Subjective Remarks Follow up for HIV, pneumonia, suicidal ideations. Patient is hemodynamically stable and has been cleared from ID standpoint. However, he reports being stressed and depressed due to various life events including loss of family members, his diagnosis of HIV. He says he will likely do something stupid such as commit suicide if he is discharged. He would like to be admitted under psychiatry service. Objective Vitals Vital Signs Date Time Temp Pulse Resp B/P (MAP) Pulse Ox O2 Delivery O2 Flow Rate FiO2 07/03/17 12:32 97.6 78 20 104/63 (77) 96 07/03/17 11:37 77 112/69 (83) 97 07/03/17 08:48 97.4 80 20 93/55 (68) 93 Manual Cuff/Auscultation 07/03/17 04:32 97.0 76 16 93/55 (68) 98 07/03/17 04:00 75 07/03/17 00:01 91 07/03/17 00:00 98.1 93 17 107/68 (81) 97 07/02/17 20:25 92 07/02/17 20:00 97.6 88 16 111/67 (82) 95 07/02/17 16:15 89 07/02/17 15:59 96.6 94 15 102/63 (76) 95 I/O 07/02/17 07/02/17 07/02/17 07/03/17 07/03/17 07/03/17 07:00 15:00 23:00 07:00 15:00 23:00 Intake Total 480 ml 1920 ml 480 ml Output Total 400 ml 200 ml 900 ml Balance 80 ml 1720 ml -420 ml Intake Oral 480 ml 1920 ml 480 ml Output Urine Total 400 ml 200 ml 900 ml # Voids 2 7 # Bowel Movements 3 Result Diagram: 07/02/17 0821 06/30/17 1137 Imaging Last Impressions Chest X-Ray 06/30/17 0000 Signed Impressions: Service Date/Time: Friday, June 30, 2017 13:39 - CONCLUSION: Left basilar density could be atelectasis or infiltrate. Jaya Pascual MD Objective Remarks GENERAL: Alert, NAD. SKIN: Warm and dry. HEAD: Normocephalic. EYES: No scleral icterus. No injection or drainage. NECK: Supple, trachea midline. No JVD or lymphadenopathy. CARDIOVASCULAR: Regular rate and rhythm without murmurs, gallops, or rubs. RESPIRATORY: Breath sounds equal bilaterally. No accessory muscle use. GASTROINTESTINAL: Abdomen soft, non-tender, nondistended. MUSCULOSKELETAL: No cyanosis, or edema. BACK: Nontender without obvious deformity. No CVA tenderness. Procedures None A/P Problem List: (1) Pneumonia ICD Code: J18.9 - Pneumonia, unspecified organism Status: Acute (2) Neutropenia ICD Code: D70.9 - Neutropenia, unspecified Status: Acute (3) Alcohol withdrawal ICD Code: F10.239 - Alcohol dependence with withdrawal, unspecified Assessment and Plan Mr. Reynoso is a 47 year old male with a history of HIV with CD4 count in the 40s, bladder cancer who was brought to the hospital due to generalized weakness. He was drinking a lot of alcohol throughout the day on the day of ED visit on 06/27/2017. CXR showed RLL pneumonia. ID was consulted, patient was given Ceftriaxone and Azithromycin. - Right lower lobe pneumonia - Patient received Ceftriaxone and Azithromycin. - ID recommends 5 more days of Azithromycin. Cleared from ID perspective to discharge patient. - Patient is on room air. - HIV with low CD4 count - Encouraged patient to follow up an ID physician in the outpatient setting. - If his insurance approves, he could follow up with Dr. Weber in [place], [place]. - Counselled patient that if he follows up with ID and takes meds, his HIV would be like a chronic disease. - Continue Bactrim for PCP prophylaxis. Likely should also continue Azithromycin for MAC prophylaxis. - Suicidal ideations - Severe depression - Patient repeated mentions he would do something stupid, possibly commit suicide if he goes out of the hospital now. - Will consult Psychiatry to see if patient can be admitted to the psychiatry service for severe depression. - Alcohol abuse - Continue Librium, Ativan PRN. Full code. Continue Sitter. Lovenox for DVT Prophylaxis. Problem Qualifiers (1) Pneumonia: Qualified Codes: J18.1 - Lobar pneumonia, unspecified organism (2) Neutropenia: Qualified Codes: D70.8 - Other neutropenia Charly Wang DO Jul 03, 2017 14:21
[2017-07-03] MEDS: cefTRIAXone INJ 2,000 MG in SODIUM CHLORIDE 0.9% INJ 100 ML IV SCH (16:01)
[2017-07-03] MEDS: REMOVE OLD PATCH T-DERMAL SCH (21:00)
[2017-07-03] MEDS: MIRTAZAPINE 15 MG TAB PO SCH (21:21)
[2017-07-04] VITALS (11 sets, daily range): BP systolic 102–115; BP diastolic 57–94; PULSE 70–94; RESP 17–20; TEMP 96.5–98.9; O2SAT 91–98
[2017-07-04] MEDS: RESP: ALBUTEROL 2.5 MG/IPRATROPIUM 0.5 MG NEB (PRN) NEB (09:14)
[2017-07-04] MEDS: ENOXAPARIN SODIUM 40 MG/0.4 ML SYRINGE SQ SCH (09:44)
[2017-07-04] MEDS: NICOTINE 21 MG/24 HR PATCH T-DERMAL SCH (09:44)
[2017-07-04] MEDS: chlordiazePOXIDE 25 MG CAP PO SCH ×3 (09:45→18:41)
[2017-07-04] MEDS: LACTOBACILLUS ACIDOPHILUS TAB PO SCH ×3 (09:45→18:41)
[2017-07-04] MEDS: LOPINAVIR/RITONAVIR 200 MG/50 MG TAB PO SCH ×2 (09:45→20:11)
[2017-07-04] MEDS: LITHIUM CARBONATE 300 MG TAB PO SCH ×2 (09:45→20:11)
[2017-07-04] MEDS: AZITHROMYCIN 250 MG TAB PO SCH (09:45)
[2017-07-04] MEDS: THIAMINE HCL 100 MG TAB PO SCH (09:45)
[2017-07-04] MEDS: EMTRICITABINE/TENOFOVIR 200 MG/300 MG TAB PO SCH (09:45)
[2017-07-04] MEDS: LORazepam 1 MG TAB PO PRN ×3 (09:45→22:58)
[2017-07-04] MEDS: FOLIC ACID 1 MG TAB PO SCH (09:45)
[2017-07-04] MEDS: PANTOPRAZOLE SOD 40 MG DELAYED RELEASE TAB PO SCH (09:45)
[2017-07-04] MEDS: SODIUM CHLORIDE 0.9% FLUSH 10 ML FLUSH IV FLUSH SCH ×2 (09:46→20:21)
--- NOTE | 2017-07-04 09:49 | HHI.PR ---
Subjective Remarks Follow up for HIV, pneumonia, suicidal ideations. Patient is currently doing well. Denies any chest pain, shortness of breath, fever or chills. Waiting for psychiatric evaluation. Objective Vitals Vital Signs Date Time Temp Pulse Resp B/P (MAP) Pulse Ox O2 Delivery O2 Flow Rate FiO2 07/04/17 05:11 98.0 07/04/17 04:04 85 07/04/17 04:00 96.5 73 18 104/57 (73) 94 07/04/17 00:03 85 07/04/17 00:00 96.5 88 17 107/94 (98) 94 07/03/17 22:28 85 112/77 (89) 07/03/17 20:07 89 07/03/17 20:00 96.1 89 18 97/78 (84) 92 07/03/17 17:26 97.1 77 20 107/67 (80) 94 07/03/17 12:32 97.6 78 20 104/63 (77) 96 07/03/17 11:37 77 112/69 (83) 97 I/O 07/03/17 07/03/17 07/03/17 07/04/17 07/04/17 07/04/17 07:00 15:00 23:00 07:00 15:00 23:00 Intake Total 480 ml 888 ml 480 ml Output Total 900 ml 950 ml 600 ml Balance -420 ml -62 ml -120 ml Intake Oral 480 ml 888 ml 480 ml Output Urine Total 900 ml 950 ml 600 ml # Voids 9 # Bowel Movements 1 Result Diagram: 07/02/17 0821 06/30/17 1137 Imaging Last Impressions Chest X-Ray 06/30/17 0000 Signed Impressions: Service Date/Time: Friday, June 30, 2017 13:39 - CONCLUSION: Left basilar density could be atelectasis or infiltrate. Jaya Pascual MD Objective Remarks GENERAL: Alert, NAD. SKIN: Warm and dry. HEAD: Normocephalic. EYES: No scleral icterus. No injection or drainage. NECK: Supple, trachea midline. No JVD or lymphadenopathy. CARDIOVASCULAR: Regular rate and rhythm without murmurs, gallops, or rubs. RESPIRATORY: Breath sounds equal bilaterally. No accessory muscle use. GASTROINTESTINAL: Abdomen soft, non-tender, nondistended. MUSCULOSKELETAL: No cyanosis, or edema. BACK: Nontender without obvious deformity. No CVA tenderness. Procedures None A/P Problem List: (1) Pneumonia ICD Code: J18.9 - Pneumonia, unspecified organism Status: Acute (2) Neutropenia ICD Code: D70.9 - Neutropenia, unspecified Status: Acute (3) Alcohol withdrawal ICD Code: F10.239 - Alcohol dependence with withdrawal, unspecified Assessment and Plan Mr. Reynoso is a 47 year old male with a history of HIV with CD4 count in the 40s, bladder cancer who was brought to the hospital due to generalized weakness. He was drinking a lot of alcohol throughout the day on the day of ED visit on 06/27/2017. CXR showed RLL pneumonia. ID was consulted, patient was given Ceftriaxone and Azithromycin. - Right lower lobe pneumonia - Patient received Ceftriaxone and Azithromycin. - ID recommends 5 more days of Azithromycin from 07/03/2017. Cleared from ID perspective to discharge patient. - Patient is on room air. - HIV with low CD4 count - Encouraged patient to follow up an ID physician in the outpatient setting. - If his insurance approves, he could follow up with Dr. Weber in [place], [place]. - Counselled patient that if he follows up with ID and takes meds, his HIV would be like a chronic disease. - Continue Bactrim for PCP prophylaxis. - CD4 count is 42. Patient will likely need MAC prophylaxis with Azithromycin as well. - After 07/08/2017, patient can be started on Azithromycin 1.2 g Qweekly or 600mg twice a week. - Suicidal ideations - Severe depression - Patient repeated mentions he would do something stupid, possibly commit suicide if he goes out of the hospital now. - Consulted Psychiatry to see if patient can be admitted to the psychiatry service for severe depression. - Discussed with psychiatric on 07/04/2017 regarding consultation. Patient will be seen today. - Alcohol abuse - Continue Librium, Ativan PRN. Full code. Continue Sitter. Lovenox for DVT Prophylaxis. Problem Qualifiers (1) Pneumonia: Qualified Codes: J18.1 - Lobar pneumonia, unspecified organism (2) Neutropenia: Qualified Codes: D70.8 - Other neutropenia Charly Wang DO Jul 04, 2017 09:49
[2017-07-04] MEDS: cefTRIAXone INJ 2,000 MG in SODIUM CHLORIDE 0.9% INJ 100 ML IV SCH (15:59)
[2017-07-04] MEDS: MIRTAZAPINE 15 MG TAB PO SCH (20:11)
[2017-07-04] MEDS: REMOVE OLD PATCH T-DERMAL SCH (20:22)
[2017-07-05] VITALS (7 sets, daily range): BP systolic 95–107; BP diastolic 57–82; PULSE 71–79; RESP 16–18; TEMP 96.9–98.6; O2SAT 94–98
[2017-07-05] MEDS: RESP: ALBUTEROL 2.5 MG/IPRATROPIUM 0.5 MG NEB (PRN) NEB (00:14)
[2017-07-05] MEDS: LORazepam 1 MG TAB PO PRN (05:52)
[2017-07-05] MEDS: LOPINAVIR/RITONAVIR 200 MG/50 MG TAB PO SCH (09:36)
[2017-07-05] MEDS: LACTOBACILLUS ACIDOPHILUS TAB PO SCH ×2 (09:36→12:23)
[2017-07-05] MEDS: SULFAMETHOXAZOLE-TRIMETHOPRIM DS 800-160 MG TAB PO SCH (09:36)
[2017-07-05] MEDS: ENOXAPARIN SODIUM 40 MG/0.4 ML SYRINGE SQ SCH (09:36)
[2017-07-05] MEDS: chlordiazePOXIDE 25 MG CAP PO SCH (09:37)
[2017-07-05] MEDS: EMTRICITABINE/TENOFOVIR 200 MG/300 MG TAB PO SCH (09:37)
[2017-07-05] MEDS: LITHIUM CARBONATE 300 MG TAB PO SCH (09:37)
[2017-07-05] MEDS: THIAMINE HCL 100 MG TAB PO SCH (09:37)
[2017-07-05] MEDS: AZITHROMYCIN 250 MG TAB PO SCH (09:37)
[2017-07-05] MEDS: PANTOPRAZOLE SOD 40 MG DELAYED RELEASE TAB PO SCH (09:37)
[2017-07-05] MEDS: FOLIC ACID 1 MG TAB PO SCH (09:37)
[2017-07-05] MEDS: SODIUM CHLORIDE 0.9% FLUSH 10 ML FLUSH IV FLUSH SCH (09:38)
[2017-07-05] MEDS: NICOTINE 21 MG/24 HR PATCH T-DERMAL SCH (09:39)
--- NOTE | 2017-07-05 13:38 | HHI.PYPN ---
Subjective Remarks Patient was seen today for psychiatric reevaluation, patient requesting to be admitted in psychiatry for 2 days. When I asked what is his recent to be admitted for 2 days, he says that he is upset because he was recently recommended to go to hospice. He explains that he does not thinking that he is a candidate for hospice and he doesn't feel that he is dying. Patient says that he wants to get better, is motivated to continue his medications. Patient says that he had a very good spirits he has last hospitalization with Dr. Espino and he feels that he would benefit of taking more psychotropics. I explained that he was discharged with a very good plan, the medications that he needs to stick with this plan. When I told him that he is not a good candidate for psychiatric admission at this moment patient says that I will be responsible if he kills him self, which is obviously a clear manipulative statement contradictory with his previous desired of no been hospice and to follow medical recommendations. Per nursing chart patient has been mostly calm and cooperative, eating of his foot, and demanding benzodiazepines even when his CIWA is negative. Review of Systems Other No somatic complaints Objective Alert: Yes [place]: Person, Place, Date, Situation Mood: Calm Affect: Euthymic Memory Intact: Immediate, Recent, Remote Hallucinations: Other Delusions: No Delusion Type: Other Suicidal: Ideation (vague and conditional SI) Homicidal: Ideation (no) Insight/Judgment Poor Labs Date/Time Source Procedure Growth Status 06/28/17 00:10 Blood Peripheral Aerobic Blood Culture - Final NO GROWTH IN 5 DAYS Complete 06/28/17 00:10 Blood Peripheral Anaerobic Blood Culture - Final NO GROWTH IN 5 DAYS Complete 06/28/17 00:05 Sputum Expectorated Sputum Acid Fast Stain - Final NO ACID FAST BACILLI SEEN Resulted 06/28/17 00:05 Sputum Expectorated Sputum Mycobacterial Culture Pending Resulted Vitals/IOs Vital Signs Date Time Temp Pulse Resp B/P (MAP) Pulse Ox O2 Delivery O2 Flow Rate FiO2 07/05/17 12:00 98.4 75 16 100/58 (72) 97 Intake and Output 07/05/17 07/05/17 07/06/17 08:00 16:00 00:00 Intake Total 240 ml 240 ml Balance 240 ml 240 ml Assessment & Plan Problem List: (1) Adjustment disorder with depressed mood ICD Codes: F43.21 - Adjustment disorder with depressed mood Assessment & Plan: Patient was seen today for psychiatric reevaluation, patient demands to be admitted in psychiatry "for 2 days". When explained that he is not a candidate for psychiatric admission at this moment, and he should continue Dr. Espino recommendations and psychotropic he endorsed SI, which is obviously manipulative behavior in a clear contradiction with previous which to follow medical recommendations, continue medication at not going to hospice. Patient should continue current psychotropics. No psychiatric admission is indicated or beneficial for this patient at this moment. Tried to regulate as much as possible narcotics and benzodiazepine in this patient. Hilario act will be lifted. Assessment & Plan Estimated LOS: days Justification for Cont. Inpt. Patient does not meet criteria for psychiatric admission at this moment. Les Palma MD Jul 05, 2017 13:38
[2017-07-05] MEDS ORDERED: KALETRA200 PO (14:03)
[2017-07-05] MEDS ORDERED: AZIT250T3 PO (14:03)
--- NOTE | 2017-07-05 14:06 | HHI.DS ---
Discharge Summary Admission Date Jun 28, 2017 at 03:24 Discharge Date: Jul 06, 2017 Admitting Diagnosis pneumonia, neutropenia, EtOH, suicidal ideation (1) Pneumonia ICD Code: J18.9 - Pneumonia, unspecified organism Diagnosis: Principal Status: Acute (2) Neutropenia ICD Code: D70.9 - Neutropenia, unspecified Diagnosis: Secondary Status: Acute (3) Alcohol withdrawal ICD Code: F10.239 - Alcohol dependence with withdrawal, unspecified Diagnosis: Secondary (4) AIDS (acquired immune deficiency syndrome) ICD Code: B20 - Human immunodeficiency virus [HIV] disease Diagnosis: Principal (5) Adjustment disorder with depressed mood ICD Code: F43.21 - Adjustment disorder with depressed mood Diagnosis: Principal Procedures None Brief History - From Admission Patient states he doesn't feel good. He feels weak. He reports cough with yellow sputum. Symptoms present x 1 day. He reports being brought in to ER by EMS. He is quite sleepy during interview and frequently nods off during visit. Denies any associated nausea, vomiting, diarrhea, dysuria, dizziness, falls, syncopal, black or red stool, dysuria, or hematuria. . CBC/BMP: 07/02/17 0821 Imaging Last Impressions Chest X-Ray 06/30/17 0000 Signed Impressions: Service Date/Time: Friday, June 30, 2017 13:39 - CONCLUSION: Left basilar density could be atelectasis or infiltrate. Jaya Pascual MD PE at Discharge GENERAL: Alert, NAD. CARDIOVASCULAR: Regular rate and rhythm without murmurs, gallops, or rubs. RESPIRATORY: Breath sounds equal bilaterally. No accessory muscle use. GASTROINTESTINAL: Abdomen soft, non-tender, nondistended. MUSCULOSKELETAL: No cyanosis, or edema. BACK: Nontender without obvious deformity. No CVA tenderness. Pt update on day of discharge Follow-up for pneumonia and questionable suicidal ideation Patient was found sleeping was awoken by me. Sitter was at the bedside. Patient stated he feels awful when I asked him why he stated "Is Dr. 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 He did not complain of suicidal or homicidal ideations. Dealt with patient's nurse who stated that patient he did not meet CIWA protocol but knew he had ativan IV in the EMR so would asked for it on the hour. Dealt with Dr. Palma in regards to patient. He stated that he is fully aware patient and will see patient today and that patient is very manipulative and will use suicidal ideations to get his way. Hospital Course Mr. Reynoso is a 47 year old male with a history of HIV with CD4 count in the 40s, bladder cancer who was brought to the hospital due to generalized weakness. He was drinking a lot of alcohol throughout the day on the day of ED visit on 06/27/2017. CXR showed RLL pneumonia. ID was consulted, patient was given Ceftriaxone and Azithromycin. - Right lower lobe pneumonia - Patient received Ceftriaxone and Azithromycin. Infectious disease was consulted to help assist with management. - ID recommends treatment of Azithromycin until 07/03/2017. - Clinically patient did well in terms of his pneumonia throughout the hospital course. - HIV with low CD4 count - Encouraged patient to follow up an ID physician in the outpatient setting. - If his insurance approves, he could follow up with Dr. Weber in [place], [place]. - Counselled patient that if he follows up with ID and takes meds, his HIV would be like a chronic disease. - Continue Bactrim for PCP prophylaxis. - Infectious disease did not recommend MAC prophylaxis. new guidelines do not recommend if patient already on JORDAN therapy. -Adjustment disorder - Throughout the hospital course patient would repeatedly use suicidal ideation to stay in the hospital. Psychiatrist was consulted multiple times in which he was cleared by multiple psychiatrists. Patient was using suicide ideation to be manipulative so he can stay in the hospital. - Alcohol abuse - He was initially put on a CIWA protocol. Education given. Patient is seeing a psychiatrist in which he is getting Ativan. Inpatient psychiatrist recommend being cautious with benzos and pain medication. Pt Condition on Discharge: Stable Discharge Disposition: Disch w/ Home Health Serv Discharge Time: > 30 minutes Discharge Instructions DIET: Follow Instructions for: As Tolerated, No Restrictions Activities you can perform: Regular-No Restrictions Follow up Referrals: Infectious Disease - 2 Weeks PCP Follow-up - 1 Week Psychiatry Adult - 1 Week New Medications: Azithromycin (Azithromycin) 250 Mg Tab 500 MG PO DAILY for infection, #3 TAB 0 Refills Lopinavir-Ritonavir (Kaletra) 200-50 Mg Tab 2 TAB PO BID for infection, #120 TAB 0 Refills Continued Medications: Emtricitabine-Tenofovir Disoproxil Fumarate (Truvada) 200-300 Mg Tab 1 TAB PO DAILY for health for 30 Days, #30 TAB Folic Acid (Folic Acid) 1 Mg Tablet 1 MG PO DAILY for health for 30 Days, #30 TAB [place] Carbonate ([place] Carbonate) 300 Mg Tab 300 MG PO Q12HR for health for 30 Days, #60 TAB Lorazepam (Ativan) 2 Mg Tab 2 MG PO Q6H PRN for ANXIETY AND/OR AGITATION, TAB 0 Refills Mirtazapine (Remeron) 15 Mg Tab 15 MG PO HS for Depression Control, #30 TAB 0 Refills Oxycodone (Oxycodone) 10 Mg Tab 10 MG PO Q6H PRN for PAIN, TAB 0 Refills Sulfamethoxazole-Trimethoprim (Sulfamethoxazole-Trimethoprim) 800-160 Mg Tab 1 TAB PO MoWeFr@09 for health for 30 Days, #12 TAB Thiamine HCl (Gnp Vitamin B-1) 100 Mg Tab 100 MG PO DAILY for health for 30 Days, #30 TAB Savanna Romero MD Jul 05, 2017 14:06
--- NOTE | 2017-07-05 14:06 | HHI.DCPOC ---
Discharge Care Plan Diagnosis: (1) Pneumonia (2) AIDS (acquired immune deficiency syndrome) (3) Adjustment disorder with depressed mood (4) Alcohol withdrawal Goals to Promote Your Health * To prevent worsening of your condition and complications * To maintain your health at the optimal level Directions to Meet Your Goals Take your medications as prescribed Follow your dietary instruction Follow activity as directed Keep your appointments as scheduled Take your immunizations and boosters as scheduled If your symptoms worsen call your PCP, if no PCP go to Urgent Care Center or Emergency Room Smoking is Dangerous to Your Health. Avoid second hand smoke Call the 24-hour hour crisis hotline for domestic abuse at Savanna Romero MD Jul 05, 2017 14:05
== END 2017-07-05 16:44 | disposition home or self-care (01) | DRG 975 ==
LOC: NEPD 22:26 → INTOOBSV 06-28 00:50 → NEDA 06-28 00:50 → NEPFCDU 06-28 02:34 → OBSVTOIN 06-28 03:24 → HOCA 06-28 22:03
PROVIDERS: ADMIT Family Medicine; ATTEND Family Medicine
DX: J18.9 Pneumonia, unspecified organism (principal); B20 Human immunodeficiency virus [HIV] disease; R45.851 Suicidal ideations; D70.8 Other neutropenia; I10 Essential (primary) hypertension; F32.9 Major depressive disorder, single episode, unspecified; F17.210 Nicotine dependence, cigarettes, uncomplicated; F43.21 Adjustment disorder with depressed mood; R19.7 Diarrhea, unspecified; Y90.6 Blood alcohol level of 120-199 mg/100 ml; F10.10 Alcohol abuse, uncomplicated; Z85.51 Personal history of malignant neoplasm of bladder; Z85.820 Personal history of malignant melanoma of skin
CPT/HCPCS: 71010; 76937; 80048; 80053; 80076; 80178; 80307; 81001; 82550; 85007; 85025; 85027; 85610; 85730; 86355; 86357; 86359; 86360; 87015; 87040; 87070; 87116; 87205; 87206; 94640; 94664; 96361; 96365; 96368; 96375; J0456; J0692; J0696; J1442; J1650; J2060; J7030; J7050

== ENCOUNTER 2017-07-06 04:03 | Emergency (ER) | payer MEDICAID, OTHER ==
[~2017-07-06 04:03] MED LIST changes: +AZIT250T3 PO; -MIRTA15 PO; -NICO21DI25 T-DERMAL; -TRAZ50TA12 PO
[2017-07-06 04:22] VITALS: BP 111/68; PULSE 79; RESP 18; TEMP 97.7; O2SAT 96
[2017-07-06 05:45] VITALS: BP 92/60; PULSE 77; RESP 18; TEMP 98.5; O2SAT 93
--- NOTE | 2017-07-06 05:58 | PD ---
HPI Chief Complaint: Psychiatric Symptoms Time Seen by Provider: 05:02 Travel History International Travel<30 days: No Contact w/Intl Traveler<30days: No Traveled to known affect area: No History of Present Illness HPI 47-year-old male with history of bladder cancer, melanoma, hep C, HIV presents to emergency department as a transfer from [facility] for psychiatric evaluation. Patient has been severely depressed. Does not want to live anymore. He tells me he is a hospice patient. He has no active plan for suicide at this time. He has no other symptoms to report. PFSH Past Medical History Autoimmune Disease: Yes (HIV+) Depression: Yes Cancer: Yes (Melanoma) Cardiovascular Problems: No Diabetes: No Diminished Hearing: No Genitourinary: Yes (HX BLADDER CA) Headaches: Yes (he states because he is withdrawing ) Hepatitis: Yes (HEP C) Hypertension: Yes Immune Disorder: Yes (HEP C) Musculoskeletal: No Neurologic: No Psychiatric: Yes Reproductive: No Respiratory: No Seizures: No Social History Alcohol Use: Yes (12 PACK DAILY) Tobacco Use: Yes Substance Use: No Allergies-Medications (Allergen,Severity, Reaction): Coded Allergies: No Known Allergies (Unverified , 05/27/17) Reported Meds & Prescriptions Reported Meds & Active Scripts Active Kaletra (Lopinavir/Ritonavir) 200-50 Mg Tab 2 Tab PO BID Azithromycin 250 Mg Tab 500 Mg PO DAILY Sulfamethoxazole-Trimethoprim 800-160 Mg Tab 1 Tab PO MOWEFR@09 30 Days Gnp Vitamin B-1 (Thiamine HCl) 100 Mg Tab 100 Mg PO DAILY 30 Days Folic Acid 1 Mg Tablet 1 Mg PO DAILY 30 Days [place] Carbonate 300 Mg Tab 300 Mg PO Q12HR 30 Days Kaletra (Lopinavir/Ritonavir) 200-50 Mg Tab 1 Tab PO BID 30 Days Truvada (Emtricitabine-Tenofovir Disoproxil Fumarate) 200-300 Mg Tab 1 Tab PO DAILY 30 Days Reported Remeron (Mirtazapine) 15 Mg Tab 15 Mg PO HS Oxycodone (Oxycodone HCl) 10 Mg Tab 10 Mg PO Q6H PRN Ativan (Lorazepam) 2 Mg Tab 2 Mg PO Q6H PRN Review of Systems Except as stated in HPI: all other systems reviewed are Neg Physical Exam Narrative GENERAL: Well-nourished, well-developed patient, ambulatory and in no acute distress. SKIN: Focused skin assessment warm/dry. HEAD: Normocephalic. EYES: No scleral icterus. No injection or drainage. NECK: Supple, trachea midline. No JVD or lymphadenopathy. CARDIOVASCULAR: Regular rate and rhythm without murmurs, gallops, or rubs. RESPIRATORY: Breath sounds equal bilaterally. No accessory muscle use. GASTROINTESTINAL: Abdomen soft, non-tender, nondistended. MUSCULOSKELETAL: No cyanosis, or edema. BACK: Nontender without obvious deformity. No CVA tenderness. Data Data Last Documented VS Vital Signs Date Time Temp Pulse Resp B/P (MAP) Pulse Ox O2 Delivery O2 Flow Rate FiO2 07/06/17 05:45 98.5 77 18 92/60 (71) 93 Room Air Orders Orders Psych Screen (07/06/17 04:25) Diet Regular Basic (07/06/17 Breakfast) MDM Medical Decision Making Medical Screen Exam Complete: Yes Emergency Medical Condition: Yes Medical Record Reviewed: Yes Differential Diagnosis Mood disorder versus personality disorder versus adjustment reaction disorder Narrative Course 47-year-old male presents to emergency department for evaluation as a transfer from [facility]. Patient has been medically cleared there. He reports being significantly depressed and not wanting to live anymore. He has no acute medical needs at this time. He remains medically cleared for psychiatric screening and further evaluation and disposition. Mental health screening discussed with the patient. Psychiatric screen ordered. Diagnosis Primary Impression: Adjustment disorder with depressed mood Condition: Romana Hogan Jul 06, 2017 05:58
--- NOTE | 2017-07-06 11:04 | PD ---
History of Present Illness Chief Complaint: Psychiatric Symptoms Time Seen by Provider: 10:30 Travel History International Travel<30 Days: No Contact w/Intl Traveler<30days: No Known affected area: No Legal Status Legal Status: Hilario Act Hilario Act Signed By: ALINE REAL History of Present Illness: 47-year-old male presents to the emergency department as a hilario act transfer from [facility]. According to the Hilario act, the patient is suicidal. This physician has met the patient and evaluated him on one previous occasion during his last hospitalization at [facility]. This physician has also reviewed the medical records from the patient's recent hospitalizations. This includes the note written by Dr. Broderick, which indicates the patient is manipulative and contradictory regarding his desire to live and receive treatment and his intermittent suicidal threats. This physician evaluated the patient on this occasion, in J pod and questioned him about the contradictory nature of his suicidality. The patient is now stating he wants to go to [place] and does not wish to seek treatment at [facility] or hospice. (Both options are available as the patient has a alcohol problem and multiple medical problems for which he has admittedly been accepted to hospice.) This physician offered to provide transportation to one of these 2 treatment centers but the patient declined, stating he would prefer to walk out the front door. The patient remains competent to make medical decisions. While he is not currently threatening suicide, this physician is aware of the patient's ongoing and unpredictable/unavoidable risk of the patient acting out. It is still counter therapeutic, however, to give into the patient's manipulative statements. Patient is not psychotic and his cognition is intact. Patient is currently homeless and was also offered [employer] pass. He declined. PFSH Past Medical History Autoimmune Disease: Yes (HIV+) Depression: Yes Cancer: Yes (Melanoma) Cardiovascular Problems: No Diabetes: No Diminished Hearing: No Genitourinary: Yes (HX BLADDER CA) Headaches: Yes (he states because he is withdrawing ) Hepatitis: Yes (HEP C) Hypertension: Yes Immune Disorder: Yes (HEP C) Musculoskeletal: No Neurologic: No Psychiatric: Yes Reproductive: No Respiratory: No Seizures: No Psychiatric History Psychiatric History Hx Psychiatric Treatment: PATIENT REPORTS TWO INPT STAYS AT [facility] WITH UNKNOWN DETAILS. RECORDS SHOW May-Jun. Jun- Jun. This physician reviewed the details of both hospitalizations. History of Inpatient Treatment: Yes Guns or firearms in home: No Social History Hx Alcohol Use: Yes (12 PACK DAILY) Hx Tobacco Use: Yes Hx Substance Use: No Substance Use Type: Alcohol Other Substances Used: DRINKS 12 PKG BEER PER DAY Hx of Substance Use Treatment: No Allergies-Medications (Allergen,Severity, Reaction): Coded Allergies: No Known Allergies (Unverified , 05/27/17) Reported Meds & Prescriptions Reported Meds & Active Scripts Active Kaletra (Lopinavir/Ritonavir) 200-50 Mg Tab 2 Tab PO BID Azithromycin 250 Mg Tab 500 Mg PO DAILY Sulfamethoxazole-Trimethoprim 800-160 Mg Tab 1 Tab PO MOWEFR@09 30 Days Gnp Vitamin B-1 (Thiamine HCl) 100 Mg Tab 100 Mg PO DAILY 30 Days Folic Acid 1 Mg Tablet 1 Mg PO DAILY 30 Days [place] Carbonate 300 Mg Tab 300 Mg PO Q12HR 30 Days Kaletra (Lopinavir/Ritonavir) 200-50 Mg Tab 1 Tab PO BID 30 Days Truvada (Emtricitabine-Tenofovir Disoproxil Fumarate) 200-300 Mg Tab 1 Tab PO DAILY 30 Days Reported Remeron (Mirtazapine) 15 Mg Tab 15 Mg PO HS Oxycodone (Oxycodone HCl) 10 Mg Tab 10 Mg PO Q6H PRN Ativan (Lorazepam) 2 Mg Tab 2 Mg PO Q6H PRN Review of Systems Except as stated in HPI: all other systems reviewed are Neg Exam Alert: Yes [place]: Person, Place, Date, Situation Mood: Calm Affect: Appropriate Speech: Clear, Logical Eye Contact: Normal Memory Intact: Immediate, Recent, Remote Insight/Judgement Adequate adequate MDM Medical Decision Making Medical Record Reviewed: Yes Assessment/Plan 47-year-old male evaluated under a Hilario act, interviewed in person and medical record reviewed. Case discussed with nurse Chadwick. Patient has multiple medical problems but is only interested in treating them intermittently and individually. Patient appears to use suicidal threats as a manipulation to gain admission. Patient also has a history of drug-seeking behavior. Patient has no cognitive deficits and no psychotic symptoms at this time. It is felt to be counter therapeutic to admit the patient to psychiatry as a result of his manipulations. However, he was offered treatment at [facility] for his alcohol abuse and at hospice because he indicates he has been accepted by hospice for further treatment. Patient is competently choosing to leave the hospital voluntarily and wants to return to [place]. He states he has money in the bank because of social security. Again, this physician understands the patient may act out and actually harm himself, but this is unpredictable and unavoidable. It remains counter therapeutic to admit the patient at this time to psychiatry due to his manipulations. Orders Orders Psych Screen (07/06/17 04:25) Diet Regular Basic (07/06/17 Breakfast) Diet Regular Basic (07/06/17 Lunch) Results Vital Signs Date Time Temp Pulse Resp B/P (MAP) Pulse Ox O2 Delivery O2 Flow Rate FiO2 07/06/17 05:45 98.5 77 18 92/60 (71) 93 Room Air 07/06/17 04:22 97.7 79 18 111/68 (82) 96 Room Air Diagnosis Primary Impression: Adjustment disorder with mixed disturbance of emotions and conduct Condition: Stable Beto Bruno MD Jul 06, 2017 11:04
[2017-07-06 11:27] VITALS: BP 92/60; TEMP 98.5
--- NOTE | 2017-07-06 11:52 | PD ---
Physical Exam Date Seen by Provider: Jul 06, 2017 Time Seen by Provider: 11:50 Narrative 47-year-old male that presents to the ED for evaluation of psychiatric evaluation after being transferred from a different facility. Please refer to the previous provider note. I was asked to disposition the patient after he was cleared by psychiatry for discharge. Please refer to the psychiatrist's note as well for further psychiatric evaluation. Data Data Last Documented VS Vital Signs Date Time Temp Pulse Resp B/P (MAP) Pulse Ox O2 Delivery O2 Flow Rate FiO2 07/06/17 11:27 98.5 77 18 92/60 (71) 93 07/06/17 05:45 Room Air Orders Orders Psych Screen (07/06/17 04:25) Diet Regular Basic (07/06/17 Breakfast) Diet Regular Basic (07/06/17 Lunch) MDM Medical Record Reviewed: Yes Supervised Visit with DARWIN: No Differential Diagnosis Depression versus suicidal ideation versus anxiety versus adjustment disorder versus mood disorder versus bipolar disorder versus schizophrenia versus paranoid disorder versus psychosis versus substance abuse versus alcohol abuse versus alcohol induced psychosis versus homicidality addition versus cutting versus personality disorder Narrative Course 47-year-old male that presents to the ED for evaluation of psych. Patient was properly examined by previous provider. Please refer to his note. Patient was deemed cleared by psychiatry and they recommended discharge. I was asked to disposition the patient. Please refer to the previous provider's note. Patient was given information as to outpatient psychiatric eval. See ED for worsening symptoms. Follow with PCP. Diagnosis Primary Impression: Adjustment disorder with mixed disturbance of emotions and conduct Patient Instructions: General Instructions, Mood Disorders (ED) Departure Forms: Tests/Procedures Additional Instruction: GIVEN LOCAL OUTPATIENT RESOURCE PACKET Disposition: 01 DISCHARGE HOME Condition: Rajesh Eaton Jul 06, 2017 11:52
== END 2017-07-06 12:12 | disposition home or self-care (01) ==
LOC: NEPJ 04:03
DX: F43.21 Adjustment disorder with depressed mood (principal); F43.25 Adjustment disorder with mixed disturbance of emotions and conduct; I10 Essential (primary) hypertension; Z72.0 Tobacco use; Z21 Asymptomatic human immunodeficiency virus [HIV] infection status; Z86.59 Personal history of other mental and behavioral disorders; Z85.828 Personal history of other malignant neoplasm of skin; Z85.51 Personal history of malignant neoplasm of bladder; Z86.19 Personal history of other infectious and parasitic diseases
CPT/HCPCS: 99284

== ENCOUNTER 2017-07-14 13:37 | Emergency (ER) | payer MEDICAID, OTHER ==
[~2017-07-14] VITALS: Ht 182.9 cm; Wt 75.0 kg
[2017-07-14 13:40] VITALS: BP 115/75; PULSE 114; RESP 16; TEMP 98.4; O2SAT 98
[2017-07-15] MEDS ORDERED: EMTR1TAB PO (22:40)
[2017-07-15] MEDS ORDERED: GNP100TA3 PO (22:40)
[2017-07-15] MEDS ORDERED: LITH300T3 PO (22:40)
[2017-07-15] MEDS ORDERED: KALETRA200 PO (22:40)
[2017-07-15] MEDS ORDERED: SULF1TAB23 PO (22:40)
[2017-07-15] MEDS ORDERED: FOLI1TAB6 PO (22:40)
== END 2017-07-14 16:52 | disposition left against medical advice (07) ==
LOC: NED 13:37
DX: Z04.3 Encounter for examination and observation following other accident (principal); Z53.21 Procedure and treatment not carried out due to patient leaving prior to being seen by health care provider
CPT/HCPCS: 99281

== ENCOUNTER 2017-07-15 17:58 | Emergency (ER) | payer MEDICAID ==
[~2017-07-15] VITALS: Ht 182.9 cm; Wt 75.0 kg
[2017-07-15 18:40] VITALS: BP 139/70; PULSE 86; RESP 13; TEMP 99.2; O2SAT 100
[2017-07-15 19:29] VITALS: BP 136/93; PULSE 83; RESP 20; TEMP 98.6; O2SAT 97
[2017-07-15 19:35] VITALS: O2SAT 98
[2017-07-15 19:36] VITALS: RESP 18; O2SAT 99
[2017-07-15] MEDS ORDERED: SODIUM CHLORIDE 0.9% FLUSH 10 ML FLUSH IVF PRN (19:45)
[2017-07-15] MEDS ORDERED: LORazepam 2 MG/ML VIAL IV PUSH ONE (19:45)
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
--- NOTE | 2017-07-15 20:46 | RADRPT ---
EXAM DATE/TIME: 07/15/2017 20:19 [facility] COMPARISON: CHEST SINGLE AP, June 30, 2017, 13:39. INDICATIONS : Cough. MEDICAL HISTORY : None. SURGICAL HISTORY : None. ENCOUNTER: Initial ACUITY: 1 day PAIN SCORE: 0/10 LOCATION: Bilateral chest FINDINGS: A single view of the chest demonstrates the lungs to be symmetrically aerated without evidence of mas s, infiltrate or effusion. The cardiomediastinal contours are unremarkable. Osseous structures are intact. CONCLUSION: No acute disease. Jamie Moctezuma MD on July 15, 2017 at 20:44 Board Certified Radiologist. This report was verified electronically.
[2017-07-15 21:09] LABS: BASOPHIL % 0.6 % (0.0-2.0); EOSINOPHIL % 2.5 % (0.0-4.0); HEMATOCRIT 40.4 % (39.0-51.0); LYMPH % 55.3 % (9.0-44.0); LYMPHOCYTE # 1.1 TH/MM3 (1.0-4.8); MEAN CORPUSCULAR HEMOGLOBIN 31.2 PG (27.0-34.0); MEAN CORPUSCULAR HGB CONC 33.6 % (32.0-36.0); MONO % 24.7 % (0.0-8.0); NEUT % 16.9 % (16.0-70.0); PLATELET COUNT 260 TH/MM3 (150-450); RED BLOOD COUNT 4.35 MIL/MM3 (4.50-5.90); RED CELL DISTRIBUTION WIDTH 15.9 % (11.6-17.2); WHITE BLOOD COUNT 1.9 TH/MM3 (4.0-11.0)
[2017-07-15 21:13] LABS: ANION GAP 7 MEQ/L (5-15); AST (GOT) 27 U/L (15-37); BLOOD UREA NITROGEN 9 MG/DL (7-18); CHLORIDE 105 MEQ/L (98-107); GLOMERULAR FILTRATION RATE 107 ML/MIN (>89); POTASSIUM 4.3 MEQ/L (3.5-5.1); SODIUM (NA) 137 MEQ/L (136-145)
[2017-07-15 21:14] LABS: ALT (GPT) 27 U/L (12-78)
[2017-07-15 21:16] LABS: ALKALINE PHOSPHATASE 58 U/L (45-117); TOTAL BILIRUBIN ADULT 0.7 MG/DL (0.2-1.0)
[2017-07-15 21:17] LABS: HEMO FLAGS AUTO DIFF
[2017-07-15 21:20] LABS: AUTOMATED NEUTROPHIL # 0.3 TH/MM3 (1.8-7.7)
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
[2017-07-15 22:07] VITALS: BP 128/79; PULSE 92; RESP 18; O2SAT 96
[2017-07-15 22:09] LABS: EOSINOPHILS 3 % (0-4); NEUTROPHIL # MANUAL DIFF 0.4 TH/MM3 (1.8-7.7); POLYS (SEG NEUTROPHILS) 21 % (16-70); WBC DIFF SAMPLE 100
[2017-07-15 22:10] LABS: PLATELET ESTIMATE SMEAR NORMAL (NORMAL); PLATELET MORPHOLOGY NORMAL (NORMAL); SCAN/DIFF FINAL DIFF MANUAL
[2017-07-15] MEDS ORDERED: GNP100TA3 PO (22:40)
[2017-07-15] MEDS ORDERED: FOLI1TAB6 PO (22:40)
[2017-07-15] MEDS ORDERED: KALETRA200 PO (22:40)
[2017-07-15] MEDS ORDERED: SULF1TAB23 PO (22:40)
[2017-07-15] MEDS ORDERED: LITH300T3 PO (22:40)
[2017-07-15] MEDS ORDERED: EMTR1TAB PO (22:40)
[2017-07-16 00:05] VITALS: BP 114/80; PULSE 84; RESP 18; O2SAT 97
[2017-07-16 04:22] VITALS: BP 121/79; PULSE 62; RESP 16; O2SAT 100
[2017-07-16 07:14] VITALS: BP 125/80; PULSE 62; RESP 16; O2SAT 100
[2017-07-16] MEDS ORDERED: LORazepam 2 MG/ML VIAL IV PUSH PRN ×4 (08:30)
[2017-07-16] MEDS ORDERED: LORazepam 1 MG TAB PO PRN (08:30)
[2017-07-16] MEDS ORDERED: FLUMAZENIL 0.5 MG/5 ML VIAL IV PUSH PRN (08:30)
[2017-07-16] MEDS ORDERED: HALOPERIDOL LACTATE 5 MG/ML AMP IM PRN (08:30)
[2017-07-16] MEDS ORDERED: ACETAMINOPHEN 325 MG TAB PO PRN (08:30)
[2017-07-16] MEDS: LORazepam 2 MG TAB PO PRN (08:45)
[2017-07-16 14:00] VITALS: BP 107/60; PULSE 80; RESP 18; TEMP 98.3; O2SAT 98
[2017-07-16 17:20] VITALS: BP 128/80; PULSE 81; RESP 16; TEMP 98.5; O2SAT 98
[2017-07-16 19:41] VITALS: BP 112/68; PULSE 82; RESP 20; O2SAT 97
[2017-07-17 01:00] VITALS: BP 108/76; PULSE 76; RESP 20; O2SAT 99
[2017-07-17 01:23] VITALS: BP 110/73; PULSE 80; RESP 18
[2017-07-17] MEDS: LORazepam 2 MG TAB PO PRN (02:01)
[2017-07-17 02:08] VITALS: BP 105/63; PULSE 84; RESP 18
[2017-07-17 06:25] VITALS: BP 105/63; PULSE 88; RESP 18
--- NOTE | 2017-07-17 09:50 | PD ---
Physical Exam Time Seen by Provider: 09:47 BRANDO Us has evaluated the patient and the patient will be discharged home with follow-up with Cheryl. Data Data Last Documented VS Vital Signs Date Time Temp Pulse Resp B/P (MAP) Pulse Ox O2 Delivery O2 Flow Rate FiO2 07/17/17 06:25 88 18 105/63 (77) 07/17/17 01:00 99 Room Air 07/16/17 17:20 98.5 Orders Orders Complete Blood Count With Diff (07/15/17 19:33) Comprehensive Metabolic Panel (07/15/17 19:33) Oximetry (07/15/17 19:33) Iv Access Insert/Monitor (07/15/17 19:33) Ecg Monitoring (07/15/17 19:33) Psych Screen (07/15/17 19:33) Sodium Chloride 0.9% Flush (Ns Flush) (07/15/17 19:45) Lorazepam Inj (Ativan Inj) (07/15/17 19:45) Drug Screen, Random Urine (07/15/17 19:33) Chest, Single Ap (07/15/17 ) Ct Brain W/O Iv Contrast(Rout) (07/15/17 ) Acetaminophen (Tylenol) (07/16/17 08:30) Alcohol Withdrawal Asmt-Ciwa Q4HX18 (07/16/17 08:29) Flumazenil Inj (Romazicon Inj) (07/16/17 08:30) Lorazepam (Ativan) (07/16/17 08:30) Lorazepam Inj (Ativan Inj) (07/16/17 08:30) Lorazepam (Ativan) (07/16/17 08:30) Lorazepam Inj (Ativan Inj) (07/16/17 08:30) Lorazepam Inj (Ativan Inj) (07/16/17 08:30) Lorazepam Inj (Ativan Inj) (07/16/17 08:30) Haloperidol Inj (Haldol Inj) (07/16/17 08:30) Oxycodone (Roxicodone) (07/16/17 08:30) Diet Regular Basic (07/16/17 Lunch) Diet Regular Basic (07/17/17 Breakfast) Labs Laboratory Tests Test 07/15/17 20:10 07/16/17 08:00 White Blood Count 1.9 TH/MM3 Red Blood Count 4.35 MIL/MM3 Hemoglobin 13.6 GM/DL Hematocrit 40.4 % Mean Corpuscular Volume 93.0 FL Mean Corpuscular Hemoglobin 31.2 PG Mean Corpuscular Hemoglobin Concent 33.6 % Red Cell Distribution Width 15.9 % Platelet Count 260 TH/MM3 Mean Platelet Volume 8.2 FL Neutrophils (%) (Auto) 16.9 % Lymphocytes (%) (Auto) 55.3 % Monocytes (%) (Auto) 24.7 % Eosinophils (%) (Auto) 2.5 % Basophils (%) (Auto) 0.6 % Neutrophils # (Auto) 0.3 TH/MM3 Lymphocytes # (Auto) 1.1 TH/MM3 Monocytes # (Auto) 0.5 TH/MM3 Eosinophils # (Auto) 0.0 TH/MM3 Basophils # (Auto) 0.0 TH/MM3 CBC Comment AUTO DIFF Differential Total Cells Counted 100 Neutrophils % (Manual) 21 % Lymphocytes % 42 % Monocytes % 34 % Eosinophils % 3 % Neutrophils # (Manual) 0.4 TH/MM3 Differential Comment FINAL DIFF MANUAL Atypical Lymphocytes % Platelet Estimate NORMAL Platelet Morphology Comment NORMAL Blood Urea Nitrogen 9 MG/DL Creatinine 0.78 MG/DL Random Glucose 63 MG/DL Total Protein 8.7 GM/DL Albumin 3.2 GM/DL Calcium Level 8.5 MG/DL Alkaline Phosphatase 58 U/L Aspartate Amino Transf (AST/SGOT) 27 U/L Alanine Aminotransferase (ALT/SGPT) 27 U/L Total Bilirubin 0.7 MG/DL Sodium Level 137 MEQ/L Potassium Level 4.3 MEQ/L Chloride Level 105 MEQ/L Carbon Dioxide Level 25.0 MEQ/L Anion Gap 7 MEQ/L Estimat Glomerular Filtration Rate 107 ML/MIN Urine Opiates Screen NEG Urine Barbiturates Screen NEG Urine Amphetamines Screen POS Urine Benzodiazepines Screen POS Urine Cocaine Screen POS Urine Cannabinoids Screen NEG MDM Supervised Visit with DARWIN: No Narrative Course BRANDO Ayala has evaluated the patient and the patient will be discharged home with follow-up with Cheryl. Patient contracts safety. Denies suicidal or homicidal ideations. Patient will be provided community resource packet to [facility]/ [facility] for follow-up. Has friends and family for support. Patient is medically cleared for discharge. Diagnosis Primary Impression: Medical clearance for psychiatric admission Additional Impressions: Suicidal ideation HIV (human immunodeficiency virus infection) Referrals: [facility] (Out patient) [facility] Primary Care Physician Psychiatrist Jaskaran [facility] Patient Instructions: General Instructions, Polysubstance Abuse (ED), Suicide Prevention for Adults (ED) Additional Instruction: Contract safety to your self and others Follow-up with psychiatry Follow-up with primary care provider Follow-up with Per Vela/JULIA Return to the emergency department immediately with worsening of symptoms Med/Other Pt SpecificInfo: Prescription(s) given Scripts Lopinavir-Ritonavir (Kaletra) 200-50 Mg Tab 2 TAB PO BID for infection, #120 TAB 0 Refills Prov: Chanel Ma 07/15/17 Sulfamethoxazole-Trimethoprim (Sulfamethoxazole-Trimethoprim) 800-160 Mg Tab 1 TAB PO MoWeFr@09 for health for 30 Days, #12 TAB Prov: Chanel Ma 07/15/17 Thiamine HCl (Gnp Vitamin B-1) 100 Mg Tab 100 MG PO DAILY for health for 30 Days, #30 TAB Prov: Chanel Ma 07/15/17 Folic Acid (Folic Acid) 1 Mg Tablet 1 MG PO DAILY for health for 30 Days, #30 TAB Prov: Chanel Ma 07/15/17 [place] Carbonate ([place] Carbonate) 300 Mg Tab 300 MG PO Q12HR for health for 30 Days, #60 TAB Prov: Chanel Ma 07/15/17 Emtricitabine-Tenofovir Disoproxil Fumarate (Truvada) 200-300 Mg Tab 1 TAB PO DAILY for health for 30 Days, #30 TAB Prov: Chanel Ma 07/15/17 Disposition: 01 DISCHARGE HOME Condition: Stable Ryann Orosco Jul 17, 2017 09:50
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
== END 2017-07-17 10:45 | disposition home or self-care (01) ==
LOC: NEPD 17:58 → NEPJ 07-17 10:45
DX: B20 Human immunodeficiency virus [HIV] disease (principal); R05 Cough; F17.200 Nicotine dependence, unspecified, uncomplicated; Y04.0XXA Assault by unarmed brawl or fight, initial encounter; Y92.59 Other trade areas as the place of occurrence of the external cause; Z79.899 Other long term (current) drug therapy
CPT/HCPCS: 70450; 71010; 80053; 80307; 85007; 85027; 96374; 96375; 99285; J2060

== ENCOUNTER 2017-07-18 22:46 | Emergency (ER) | payer MEDICAID ==
[~2017-07-18] VITALS: Ht 182.9 cm; Wt 75.0 kg
[2017-07-18 22:48] VITALS: BP 128/81; PULSE 93; RESP 16; TEMP 98.4; O2SAT 96
[2017-07-18] MEDS ORDERED: hydrOXYzine HCL 25 MG TAB PO ONE (23:45)
--- NOTE | 2017-07-18 23:57 | PD ---
HPI Chief Complaint: Psychiatric Symptoms Time Seen by Provider: 23:20 Travel History International Travel<30 days: No Contact w/Intl Traveler<30days: No Traveled to known affect area: No History of Present Illness HPI So 47-year-old man who presents to the emergency department complaining of increased depression symptoms. He states he is hearing voices are telling him to kill himself. He states he's been feeling more suicidal. States symptoms been constant worsening without aggravating or alleviating factors for several days, if not weeks. History Past Medical History Narrative Medical HIV, AIDS Social History Alcohol Use: Yes (12 PACK DAILY) Tobacco Use: Yes (1/2PPD) Allergies-Medications (Allergen,Severity, Reaction): Coded Allergies: No Known Allergies (Unverified , 07/18/17) Reported Meds & Prescriptions Reported Meds & Active Scripts Active Kaletra (Lopinavir/Ritonavir) 200-50 Mg Tab 2 Tab PO BID Sulfamethoxazole-Trimethoprim 800-160 Mg Tab 1 Tab PO MOWEFR@09 30 Days Gnp Vitamin B-1 (Thiamine HCl) 100 Mg Tab 100 Mg PO DAILY 30 Days Folic Acid 1 Mg Tablet 1 Mg PO DAILY 30 Days [place] Carbonate 300 Mg Tab 300 Mg PO Q12HR 30 Days Truvada (Emtricitabine-Tenofovir Disoproxil Fumarate) 200-300 Mg Tab 1 Tab PO DAILY 30 Days Azithromycin 250 Mg Tab 500 Mg PO DAILY Kaletra (Lopinavir/Ritonavir) 200-50 Mg Tab 1 Tab PO BID 30 Days Reported Remeron (Mirtazapine) 15 Mg Tab 15 Mg PO HS Oxycodone (Oxycodone HCl) 10 Mg Tab 10 Mg PO Q6H PRN Ativan (Lorazepam) 2 Mg Tab 2 Mg PO Q6H PRN Review of Systems Except as stated in HPI: all other systems reviewed are Neg Physical Exam Narrative GENERAL: 47-year-old man, no acute distress. SKIN: Focused skin assessment warm/dry. HEAD: Atraumatic. Normocephalic. CARDIOVASCULAR: Regular rate and rhythm. No murmur appreciated. RESPIRATORY: No accessory muscle use. Clear to auscultation. Breath sounds equal bilaterally. GASTROINTESTINAL: Abdomen soft, non-tender, nondistended. Hepatic and splenic margins not palpable. MUSCULOSKELETAL: No obvious deformities. No clubbing. No cyanosis. No edema. NEUROLOGICAL: Awake and alert. No obvious cranial nerve deficits. Motor grossly within normal limits. Normal speech. PSYCHIATRIC: Sad with some emotional lability and irritability, little bit grandiose, endorsing SI. Data Data Last Documented VS Vital Signs Date Time Temp Pulse Resp B/P (MAP) Pulse Ox O2 Delivery O2 Flow Rate FiO2 07/18/17 22:48 98.4 93 16 128/81 (97) 96 Orders Orders Psych Screen (07/18/17 23:35) Hydroxyzine Hcl (Atarax) (07/18/17 23:45) MDM Medical Decision Making Medical Screen Exam Complete: Yes Emergency Medical Condition: Yes Differential Diagnosis Malingering, substance-induced mood disorder, depression, other Narrative Course Medical decision making 47-year-old man endorsing worsening SI and increased suicidality. Lives alone. Is on HIV medications which he states he is taking. Recently seen by Lucy and thought to be malingering. Patient does not appear to be homeless and has no obvious secondary gain. We'll plan mental health screening and reassess. Labs deferred given that they were done recently. Patient is medically clear for psychiatric evaluation. Diagnosis Primary Impression: Adjustment disorder with depressed mood Yoav Parry MD Jul 18, 2017 23:57
[2017-07-19 08:32] VITALS: BP 108/77; PULSE 62; RESP 17; TEMP 98.2; O2SAT 97
--- NOTE | 2017-07-19 14:16 | PD ---
History of Present Illness Chief Complaint: Psychiatric Symptoms Time Seen by Provider: 14:15 Travel History International Travel<30 Days: No Contact w/Intl Traveler<30days: No Known affected area: No Legal Status Legal Status: Voluntary History of Present Illness: 47-year-old male presents voluntarily with self reports of suicidality and "hearing voices". Patient is known to this physician from previous hospitalization in which she was seen by Dr. Broderick and this physician. Patient has been repeatedly described as manipulative. He was also treated on [facility] [address]., a psychiatric unit, by Dr. Espino. Patient changes his mind regarding his symptoms and his suicidality very frequently. When confronted with the fact that he came to the hospital for assistance and now declares that he might as well , he refuses to acknowledge the contradictory newness of his behavior. He is currently stating he wants his infectious disease medicines overhauled and that he has no psychiatric complaints. However, this physician is well aware of the patient can change his mind very frequently and start again claiming that he is suicidal. Despite the patient's ongoing risk of acting out behavior, which can indeed be dangerous, this physician feels it is counter therapeutic to admit him. Patient's acting out behavior is done voluntarily and competently on his part. It can neither be predicted or avoided. Finally, this physician sees no significant objective clinical evidence the patient is "hearing voices" or in any way psychotic. PFSH Past Medical History Autoimmune Disease: Yes (HIV+) Depression: Yes Cancer: Yes (Melanoma, BLADDER CA) Cardiovascular Problems: No Diabetes: No Diminished Hearing: No Gastrointestinal Disorders: No Genitourinary: Yes (HX BLADDER CA) Headaches: Yes (he states because he is withdrawing ) Hepatitis: Yes (HEP C) Hypertension: Yes Immune Disorder: Yes (HEP C) Implanted Vascular Access Dvce: No Musculoskeletal: No Neurologic: No Psychiatric: Yes Reproductive: No Respiratory: No Seizures: No Past Surgical History Genitourinary Surgery: Yes (CYSTOSCOPY) Psychiatric History Psychiatric History Hx Psychiatric Treatment: REPORTS TWO INPT STAYS AT [facility] History of Inpatient Treatment: Yes Guns or firearms in home: No Social History Hx Alcohol Use: Yes (12 PACK DAILY) Hx Tobacco Use: Yes (1/2PPD) Hx Substance Use: Yes (DAILY ALCOHOL ABUSE) Substance Use Type: Alcohol, Amphetamines-Stimulants, Nicotine/Cigarettes, Benzos (Valium,Xanax), Cocaine Other Substances Used: DRINKS 12 PKG BEER PER DAY Hx of Substance Use Treatment: No Allergies-Medications (Allergen,Severity, Reaction): Coded Allergies: No Known Allergies (Unverified , 07/18/17) Reported Meds & Prescriptions Reported Meds & Active Scripts Active Kaletra (Lopinavir/Ritonavir) 200-50 Mg Tab 2 Tab PO BID Sulfamethoxazole-Trimethoprim 800-160 Mg Tab 1 Tab PO MOWEFR@09 30 Days Gnp Vitamin B-1 (Thiamine HCl) 100 Mg Tab 100 Mg PO DAILY 30 Days Folic Acid 1 Mg Tablet 1 Mg PO DAILY 30 Days [place] Carbonate 300 Mg Tab 300 Mg PO Q12HR 30 Days Truvada (Emtricitabine-Tenofovir Disoproxil Fumarate) 200-300 Mg Tab 1 Tab PO DAILY 30 Days Azithromycin 250 Mg Tab 500 Mg PO DAILY Kaletra (Lopinavir/Ritonavir) 200-50 Mg Tab 1 Tab PO BID 30 Days Reported Remeron (Mirtazapine) 15 Mg Tab 15 Mg PO HS Oxycodone (Oxycodone HCl) 10 Mg Tab 10 Mg PO Q6H PRN Ativan (Lorazepam) 2 Mg Tab 2 Mg PO Q6H PRN Review of Systems Except as stated in HPI: all other systems reviewed are Neg Mental Status Examination Appearance: Appropriate Consciousness: Alert Orientation: x4 Motor Activity: Normal gait Speech: Unremarkable Language: Adequate Fund of Knowledge: Adequate Attention and Concentration: Adequate Memory: Unremarkable Mood: Appropriate Affect: Appropriate Thought Process & Associations: Intact Thought Content: Appropriate Hallucination Type: None Delusion Type: None Suicidal Ideation: No Suicidal Plan: No Suicidal Intention: No Homicidal Ideation: No Homicidal Plan: No Homicidal Intention: No Insight: Adequate Judgment: Adequate MDM Medical Decision Making Medical Record Reviewed: Yes Assessment/Plan Patient interviewed at bedside, extensive medical record reviewed, and case discussed with nurseRod. This physician feels strongly the patient does not and should not qualify for Hilario act or inpatient psychiatric hospitalization. As noted in the medical record, patient has been psychiatrically hospitalized previously. This physician as well as Dr. Broderick feel the patient is manipulative and that it is counter therapeutic to give into his manipulations. If infectious disease is consulted, or ED physician is having to decide about discharge, they should be aware of the patient's manipulative behavior and not allow it to dictate recommendations. This physician recommends discharge with outpatient follow up. Orders Orders Psych Screen (07/18/17 23:35) Hydroxyzine Hcl (Atarax) (07/18/17 23:45) Diet Regular Basic (07/19/17 Breakfast) Results Vital Signs Date Time Temp Pulse Resp B/P (MAP) Pulse Ox O2 Delivery O2 Flow Rate FiO2 07/19/17 08:32 98.2 62 17 108/77 (87) 97 Room Air 07/18/17 22:48 98.4 93 16 128/81 (97) 96 Diagnosis Primary Impression: Adjustment disorder with mixed disturbance of emotions and conduct Beto Bruno MD Jul 19, 2017 14:16
--- NOTE | 2017-07-19 16:28 | PD ---
Physical Exam Date Seen by Provider: Jul 19, 2017 Time Seen by Provider: 16:26 Data Data Last Documented VS Vital Signs Date Time Temp Pulse Resp B/P (MAP) Pulse Ox O2 Delivery O2 Flow Rate FiO2 07/19/17 08:32 98.2 62 17 108/77 (87) 97 Room Air Orders Orders Psych Screen (07/18/17 23:35) Hydroxyzine Hcl (Atarax) (07/18/17 23:45) Diet Regular Basic (07/19/17 Breakfast) Ed Discharge Order (07/19/17 16:23) MDM Medical Record Reviewed: Yes Supervised Visit with DARWIN: No Narrative Course 47-year-old male with a history of depression, well-known to the emergency department, presented previously to the emergency room for suicidal ideation. Patient was seen and evaluated by psychiatrist with recommendations to discharge for outpatient follow-up. He was not felt to be a threat to himself or others at this time. Per Dr. Bruno's note, patient is manipulative and should not be admitted to avoid giving into his manipulations. Upon being told that he will be discharged, the patient continuously kept saying "I can't believe they're not admitting me." He is stable; communicating and ambulating without difficulty. He did request 3 bus passes. Diagnosis Primary Impression: Adjustment disorder with mixed disturbance of emotions and conduct Patient Instructions: General Instructions, Mood Disorders (ED) Departure Forms: Tests/Procedures Disposition: 01 DISCHARGE HOME Condition: Stable Shantal Mon Jul 19, 2017 16:28
[2017-07-19 16:40] VITALS: BP 118/77; PULSE 60; RESP 16; O2SAT 98
== END 2017-07-19 16:41 | disposition home or self-care (01) ==
LOC: NEPD 22:46
DX: F43.21 Adjustment disorder with depressed mood (principal); F43.25 Adjustment disorder with mixed disturbance of emotions and conduct; I10 Essential (primary) hypertension; F17.200 Nicotine dependence, unspecified, uncomplicated; Z21 Asymptomatic human immunodeficiency virus [HIV] infection status; Z85.828 Personal history of other malignant neoplasm of skin; Z85.51 Personal history of malignant neoplasm of bladder; Z86.59 Personal history of other mental and behavioral disorders
CPT/HCPCS: 99283

== ENCOUNTER 2017-07-27 08:40 | Emergency (ER) | payer MEDICAID ==
[~2017-07-27] VITALS: Ht 193 cm; Wt 75.0 kg
[2017-07-27 09:05] VITALS: BP 109/69; PULSE 69; RESP 16; TEMP 98.2; O2SAT 96
--- NOTE | 2017-07-27 09:43 | PD ---
HPI Chief Complaint: Psychiatric Symptoms Time Seen by Provider: 09:07 Travel History International Travel<30 days: No Contact w/Intl Traveler<30days: No Traveled to known affect area: No History of Present Illness HPI This is a 47 year old male who has a history of AIDS who resents to the emergency department with depression. He reports that he's been having increasing suicidal thoughts but he has no specific plan. He was accepted in transfer from [facility] by Dr. Espino from psychiatry. PFSH Past Medical History Autoimmune Disease: Yes (HIV+) Depression: Yes Cancer: Yes (Melanoma, BLADDER CA) Cardiovascular Problems: No Diabetes: No Diminished Hearing: No Gastrointestinal Disorders: No Genitourinary: Yes (HX BLADDER CA) Headaches: Yes (he states because he is withdrawing ) Hepatitis: Yes (HEP C) Hypertension: Yes Immune Disorder: Yes (HEP C) Implanted Vascular Access Dvce: No Musculoskeletal: No Neurologic: No Psychiatric: Yes Reproductive: No Respiratory: No Seizures: No Past Surgical History Genitourinary Surgery: Yes (CYSTOSCOPY) Social History Alcohol Use: Yes (12 PACK DAILY) Tobacco Use: Yes (1/2PPD) Substance Use: Yes (DAILY ALCOHOL ABUSE) Allergies-Medications (Allergen,Severity, Reaction): Coded Allergies: No Known Allergies (Unverified , 07/27/17) Reported Meds & Prescriptions Reported Meds & Active Scripts Active Kaletra (Lopinavir/Ritonavir) 200-50 Mg Tab 2 Tab PO BID Sulfamethoxazole-Trimethoprim 800-160 Mg Tab 1 Tab PO MOWEFR@09 30 Days Gnp Vitamin B-1 (Thiamine HCl) 100 Mg Tab 100 Mg PO DAILY 30 Days Folic Acid 1 Mg Tablet 1 Mg PO DAILY 30 Days [place] Carbonate 300 Mg Tab 300 Mg PO Q12HR 30 Days Truvada (Emtricitabine-Tenofovir Disoproxil Fumarate) 200-300 Mg Tab 1 Tab PO DAILY 30 Days Azithromycin 250 Mg Tab 500 Mg PO DAILY Kaletra (Lopinavir/Ritonavir) 200-50 Mg Tab 1 Tab PO BID 30 Days Reported Remeron (Mirtazapine) 15 Mg Tab 15 Mg PO HS Oxycodone (Oxycodone HCl) 10 Mg Tab 10 Mg PO Q6H PRN Ativan (Lorazepam) 2 Mg Tab 2 Mg PO Q6H PRN Review of Systems General / Constitutional: No: Fever, Chills Cardiovascular: No: Chest Pain or Discomfort Respiratory: No: Shortness of Breath Physical Exam Narrative GENERAL:Well appearing, no acute distress SKIN: Focused skin assessment warm and dry. HEAD: Atraumatic. Normocephalic. EYES: Pupils equal and round. No injection or drainage. ENT: Moist mucous membranes NECK: Trachea midline. CARDIOVASCULAR: Regular rate and rhythm. No murmur appreciated. RESPIRATORY: Clear to auscultation. Breath sounds equal bilaterally. GASTROINTESTINAL: Abdomen soft, non-tender, nondistended. MUSCULOSKELETAL: No obvious deformities. NEUROLOGICAL: Awake and alert. No obvious cranial nerve deficits. Moving all extremities. PSYCHIATRIC: Appropriate mood and affect; insight and judgment normal. Data Data Last Documented VS Vital Signs Date Time Temp Pulse Resp B/P (MAP) Pulse Ox O2 Delivery O2 Flow Rate FiO2 07/27/17 09:08 69 16 07/27/17 09:05 98.2 109/69 (82) 96 Orders Orders Psych Screen (07/27/17 09:21) Electrocardiogram (07/27/17 ) Diet Regular Basic (07/27/17 Lunch) MDM Medical Decision Making Medical Screen Exam Complete: Yes Emergency Medical Condition: Yes Differential Diagnosis depression, adjustment disorder, substance intoxication, substance induced mood disorder Narrative Course This is a 47-year-old male who presents to the emergency department transferred from [facility] for psychiatric evaluation under a Hilario act for suicidal ideation. He appears medically stable. He'll be evaluated by psychiatry. Yudy Watson MD Jul 27, 2017 09:43
--- NOTE | 2017-07-27 12:00 | PD ---
History of Present Illness Chief Complaint: Psychiatric Symptoms Time Seen by Provider: 11:45 Travel History International Travel<30 Days: No Contact w/Intl Traveler<30days: No Known affected area: No Legal Status Legal Status: Hilario Act History of Present Illness: 47-year-old male brought in under a Hilario act for suicidal ideation. Patient well known to this physician and he continues to abuse multiple drugs, denies it , does not except responsibility for his behavior, and then comes in stating his medicines are causing him to "feel funny" and that's what prompts his suicidality. When patient notified of his positive toxicology and alcohol screen, patient reacts in an incredulous manner but he has been positive for alcohol and or drugs previously. Despite patient's threats to harm himself, this physician feels it is inappropriate to admit the patient to a psychiatric unit when he is repeatedly abusing drugs and alcohol and does not make efforts to stop by attending AA, NA, obtain a sponsor, etc. By admitting the patient, this physician feels it is enabling his continued drug and alcohol abuse and it is therefore counter therapeutic. This physician understands well that the patient may act out and harm himself, but this is neither predictable or avoidable. PFSH Past Medical History Autoimmune Disease: Yes (HIV+) Depression: Yes Cancer: Yes (Melanoma, BLADDER CA) Cardiovascular Problems: No Diabetes: No Diminished Hearing: No Gastrointestinal Disorders: No Genitourinary: Yes (HX BLADDER CA) Headaches: Yes (he states because he is withdrawing ) Hepatitis: Yes (HEP C) Hypertension: Yes Immune Disorder: Yes (HEP C) Implanted Vascular Access Dvce: No Musculoskeletal: No Neurologic: No Psychiatric: Yes Reproductive: No Respiratory: No Seizures: No Past Surgical History Genitourinary Surgery: Yes (CYSTOSCOPY) Psychiatric History Psychiatric History Hx Psychiatric Treatment: REPORTS TWO INPT STAYS AT [facility]. This physician has admitted patient in the past for HIV medication evaluation and management. History of Inpatient Treatment: Yes Guns or firearms in home: No Social History Hx Alcohol Use: Yes (12 PACK DAILY) Hx Tobacco Use: Yes (1/2PPD) Hx Substance Use: Yes (DAILY ALCOHOL ABUSE) Substance Use Type: Alcohol, Amphetamines-Stimulants, Nicotine/Cigarettes, Benzos (Valium,Xanax), Cocaine Other Substances Used: DRINKS 12 PKG BEER PER DAY Hx of Substance Use Treatment: No Allergies-Medications (Allergen,Severity, Reaction): Coded Allergies: No Known Allergies (Unverified , 07/27/17) Reported Meds & Prescriptions Reported Meds & Active Scripts Active Kaletra (Lopinavir/Ritonavir) 200-50 Mg Tab 2 Tab PO BID Sulfamethoxazole-Trimethoprim 800-160 Mg Tab 1 Tab PO MOWEFR@09 30 Days Gnp Vitamin B-1 (Thiamine HCl) 100 Mg Tab 100 Mg PO DAILY 30 Days Folic Acid 1 Mg Tablet 1 Mg PO DAILY 30 Days [place] Carbonate 300 Mg Tab 300 Mg PO Q12HR 30 Days Truvada (Emtricitabine-Tenofovir Disoproxil Fumarate) 200-300 Mg Tab 1 Tab PO DAILY 30 Days Azithromycin 250 Mg Tab 500 Mg PO DAILY Kaletra (Lopinavir/Ritonavir) 200-50 Mg Tab 1 Tab PO BID 30 Days Reported Remeron (Mirtazapine) 15 Mg Tab 15 Mg PO HS Oxycodone (Oxycodone HCl) 10 Mg Tab 10 Mg PO Q6H PRN Ativan (Lorazepam) 2 Mg Tab 2 Mg PO Q6H PRN Review of Systems Psychiatric: COMPLAINS OF: Anxiety, Mood changes Except as stated in HPI: all other systems reviewed are Neg Mental Status Examination Appearance: Appropriate Consciousness: Alert Orientation: x4 Motor Activity: Normal gait Speech: Unremarkable Language: Adequate Fund of Knowledge: Adequate Attention and Concentration: Adequate Memory: Unremarkable Mood: Appropriate Affect: Appropriate Thought Process & Associations: Intact Thought Content: Appropriate Hallucination Type: None Delusion Type: None Suicidal Ideation: Yes Suicidal Plan: No Suicidal Intention: No Homicidal Ideation: No Homicidal Plan: No Homicidal Intention: No Insight: Adequate Judgment: Adequate [facility] Medical Decision Making Medical Record Reviewed: Yes Assessment/Plan Patient's Hilario act being lifted and he may be discharged home if he does not meet criteria for nonpsychiatric hospital admission. Again, this physician is aware of the patient's potential for acting out and a harmful manner, but it remains counter therapeutic to admit the patient to psychiatry when he continues to abuse drugs and alcohol. This physician has spoken with the patient regarding [facility] refusal to accept him due to his medical condition. This physician has asked the patient to attend AA and NA meetings and at least attempt a recovery lifestyle, including obtaining a sponsor. The patient has obviously not done that so far and continues to abuse drugs and alcohol. Therefore, the patient is being discharged and may seek treatment on an outpatient basis. Orders Orders Psych Screen (07/27/17 09:21) Electrocardiogram (07/27/17 ) Diet Regular Basic (07/27/17 Lunch) Results Vital Signs Date Time Temp Pulse Resp B/P (MAP) Pulse Ox O2 Delivery O2 Flow Rate FiO2 07/27/17 09:08 69 16 07/27/17 09:05 98.2 69 16 109/69 (82) 96 Diagnosis Primary Impression: Polysubstance abuse Additional Impression: Malingering Problem Qualifiers Beto Bruno MD Jul 27, 2017 12:00
--- NOTE | 2017-07-27 13:12 | PD ---
Data Data Last Documented VS Vital Signs Date Time Temp Pulse Resp B/P (MAP) Pulse Ox O2 Delivery O2 Flow Rate FiO2 07/27/17 09:08 69 16 07/27/17 09:05 98.2 109/69 (82) 96 Orders Orders Psych Screen (07/27/17 09:21) Electrocardiogram (07/27/17 ) Diet Regular Basic (07/27/17 Lunch) MDM Supervised Visit with DARWIN: No Narrative Course This is a 47 year old male who is well-known to Dr. Bruno who presents to the emergency department transferred from an outside hospital for depression. He is not suicidal. I think is appropriate for outpatient management. He was seen by Dr. Bruno who lifted the patient's Hilario act. Patient will be discharged home. Diagnosis Primary Impression: Polysubstance abuse Additional Impression: Malingering Patient Instructions: General Instructions Additional Instruction: Follow up with [facility] in regards to psychiatric or substance related issues at: [address] [place], [place] [id number] Med/Other Pt SpecificInfo: No Change to Meds Disposition: 01 DISCHARGE HOME Condition: Stable Yudy Watson MD Jul 27, 2017 13:12
--- NOTE | 2017-07-27 21:43 | EKG ---
Date Performed: 07/27/2017 Time Performed: 10:05:16 PTAGE: 47 years EKG: SINUS BRADYCARDIA POSSIBLE RIGHT VENTRICULAR CONDUCTION DELAY BORDERLINE ECG PREVIOUS TRACING : 05/27/2017 09.44 Compared to prior tracing no significant change DOCTOR: Laz Gaming Interpretating Date/Time 07/27/2017 21:42:47
== END 2017-07-27 13:45 | disposition home or self-care (01) ==
LOC: NEPD 08:40
DX: F19.10 Other psychoactive substance abuse, uncomplicated (principal); B19.20 Unspecified viral hepatitis C without hepatic coma; I10 Essential (primary) hypertension; F17.200 Nicotine dependence, unspecified, uncomplicated; Z76.5 Malingerer [conscious simulation]
CPT/HCPCS: 93005

== ENCOUNTER 2017-10-30 11:16 | Emergency (ER) | payer SELFPAY, MEDICAID ==
[2017-10-30] MEDS: SODIUM CHLOR 0.9% 1000 ML INJ 1,000 ML IV (13:29)
[2017-10-30 13:38] LABS: BASOPHIL % 0.1 % (0.0-2.0); EOSINOPHIL % 0.8 % (0.0-4.0); HEMO FLAGS DIFF FINAL; HEMOGLOBIN 14.1 GM/DL (13.0-17.0); LYMPHOCYTE # 0.9 TH/MM3 (1.0-4.8); MEAN CELL VOLUME 89.7 FL (80.0-100.0); MEAN CORPUSCULAR HEMOGLOBIN 30.9 PG (27.0-34.0); MEAN CORPUSCULAR HGB CONC 34.5 % (32.0-36.0); MEAN PLATELET VOLUME 8.7 FL (7.0-11.0); MONO % 14.7 % (0.0-8.0); MONOCYTE # 0.5 TH/MM3 (0-0.9); NEUT % 58.4 % (16.0-70.0); PLATELET COUNT 139 TH/MM3 (150-450); RED BLOOD COUNT 4.57 MIL/MM3 (4.50-5.90); RED CELL DISTRIBUTION WIDTH 15.4 % (11.6-17.2); WHITE BLOOD COUNT 3.5 TH/MM3 (4.0-11.0)
[2017-10-30 13:44] LABS: BILIRUBIN, URINE NEG (NEG); BLOOD, URINE NEG (NEG); GLUCOSE,URINE NEG (NEG); KETONE, URINE NEG (NEG); MUCUS URINE FEW /lpf (OCC); NITRITE,URINE NEG (NEG); PH, URINE 6.5 (5.0-8.5); URINE COLOR YELLOW (YELLW/STRAW); URINE LEUKOCYTE ESTERASE NEG (NEG)
[2017-10-30 13:54] LABS: COMMENT (UR) CATH-CULT NOT IND; CULTURE IF INDICATED CATH CULTURE NOT IND
[2017-10-30 14:01] LABS: ALBUMIN 2.9 GM/DL (3.4-5.0); ANION GAP 8 MEQ/L (5-15); AST (GOT) 42 U/L (15-37); BICARBONATE 24.1 MEQ/L (21.0-32.0); BLOOD UREA NITROGEN 8 MG/DL (7-18); CHLORIDE 105 MEQ/L (98-107); CREATININE 0.74 MG/DL (0.60-1.30); GLOMERULAR FILTRATION RATE 114 ML/MIN (>89); GLUCOSE,RANDOM 73 MG/DL (74-106); POTASSIUM 3.7 MEQ/L (3.5-5.1); SODIUM (NA) 137 MEQ/L (136-145)
[2017-10-30 14:02] LABS: ALT (GPT) 49 U/L (12-78)
[2017-10-30 14:04] LABS: ALKALINE PHOSPHATASE 70 U/L (45-117); TOTAL BILIRUBIN ADULT 0.7 MG/DL (0.2-1.0); TOTAL PROTEIN 8.1 GM/DL (6.4-8.2)
[2017-10-31] MEDS: ACETAMINOPHEN 325 MG TAB PO (04:00)
== END 2017-10-31 10:47 | disposition home or self-care (01) ==
LOC: NEPD 11:16
DX: B20 Human immunodeficiency virus [HIV] disease (principal); F10.10 Alcohol abuse, uncomplicated; R45.851 Suicidal ideations; F17.200 Nicotine dependence, unspecified, uncomplicated; I12.0 Hypertensive chronic kidney disease with stage 5 chronic kidney disease or end stage renal disease; N18.6 End stage renal disease; B19.20 Unspecified viral hepatitis C without hepatic coma
CPT/HCPCS: 71045; 80053; 81001; 83605; 85025; 87040; 87804; 87804-59; 96360; 96361; 99284-25

== ENCOUNTER 2017-11-22 07:28 | Inpatient (IN) | payer MEDICAID ==
[~2017-11-22] VITALS: Ht 182.9 cm; Wt 72.6 kg
[2017-11-22] VITALS (7 sets, daily range): BP systolic 109–137; BP diastolic 61–84; PULSE 59–78; RESP 16; TEMP 97.6–97.8; O2SAT 96–100
[~2017-11-22 07:28] MED LIST changes: -EMTR1TAB PO; -FOLI1TAB6 PO; -GNP100TA3 PO; +TRUV200300 PO
[2017-11-22] MEDS ORDERED: SODIUM CHLOR 0.9% 1000 ML INJ 1,000 ML IV SCH (07:44)
[2017-11-22] MEDS ORDERED: SERO100T PO (07:46)
[2017-11-22] MEDS ORDERED: LEVOFLOXACIN 750 MG PREMIX INJ 150 ML IV ONE (08:00)
--- NOTE | 2017-11-22 08:13 | PD ---
HPI Chief Complaint: General Weakness Time Seen by Provider: 07:30 Travel History International Travel<30 days: No Contact w/Intl Traveler<30days: No Traveled to known affect area: No History of Present Illness HPI Patient was seen and examined in the presence of a nurse at all times This is a 47-year-old male with a history of AIDS who presents with multiple complaints. He states that he continues to have a productive cough. No difficulty breathing. This has been going on for several weeks. He takes Bactrim chronically. His primary physician started him on azithromycin as well. He states that he has had intermittent low-grade fevers. He believes he had a fever of 101 yesterday, none today. He denies associated nausea, vomiting. No chest pain, sore throat, headache, neck pain or stiffness. He also states that he is feeling very depressed. He called hospice yesterday but states that he was told that he needs a new referral. He does state that he is feeling suicidal with a plan to hurt himself. He has not done anything today to try to harm himself. Symptoms are mild in severity. Onset gradual. PFSH Past Medical History Depression: Yes Cancer: Yes (Melanoma, BLADDER CA) Cardiovascular Problems: No Diabetes: No Diminished Hearing: No Gastrointestinal Disorders: No Genitourinary: Yes (HX BLADDER CA) Headaches: Yes (he states because he is withdrawing ) Hepatitis: Yes (HEP C) Hypertension: Yes Immune Disorder: Yes (HEP C/ AIDS) Implanted Vascular Access Dvce: No Musculoskeletal: No Neurologic: No Psychiatric: Yes Reproductive: No Respiratory: No Seizures: No Tetanus Vaccination: Unknown Past Surgical History Genitourinary Surgery: Yes (CYSTOSCOPY) Other Surgery: No Social History Alcohol Use: Yes (12 PACK DAILY) Tobacco Use: Yes (1/2PPD) Allergies-Medications (Allergen,Severity, Reaction): Coded Allergies: No Known Allergies (Unverified Adverse Reaction, Unknown, 11/22/17) Reported Meds & Prescriptions Reported Meds & Active Scripts Active Kaletra (Lopinavir/Ritonavir) 200-50 Mg Tab 2 Tab PO BID Sulfamethoxazole-Trimethoprim 800-160 Mg Tab 1 Tab PO MOWEFR@09 30 Days [place] Carbonate 300 Mg Tab 300 Mg PO Q12HR 30 Days Azithromycin 250 Mg Tab 500 Mg PO DAILY Reported Seroquel (Quetiapine Fumarate) 100 Mg Tab 100 Mg PO DAILY Oxycodone (Oxycodone HCl) 10 Mg Tab 10 Mg PO Q6H PRN Ativan (Lorazepam) 2 Mg Tab 2 Mg PO Q6H PRN Review of Systems Except as stated in HPI: all other systems reviewed are Neg Physical Exam Narrative GENERAL: Alert, well nourished, well appearing patient resting on the bed in no acute distress. Vital Signs reviewed SKIN: Focused skin assessment warm/dry. HEAD: Atraumatic. Normocephalic. EYES: Pupils equal and round. No scleral icterus. No injection or drainage. ENT: No nasal bleeding or discharge. Mucous membranes pink and moist. Posterior oropharynx with no erythema, edema, exudate. Uvula is midline. No tenderness over the mastoids. TMs are clear bilaterally. NECK: Trachea midline. No JVD. Spontaneous, painless full range of motion with no meningismus CARDIOVASCULAR: Regular rate and rhythm. No murmur appreciated. Extremities warm and well perfused with bounding peripheral pulses RESPIRATORY: No accessory muscle use. Clear to auscultation. Breath sounds equal bilaterally. Breathing easily and speaking in full sentences GASTROINTESTINAL: Abdomen soft, non-tender, nondistended. Normal bowel sounds. No rigid, rebound, guarding MUSCULOSKELETAL: No obvious deformities. No clubbing. No cyanosis. No edema. Compartments are soft NEUROLOGICAL: Awake and alert. No obvious cranial nerve deficits. Motor grossly within normal limits. Normal speech. Sensation intact. Normal gait PSYCHIATRIC: Withdrawn affect Data Data Last Documented VS Vital Signs Date Time Temp Pulse Resp B/P (MAP) Pulse Ox O2 Delivery O2 Flow Rate FiO2 11/22/17 11:00 59 16 129/84 (99) 97 Room Air 11/22/17 07:32 97.6 Orders Orders Complete Blood Count With Diff (11/22/17 07:44) Comprehensive Metabolic Panel (11/22/17 07:44) Lactic Acid Sepsis Protocol (11/22/17 07:44) Magnesium (Mg) (11/22/17 07:44) Urinalysis - C+S If Indicated (11/22/17 07:44) Influenzae A/B Antigen (11/22/17 07:44) Blood Culture (11/22/17 07:44) Chest, Pa & Lat (11/22/17 07:44) Ecg Monitoring (11/22/17 07:44) Iv Access Insert/Monitor (11/22/17 07:44) Oximetry (11/22/17 07:44) Sodium Chlor 0.9% 1000 Ml Inj (Ns 1000 M (11/22/17 07:44) Thyroid Stimulating Hormone (11/22/17 07:44) Psych Screen (11/22/17 07:44) [place] (Li) (11/22/17 07:44) Drug Screen, Random Urine (11/22/17 07:44) Alcohol (Ethanol) (11/22/17 07:44) Levofloxacin 750 Mg Premix Inj (Levaquin (11/22/17 08:00) Calcium Gluconate Inj (Calcium Gluconate (11/22/17 08:45) Calcium Gluconate Inj (Calcium Gluconate (11/22/17 09:15) Lorazepam (Ativan) (11/22/17 10:15) Alcohol Withdrawal Asmt-Ciwa Q4HX18 (11/22/17 11:17) Flumazenil Inj (Romazicon Inj) (11/22/17 11:30) Lorazepam (Ativan) (11/22/17 11:30) Lorazepam Inj (Ativan Inj) (11/22/17 11:30) Lorazepam (Ativan) (11/22/17 11:30) Lorazepam Inj (Ativan Inj) (11/22/17 11:30) Lorazepam Inj (Ativan Inj) (11/22/17 11:30) Lorazepam Inj (Ativan Inj) (11/22/17 11:30) Vital Signs (Adult) BRENT.Q4H (11/22/17 12:19) Activity Oob With Assistance (11/22/17 12:19) Complete Blood Count With Diff (11/23/17 06:00) Lopinavir-Ritonavir 200-50 Mg (Kaletra 2 (11/22/17 21:00) Sulfamet-Trimeth Ds 800-160 Mg (Bactrim (11/24/17 09:00) Admit Order (Ed Use Only) (11/22/17 12:59) Labs Laboratory Tests Test 11/22/17 08:05 White Blood Count 1.7 TH/MM3 Red Blood Count 3.66 MIL/MM3 Hemoglobin 11.3 GM/DL Hematocrit 32.9 % Mean Corpuscular Volume 89.9 FL Mean Corpuscular Hemoglobin 30.8 PG Mean Corpuscular Hemoglobin Concent 34.3 % Red Cell Distribution Width 14.0 % Platelet Count 150 TH/MM3 Mean Platelet Volume 8.1 FL CBC Comment AUTO DIFF Differential Total Cells Counted 100 Neutrophils % (Manual) 46 % Lymphocytes % 30 % Monocytes % 22 % Eosinophils % 2 % Neutrophils # (Manual) 0.8 TH/MM3 Differential Comment FINAL DIFF MANUAL Platelet Estimate NORMAL Platelet Morphology Comment NORMAL Urine Collection Type CATH Urine Color YELLOW Urine Turbidity CLEAR Urine pH 6.0 Urine Specific [place] 1.012 Urine Protein NEG mg/dL Urine Glucose (UA) NEG mg/dL Urine Ketones NEG mg/dL Urine Occult Blood NEG Urine Nitrite NEG Urine Bilirubin NEG Urine Leukocyte Esterase NEG Urine Squamous Epithelial Cells 0-5 /hpf Microscopic Urinalysis Comment CATH-CULT NOT IND Blood Urea Nitrogen 7 MG/DL Creatinine 0.56 MG/DL Random Glucose 73 MG/DL Total Protein 7.7 GM/DL Albumin 2.4 GM/DL Calcium Level 7.0 MG/DL Magnesium Level 1.9 MG/DL Alkaline Phosphatase 98 U/L Aspartate Amino Transf (AST/SGOT) 523 U/L Alanine Aminotransferase (ALT/SGPT) 342 U/L Total Bilirubin 0.4 MG/DL Sodium Level 140 MEQ/L Potassium Level 4.4 MEQ/L Chloride Level 110 MEQ/L Carbon Dioxide Level 21.8 MEQ/L Anion Gap 8 MEQ/L Estimat Glomerular Filtration Rate 157 ML/MIN Lactic Acid Level 0.9 mmol/L Protein Corrected Calcium 6.8 MG/DL Thyroid Stimulating Hormone 3rd Gen 1.560 uIU/ML Urine Opiates Screen NEG Urine Barbiturates Screen NEG Urine Amphetamines Screen NEG Urine Benzodiazepines Screen NEG [place] Level LESS THAN 0.1 MEQ/L Urine Cocaine Screen NEG Urine Cannabinoids Screen NEG Ethyl Alcohol Level 37 MG/DL MDM Medical Decision Making Medical Screen Exam Complete: Yes Emergency Medical Condition: Yes Medical Record Reviewed: Yes Interpretation(s) Last 24 hours Impressions Chest X-Ray 11/22/17 0744 Signed Impressions: Service Date/Time: Wednesday, November 22, 2017 08:07 - CONCLUSION: 1. No acute cardiopulmonary disease. 2. Approximate L1 compression deformity. This is age-indeterminate on this limited view. Jasson Matthews Jr., MD Laboratory Tests Test 11/22/17 08:05 White Blood Count 1.7 TH/MM3 Red Blood Count 3.66 MIL/MM3 Hemoglobin 11.3 GM/DL Hematocrit 32.9 % Mean Corpuscular Volume 89.9 FL Mean Corpuscular Hemoglobin 30.8 PG Mean Corpuscular Hemoglobin Concent 34.3 % Red Cell Distribution Width 14.0 % Platelet Count 150 TH/MM3 Mean Platelet Volume 8.1 FL CBC Comment AUTO DIFF Differential Total Cells Counted 100 Neutrophils % (Manual) 46 % Lymphocytes % 30 % Monocytes % 22 % Eosinophils % 2 % Neutrophils # (Manual) 0.8 TH/MM3 Differential Comment FINAL DIFF MANUAL Platelet Estimate NORMAL Platelet Morphology Comment NORMAL Urine Collection Type CATH Urine Color YELLOW Urine Turbidity CLEAR Urine pH 6.0 Urine Specific [place] 1.012 Urine Protein NEG mg/dL Urine Glucose (UA) NEG mg/dL Urine Ketones NEG mg/dL Urine Occult Blood NEG Urine Nitrite NEG Urine Bilirubin NEG Urine Leukocyte Esterase NEG Urine Squamous Epithelial Cells 0-5 /hpf Microscopic Urinalysis Comment CATH-CULT NOT IND Blood Urea Nitrogen 7 MG/DL Creatinine 0.56 MG/DL Random Glucose 73 MG/DL Total Protein 7.7 GM/DL Albumin 2.4 GM/DL Calcium Level 7.0 MG/DL Magnesium Level 1.9 MG/DL Alkaline Phosphatase 98 U/L Aspartate Amino Transf (AST/SGOT) 523 U/L Alanine Aminotransferase (ALT/SGPT) 342 U/L Total Bilirubin 0.4 MG/DL Sodium Level 140 MEQ/L Potassium Level 4.4 MEQ/L Chloride Level 110 MEQ/L Carbon Dioxide Level 21.8 MEQ/L Anion Gap 8 MEQ/L Estimat Glomerular Filtration Rate 157 ML/MIN Lactic Acid Level 0.9 mmol/L Protein Corrected Calcium 6.8 MG/DL Thyroid Stimulating Hormone 3rd Gen 1.560 uIU/ML Urine Opiates Screen NEG Urine Barbiturates Screen NEG Urine Amphetamines Screen NEG Urine Benzodiazepines Screen NEG Urine Cocaine Screen NEG Urine Cannabinoids Screen NEG Ethyl Alcohol Level 37 MG/DL Differential Diagnosis Bronchitis, pneumonia, sepsis, AIDS, atypical pneumonia, depression, anxiety, suicidal ideations Narrative Course The patient was placed on the scientific director. IV access was established. Labs , imaging were performed. Patient is expressing suicidal ideations with plan. Patient was placed under a Hilario act due to my concern for harm to self. He was given IV fluids and Levaquin. He has already been on Bactrim and azithromycin and continues to have fevers at home and productive cough. I have spoken with the hospitalist and the psychiatrist. Patient has been seen in the emergency department by both the hospitalist and psychiatrist. He will be admitted to the medical psych floor at the main hospital. Diagnosis Primary Impression: AIDS (acquired immune deficiency syndrome) Additional Impressions: Acute bronchitis Qualified Codes: J20.9 - Acute bronchitis, unspecified Major depression Qualified Codes: F33.1 - Major depressive disorder, recurrent, moderate Brenda Barakat MD Nov 22, 2017 08:13
[2017-11-22 08:25] LABS: HEMATOCRIT 32.9 % (39.0-51.0); HEMOGLOBIN 11.3 GM/DL (13.0-17.0); MEAN CELL VOLUME 89.9 FL (80.0-100.0); MEAN CORPUSCULAR HEMOGLOBIN 30.8 PG (27.0-34.0); MEAN CORPUSCULAR HGB CONC 34.3 % (32.0-36.0); MEAN PLATELET VOLUME 8.1 FL (7.0-11.0); PLATELET COUNT 150 TH/MM3 (150-450); RED BLOOD COUNT 3.66 MIL/MM3 (4.50-5.90); WHITE BLOOD COUNT 1.7 TH/MM3 (4.0-11.0)
[2017-11-22 08:26] LABS: BILIRUBIN, URINE NEG (NEG); BLOOD, URINE NEG (NEG); GLUCOSE,URINE NEG (NEG); KETONE, URINE NEG (NEG); NITRITE,URINE NEG (NEG); URINE LEUKOCYTE ESTERASE NEG (NEG)
[2017-11-22 08:27] LABS: URINE COLOR YELLOW (YELLW/STRAW)
[2017-11-22 08:31] LABS: SQUAMOUS EPITHELIAL CELL URINE 0-5 /hpf (0-5)
[2017-11-22 08:40] LABS: ALBUMIN 2.4 GM/DL (3.4-5.0); BICARBONATE 21.8 MEQ/L (21.0-32.0); CREATININE 0.56 MG/DL (0.60-1.30); MAGNESIUM 1.9 MG/DL (1.5-2.5); TOTAL BILIRUBIN ADULT 0.4 MG/DL (0.2-1.0); TOTAL PROTEIN 7.7 GM/DL (6.4-8.2)
[2017-11-22 08:43] LABS: CALCIUM-PROTEIN CORRECTED 6.8 MG/DL (8.5-10.1)
[2017-11-22] MEDS ORDERED: CALCIUM GLUCONATE 10% 1 GM/10 ML VIAL IV PUSH ONE (08:45)
--- NOTE | 2017-11-22 08:46 | RADRPT ---
EXAM DATE/TIME: 11/22/2017 08:07 [facility] COMPARISON: No previous studies available for comparison. INDICATIONS : Cough. Weakness. MEDICAL HISTORY : Carcinoma, bladder. Hepatitis C. HIV. Hypertension. AIDS. SURGICAL HISTORY : Cystoscopy. Right foot. ENCOUNTER: Initial ACUITY: 4 - 6 days PAIN SCORE: 0/10 LOCATION: chest FINDINGS: PA and lateral views of the chest demonstrate the lungs to be symmetrically aerated without evidence of mass, infiltrate or effusion. The cardiomediastinal contours are unremarkable. A compression defo rmity is seen involving the approximate L1 vertebral body. CONCLUSION: 1. No acute cardiopulmonary disease. 2. Approximate L1 compression deformity. This is age-indeterminate on this limited view. Jasson Matthews Jr., MD on November 22, 2017 at 8:43 Board Certified Radiologist. This report was verified electronically.
[2017-11-22 08:58] LABS: LYMPHOCYTES 30 % (9-44); MONOCYTES 22 % (0-8); NEUTROPHIL # MANUAL DIFF 0.8 TH/MM3 (1.8-7.7); POLYS (SEG NEUTROPHILS) 46 % (16-70)
[2017-11-22] MEDS ORDERED: CALCIUM GLUCONATE INJ 1 GM in SODIUM CHLORIDE 0.9% INJ 100 ML IV ONE (09:15)
[2017-11-22] MEDS ORDERED: LORazepam 0.5 MG TAB PO ONE (10:15)
[2017-11-22] MEDS ORDERED: FLUMAZENIL 0.5 MG/5 ML VIAL IV PUSH PRN (11:30)
[2017-11-22] MEDS ORDERED: LORazepam 2 MG/ML VIAL IV PUSH PRN ×4 (11:30)
[2017-11-22] MEDS ORDERED: LORazepam 2 MG TAB PO PRN (11:30)
[2017-11-22] MEDS: QUEtiapine FUMARATE 100 MG TAB PO SCH (13:15)
--- NOTE | 2017-11-22 13:17 | PD.CONS ---
HPI Service [facility] Hospitalists Consult Requested By psychiatry and ER Primary Care Physician No Primary Care Physician Diagnoses: History of Present Illness 47-year-old white male being admitted for acute suicidal ideation as well as possible sepsis. [facility] consulted for med management. Patient was in usual state of health until about 2 weeks ago when he says he started having a cough which is nonproductive and progressed in intensity. He says 3 days ago began having fevers up to at least 101.2. He says he has tried [id number] medications including Motrin. Due to persistence of his symptoms he decided to come to the emergency department. Patient does admit that he is suicidal and has a plan but says he does not want to disclose the details of that plan to me, saying that it is personal. He denies any homicidal ideation. Patient's past medical history significant for HIV and AIDS, says that he sees a infectious disease doctor Maria C Arango in [facility], says he takes antiviral medications daily as well as azithromycin and Bactrim for prophylactic daily coverage. Family history significant for metastatic breast disease to the brain and his aunt. Patient reports smoking a few cigarettes a day for a number of years. Does report drinking about a 12 pack a day for many years. Patient says he sees psychiatry, Dr. Espino for bipolar and depression. Review of Systems Except as stated in HPI: all other systems reviewed are Neg Past Family Social History Allergies: Coded Allergies: No Known Allergies (Unverified Adverse Reaction, Unknown, 11/22/17) Physical Exam Vital Signs Vital Signs Date Time Temp Pulse Resp B/P (MAP) Pulse Ox O2 Delivery O2 Flow Rate FiO2 11/22/17 11:00 59 16 129/84 (99) 97 Room Air 11/22/17 10:00 60 16 109/61 (77) 98 Room Air 11/22/17 09:03 61 16 123/84 (97) 98 Room Air 11/22/17 07:47 96 11/22/17 07:46 68 16 96 11/22/17 07:32 97.6 65 16 121/75 (90) 100 Physical Exam VS: afebrile GENERAL: NAD, awake SKIN: Warm and dry. EYES: No scleral icterus. No injection or drainage. ENT: No nasal bleeding or discharge. Mucous membranes pink and moist. CARDIOVASCULAR: Regular rate and rhythm. no murmurs RESPIRATORY: No accessory muscle use. Clear to auscultation. Breath sounds equal bilaterally. GASTROINTESTINAL: Abdomen soft, non-tender, nondistended. Extremities: No clubbing, cyanosis, or edema. No obvious deformities. MUSCULOSKELETAL: adequate muscle bulk and tone for age and habitus NEUROLOGICAL: Awake and alert. No obvious cranial nerve deficits. No facial droop nor slurred speech noted. PSYCHIATRIC: Appropriate mood and affect; insight and judgment normal. Laboratory Laboratory Tests Test 11/22/17 08:05 White Blood Count 1.7 Red Blood Count 3.66 Hemoglobin 11.3 Hematocrit 32.9 Mean Corpuscular Volume 89.9 Mean Corpuscular Hemoglobin 30.8 Mean Corpuscular Hemoglobin Concent 34.3 Red Cell Distribution Width 14.0 Platelet Count 150 Mean Platelet Volume 8.1 CBC Comment AUTO DIFF Differential Total Cells Counted 100 Neutrophils % (Manual) 46 Lymphocytes % 30 Monocytes % 22 Eosinophils % 2 Neutrophils # (Manual) 0.8 Differential Comment FINAL DIFF MANUAL Platelet Estimate NORMAL Platelet Morphology Comment NORMAL Urine Collection Type CATH Urine Color YELLOW Urine Turbidity CLEAR Urine pH 6.0 Urine Specific [place] 1.012 Urine Protein NEG Urine Glucose (UA) NEG Urine Ketones NEG Urine Occult Blood NEG Urine Nitrite NEG Urine Bilirubin NEG Urine Leukocyte Esterase NEG Urine Squamous Epithelial Cells 0-5 Microscopic Urinalysis Comment CATH-CULT NOT IND Blood Urea Nitrogen 7 Creatinine 0.56 Random Glucose 73 Total Protein 7.7 Albumin 2.4 Calcium Level 7.0 Magnesium Level 1.9 Alkaline Phosphatase 98 Aspartate Amino Transf (AST/SGOT) 523 Alanine Aminotransferase (ALT/SGPT) 342 Total Bilirubin 0.4 Sodium Level 140 Potassium Level 4.4 Chloride Level 110 Carbon Dioxide Level 21.8 Anion Gap 8 Estimat Glomerular Filtration Rate 157 Lactic Acid Level 0.9 Protein Corrected Calcium 6.8 Thyroid Stimulating Hormone 3rd Gen 1.560 Urine Opiates Screen NEG Urine Barbiturates Screen NEG Urine Amphetamines Screen NEG Urine Benzodiazepines Screen NEG [place] Level LESS THAN 0.1 Urine Cocaine Screen NEG Urine Cannabinoids Screen NEG Ethyl Alcohol Level 37 Date/Time Source Procedure Growth Status 11/22/17 08:15 Blood Peripheral Aerobic Blood Culture Pending Received 11/22/17 08:15 Blood Peripheral Anaerobic Blood Culture Pending Received 11/22/17 08:16 Nasal Aspirate Influenza Types A,B Antigen (STEPHANIE) - Final NEGATIVE FOR FLU A AND B ANTIGEN.... Complete Result Diagram: 11/22/17 0805 11/22/17 0805 Imaging Last Impressions Chest X-Ray 11/22/17 0744 Signed Impressions: Service Date/Time: Wednesday, November 22, 2017 08:07 - CONCLUSION: 1. No acute cardiopulmonary disease. 2. Approximate L1 compression deformity. This is age-indeterminate on this limited view. Jasson Matthews Jr., MD Assessment and Plan Assessment and Plan This 47-year-old white male being admitted for suicidal ideation as well as possible sepsis Suicidal ideation and mood d/o -Patient has been Hilario acted. Psychiatry is on route to see the patient - will let psyc manage ETOH use - CIWA protocol Possible sepsis - no source identified at this time, possible viral URI w/ cough vs opportunistic infx. Flu neg, clinically doesn't appear to have flu - Fevers of 101.2 at home w/ acute on chronic leukopenia - chest x-ray which I independently reviewed is negative but this is not unusual in HIV patients. White count is low. Will consider consulting infectious disease if fever recurs. Blood cultures have been drawn. continue home prophylactic antibiotics for now of bactrim and azithromycin Acute on chronic leukopenia - likely 2/2 AIDS, monitor, if fever occurs then expand abx and consult ID SCDs Luis King MD Nov 22, 2017 13:17
--- NOTE | 2017-11-22 13:21 | HHI.HP ---
Provisional Diagnosis Admission Date [place] I. Bipolar disorder, depressive episode [place] II. Deferred [place] III. HIV, ESRD Certification of Person's Competence To Provide Express and Informed Consent I have personally examined Adam Reynoso , a person being served at [facility] on, Nov 22, 2017 13:08. Express and informed consent means consent voluntarily given in writing, by a competent person, after sufficient explanation and disclosure of the subject matter involved to enable the person to make a knowing and willful decision without any element of force, fraud, deceit, duress, or other form of constraint or coercion. This person is 18 years of age or older, is not now known to be incompetent to consent to treatment with a guardian advocate, and does not have a health care surrogate or proxy currently making medical treatment decisions. I have found this person to be one of the following: [] Competent to provide express and informed consent, as defined above, for voluntary admission to this facility and is competent to provide express and informed consent for treatment. He/she has the consistent capacity to make well reasoned, willful, and knowing decisions concerning his or her medical or mental health treatment. The person fully and consistently understands the purpose of the admission for examination/placement and is fully capable of personally exercising all rights assured [place] Incompetent to provide express and informed consent to voluntary admission, and this is incompetent to provide express and informed consent to treatment. The person must be transferred to involuntary status and a petition for a guardian advocate filed with the Circuit Court. [x] Refusing to provide express and informed consent to voluntary admission but is competent to provide express and informed consent for treatment. The person must be discharged or transferred to involuntary status. Form shall be completed within 24 hours of a person's arrival at the receiving facility and filed in the clinical record of each person: 1. Admitted on a voluntary basis 2. Permitted to provide express and informed consent to his/her own treatment 3. Allowed to transfer from involuntary to voluntary status 4. Prior to permitting a person to consent to his or her own treatment after having been previously found incompetent to consent to treatment. History of Present Illness Capacity: Has Capacity HPI The patient is a 47-year-old man, domiciled alone in [facility], single, poor family and social support, unemployed, on SSD, with psychiatric history of bipolar disorder, substance dependence, 3 previous psychiatric hospitalizations , his last hospitalization was here in [place] in the summer 2017 under the care of Dr. Espino, documentation reviewed, he is on lithium 300 mg twice a day , Seroquel 100 mg twice a day prescribed by PCP, he has history of suicide attempts, noncompliant with medications, with medical history of AIDS, ESRD, who presents with multiple complaints. He states that he continues to have a productive cough. No difficulty breathing. This has been going on for several weeks. He takes Bactrim chronically. His primary physician started him on azithromycin as well. He states that he has had intermittent low-grade fevers. He believes he had a fever of 101 yesterday, none today. He does state that he is feeling suicidal with a plan to hurt himself. He has not done anything today to try to harm himself. He was consulted to psychiatry due to depression and suicidal ideation. Initial toxicology is negative, BAL is 37. I was reviewed. On psychiatric evaluation patient is found sleeping,, but easily arousable. She reported that he has been feeling depressed in the last weeks, he feels that he has been decompensated medically, he is tired of being sick finding any solution to his problems. She reports increased sense of hopelessness, helplessness, hopelessness, he reports suicidal ideation with a plan of jumping off a bridge or overdosing, he denies homicidal ideation, he denies visual and auditory hallucinations. Patient is oriented 3, no attention deficit, suppression of consciousness, no gross cognitive impairment present. No paranoia, no loosening of associations, jose, agitation or aggressive behavior present. Patient says that he has been Seroquel and lithium for some months now, he has been compliant on and off. The use of illegal drugs, he reports daily use of alcohol, 4-8 beers per day, he denies withdrawal symptoms at the moment. Review of Systems Constitutional: DENIES: Diaphoretic episodes, Fatigue, Fever, Weight gain, Weight loss, Chills, Dizziness, Change in appetite, Night Sweats Endocrine: DENIES: Heat/cold intolerance, Polydipsia, Polyuria, Polyphagia Eyes: DENIES: Blurred vision, Diplopia, Eye inflammation, Eye pain, Vision loss , Photosensitivity, Double Vision Ears, nose, mouth, throat: DENIES: Tinnitus, Hearing loss, Vertigo, Nasal discharge, Oral lesions, Throat pain, Hoarseness, Ear Pain, Running Nose, Epistaxis, Sinus Pain, Toothache, Odynophagia Respiratory: COMPLAINS OF: Cough, Shortness of breath Cardiovascular: COMPLAINS OF: Chest pain Gastrointestinal: DENIES: Abdominal pain, Black stools, Bloody stools, Constipation, Diarrhea, Nausea, Vomiting, Difficulty Swallowing, Anorexia Genitourinary: DENIES: Sexual dysfunction, Urinary frequency, Urinary incontinence, Urgency, Hematuria, Dysuria, Nocturia, Penile Discharge, Testicular Pain, Testicular Swelling Musculoskeletal: DENIES: Joint pain, Muscle aches, Stiffness, Joint Swelling, Back pain, Neck pain Integumentary: DENIES: Abnormal pigmentation, Nail changes, Pruritus, Rash Hematologic/lymphatic: DENIES: Bruising, Lymphadenopathy Immunologic/allergic: DENIES: Eczema, Urticaria Neurologic: DENIES: Abnormal gait, Headache, Localized weakness, Paresthesias, Seizures, Speech Problems, Tremor, Poor Balance Psychiatric: COMPLAINS OF: Anxiety, Depression, Suicidal Ideation Past Psych History Violence risk - self (6 mos) Increased Substance Abuse History Drugs/Alcohol past 12 months He reports daily use of alcohol, 4-8 beers per day Past Family Social History Coded Allergies: No Known Allergies (Unverified Adverse Reaction, Unknown, 11/22/17) Active Scripts Lopinavir-Ritonavir (Kaletra) 200-50 Mg Tab, 2 TAB PO BID for infection, #120 TAB 0 Refills Prov:Chanel Ma 07/15/17 Sulfamethoxazole-Trimethoprim (Sulfamethoxazole-Trimethoprim) 800-160 Mg Tab, 1 TAB PO MoWeFr@09 for health for 30 Days, #12 TAB Prov:Chanel Ma 07/15/17 Wilkerson Carbonate (Wil[place]erson Carbonate) 300 Mg Tab, 300 MG PO Q12HR for health for 30 Days, #60 TAB Prov:Chanel Ma 07/15/17 Azithromycin (Azithromycin) 250 Mg Tab, 500 MG PO DAILY for infection, #3 TAB 0 Refills Prov:Savanna Romero MD 07/05/17 Reported Medications Quetiapine (Seroquel) 100 Mg Tab, 100 MG PO DAILY, #30 TAB 0 Refills 11/22/17 Oxycodone (Oxycodone) 10 Mg Tab, 10 MG PO Q6H Y for PAIN, TAB 0 Refills 05/17/17 Lorazepam (Ativan) 2 Mg Tab, 2 MG PO Q6H Y for ANXIETY AND/OR AGITATION, TAB 0 Refills 05/17/17 Discontinued Reported Medications Mirtazapine (Remeron) 15 Mg Tab, 15 MG PO HS for Depression Control, #30 TAB 0 Refills 05/27/17 Discontinued Scripts Emtricitabine-Tenofovir Disoproxil Fumarate (Truvada) 200-300 Mg Tab, 1 TAB PO DAILY for health for 30 Days, #30 TAB Prov:Chanel Ma 07/15/17 Lopinavir-Ritonavir (Kaletra) 200-50 Mg Tab, 1 TAB PO BID for health for 30 Days , #60 TAB Prov:Jaya Espino MD 06/09/17 Current Medications Medications (Trade) Dose Ordered Sig/Marilee Route Start Time Stop Time Status Last Admin (Romazicon Inj) 0.2 mg Q1M PRN IV PUSH 11/22/17 11:30 (Ativan) 1 mg Q4H PRN PO 11/22/17 11:30 (Ativan Inj) 1 mg Q4H PRN IV PUSH 11/22/17 11:30 (Ativan) 2 mg Q2H PRN PO 11/22/17 11:30 (Ativan Inj) 2 mg Q2H PRN IV PUSH 11/22/17 11:30 (Ativan Inj) 2 mg Q1H PRN IV PUSH 11/22/17 11:30 (Ativan Inj) 2 mg Q15M PRN IV PUSH 11/22/17 11:30 (Kaletra 200-50 Mg) 2 tab BID PO 11/22/17 21:00 UNV (Bactrim Ds 800-160 Mg) 1 tab MoWeFr@09 PO 11/24/17 09:00 UNV Family Psych History Patient denies family psychiatric history Social History Patient is sometime in [facility], also in [place] another time, he is unemployed, single, supported by SSD, his highest level of education is a master degree Patient's Strengths (min. 2) Verbal communication Physical Exam No withdrawal symptoms, no problems, no EPS, no gait disturbance, no psychomotor agitation or retardation Vital Signs Vital Signs Date Time Temp Pulse Resp B/P (MAP) Pulse Ox O2 Delivery O2 Flow Rate FiO2 11/22/17 11:00 59 16 129/84 (99) 97 Room Air 11/22/17 07:32 97.6 I/O 11/22/17 11/22/17 11/23/17 08:00 16:00 00:00 Intake Total 1260 ml Balance 1260 ml Lab Results Test 11/22/17 08:05 White Blood Count 1.7 TH/MM3 Red Blood Count 3.66 MIL/MM3 Hemoglobin 11.3 GM/DL Hematocrit 32.9 % Mean Corpuscular Volume 89.9 FL Mean Corpuscular Hemoglobin 30.8 PG Mean Corpuscular Hemoglobin Concent 34.3 % Red Cell Distribution Width 14.0 % Platelet Count 150 TH/MM3 Mean Platelet Volume 8.1 FL CBC Comment AUTO DIFF Differential Total Cells Counted 100 Neutrophils % (Manual) 46 % Lymphocytes % 30 % Monocytes % 22 % Eosinophils % 2 % Neutrophils # (Manual) 0.8 TH/MM3 Differential Comment FINAL DIFF MANUAL Platelet Estimate NORMAL Platelet Morphology Comment NORMAL Urine Collection Type CATH Urine Color YELLOW Urine Turbidity CLEAR Urine pH 6.0 Urine Specific [place] 1.012 Urine Protein NEG mg/dL Urine Glucose (UA) NEG mg/dL Urine Ketones NEG mg/dL Urine Occult Blood NEG Urine Nitrite NEG Urine Bilirubin NEG Urine Leukocyte Esterase NEG Urine Squamous Epithelial Cells 0-5 /hpf Microscopic Urinalysis Comment CATH-CULT NOT IND Blood Urea Nitrogen 7 MG/DL Creatinine 0.56 MG/DL Random Glucose 73 MG/DL Total Protein 7.7 GM/DL Albumin 2.4 GM/DL Calcium Level 7.0 MG/DL Magnesium Level 1.9 MG/DL Alkaline Phosphatase 98 U/L Aspartate Amino Transf (AST/SGOT) 523 U/L Alanine Aminotransferase (ALT/SGPT) 342 U/L Total Bilirubin 0.4 MG/DL Sodium Level 140 MEQ/L Potassium Level 4.4 MEQ/L Chloride Level 110 MEQ/L Carbon Dioxide Level 21.8 MEQ/L Anion Gap 8 MEQ/L Estimat Glomerular Filtration Rate 157 ML/MIN Lactic Acid Level 0.9 mmol/L Protein Corrected Calcium 6.8 MG/DL Thyroid Stimulating Hormone 3rd Gen 1.560 uIU/ML Urine Opiates Screen NEG Urine Barbiturates Screen NEG Urine Amphetamines Screen NEG Urine Benzodiazepines Screen NEG [place] Level LESS THAN 0.1 MEQ/L Urine Cocaine Screen NEG Urine Cannabinoids Screen NEG Ethyl Alcohol Level 37 MG/DL Date/Time Source Procedure Growth Status 11/22/17 08:15 Blood Peripheral Aerobic Blood Culture Pending Received 11/22/17 08:15 Blood Peripheral Anaerobic Blood Culture Pending Received 11/22/17 08:16 Nasal Aspirate Influenza Types A,B Antigen (STEPHANIE) - Final NEGATIVE FOR FLU A AND B ANTIGEN.... Complete Mental Status Examination Appearance: Appropriate Consciousness: Alert Orientation: x4 Motor Activity: Normal gait Speech: Unremarkable Language: Adequate Fund of Knowledge: Adequate Attention and Concentration: Adequate Memory: Unremarkable Mood: Sad Affect: Sad, Flat Thought Process & Associations: Intact Thought Content: Appropriate Hallucination Type: None Delusion Type: None Suicidal Ideation: Yes Suicidal Plan: No Suicidal Intention: No Homicidal Ideation: No Homicidal Plan: No Homicidal Intention: No Insight: Poor Judgment: Poor Assessment & Plan Problem List: (1) Bipolar disorder, now depressed ICD Codes: F31.30 - Bipolar disorder, current episode depressed, mild or moderate severity, unspecified Assessment & Plan: On psychiatric evaluation today the patient reports about 2 weeks of increased depressive symptoms, anhedonia, hopelessness, helplessness, increased alcohol use, sense of worthlessness, decreased appetite, level of energy, and suicidal ideation with a plan of jumping in from of a car, or jumping off a bridge in the context of decompensating Medical illnesses, poor social and family support, noncompliant with psychotropics and increased alcohol use. Patient has an elevated risk of danger to self and needs psychiatric admission for stabilization. Etiology for current presentation could be related with a decompensation of a primary mood disorder, but alcohol induced mood disorder, personality pathology concisus simulation with the secondary gain of using the hospital as a Assisted and is a source of narcotics need to be carefully explored. Brief supportive psychotherapy provided. I will restart the Seroquel 100 mg twice a day. He says that he has been on lithium, but his lithium level is subtherapeutic. I do not see a clear indication for lithium at this moment. Transfer to med psych. Assessment & Plan Estimated LOS: Les Bhatt MD Nov 22, 2017 13:21
[2017-11-22] MEDS: LORazepam 1 MG TAB PO PRN (20:22)
[2017-11-22] MEDS: LOPINAVIR/RITONAVIR 200 MG/50 MG TAB PO SCH (22:17)
[2017-11-23 06:44] VITALS: BP 132/83; PULSE 64; RESP 17; TEMP 97.7; O2SAT 96
[2017-11-23 09:42] LABS: AUTOMATED NEUTROPHIL # 0.7 TH/MM3 (1.8-7.7); BASOPHIL % 0.3 % (0.0-2.0); EOSINOPHIL % 2.2 % (0.0-4.0); HEMATOCRIT 38.3 % (39.0-51.0); HEMOGLOBIN 13.2 GM/DL (13.0-17.0); LYMPH % 32.6 % (9.0-44.0); LYMPHOCYTE # 0.6 TH/MM3 (1.0-4.8); MEAN CELL VOLUME 89.8 FL (80.0-100.0); MEAN CORPUSCULAR HEMOGLOBIN 30.8 PG (27.0-34.0); MEAN CORPUSCULAR HGB CONC 34.3 % (32.0-36.0); MEAN PLATELET VOLUME 8.3 FL (7.0-11.0); MONO % 28.7 % (0.0-8.0); MONOCYTE # 0.5 TH/MM3 (0-0.9); NEUT % 36.2 % (16.0-70.0); PLATELET COUNT 169 TH/MM3 (150-450); RED BLOOD COUNT 4.27 MIL/MM3 (4.50-5.90); RED CELL DISTRIBUTION WIDTH 14.5 % (11.6-17.2); WHITE BLOOD COUNT 1.8 TH/MM3 (4.0-11.0)
--- NOTE | 2017-11-23 10:01 | HHI.PR ---
Subjective Remarks 47-year-old white male being admitted for acute suicidal ideation as well as possible sepsis. [facility] consulted for med management. Patient was in usual state of health until about 2 weeks ago when he says he started having a cough which is nonproductive and progressed in intensity. He says 3 days ago began having fevers up to at least 101.2. He says he has tried [id number] medications including Motrin. Due to persistence of his symptoms he decided to come to the emergency department. Patient does admit that he is suicidal and has a plan but says he does not want to disclose the details of that plan to me, saying that it is personal. He denies any homicidal ideation. Patient's past medical history significant for HIV and AIDS, says that he sees a infectious disease doctor Maria C Arango in [facility], says he takes antiviral medications daily as well as azithromycin and Bactrim for prophylactic daily coverage. Family history significant for metastatic breast disease to the brain IN his aunt. Patient reports smoking a few cigarettes a day for a number of years. Does report drinking about a 12 pack a day for many years. Patient says he sees psychiatry, Dr. Espino for bipolar and depression. 2-15 PATIENT COMPLAINS OF DIARRHEA WILL CHECK STOOL FOR C DIFF DW RN AND PT WANTS PAIN MEDS BUT HAS SOME ORDERED Objective Vitals Vital Signs Date Time Temp Pulse Resp B/P (MAP) Pulse Ox O2 Delivery O2 Flow Rate FiO2 11/23/17 06:44 97.7 64 17 132/83 (99) 96 11/22/17 17:45 97.8 78 16 131/79 (96) 98 11/22/17 16:05 11/22/17 15:30 78 16 137/71 (93) 96 Room Air 11/22/17 11:00 59 16 129/84 (99) 97 Room Air 11/22/17 10:00 60 16 109/61 (77) 98 Room Air I/O 11/22/17 11/22/17 11/22/17 11/23/17 11/23/17 11/23/17 07:00 15:00 23:00 07:00 15:00 23:00 Intake Total 1260 ml 480 ml 480 ml Balance 1260 ml 480 ml 480 ml Intake Oral 480 ml 480 ml IV Total 1260 ml # Voids 1 3 # Bowel Movements 4 Result Diagram: 11/23/17 0922 11/22/17 0805 Other Results Laboratory Tests Test 11/22/17 08:05 11/23/17 09:22 White Blood Count 1.7 TH/MM3 1.8 TH/MM3 Red Blood Count 3.66 MIL/MM3 4.27 MIL/MM3 Hemoglobin 11.3 GM/DL 13.2 GM/DL Hematocrit 32.9 % 38.3 % Mean Corpuscular Volume 89.9 FL 89.8 FL Mean Corpuscular Hemoglobin 30.8 PG 30.8 PG Mean Corpuscular Hemoglobin Concent 34.3 % 34.3 % Red Cell Distribution Width 14.0 % 14.5 % Platelet Count 150 TH/MM3 169 TH/MM3 Mean Platelet Volume 8.1 FL 8.3 FL CBC Comment AUTO DIFF AUTO DIFF Differential Total Cells Counted 100 Neutrophils % (Manual) 46 % Lymphocytes % 30 % Monocytes % 22 % Eosinophils % 2 % Neutrophils # (Manual) 0.8 TH/MM3 Differential Comment FINAL DIFF MANUAL Platelet Estimate NORMAL Platelet Morphology Comment NORMAL Urine Collection Type CATH Urine Color YELLOW Urine Turbidity CLEAR Urine pH 6.0 Urine Specific Agency 1.012 Urine Protein NEG mg/dL Urine Glucose (UA) NEG mg/dL Urine Ketones NEG mg/dL Urine Occult Blood NEG Urine Nitrite NEG Urine Bilirubin NEG Urine Leukocyte Esterase NEG Urine Squamous Epithelial Cells 0-5 /hpf Microscopic Urinalysis Comment CATH-CULT NOT IND Blood Urea Nitrogen 7 MG/DL Creatinine 0.56 MG/DL Random Glucose 73 MG/DL Total Protein 7.7 GM/DL Albumin 2.4 GM/DL Calcium Level 7.0 MG/DL Magnesium Level 1.9 MG/DL Alkaline Phosphatase 98 U/L Aspartate Amino Transf (AST/SGOT) 523 U/L Alanine Aminotransferase (ALT/SGPT) 342 U/L Total Bilirubin 0.4 MG/DL Sodium Level 140 MEQ/L Potassium Level 4.4 MEQ/L Chloride Level 110 MEQ/L Carbon Dioxide Level 21.8 MEQ/L Anion Gap 8 MEQ/L Estimat Glomerular Filtration Rate 157 ML/MIN Lactic Acid Level 0.9 mmol/L Protein Corrected Calcium 6.8 MG/DL Thyroid Stimulating Hormone 3rd Gen 1.560 uIU/ML Urine Opiates Screen NEG Urine Barbiturates Screen NEG Urine Amphetamines Screen NEG Urine Benzodiazepines Screen NEG Wink Level LESS THAN 0.1 MEQ/L Urine Cocaine Screen NEG Urine Cannabinoids Screen NEG Ethyl Alcohol Level 37 MG/DL Neutrophils (%) (Auto) 36.2 % Lymphocytes (%) (Auto) 32.6 % Monocytes (%) (Auto) 28.7 % Eosinophils (%) (Auto) 2.2 % Basophils (%) (Auto) 0.3 % Neutrophils # (Auto) 0.7 TH/MM3 Lymphocytes # (Auto) 0.6 TH/MM3 Monocytes # (Auto) 0.5 TH/MM3 Eosinophils # (Auto) 0.0 TH/MM3 Basophils # (Auto) 0.0 TH/MM3 Imaging Last Impressions Chest X-Ray 11/22/17 0744 Signed Impressions: Service Date/Time: Wednesday, November 22, 2017 08:07 - CONCLUSION: 1. No acute cardiopulmonary disease. 2. Approximate L1 compression deformity. This is age-indeterminate on this limited view. Jasson Matthews Jr., MD Objective Remarks GENERAL: Awake alert oriented 3 talkative and cooperative-somewhat thin appearing white male SKIN: Warm and dry. HEAD: Atraumatic. Normocephalic. EYES: Pupils equal and round. No scleral icterus. No injection or drainage. Extraocular muscles intact ENT: No nasal bleeding or discharge. Mucous membranes pink and moist. Tongue is midline NECK: Trachea midline. No JVD. Supple CARDIOVASCULAR: Regular rate and rhythm. S1 and S2 no S3 or S4 RESPIRATORY: No accessory muscle use. Clear to auscultation. Breath sounds equal bilaterally. GASTROINTESTINAL: Abdomen soft, non-tender, nondistended. Hepatic and splenic margins not palpable. MUSCULOSKELETAL: Extremities without clubbing, cyanosis, or edema. No obvious deformities. NEUROLOGICAL: Awake and alert. No obvious cranial nerve deficits. Motor grossly within normal limits. Five out of 5 muscle strength in the arms and legs. Normal speech. PSYCHIATRIC: INAppropriate mood and affect; insight and judgment ABnormal. Medications and IVs Current Medications Sodium Chloride 1,000 ml @ 1,000 mls/hr Q1H IV Last administered on 11/22/17at 08:39; Start 11/22/17 at 07:44; Stop 11/22/17 at 08:52; Status DC Levofloxacin/ Dextrose 150 ml @ 100 mls/hr ONCE ONCE IV Last administered on 11/22/17at 08:39; Start 11/22/17 at 08:00; Stop 11/22/17 at 09:29; Status DC Calcium Gluconate (Calcium Gluconate Inj) 1 gm ONCE ONCE IV PUSH ; Start at 08:45; Stop 11/22/17 at 11:03; Status DC Calcium Gluconate 1 gm/Sodium Chloride 110 ml @ 110 mls/hr ONCE ONCE IV Last administered on 11/22/17at 09:44; Start 11/22/17 at 09:15; Stop 11/22/17 at 10:14 ; Status DC Lorazepam (Ativan) 0.5 mg ONCE ONCE PO Last administered on 11/22/17at 10:35; Start 11/22/17 at 10:15; Stop 11/22/17 at 10:16; Status DC Flumazenil (Romazicon Inj) 0.2 mg Q1M PRN IV PUSH SEE LABEL COMMENTS; Start at 11:30 Lorazepam (Ativan) 1 mg Q4H PRN PO CIWA 8 - 10 Last administered on 11/22/17at 20:22; Start 11/22/17 at 11:30 Lorazepam (Ativan Inj) 1 mg Q4H PRN IV PUSH CIWA 8 - 10; Start 11/22/17 at 11: 30 Lorazepam (Ativan) 2 mg Q2H PRN PO CIWA 11-14; Start 11/22/17 at 11:30 Lorazepam (Ativan Inj) 2 mg Q2H PRN IV PUSH CIWA 11-14; Start 11/22/17 at 11:30 Lorazepam (Ativan Inj) 2 mg Q1H PRN IV PUSH CIWA 15-20; Start 11/22/17 at 11:30 Lorazepam (Ativan Inj) 2 mg Q15M PRN IV PUSH CIWA > 20; Start 11/22/17 at 11:30 Lopinavir/ Ritonavir (Kaletra 200-50 Mg) 2 tab BID PO Last administered on 11/22at 22:17; Start 11/22/17 at 21:00 Trimethoprim/ Sulfamethoxazole (Bactrim Ds 800-160 Mg) 1 tab MoWeFr@09 PO ; Start 11/24/17 at 09:00 Azithromycin (Zithromax) 500 mg DAILY PO ; Start 11/23/17 at 09:00 Quetiapine Fumarate (SEROquel) 100 mg DAILY PO ; Start 11/22/17 at 13:15 A/P Assessment and Plan This 47-year-old white male being admitted for suicidal ideation as well as possible sepsis Suicidal ideation and mood d/o -Patient has been Hilario acted. Psychiatry is on route to see the patient - will let psyc manage ETOH use - CIWA protocol Possible sepsis - no source identified at this time, possible viral URI w/ cough vs opportunistic infx. Flu neg, clinically doesn't appear to have flu - Fevers of 101.2 at home w/ acute on chronic leukopenia - chest x-ray which I independently reviewed is negative but this is not unusual in HIV patients. White count is low. Will consider consulting infectious disease if fever recurs. Blood cultures have been drawn. continue home prophylactic antibiotics for now of bactrim and azithromycin Has remained afebrile the whole time he has been here Acute on chronic leukopenia - likely 2/2 AIDS, monitor, if fever occurs then expand abx and consult ID Diarrhea-will send stool studies Discussed with patient and RN SCDs Discharge Planning Pending psychiatric clearance Wilber Araujo DO Nov 23, 2017 10:01
[2017-11-23] MEDS: QUEtiapine FUMARATE 100 MG TAB PO SCH (10:16)
[2017-11-23] MEDS: LOPINAVIR/RITONAVIR 200 MG/50 MG TAB PO SCH ×2 (10:18→21:10)
[2017-11-23] MEDS: AZITHROMYCIN 250 MG TAB PO SCH (10:18)
[2017-11-23 10:50] LABS: LYMPHOCYTES 18 % (9-44); MONOCYTES 34 % (0-8); NEUTROPHIL # MANUAL DIFF 0.8 TH/MM3 (1.8-7.7); PLASMA CELLS 1 % (0-0); POLYS (SEG NEUTROPHILS) 43 % (16-70)
[2017-11-23] MEDS: LORazepam 1 MG TAB PO PRN ×2 (11:16→21:16)
[2017-11-23] MEDS: LITHIUM CARBONATE 300 MG TAB PO SCH ×2 (13:58→21:10)
[2017-11-23] MEDS ORDERED: NALOXONE HCL 0.4 MG/ML AMP IV PUSH PRN (15:00)
[2017-11-23] MEDS ORDERED: MORPHINE SULFATE 2 MG/ML INJ IV PUSH PRN (15:00)
[2017-11-23] MEDS ORDERED: MORPHINE SULFATE 4 MG/ML INJ IV PUSH PRN (15:00)
--- NOTE | 2017-11-23 17:34 | HHI.PYPN ---
Subjective Remarks Patient seen for follow-up, chart reviewed. Discussion nursing staff reported the patient to be somewhat demanding. Patient was found sitting in hospital bed , cooperative. Patient states that since his last admission [facility] he has been doing "okay" recently had reported feeling more depressed due to the passing of his uncle recently. Patient also reports that she has continued alcohol use and some relational discord with a roommate only trying to evict. Patient reports feeling depressed, reports having intermittent suicidal ideations and wanting to get back to his treatment. Review of Systems Gastrointestinal: COMPLAINS OF: Diarrhea Except as stated in HPI: all other systems reviewed are Neg Mental Status Examination Appearance: Appropriate Consciousness: Alert Orientation: x4 Motor Activity: Normal gait Speech: Unremarkable Language: Adequate Fund of Knowledge: Adequate Attention and Concentration: Adequate Memory: Unremarkable Mood: Sad Affect: Sad, Flat Thought Process & Associations: Intact Thought Content: Appropriate Hallucination Type: None Delusion Type: None Suicidal Ideation: Yes Suicidal Plan: No Suicidal Intention: No Homicidal Ideation: No Homicidal Plan: No Homicidal Intention: No Insight: Poor Judgment: Poor Results Labs labs reviewed Test 11/23/17 09:22 11/23/17 14:00 White Blood Count 1.8 TH/MM3 Red Blood Count 4.27 MIL/MM3 Hemoglobin 13.2 GM/DL Hematocrit 38.3 % Mean Corpuscular Volume 89.8 FL Mean Corpuscular Hemoglobin 30.8 PG Mean Corpuscular Hemoglobin Concent 34.3 % Red Cell Distribution Width 14.5 % Platelet Count 169 TH/MM3 Mean Platelet Volume 8.3 FL Neutrophils (%) (Auto) 36.2 % Lymphocytes (%) (Auto) 32.6 % Monocytes (%) (Auto) 28.7 % Eosinophils (%) (Auto) 2.2 % Basophils (%) (Auto) 0.3 % Neutrophils # (Auto) 0.7 TH/MM3 Lymphocytes # (Auto) 0.6 TH/MM3 Monocytes # (Auto) 0.5 TH/MM3 Eosinophils # (Auto) 0.0 TH/MM3 Basophils # (Auto) 0.0 TH/MM3 CBC Comment AUTO DIFF Differential Total Cells Counted 100 Neutrophils % (Manual) 43 % Lymphocytes % 18 % Monocytes % 34 % Eosinophils % 4 % Neutrophils # (Manual) 0.8 TH/MM3 Differential Comment FINAL DIFF MANUAL Plasma Cells 1 % Platelet Estimate NORMAL Platelet Morphology Comment NORMAL Red Cell Morphology Comment NORMAL Date/Time Source Procedure Growth Status 11/22/17 08:15 Blood Peripheral Aerobic Blood Culture - Preliminary NO GROWTH IN 1 DAY Resulted 11/22/17 08:15 Blood Peripheral Anaerobic Blood Culture - Preliminary NO GROWTH IN 1 DAY Resulted 11/23/17 14:00 Stool Stool Cryptosporidium Exam Pending Received 11/23/17 14:00 Stool Stool Stool Pus (STEPHANIE) Pending Received 11/23/17 14:00 Stool Stool Giardia Antigen (STEPHANIE) Pending Received 11/22/17 08:16 Nasal Aspirate Influenza Types A,B Antigen (STEPHANIE) - Final NEGATIVE FOR FLU A AND B ANTIGEN.... Complete Vitals/IOs Vital Signs Date Time Temp Pulse Resp B/P (MAP) Pulse Ox O2 Delivery O2 Flow Rate FiO2 11/23/17 06:44 97.7 64 17 132/83 (99) 96 11/22/17 15:30 Room Air Intake and Output 11/23/17 11/23/17 11/24/17 08:00 16:00 00:00 Intake Total 1440 ml Balance 1440 ml Assessment & Plan Problem List: (1) Bipolar disorder, now depressed ICD Codes: F31.30 - Bipolar disorder, current episode depressed, mild or moderate severity, unspecified Assessment & Plan Patient at this time endorsing depressed mood as well as intermittent suicide ideations currently or recently lost a number, continued alcohol use and nonadherence to treatment. Patient lithium level was subtherapeutic. We will restart patient back on lithium 300 mg p.o. twice daily along with quetiapine 100 mg at bedtime. Continue CIWA protocol. Withdrawal precautions. Patient currently interested in engaging in rehabilitation program which treatment team will explore. Discharge planning in progress Justification for Cont. Inpt. At risk for further decompensation if at lower level of care. Discharge Planning Back to his residence. Jaya Espino MD Nov 23, 2017 17:34
[2017-11-23] MEDS: LACTOBACILLUS ACIDOPHILUS TAB PO SCH (17:45)
[2017-11-23 18:00] VITALS: BP 136/83; PULSE 71; RESP 17; TEMP 98.2; O2SAT 96
[2017-11-23] MEDS ORDERED: QUEtiapine FUMARATE 100 MG TAB PO SCH (21:00)
[2017-11-23] MEDS: ACETAMINOPHEN 325 MG TAB PO PRN (22:32)
[2017-11-24 06:16] VITALS: BP 93/60; PULSE 64; RESP 17; TEMP 97.6; O2SAT 96
[2017-11-24 08:22] LABS: HEMATOCRIT 37.9 % (39.0-51.0); HEMOGLOBIN 12.9 GM/DL (13.0-17.0); MEAN CORPUSCULAR HGB CONC 34.1 % (32.0-36.0); MEAN PLATELET VOLUME 8.5 FL (7.0-11.0); PLATELET COUNT 168 TH/MM3 (150-450); RED BLOOD COUNT 4.16 MIL/MM3 (4.50-5.90); RED CELL DISTRIBUTION WIDTH 14.2 % (11.6-17.2); WHITE BLOOD COUNT 1.7 TH/MM3 (4.0-11.0)
[2017-11-24 08:47] LABS: ALBUMIN 2.6 GM/DL (3.4-5.0); AST (GOT) 349 U/L (15-37); BICARBONATE 25.4 MEQ/L (21.0-32.0); BLOOD UREA NITROGEN 14 MG/DL (7-18); CALCIUM 8.1 MG/DL (8.5-10.1); CHLORIDE 103 MEQ/L (98-107); CREATININE 0.66 MG/DL (0.60-1.30); GLOMERULAR FILTRATION RATE 130 ML/MIN (>89); GLUCOSE,RANDOM 84 MG/DL (74-106); MAGNESIUM 2.1 MG/DL (1.5-2.5); SODIUM (NA) 134 MEQ/L (136-145)
[2017-11-24] MEDS: LACTOBACILLUS ACIDOPHILUS TAB PO SCH ×2 (08:49→14:17)
[2017-11-24] MEDS: LOPINAVIR/RITONAVIR 200 MG/50 MG TAB PO SCH (08:49)
[2017-11-24] MEDS: AZITHROMYCIN 250 MG TAB PO SCH (08:49)
[2017-11-24] MEDS: LITHIUM CARBONATE 300 MG TAB PO SCH (08:49)
[2017-11-24 08:56] LABS: ALKALINE PHOSPHATASE 93 U/L (45-117); ALT (GPT) 306 U/L (12-78); FREE T4 1.09 NG/DL (0.76-1.46); PHOSPHORUS 4.4 MG/DL (2.5-4.9); TOTAL BILIRUBIN ADULT 1.2 MG/DL (0.2-1.0); TOTAL PROTEIN 8.1 GM/DL (6.4-8.2)
[2017-11-24] MEDS ORDERED: SULFAMETHOXAZOLE-TRIMETHOPRIM DS 800-160 MG TAB PO SCH (09:00)
[2017-11-24 09:20] LABS: BANDS 1 % (0-6); LYMPHOCYTES 27 % (9-44); METAMYELOCYTES 1 % (0-1); MONOCYTES 32 % (0-8); NEUTROPHIL # MANUAL DIFF 0.6 TH/MM3 (1.8-7.7); PLASMA CELLS 1 % (0-0); POLYS (SEG NEUTROPHILS) 36 % (16-70)
--- NOTE | 2017-11-24 10:42 | HHI.PYPN ---
Subjective Remarks The patient was seen today for psychiatric reevaluation. Chart was reviewed. He was admitted in the hospital due to depressive symptoms and suicidal ideation. Patient is found in his room eating, he is calm, cooperative and pleasant. He says that he feels much better today. He does have medical complaints, he says that he has urinary urgency and nausea, also has been complaining of pain. His moment the patient denies suicidal and homicidal ideation, he denies visual and auditory hallucinations. As per nursing report, the patient has been compliant with medications, there is some drug seeking behavior at times, he has been hostile toward the counselor and activity therapies. Review of Systems Gastrointestinal: COMPLAINS OF: Nausea Genitourinary: COMPLAINS OF: Urinary frequency Except as stated in HPI: all other systems reviewed are Neg Mental Status Examination Appearance: Appropriate Consciousness: Alert Orientation: x4 Motor Activity: Normal gait Speech: Unremarkable Language: Adequate Fund of Knowledge: Adequate Attention and Concentration: Adequate Memory: Unremarkable Mood: Sad Affect: Sad, Flat Thought Process & Associations: Intact Thought Content: Appropriate Hallucination Type: None Delusion Type: None Suicidal Ideation: No Suicidal Plan: No Suicidal Intention: No Homicidal Ideation: No Homicidal Plan: No Homicidal Intention: No Insight: Fair Judgment: Impulsive Results Labs Test 11/23/17 14:00 11/24/17 07:09 Eosinophil Stool Smear NONE SEEN /HPF Stool C. difficile Toxin (PCR) NEGATIVE Stl C. difficile Toxin Epiderm 027 PRESUMPTIVE NEGATIVE White Blood Count 1.7 TH/MM3 Red Blood Count 4.16 MIL/MM3 Hemoglobin 12.9 GM/DL Hematocrit 37.9 % Mean Corpuscular Volume 91.0 FL Mean Corpuscular Hemoglobin 31.0 PG Mean Corpuscular Hemoglobin Concent 34.1 % Red Cell Distribution Width 14.2 % Platelet Count 168 TH/MM3 Mean Platelet Volume 8.5 FL CBC Comment AUTO DIFF Differential Total Cells Counted 100 Neutrophils % (Manual) 36 % Band Neutrophils % 1 % Lymphocytes % 27 % Monocytes % 32 % Eosinophils % 2 % Neutrophils # (Manual) 0.6 TH/MM3 Metamyelocytes 1 % Differential Comment FINAL DIFF MANUAL Plasma Cells 1 % Platelet Estimate NORMAL Platelet Morphology Comment NORMAL Red Cell Morphology Comment NORMAL Blood Urea Nitrogen 14 MG/DL Creatinine 0.66 MG/DL Random Glucose 84 MG/DL Total Protein 8.1 GM/DL Albumin 2.6 GM/DL Calcium Level 8.1 MG/DL Phosphorus Level 4.4 MG/DL Magnesium Level 2.1 MG/DL Alkaline Phosphatase 93 U/L Aspartate Amino Transf (AST/SGOT) 349 U/L Alanine Aminotransferase (ALT/SGPT) 306 U/L Total Bilirubin 1.2 MG/DL Sodium Level 134 MEQ/L Potassium Level 3.8 MEQ/L Chloride Level 103 MEQ/L Carbon Dioxide Level 25.4 MEQ/L Anion Gap 6 MEQ/L Estimat Glomerular Filtration Rate 130 ML/MIN Free Thyroxine 1.09 NG/DL Thyroid Stimulating Hormone 3rd Gen 5.410 uIU/ML Date/Time Source Procedure Growth Status 11/22/17 08:15 Blood Peripheral Aerobic Blood Culture - Preliminary NO GROWTH IN 1 DAY Resulted 11/22/17 08:15 Blood Peripheral Anaerobic Blood Culture - Preliminary NO GROWTH IN 1 DAY Resulted 11/23/17 14:00 Stool Stool Cryptosporidium Exam Pending Resulted 11/23/17 14:00 Stool Stool Stool Pus (STPEHANIE) - Final RARE WBC Resulted 11/23/17 14:00 Stool Stool Giardia Antigen (STEPHANIE) Pending Resulted 11/22/17 08:16 Nasal Aspirate Influenza Types A,B Antigen (STEPHANIE) - Final NEGATIVE FOR FLU A AND B ANTIGEN.... Complete Vitals/IOs Vital Signs Date Time Temp Pulse Resp B/P (MAP) Pulse Ox O2 Delivery O2 Flow Rate FiO2 11/24/17 06:16 97.6 64 17 93/60 (71) 96 11/22/17 15:30 Room Air Intake and Output 11/24/17 11/24/17 11/25/17 08:00 16:00 00:00 Intake Total 0 ml Balance 0 ml Assessment & Plan Problem List: (1) Bipolar disorder, now depressed ICD Codes: F31.30 - Bipolar disorder, current episode depressed, mild or moderate severity, unspecified Assessment & Plan: Patient seems to be responding appropriately to medications. He has a brighter affect and mood today. Continue current psychotropic regimen. Continue longitudinal observation of mood and behavior. Cluster B traits and signs of conscious simulation with secondary gain of his in the hospital as a source of narcotics and as assisted seems to be present in this case. More longitudinal observation is needed. Assessment & Plan Estimated LOS: days Justification for Cont. Inpt. Patient needs to continue psychiatric hospitalization for close monitoring of mood symptoms. Les Palma MD Nov 24, 2017 10:42
--- NOTE | 2017-11-24 12:31 | HHI.PR ---
Subjective Remarks 47-year-old white male being admitted for acute suicidal ideation as well as possible sepsis. [facility] consulted for med management. Patient was in usual state of health until about 2 weeks ago when he says he started having a cough which is nonproductive and progressed in intensity. He says 3 days ago began having fevers up to at least 101.2. He says he has tried [id number] medications including Motrin. Due to persistence of his symptoms he decided to come to the emergency department. Patient does admit that he is suicidal and has a plan but says he does not want to disclose the details of that plan to me, saying that it is personal. He denies any homicidal ideation. Patient's past medical history significant for HIV and AIDS, says that he sees a infectious disease doctor Maria C Arango in [facility], says he takes antiviral medications daily as well as azithromycin and Bactrim for prophylactic daily coverage. Family history significant for metastatic breast disease to the brain IN his aunt. Patient reports smoking a few cigarettes a day for a number of years. Does report drinking about a 12 pack a day for many years. Patient says he sees psychiatry, Dr. Espino for bipolar and depression. 2-15 PATIENT COMPLAINS OF DIARRHEA WILL CHECK STOOL FOR C DIFF DW RN AND PT WANTS PAIN MEDS BUT HAS SOME ORDERED 2-16 PATIENT NOW COMPLAINS OF COUGH AND CONGESTION CAN BE DCED ANYTIME FROM MEDICAL PERSPECTIVE Objective Vitals Vital Signs Date Time Temp Pulse Resp B/P (MAP) Pulse Ox O2 Delivery O2 Flow Rate FiO2 11/24/17 06:16 97.6 64 17 93/60 (71) 96 11/23/17 18:00 98.2 71 17 136/83 (100) 96 I/O 11/23/17 11/23/17 11/23/17 11/24/17 11/24/17 11/24/17 07:00 15:00 23:00 07:00 15:00 23:00 Intake Total 360 ml 1440 ml 1200 ml 0 ml Balance 360 ml 1440 ml 1200 ml 0 ml Intake Oral 360 ml 1440 ml 1200 ml 0 ml # Voids 3 4 2 # Bowel Movements 4 6 Result Diagram: 11/24/17 0709 11/24/17 0709 Other Results Laboratory Tests Test 11/22/17 08:05 11/23/17 09:22 11/23/17 14:00 11/24/17 07:09 White Blood Count 1.7 TH/MM3 1.8 TH/MM3 1.7 TH/MM3 Red Blood Count 3.66 MIL/MM3 4.27 MIL/MM3 4.16 MIL/MM3 Hemoglobin 11.3 GM/DL 13.2 GM/DL 12.9 GM/DL Hematocrit 32.9 % 38.3 % 37.9 % Mean Corpuscular Volume 89.9 FL 89.8 FL 91.0 FL Mean Corpuscular Hemoglobin 30.8 PG 30.8 PG 31.0 PG Mean Corpuscular Hemoglobin Concent 34.3 % 34.3 % 34.1 % Red Cell Distribution Width 14.0 % 14.5 % 14.2 % Platelet Count 150 TH/MM3 169 TH/MM3 168 TH/MM3 Mean Platelet Volume 8.1 FL 8.3 FL 8.5 FL CBC Comment AUTO DIFF AUTO DIFF AUTO DIFF Differential Total Cells Counted 100 100 100 Neutrophils % (Manual) 46 % 43 % 36 % Lymphocytes % 30 % 18 % 27 % Monocytes % 22 % 34 % 32 % Eosinophils % 2 % 4 % 2 % Neutrophils # (Manual) 0.8 TH/MM3 0.8 TH/MM3 0.6 TH/MM3 Differential Comment FINAL DIFF MANUAL FINAL DIFF MANUAL FINAL DIFF MANUAL Platelet Estimate NORMAL NORMAL NORMAL Platelet Morphology Comment NORMAL NORMAL NORMAL Urine Collection Type CATH Urine Color YELLOW Urine Turbidity CLEAR Urine pH 6.0 Urine Specific [place] 1.012 Urine Protein NEG mg/dL Urine Glucose (UA) NEG mg/dL Urine Ketones NEG mg/dL Urine Occult Blood NEG Urine Nitrite NEG Urine Bilirubin NEG Urine Leukocyte Esterase NEG Urine Squamous Epithelial Cells 0-5 /hpf Microscopic Urinalysis Comment CATH-CULT NOT IND Blood Urea Nitrogen 7 MG/DL 14 MG/DL Creatinine 0.56 MG/DL 0.66 MG/DL Random Glucose 73 MG/DL 84 MG/DL Total Protein 7.7 GM/DL 8.1 GM/DL Albumin 2.4 GM/DL 2.6 GM/DL Calcium Level 7.0 MG/DL 8.1 MG/DL Magnesium Level 1.9 MG/DL 2.1 MG/DL Alkaline Phosphatase 98 U/L 93 U/L Aspartate Amino Transf (AST/SGOT) 523 U/L 349 U/L Alanine Aminotransferase (ALT/SGPT) 342 U/L 306 U/L Total Bilirubin 0.4 MG/DL 1.2 MG/DL Sodium Level 140 MEQ/L 134 MEQ/L Potassium Level 4.4 MEQ/L 3.8 MEQ/L Chloride Level 110 MEQ/L 103 MEQ/L Carbon Dioxide Level 21.8 MEQ/L 25.4 MEQ/L Anion Gap 8 MEQ/L 6 MEQ/L Estimat Glomerular Filtration Rate 157 ML/MIN 130 ML/MIN Lactic Acid Level 0.9 mmol/L Protein Corrected Calcium 6.8 MG/DL Thyroid Stimulating Hormone 3rd Gen 1.560 uIU/ML 5.410 uIU/ML Urine Opiates Screen NEG Urine Barbiturates Screen NEG Urine Amphetamines Screen NEG Urine Benzodiazepines Screen NEG [place] Level LESS THAN 0.1 MEQ/L Urine Cocaine Screen NEG Urine Cannabinoids Screen NEG Ethyl Alcohol Level 37 MG/DL Neutrophils (%) (Auto) 36.2 % Lymphocytes (%) (Auto) 32.6 % Monocytes (%) (Auto) 28.7 % Eosinophils (%) (Auto) 2.2 % Basophils (%) (Auto) 0.3 % Neutrophils # (Auto) 0.7 TH/MM3 Lymphocytes # (Auto) 0.6 TH/MM3 Monocytes # (Auto) 0.5 TH/MM3 Eosinophils # (Auto) 0.0 TH/MM3 Basophils # (Auto) 0.0 TH/MM3 Plasma Cells 1 % 1 % Red Cell Morphology Comment NORMAL NORMAL Eosinophil Stool Smear NONE SEEN /HPF Stool C. difficile Toxin (PCR) NEGATIVE Stl C. difficile Toxin Epiderm 027 PRESUMPTIVE NEGATIVE Band Neutrophils % 1 % Metamyelocytes 1 % Phosphorus Level 4.4 MG/DL Free Thyroxine 1.09 NG/DL Imaging Last Impressions Chest X-Ray 11/22/17 0744 Signed Impressions: Service Date/Time: Wednesday, November 22, 2017 08:07 - CONCLUSION: 1. No acute cardiopulmonary disease. 2. Approximate L1 compression deformity. This is age-indeterminate on this limited view. Jasson Matthews Jr., MD Objective Remarks GENERAL: Awake alert oriented 3 talkative and cooperative-somewhat thin appearing white male SKIN: Warm and dry. HEAD: Atraumatic. Normocephalic. EYES: Pupils equal and round. No scleral icterus. No injection or drainage. Extraocular muscles intact ENT: No nasal bleeding or discharge. Mucous membranes pink and moist. Tongue is midline NECK: Trachea midline. No JVD. Supple CARDIOVASCULAR: Regular rate and rhythm. S1 and S2 no S3 or S4 RESPIRATORY: No accessory muscle use. Clear to auscultation. Breath sounds equal bilaterally. GASTROINTESTINAL: Abdomen soft, non-tender, nondistended. Hepatic and splenic margins not palpable. MUSCULOSKELETAL: Extremities without clubbing, cyanosis, or edema. No obvious deformities. NEUROLOGICAL: Awake and alert. No obvious cranial nerve deficits. Motor grossly within normal limits. Five out of 5 muscle strength in the arms and legs. Normal speech. PSYCHIATRIC: INAppropriate mood and affect; insight and judgment ABnormal. Procedures NONE Medications and IVs Current Medications Sodium Chloride 1,000 ml @ 1,000 mls/hr Q1H IV Last administered on 11/22/17at 08:39; Start 11/22/17 at 07:44; Stop 11/22/17 at 08:52; Status DC Levofloxacin/ Dextrose 150 ml @ 100 mls/hr ONCE ONCE IV Last administered on 11/22/17at 08:39; Start 11/22/17 at 08:00; Stop 11/22/17 at 09:29; Status DC Calcium Gluconate (Calcium Gluconate Inj) 1 gm ONCE ONCE IV PUSH ; Start at 08:45; Stop 11/22/17 at 11:03; Status DC Calcium Gluconate 1 gm/Sodium Chloride 110 ml @ 110 mls/hr ONCE ONCE IV Last administered on 11/22/17at 09:44; Start 11/22/17 at 09:15; Stop 11/22/17 at 10:14 ; Status DC Lorazepam (Ativan) 0.5 mg ONCE ONCE PO Last administered on 11/22/17at 10:35; Start 11/22/17 at 10:15; Stop 11/22/17 at 10:16; Status DC Flumazenil (Romazicon Inj) 0.2 mg Q1M PRN IV PUSH SEE LABEL COMMENTS; Start at 11:30 Lorazepam (Ativan) 1 mg Q4H PRN PO CIWA 8 - 10 Last administered on 11/23/17at 21:16; Start 11/22/17 at 11:30 Lorazepam (Ativan Inj) 1 mg Q4H PRN IV PUSH CIWA 8 - 10; Start 11/22/17 at 11: 30 Lorazepam (Ativan) 2 mg Q2H PRN PO CIWA 11-14; Start 11/22/17 at 11:30 Lorazepam (Ativan Inj) 2 mg Q2H PRN IV PUSH CIWA 11-14; Start 11/22/17 at 11:30 Lorazepam (Ativan Inj) 2 mg Q1H PRN IV PUSH CIWA 15-20; Start 11/22/17 at 11:30 Lorazepam (Ativan Inj) 2 mg Q15M PRN IV PUSH CIWA > 20; Start 11/22/17 at 11:30 Lopinavir/ Ritonavir (Kaletra 200-50 Mg) 2 tab BID PO Last administered on 11/24at 08:49; Start 11/22/17 at 21:00 Trimethoprim/ Sulfamethoxazole (Bactrim Ds 800-160 Mg) 1 tab MoWeFr@09 PO Last administered on 11/24/17at 08:49; Start 11/24/17 at 09:00 Azithromycin (Zithromax) 500 mg DAILY PO Last administered on 11/24/17at 08:49; Start 11/23/17 at 09:00 Quetiapine Fumarate (SEROquel) 100 mg DAILY PO ; Start 11/22/17 at 13:15; Stop 11/23/17 at 12:45; Status DC Quetiapine Fumarate (SEROquel) 100 mg HS PO Last administered on 11/23/17at 21: 10; Start 11/23/17 at 21:00 [place] Carbonate (Lithotabs) 300 mg Q12HR PO Last administered on 11/24/17at 08 :49; Start 11/23/17 at 12:45 Lactobacillus Acidophilus (Lactinex) 1 tab TID PO Last administered on at 08:49; Start 11/23/17 at 18:00 Oxycodone HCl (Roxicodone) 10 mg Q6H PRN PO PAIN SCALE 5 TO 10; Start 11/23/17 at 15:00; Stop 11/23/17 at 22:57; Status DC Acetaminophen (Tylenol) 650 mg Q6H PRN PO PAIN SCALE 1 TO 2 Last administered on 11/23/17at 22:32; Start 11/23/17 at 15:00 Morphine Sulfate (Morphine Inj) 2 mg Q3H PRN IV PUSH Pain 3-5; if unable to take PO; Start 11/23/17 at 15:00 Morphine Sulfate (Morphine Inj) 4 mg Q3H PRN IV PUSH Pain 6-10;if unable to take PO; Start 11/23/17 at 15:00 Oxycodone HCl (Roxicodone) 5 mg Q4H PRN PO PAIN SCALE 3 TO 4 Last administered on 11/24/17at 08:50; Start 11/23/17 at 15:00 Naloxone HCl (Narcan Inj) 0.4 mg UNSCH PRN IV PUSH SEE LABEL COMMENTS; Start at 15:00 Oxycodone HCl (Roxicodone) 10 mg Q6H PRN PO PAIN SCALE 5 TO 10; Start 11/23/17 at 23:00 A/P Assessment and Plan This 47-year-old white male being admitted for suicidal ideation as well as possible sepsis Suicidal ideation and mood d/o -Patient has been Hilario acted. Psychiatry is on route to see the patient - will let psyc manage ETOH use - CIWA protocol Possible sepsis - no source identified at this time, possible viral URI w/ cough vs opportunistic infx. Flu neg, clinically doesn't appear to have flu - Fevers of 101.2 at home w/ acute on chronic leukopenia - chest x-ray which I independently reviewed is negative but this is not unusual in HIV patients. White count is low. Will consider consulting infectious disease if fever recurs. Blood cultures have been drawn. continue home prophylactic antibiotics for now of bactrim and azithromycin Has remained afebrile the whole time he has been here Acute on chronic leukopenia - likely 2/2 AIDS/HIV, monitor, if fever occurs then expand abx and consult ID Diarrhea-will send stool studies- NO GROWTH SO FAR- NEGATIVE STUDIES- NEGATIVE C. DIFF Discussed with patient and RN SCDs Discharge Planning Pending psychiatric clearance Wilber Araujo DO Nov 24, 2017 12:31
[2017-11-24] MEDS ORDERED: SERO100T PO (12:33)
[2017-11-24] MEDS ORDERED: LITH300T3 PO (12:33)
--- NOTE | 2017-11-24 12:35 | HHI.DS ---
Psychiatry Discharge Summary Inpatient Psychiatric care?: Yes Advance Directive: Yes Mental Health AdvanceDirective: No Health Care Proxy: No Admission Admission Date Nov 22, 2017 at 13:01 Admission Diagnosis: (1) Adjustment disorder with depressed mood ICD Code: F43.21 - Adjustment disorder with depressed mood Brief History The patient is a 47-year-old man, domiciled alone in [facility], single, poor family and social support, unemployed, on SSD, with psychiatric history of bipolar disorder, substance dependence, 3 previous psychiatric hospitalizations , his last hospitalization was here in [place] in the summer 2016 under the care of Dr. Espino, documentation reviewed, he is on lithium 300 mg twice a day , Seroquel 100 mg twice a day prescribed by PCP, he has history of suicide attempts, noncompliant with medications, with medical history of AIDS, ESRD, who presents with multiple complaints. He states that he continues to have a productive cough. No difficulty breathing. This has been going on for several weeks. He takes Bactrim chronically. His primary physician started him on azithromycin as well. He states that he has had intermittent low-grade fevers. He believes he had a fever of 101 yesterday, none today. He does state that he is feeling suicidal with a plan to hurt himself. He has not done anything today to try to harm himself. He was consulted to psychiatry due to depression and suicidal ideation. Initial toxicology is negative, BAL is 37. I was reviewed. On psychiatric evaluation patient is found sleeping,, but easily arousable. She reported that he has been feeling depressed in the last weeks, he feels that he has been decompensated medically, he is tired of being sick finding any solution to his problems. She reports increased sense of hopelessness, helplessness, hopelessness, he reports suicidal ideation with a plan of jumping off a bridge or overdosing, he denies homicidal ideation, he denies visual and auditory hallucinations. Patient is oriented 3, no attention deficit, suppression of consciousness, no gross cognitive impairment present. No paranoia, no loosening of associations, jose, agitation or aggressive behavior present. Patient says that he has been Seroquel and lithium for some months now, he has been compliant on and off. The use of illegal drugs, he reports daily use of alcohol, 4-8 beers per day, he denies withdrawal symptoms at the moment. Tobacco Use In Past 30 Days: 4 or Less Cigarettes/Day Alcohol Use: 4 or More Times Per Week Results Blood Pressure 93 / 60 Vital Signs Date Time Temp Pulse Resp B/P (MAP) Pulse Ox O2 Delivery O2 Flow Rate FiO2 11/24/17 06:16 97.6 64 17 93/60 (71) 96 11/22/17 15:30 Room Air Laboratory Tests Test 11/22/17 08:05 11/23/17 09:22 11/23/17 14:00 11/24/17 07:09 White Blood Count 1.7 TH/MM3 (4.0-11.0) 1.8 TH/MM3 (4.0-11.0) 1.7 TH/MM3 (4.0-11.0) Red Blood Count 3.66 MIL/MM3 (4.50-5.90) 4.27 MIL/MM3 (4.50-5.90) 4.16 MIL/MM3 (4.50-5.90) Hemoglobin 11.3 GM/DL (13.0-17.0) 12.9 GM/DL (13.0-17.0) Hematocrit 32.9 % (39.0-51.0) 38.3 % (39.0-51.0) 37.9 % (39.0-51.0) Monocytes % 22 % (0-8) 34 % (0-8) 32 % (0-8) Neutrophils # (Manual) 0.8 TH/MM3 (1.8-7.7) 0.8 TH/MM3 (1.8-7.7) 0.6 TH/MM3 (1.8-7.7) Creatinine 0.56 MG/DL (0.60-1.30) Random Glucose 73 MG/DL (74-106) Albumin 2.4 GM/DL (3.4-5.0) 2.6 GM/DL (3.4-5.0) Calcium Level 7.0 MG/DL (8.5-10.1) 8.1 MG/DL (8.5-10.1) Aspartate Amino Transf (AST/SGOT) 523 U/L (15-37) 349 U/L (15-37) Alanine Aminotransferase (ALT/SGPT) 342 U/L (12-78) 306 U/L (12-78) Chloride Level 110 MEQ/L (98-107) Protein Corrected Calcium 6.8 MG/DL (8.5-10.1) [place] Level LESS THAN 0.1 MEQ/L Ethyl Alcohol Level 37 MG/DL (0-5) Monocytes (%) (Auto) 28.7 % (0.0-8.0) Neutrophils # (Auto) 0.7 TH/MM3 (1.8-7.7) Lymphocytes # (Auto) 0.6 TH/MM3 (1.0-4.8) Plasma Cells 1 % (0-0) 1 % (0-0) Total Bilirubin 1.2 MG/DL (0.2-1.0) Sodium Level 134 MEQ/L (136-145) Thyroid Stimulating Hormone 3rd Gen 5.410 uIU/ML (0.358-3.740) Laboratory Results Test 11/22/17 08:05 11/24/17 07:09 [place] Level LESS THAN 0.1 MEQ/L Imaging Last Impressions Chest X-Ray 11/22/17 0760 Signed Impressions: Service Date/Time: Wednesday, November 22, 2017 08:07 - CONCLUSION: 1. No acute cardiopulmonary disease. 2. Approximate L1 compression deformity. This is age-indeterminate on this limited view. Jasson Matthews Jr., MD Medications # of Antipsychotic meds at D/C: 1 Approp Antipsych med options 1 - Minimum of three failed multiple trials of monotherapy. 2 - Documented plan to taper to monotherapy due to previous use of multiple meds OR cross-taper in progress at D/C. 3 - Documentation of augmentation of Clozapine. 4 - Justification other than those listed in allowable values 1-3, document here : Discharge Discharge Diagnosis: (1) Adjustment disorder with depressed mood Diagnosis: Principal ICD Code: F43.21 - Adjustment disorder with depressed mood Pt Condition on Discharge: Stable Discharge Disposition: Discharge Home Discharge Instructions Diet Instructions: Heart Healthy Diet Activities you can perform: Regular-No Restrictions Scheduled Appointment: Paul Huertas Discharge Time > 30 minutes Mental Status Examination Appearance: Appropriate Consciousness: Alert Orientation: x4 Motor Activity: Normal gait Speech: Unremarkable Language: Adequate Fund of Knowledge: Adequate Attention and Concentration: Adequate Memory: Unremarkable Mood: Sad Affect: Sad, Flat Thought Process & Associations: Intact Thought Content: Appropriate Hallucination Type: None Delusion Type: None Suicidal Ideation: No Suicidal Plan: No Suicidal Intention: No Homicidal Ideation: No Homicidal Plan: No Homicidal Intention: No Insight: Fair Judgment: Impulsive Discharge/Advance Care Plan Health Problems: (1) Bipolar disorder, now depressed Goals to promote your health * To prevent worsening of your condition and complications * To maintain your health at the optimal level Directions to meet your goals Take your medications as prescribed Follow your dietary instruction Follow activity as directed Keep your appointments as scheduled Take your immunizations and boosters as scheduled If your symptoms worsen call your PCP, if no PCP go to Urgent Care Center or Emergency Room For 01/05 questions related to your inpatient stay or results of tests pending at discharge, please contact Dr. Les Palma at Smoking is Dangerous to Your Health. Avoid second hand smoking Les Palma MD Nov 24, 2017 12:35
[2017-11-24] MEDS ORDERED: guaiFENesin E.R. 600 MG TAB PO SCH (13:00)
[2017-11-24] MEDS: ACETAMINOPHEN 325 MG TAB PO PRN (14:17)
[2017-11-24] MEDS ORDERED: ZITH600T PO (14:29)
[2017-11-24] MEDS ORDERED: LACT PO (14:29)
[2017-11-24] MEDS ORDERED: KALETRA200 PO (14:29)
[2017-11-24] MEDS ORDERED: guaiFENesin ER PO (14:29)
[2017-11-24] MEDS ORDERED: SULF1TAB23 PO (14:29)
[2017-11-24 16:39] LABS: HEMOGLOBIN A1C 5.2 % (4.3-6.0)
== END 2017-11-24 16:08 | disposition home or self-care (01) | DRG 885 ==
LOC: PHED 07:28 → PHEDA 13:01 → H4EA 16:55
PROVIDERS: ADMIT Student in an Organized Health Care Education/Training Program; ATTEND Student in an Organized Health Care Education/Training Program
DX: F31.32 Bipolar disorder, current episode depressed, moderate (principal); B20 Human immunodeficiency virus [HIV] disease; R45.851 Suicidal ideations; I10 Essential (primary) hypertension; J06.9 Acute upper respiratory infection, unspecified; R39.15 Urgency of urination; F43.21 Adjustment disorder with depressed mood; F17.210 Nicotine dependence, cigarettes, uncomplicated; Z76.5 Malingerer [conscious simulation]; Z85.51 Personal history of malignant neoplasm of bladder; Z85.820 Personal history of malignant melanoma of skin; Z91.14 Patient's other noncompliance with medication regimen; Z91.5 Personal history of self-harm
CPT/HCPCS: 71046; 80053; 80178; 80307; 81001; 83036; 83605; 83735; 84100; 84439; 84443; 85007; 85027; 87015; 87040; 87205; 87328; 87329; 87425; 87493; 87506; 87804; 96365; 96366; 96368; J0610; J1956; J7030

== ENCOUNTER 2017-11-29 03:14 | Emergency (ER) | payer MEDICAID ==
[~2017-11-29] VITALS: Ht 182.9 cm; Wt 75.0 kg
[~2017-11-29 03:14] MED LIST changes: -AZIT250T3 PO; +LACT PO; -REME15TA PO; +SERO100T PO; -TRUV200300 PO; +ZITH600T PO; +guaiFENesin ER PO
[2017-11-29 03:23] VITALS: BP 135/86; PULSE 84; RESP 18; TEMP 98.2; O2SAT 100
[2017-11-29] MEDS ORDERED: CEPHALEXIN MONOHYDRATE 500 MG CAP PO ONE (03:45)
[2017-11-29] MEDS ORDERED: ACETAMINOPHEN/HYDROcodone 325 MG/5 MG TAB PO ONE ×2 (03:45→12:30)
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
[2017-11-29] MEDS ORDERED: LORazepam 0.5 MG TAB PO ONE (04:30)
[2017-11-29 06:33] VITALS: BP 132/87; PULSE 87; RESP 18; O2SAT 100
[2017-11-29 07:50] VITALS: BP 97/58; PULSE 86; RESP 18; TEMP 98.2; O2SAT 96
[2017-11-29 14:34] VITALS: BP 120/79; PULSE 75; RESP 18; TEMP 98.8; O2SAT 98
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
--- NOTE | 2017-11-29 14:50 | PD ---
Physical Exam Time Seen by Provider: 14:48 Narrative BRANDO Kenny has evaluated patient, lifted the Hilario act and cleared the patient for discharge. Data Data Last Documented VS Vital Signs Date Time Temp Pulse Resp B/P (MAP) Pulse Ox O2 Delivery O2 Flow Rate FiO2 11/29/17 14:34 98.8 75 18 120/79 (93) 98 Room Air Orders Orders Ct Brain W/O Iv Contrast(Rout) (11/29/17 03:37) Ct Cerv Spine W/O Contrast (11/29/17 03:37) Cephalexin (Keflex) (11/29/17 03:45) Acetamin-Hydrocod 325-5 Mg ([place] 5-325 (11/29/17 03:45) Psych Screen (11/29/17 04:14) Drug Screen, Random Urine (11/29/17 04:14) Alcohol (Ethanol) (11/29/17 04:14) Lorazepam (Ativan) (11/29/17 04:30) Diet Regular Basic (11/29/17 Breakfast) Acetamin-Hydrocod 325-5 Mg ([place] 5-325 (11/29/17 12:30) Diet Regular Basic (11/29/17 Lunch) Labs Laboratory Tests Test 11/29/17 04:25 Ethyl Alcohol Level 108 MG/DL MDM Supervised Visit with DARWIN: No Narrative Course Patient contracts safety. Denies suicidal or homicidal ideations. Patient will be provided community resource packet to /JULIA for follow-up. Has friends and family for support. Patient was medically cleared by alternate provider prior to psych screening. Patient has been evaluated by psychiatry and and is now cleared for discharge. Diagnosis Primary Impression: Major depressive disorder, single episode, severe without psychotic features Referrals: [facility] (Out patient) [facility] Primary Care Physician Psychiatrist Jaskaran [facility] Behavioral Patient Instructions: Depression (ED), General Instructions Additional Instruction: Contract safety to your self and others Follow-up with psychiatry Follow-up with primary care provider Follow-up with Pal[facility] Carrillo Return to the emergency department immediately with worsening of symptoms Med/Other Pt SpecificInfo: No Change to Meds, No Meds Exist/No RX given Disposition: 01 DISCHARGE HOME Condition: Stable Ryann Orosco Nov 29, 2017 14:50
== END 2017-11-29 16:59 | disposition home or self-care (01) ==
LOC: NEPD 03:14 → NEPJ 16:59
DX: S01.01XA Laceration without foreign body of scalp, initial encounter (principal); Y00.XXXA Assault by blunt object, initial encounter; F32.2 Major depressive disorder, single episode, severe without psychotic features; B19.20 Unspecified viral hepatitis C without hepatic coma; I10 Essential (primary) hypertension; F17.210 Nicotine dependence, cigarettes, uncomplicated; Z21 Asymptomatic human immunodeficiency virus [HIV] infection status; Z79.899 Other long term (current) drug therapy; Z85.51 Personal history of malignant neoplasm of bladder
CPT/HCPCS: 12002; 70450; 72125; 80307

== ENCOUNTER 2017-12-25 01:44 | Emergency (ER) | payer OTHER ==
[~2017-12-25] VITALS: Ht 177.8 cm; Wt 65.0 kg
[2017-12-25 01:47] VITALS: BP 149/92; PULSE 78; RESP 16; TEMP 98.2; O2SAT 96
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
== END 2017-12-25 18:06 | disposition home or self-care (01) ==
LOC: NEDAMB 01:44
DX: F10.129 Alcohol abuse with intoxication, unspecified (principal); Z48.02 Encounter for removal of sutures; F17.200 Nicotine dependence, unspecified, uncomplicated; F41.9 Anxiety disorder, unspecified; F32.9 Major depressive disorder, single episode, unspecified; I10 Essential (primary) hypertension; Z79.899 Other long term (current) drug therapy; Z86.19 Personal history of other infectious and parasitic diseases
CPT/HCPCS: 80307; 99283

== ENCOUNTER 2017-12-26 20:26 | Inpatient (IN) | payer MEDICAID, OTHER ==
[~2017-12-26] VITALS: Ht 182.9 cm; Wt 71.6 kg
--- NOTE | 2017-12-26 21:52 | PD ---
HPI Chief Complaint: Psychiatric Symptoms Time Seen by Provider: 21:36 Travel History International Travel<30 days: No Contact w/Intl Traveler<30days: No Traveled to known affect area: No History of Present Illness HPI 47-year-old male with reported history of HIV presents under Hilario act initiated by a physician at [facility]. He was medically cleared at [facility] and transferred here for psychiatric evaluation. Please see their notes for complete history of present illness. His Hilario act says that he wants to hurt himself by taking his medications and that he is sick of his life. The patient does report that he feels depressed and suicidal. He had an abscess in the right axilla which was drained at [facility]. A prescription has been written for doxycycline but he has not received a dose today yet. He is feeling tremulous. He has no other medical complaints at this time. He was seen here yesterday for evaluation of alcohol intoxication. PFSH Past Medical History Autoimmune Disease: Yes (aids) Anxiety: Yes Depression: Yes Cancer: Yes (BLADDER CA) Cardiovascular Problems: No Diabetes: No Diminished Hearing: No Endocrine: No Gastrointestinal Disorders: No Genitourinary: No Headaches: Yes (he states because he is withdrawing ) Hepatitis: Yes (HEP C) Hypertension: Yes Immune Disorder: Yes Implanted Vascular Access Dvce: No Musculoskeletal: No Neurologic: No Psychiatric: Yes Reproductive: No Respiratory: Yes (bronchitis) Seizures: No Past Surgical History Genitourinary Surgery: Yes (CYSTOSCOPY) Other Surgery: No Social History Alcohol Use: Yes (12 PACK DAILY) Tobacco Use: Yes (1/2PPD) Substance Use: Yes Allergies-Medications (Allergen,Severity, Reaction): Coded Allergies: No Known Allergies (Unverified Adverse Reaction, Unknown, 12/25/17) Reported Meds & Prescriptions Reported Meds & Active Scripts Active Zithromax (Azithromycin) 600 Mg Tab 600 Mg PO 2XWEEK Acidophilus/l-Sporogenes (Lactobacillus Acidophilus) 35 Million Cell-25 Million Cell Tab 1 Tab PO TID [guaiFENesin ER] 600 MG Tabcr 600 Mg PO BID Kaletra (Lopinavir/Ritonavir) 200-50 Mg Tab 2 Tab PO BID Sulfamethoxazole-Trimethoprim 800-160 Mg Tab 1 Tab PO MOWEFR@09 30 Days Seroquel (Quetiapine Fumarate) 100 Mg Tab 100 Mg PO DAILY 30 Days [place] Carbonate 300 Mg Tab 300 Mg PO Q12HR 30 Days Reported Oxycodone (Oxycodone HCl) 10 Mg Tab 10 Mg PO Q6H PRN Ativan (Lorazepam) 2 Mg Tab 2 Mg PO Q6H PRN Review of Systems Except as stated in HPI: all other systems reviewed are Neg Physical Exam Narrative GENERAL: Well-developed well-nourished male in no acute distress SKIN: Warm and dry. There is an abscess with packing in place in the right axilla with some surrounding cellulitic changes. HEAD: Atraumatic. Normocephalic. EYES: Pupils equal and round. No scleral icterus. No injection or drainage. ENT: No nasal bleeding or discharge. Mucous membranes pink and moist. NECK: Trachea midline. No JVD. CARDIOVASCULAR: Regular rate and rhythm. No murmur appreciated. RESPIRATORY: No accessory muscle use. Clear to auscultation. Breath sounds equal bilaterally. MUSCULOSKELETAL: No obvious deformities. No clubbing. No cyanosis. No edema. NEUROLOGICAL: Awake and alert. No obvious cranial nerve deficits. Motor grossly within normal limits. Normal speech. PSYCHIATRIC: Depressed, anxious but insight and judgment appear intact. Data Data Orders Orders Psych Screen (12/26/17 20:41) [facility] Medical Decision Making Medical Screen Exam Complete: Yes Emergency Medical Condition: Yes Medical Record Reviewed: Yes Differential Diagnosis Major depressive disorder, depressive disorder not otherwise specified, acute psychosis, substance-induced mood disorder, adjustment reaction Narrative Course Mental health screening discussed with the patient. Psychiatric screen ordered. I reviewed his lab work and HPI from [facility]. CBC, urinalysis, drug screen, LDH were all within normal limits. An influenza antigen test was performed and was negative. His BMP revealed a glucose of 146 otherwise unremarkable. He will be given a dose of doxycycline and Ativan. He is medically cleared for psychiatric disposition. Diagnosis Primary Impression: Medical clearance for psychiatric admission Doc Anderson Dec 26, 2017 21:52
[2017-12-26] MEDS ORDERED: LORazepam 2 MG/ML VIAL IM ONE (22:00)
[2017-12-26] MEDS ORDERED: DOXYCYCLINE HYCLATE 100 MG CAP PO ONE (22:00)
[2017-12-26 23:43] VITALS: BP 144/92; PULSE 87; RESP 20
[2017-12-27 06:33] VITALS: BP 122/62; PULSE 77; RESP 17
[2017-12-27 10:48] VITALS: BP 123/90; PULSE 101; TEMP 98.7; O2SAT 98
[2017-12-27] MEDS ORDERED: ALUMINUM/MAGNESIUM/SIMETH 30 ML CUP PO PRN (11:45)
[2017-12-27] MEDS ORDERED: BENZTROPINE MESYLATE 2 MG/2 ML VIAL IM PRN (11:45)
[2017-12-27] MEDS ORDERED: LORazepam 2 MG/ML VIAL IV PUSH PRN ×4 (11:45)
[2017-12-27] MEDS ORDERED: MAGNESIUM HYDROXIDE SUSP 30 ML CUP PO PRN (11:45)
[2017-12-27] MEDS ORDERED: FLUMAZENIL 0.5 MG/5 ML VIAL IV PUSH PRN (11:45)
[2017-12-27] MEDS ORDERED: LORazepam 2 MG TAB PO PRN (11:45)
[2017-12-27] MEDS ORDERED: BENZTROPINE MESYLATE 1 MG TAB PO PRN (11:45)
[2017-12-27 12:49] VITALS: BP 131/75; PULSE 97; RESP 18; TEMP 98.3; O2SAT 96
[2017-12-27] MEDS: LORazepam 1 MG TAB PO PRN ×2 (15:16→21:28)
[2017-12-27] MEDS ORDERED: IBUPROFEN 600 MG TAB PO ONE (19:00)
[2017-12-27] MEDS ORDERED: Vancomycin Consult Pharmacy 1 EA OTHER SCH (19:45)
--- NOTE | 2017-12-27 19:45 | PD.CONS ---
HPI Service [facility] Hospitalists Consult Requested By Dr Abreu Reason for Consult Medical management Primary Care Physician No Primary Care Physician Diagnoses: History of Present Illness This is a 47-year-old male with past medical history of HIV/AIDS, hypertension, bladder cancer, Kaposi's sarcoma, 8 with a CD4 count of around 40 on 2017 who presents to [facility] under a Hilario act initiated by a physician for the hospital. The patient was medically cleared for the hospital and transferred to this institution for psychiatric evaluation. As per the Hilario act states that the patient wanted to hurt himself but taking his medications and that he is sick of his life. Patient states that he does not have any quality of life due to his medical condition and that he is interested in hospice. The patient is somewhat anxious and agitated. Steroids that he has been having fevers and chills for the past few days. States that he had a lump on his right axilla which grew bigger, tender. The patient went to the floor the hospital where it was drained and a small pigtail catheter placed on left. The patient still reports severe pain in the right axilla. Patient also elicits chronic low back pain and is requested Roxicodone which he states he takes as an outpatient. Review of Systems As per HPI, other systems reviewed by me and negative. Past Family Social History Allergies: Coded Allergies: No Known Allergies (Unverified Adverse Reaction, Unknown, 12/25/17) Past Medical History Hypertension Bladder cancer [place] Sarcoma AIDS - CD4 - 40 about one month ago Chronic back pain as per patient Denies diabetes, heart problems, breathing problems, liver problems, kidney problems, DVT, PE, CVA, seizures, or thyroid problems Past Surgical History Bladder cancer resection Reported Medications Reported Meds & Active Scripts Active Zithromax (Azithromycin) 600 Mg Tab 600 Mg PO 2XWEEK Acidophilus/l-Sporogenes (Lactobacillus Acidophilus) 35 Million Cell-25 Million Cell Tab 1 Tab PO TID [guaiFENesin ER] 600 MG Tabcr 600 Mg PO BID Kaletra (Lopinavir/Ritonavir) 200-50 Mg Tab 2 Tab PO BID Sulfamethoxazole-Trimethoprim 800-160 Mg Tab 1 Tab PO MOWEFR@09 30 Days Seroquel (Quetiapine Fumarate) 100 Mg Tab 100 Mg PO DAILY 30 Days [place] Carbonate 300 Mg Tab 300 Mg PO Q12HR 30 Days Active Ordered Medications Current Medications Medications (Trade) Dose Ordered Sig/Marilee Route Start Time Stop Time Status Last Admin (Folate) 1 mg DAILY PO 12/28/17 09:00 01/02/18 08:59 12/28/17 08:56 (Vitamin B1) 100 mg DAILY PO 12/28/17 09:00 12/28/17 08:56 (Theragran M Tab) 1 tab DAILY PO 12/28/17 09:00 01/02/18 08:59 12/28/17 08:57 (Romazicon Inj) 0.2 mg Q1M PRN IV PUSH 12/27/17 11:45 (Ativan) 1 mg Q4H PRN PO 12/27/17 11:45 12/28/17 13:01 (Ativan Inj) 1 mg Q4H PRN IV PUSH 12/27/17 11:45 (Ativan) 2 mg Q2H PRN PO 12/27/17 11:45 12/28/17 00:22 (Ativan Inj) 2 mg Q2H PRN IV PUSH 12/27/17 11:45 (Ativan Inj) 2 mg Q1H PRN IV PUSH 12/27/17 11:45 (Ativan Inj) 2 mg Q15M PRN IV PUSH 12/27/17 11:45 (Tylenol) 650 mg Q4H PRN PO 12/27/17 11:45 12/27/17 21:28 (Milk Of Magnesia Liq) 30 ml DAILY PRN PO 12/27/17 11:45 (Mag-Al Plus Susp Liq) 30 ml Q6H PRN PO 12/27/17 11:45 (Habitrol 21 Mg Patch.24 Hr) 1 patch DAILY PRN T-DERMAL 12/27/17 11:45 (Cogentin) 1 mg Q12H PRN PO 12/27/17 11:45 (Cogentin Inj) 1 mg Q12H PRN IM 12/27/17 11:45 Miscellaneous Information 1 HS PRN T-DERMAL 12/27/17 21:00 (Zithromax) 600 mg 2XWEEK PO 12/27/17 20:00 (Lactinex) 1 tab TID PO 12/28/17 09:00 12/28/17 12:24 (Kaletra 200-50 Mg) 2 tab BID PO 12/27/17 21:00 3/22/18 08:56 (Bactrim Ds 800-160 Mg) 1 tab MoWeFr@09 PO 12/29/17 09:00 Vancomycin HCl 1000 mg/Sodium Chloride 250 ml @ 250 mls/hr Q12H IV 12/27/17 21:00 12/28/17 08:57 Pharmacy Profile Note 0 ml @ 0 mls/hr UNSCH OTHER 12/27/17 19:45 Piperacillin Sod/ Tazobactam Sod 100 ml @ 200 mls/hr Q8H IV 12/27/17 20:00 12/28/17 12:25 (Toradol) 10 mg Q6H PRN PO 12/27/17 19:45 01/01/18 19:44 12/27/17 22:20 Miscellaneous Information SPECIFIC LAB TO BE ASPEN... ONCE ONCE .XX 12/29/17 08:45 12/29/17 08:46 (Lithotabs) 300 mg Q12HR PO 12/28/17 21:00 (SEROquel) 50 mg HS PO 12/28/17 21:00 (Remeron) 15 mg HS PO 12/28/17 21:00 (Atarax) 50 mg Q6H PRN PO 12/28/17 09:30 12/28/17 12:25 (Percocet 5-325 Mg) 1 tab Q4H PRN PO 12/28/17 14:00 Physical Exam Vital Signs Vital Signs Date Time Temp Pulse Resp B/P (MAP) Pulse Ox O2 Delivery O2 Flow Rate FiO2 12/27/17 12:49 98.3 97 18 131/75 (93) 96 12/27/17 11:57 12/27/17 10:48 98.7 101 123/90 (101) 98 Room Air 12/27/17 06:33 77 17 122/62 (82) Room Air 12/26/17 23:43 87 20 144/92 (109) Physical Exam GENERAL: This is a well-nourished, well-developed patient, patient exhibits mild tremors and is anxious. SKIN: No rashes, ecchymoses. There is induration on palpation of the right axilla which is very tender. Residual abscess with drainage in place. HEAD: Atraumatic. Normocephalic. No temporal or scalp tenderness. EYES: Pupils equal round and reactive. Extraocular motions intact. No scleral icterus. No injection or drainage. ENT: Nose without bleeding, purulent drainage or septal hematoma. Throat without erythema, tonsillar hypertrophy or exudate. Uvula midline. Airway patent. NECK: Trachea midline. No JVD or lymphadenopathy. Supple, nontender, no meningeal signs. CARDIOVASCULAR: Regular rate and rhythm without murmurs, gallops, or rubs. RESPIRATORY: Clear to auscultation. Breath sounds equal bilaterally. No wheezes , rales, or rhonchi. GASTROINTESTINAL: Abdomen soft, non-tender, nondistended. No hepato-splenomegaly , or palpable masses. No guarding. MUSCULOSKELETAL: Extremities without clubbing, cyanosis, or edema. No joint tenderness, effusion, or edema noted. No calf tenderness. Negative Homans sign bilaterally. NEUROLOGICAL: Awake and alert. Cranial nerves II through XII intact. Motor and sensory grossly within normal limits. Five out of 5 muscle strength in all muscle groups. Normal speech. Assessment and Plan Problem List: (1) Adjustment disorder with depressed mood ICD Code: F43.21 - Adjustment disorder with depressed mood Plan: Management as per psychiatry. (2) HIV (human immunodeficiency virus infection) ICD Code: B20 - Human immunodeficiency virus [HIV] disease Status: Chronic Plan: Check iron overload. Check CD4 count. Consult infectious disease Continue Bactrim and azithromycin for prophylaxis. Continue HAART therapy with lopinavir -ritonavir (3) Alcohol withdrawal ICD Code: F10.239 - Alcohol dependence with withdrawal, unspecified Plan: [facility] protocol (4) AIDS (acquired immune deficiency syndrome) ICD Code: B20 - Human immunodeficiency virus [HIV] disease Plan: As above. (5) Abscess of right axilla ICD Code: L02.411 - Cutaneous abscess of right axilla Status: Acute Plan: Status post drainage of abscess for the hospital. Upon review of records his last CD4 count was in the 40s in 2017.Given the patient's immunosuppression I will place on broad-spectrum antibiotics with IV vancomycin IV Zosyn and obtain a wound culture. Tailor antibiotics as per wound culture. Assessment and Plan DVT prophylaxis: Ambulation. Code Status Full code Discussed Condition With Patient, RN Problem Qualifiers (1) Alcohol withdrawal: Qualified Codes: F10.230 - Alcohol dependence with withdrawal, uncomplicated Francisco Colin MD Dec 27, 2017 19:45
[2017-12-27] MEDS: PIPERACIL-TAZO 4.5 GM PREMIX 100 ML IV SCH (20:00)
[2017-12-27] MEDS ORDERED: AZITHROMYCIN 600 MG TAB PO SCH (20:00)
[2017-12-27] MEDS: VANCOMYCIN INJ 1,000 MG in SODIUM CHLOR 0.9% 250 ML INJ 250 ML IV SCH (21:00)
[2017-12-27] MEDS ORDERED: diphenhydrAMINE HCL 50 MG CAP PO PRN (21:00)
[2017-12-27] MEDS ORDERED: DOXYCYCLINE HYCLATE 100 MG CAP PO SCH (21:00)
[2017-12-27] MEDS ORDERED: REMOVE OLD NICODERM (NICOTINE) PATCH T-DERMAL PRN (21:00)
[2017-12-27] MEDS: ACETAMINOPHEN 325 MG TAB PO PRN (21:28)
[2017-12-27] MEDS: LOPINAVIR/RITONAVIR 200 MG/50 MG TAB PO SCH (22:20)
[2017-12-27] MEDS: KETOROLAC TROMETHAMINE 10 MG TAB PO PRN (22:20)
[2017-12-28 00:22] VITALS: BP 156/98; PULSE 98; RESP 18; TEMP 98; O2SAT 98
[2017-12-28] MEDS: PIPERACIL-TAZO 4.5 GM PREMIX 100 ML IV SCH ×2 (03:35→12:25)
[2017-12-28 06:00] VITALS: BP 126/74; PULSE 69; RESP 17; TEMP 97.6; O2SAT 99
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
[2017-12-28] MEDS: LORazepam 1 MG TAB PO PRN ×3 (08:54→17:47)
[2017-12-28] MEDS: LACTOBACILLUS ACIDOPHILUS TAB PO SCH ×3 (08:55→17:30)
[2017-12-28] MEDS: THIAMINE HCL 100 MG TAB PO SCH (08:56)
[2017-12-28] MEDS: LOPINAVIR/RITONAVIR 200 MG/50 MG TAB PO SCH ×2 (08:56→22:27)
[2017-12-28] MEDS: FOLIC ACID 1 MG TAB PO SCH (08:56)
[2017-12-28] MEDS: MULTIVITAMINS/MINERALS THERAPEUTIC TAB PO SCH (08:57)
[2017-12-28] MEDS: VANCOMYCIN INJ 1,000 MG in SODIUM CHLOR 0.9% 250 ML INJ 250 ML IV SCH (08:57)
[2017-12-28 09:25] LABS: HEMATOCRIT 39.3 % (39.0-51.0); HEMOGLOBIN 13.3 GM/DL (13.0-17.0); MEAN CELL VOLUME 91.1 FL (80.0-100.0); MEAN CORPUSCULAR HEMOGLOBIN 30.8 PG (27.0-34.0); MEAN CORPUSCULAR HGB CONC 33.8 % (32.0-36.0); MEAN PLATELET VOLUME 9.3 FL (7.0-11.0); PLATELET COUNT 92 TH/MM3 (150-450); RED BLOOD COUNT 4.31 MIL/MM3 (4.50-5.90); RED CELL DISTRIBUTION WIDTH 13.5 % (11.6-17.2); WHITE BLOOD COUNT 1.5 TH/MM3 (4.0-11.0)
[2017-12-28 09:47] LABS: ALBUMIN 2.6 GM/DL (3.4-5.0); AST (GOT) 234 U/L (15-37); BLOOD UREA NITROGEN 13 MG/DL (7-18); CALCIUM 8.5 MG/DL (8.5-10.1); CHLORIDE 104 MEQ/L (98-107); CREATININE 0.75 MG/DL (0.60-1.30); GLOMERULAR FILTRATION RATE 112 ML/MIN (>89); GLUCOSE,RANDOM 113 MG/DL (74-106); MAGNESIUM 1.8 MG/DL (1.5-2.5); SODIUM (NA) 138 MEQ/L (136-145)
[2017-12-28 09:48] LABS: ALT (GPT) 183 U/L (12-78); CHOLESTEROL 155 MG/DL (120-200); TRIGLYCERIDES 97 MG/DL (42-150)
[2017-12-28 09:51] LABS: ALKALINE PHOSPHATASE 70 U/L (45-117); CHOLESTEROL/ HDL RATIO 3.03 RATIO; HDL CHOLESTEROL 51.1 MG/DL (40.0-60.0); LDL CHOLESTEROL 85 MG/DL (0-99); PHOSPHORUS 3.1 MG/DL (2.5-4.9); TOTAL BILIRUBIN ADULT 0.8 MG/DL (0.2-1.0); TOTAL PROTEIN 7.9 GM/DL (6.4-8.2)
[2017-12-28 10:38] LABS: BANDS 6 % (0-6); MONOCYTES 11 % (0-8); NEUTROPHIL # MANUAL DIFF 0.8 TH/MM3 (1.8-7.7); POLYS (SEG NEUTROPHILS) 44 % (16-70)
[2017-12-28 10:39] LABS: LYMPHOCYTES 36 % (9-44)
[2017-12-28 10:40] LABS: OVALOCYTES 1+ (NORMAL)
[2017-12-28] MEDS: hydrOXYzine HCL 50 MG TAB PO PRN (12:25)
[2017-12-28] MEDS ORDERED: oxyCODONE/ACETAMINOPHEN 5 MG/325 MG TAB PO PRN (14:00)
--- NOTE | 2017-12-28 15:13 | HHI.PR ---
Subjective Remarks Patient seen earlier at 9:30 AM. The patient denies visual or auditory hallucinations. Denies suicidal ideation. States that he still has pain in the right axilla, complains of fevers and chills. Complains of back pain and is requesting oxycodone. Patient is a febrile. Objective Vitals Vital Signs Date Time Temp Pulse Resp B/P (MAP) Pulse Ox O2 Delivery O2 Flow Rate FiO2 12/28/17 06:00 97.6 69 17 126/74 (91) 99 12/28/17 00:22 98.0 98 18 156/98 (117) 98 I/O 12/27/17 12/27/17 12/27/17 12/28/17 12/28/17 12/28/17 07:00 15:00 23:00 07:00 15:00 23:00 Intake Total 240 ml Balance 240 ml Intake Oral 240 ml Result Diagram: 12/28/17 0850 12/28/17 0850 Objective Remarks GENERAL: This is a well-nourished, well-developed patient, patient exhibits mild tremors and is anxious. SKIN: No rashes, ecchymoses. There is induration on palpation of the right axilla which is very tender. Residual abscess with drainage in place. HEAD: Atraumatic. Normocephalic. No temporal or scalp tenderness. EYES: Pupils equal round and reactive. Extraocular motions intact. No scleral icterus. No injection or drainage. ENT: Nose without bleeding, purulent drainage or septal hematoma. Throat without erythema, tonsillar hypertrophy or exudate. Uvula midline. Airway patent. NECK: Trachea midline. No JVD or lymphadenopathy. Supple, nontender, no meningeal signs. CARDIOVASCULAR: Regular rate and rhythm without murmurs, gallops, or rubs. RESPIRATORY: Clear to auscultation. Breath sounds equal bilaterally. No wheezes , rales, or rhonchi. GASTROINTESTINAL: Abdomen soft, non-tender, nondistended. No hepato-splenomegaly , or palpable masses. No guarding. MUSCULOSKELETAL: Extremities without clubbing, cyanosis, or edema. No joint tenderness, effusion, or edema noted. No calf tenderness. Negative Homans sign bilaterally. NEUROLOGICAL: Awake and alert. Cranial nerves II through XII intact. Motor and sensory grossly within normal limits. Five out of 5 muscle strength in all muscle groups. Normal speech. Medications and IVs Current Medications Medications (Trade) Dose Ordered Sig/Marilee Route Start Time Stop Time Status Last Admin (Folate) 1 mg DAILY PO 12/28/17 09:00 01/02/18 08:59 12/28/17 08:56 (Vitamin B1) 100 mg DAILY PO 12/28/17 09:00 12/28/17 08:56 (Theragran M Tab) 1 tab DAILY PO 12/28/17 09:00 01/02/18 08:59 12/28/17 08:57 (Romazicon Inj) 0.2 mg Q1M PRN IV PUSH 12/27/17 11:45 (Ativan) 1 mg Q4H PRN PO 12/27/17 11:45 12/28/17 13:01 (Ativan Inj) 1 mg Q4H PRN IV PUSH 12/27/17 11:45 (Ativan) 2 mg Q2H PRN PO 12/27/17 11:45 12/28/17 00:22 (Ativan Inj) 2 mg Q2H PRN IV PUSH 12/27/17 11:45 (Ativan Inj) 2 mg Q1H PRN IV PUSH 12/27/17 11:45 (Ativan Inj) 2 mg Q15M PRN IV PUSH 12/27/17 11:45 (Tylenol) 650 mg Q4H PRN PO 12/27/17 11:45 12/27/17 21:28 (Milk Of Magnesia Liq) 30 ml DAILY PRN PO 12/27/17 11:45 (Mag-Al Plus Susp Liq) 30 ml Q6H PRN PO 12/27/17 11:45 (Habitrol 21 Mg Patch.24 Hr) 1 patch DAILY PRN T-DERMAL 12/27/17 11:45 (Cogentin) 1 mg Q12H PRN PO 12/27/17 11:45 (Cogentin Inj) 1 mg Q12H PRN IM 12/27/17 11:45 Miscellaneous Information 1 HS PRN T-DERMAL 12/27/17 21:00 (Zithromax) 600 mg 2XWEEK PO 12/27/17 20:00 (Lactinex) 1 tab TID PO 12/28/17 09:00 12/28/17 12:24 (Kaletra 200-50 Mg) 2 tab BID PO 12/27/17 21:00 12/28/17 08:56 (Bactrim Ds 800-160 Mg) 1 tab MoWeFr@09 PO 12/29/17 09:00 Vancomycin HCl 1000 mg/Sodium Chloride 250 ml @ 250 mls/hr Q12H IV 12/27/17 21:00 12/28/17 08:57 Pharmacy Profile Note 0 ml @ 0 mls/hr UNSCH OTHER 12/27/17 19:45 Piperacillin Sod/ Tazobactam Sod 100 ml @ 200 mls/hr Q8H IV 12/27/17 20:00 12/28/17 12:25 (Toradol) 10 mg Q6H PRN PO 12/27/17 19:45 01/01/18 19:44 12/27/17 22:20 Miscellaneous Information SPECIFIC LAB TO BE ASPEN... ONCE ONCE .XX 12/29/17 08:45 12/29/17 08:46 (Lithotabs) 300 mg Q12HR PO 12/28/17 21:00 (SEROquel) 50 mg HS PO 12/28/17 21:00 (Remeron) 15 mg HS PO 12/28/17 21:00 (Atarax) 50 mg Q6H PRN PO 12/28/17 09:30 12/28/17 12:25 (Percocet 5-325 Mg) 1 tab Q4H PRN PO 12/28/17 14:00 12/28/17 15:01 A/P Problem List: (1) Adjustment disorder with depressed mood ICD Code: F43.21 - Adjustment disorder with depressed mood Plan: Management as per psychiatry. (2) HIV (human immunodeficiency virus infection) ICD Code: B20 - Human immunodeficiency virus [HIV] disease Status: Chronic Plan: C4 count on RNA viral load pending.. ID consulted, recommendations pending Continue Bactrim and azithromycin for prophylaxis. Continue HAART therapy with lopinavir -ritonavir (3) Alcohol withdrawal ICD Code: F10.239 - Alcohol dependence with withdrawal, unspecified (4) AIDS (acquired immune deficiency syndrome) ICD Code: B20 - Human immunodeficiency virus [HIV] disease Plan: As above. (5) Abscess of right axilla ICD Code: L02.411 - Cutaneous abscess of right axilla Status: Acute Plan: Status post drainage of abscess for the hospital. The patient was placed on broad-spectrum IV antibiotics with IV vancomycin IV Zosyn due to degree of immunosuppression. Tailor antibiotics as per wound culture. ID discontinued IV broad-spectrum antibiotics and start the patient on doxycycline orally. (6) Transaminitis ICD Code: R74.0 - Nonspecific elevation of levels of transaminase and lactic acid dehydrogenase [LDH] Plan: Examination is elevated likely secondary to alcohol abuse. Check hepatitis profile. Check liver ultrasound. (7) Chronic back pain ICD Code: M54.9 - Dorsalgia, unspecified; G89.29 - Other chronic pain Plan: Patient complains of chronic low back pain. States he gets Roxicodone's as an outpatient however he states that these are prescribed in [facility]. Start the patient on Toradol on admission, however patient still complains of pain. I will place the patient back on the oxycodone, however I would not discharge patient on opiates. The patient is follow-up with outpatient pain management. Assessment and Plan DVT prophylaxis: Ambulation. Discharge Planning Continue to monitor on the [facility] floor. Problem Qualifiers (1) Alcohol withdrawal: Qualified Codes: F10.230 - Alcohol dependence with withdrawal, uncomplicated (2) Chronic back pain: Qualified Codes: M54.5 - Low back pain; G89.29 - Other chronic pain Francisco Colin MD Dec 28, 2017 15:13
--- NOTE | 2017-12-28 15:46 | MB ---
cc: Kishan Prasad MD DATE: 12/28/2017 REQUESTING PHYSICIAN: Dr. Prabhakar. REASON FOR CONSULTATION: Patient with axilla abscess. HISTORY OF PRESENT ILLNESS: This is a 47-year-old white male who has HIV. The patient was transferred from [facility] after he was Hilario Acted. He was transferred for psychiatric evaluation. During the stay at [facility], he had a drainage procedure of an abscess at the right axilla. The patient tells me that he was admitted to [facility] because of pain and swelling at the right axilla. He tells me that a culture was taken. He has a packing strip into the axilla abscess which indicates prior incision and drainage. He does not recall any positive culture from the wound. I do not have information from the culture, which was taken while at [facility]. The patient is on IV antibiotics here. This consultation is requested for management of the axillary abscess. He denies chills, nausea or vomiting. He denies prior abscess at the axilla. He apparently was given a prescription for doxycycline from [facility], but had not filled the prescription yet. PAST MEDICAL HISTORY: 1. HIV disease with low CD4 count. CD4 count within the past 2 months was noted to be 13. 2. Hepatitis C. 3. Bronchitis. 4. History of bladder cancer. 5. Anxiety and depression. ALLERGIES: NO KNOWN DRUG ALLERGIES. MEDICATIONS: 1. Vancomycin. 2. Piperacillin/tazobactam 3. Azithromycin. 4. Kaletra. 5. Lactinex. 6. Theragran. 7. Vitamin B1. 8. Folate. 9. Atarax. 10. Percocet p.r.n. 11. Remeron. 12. Seroquel. 13. [place]. 14. Bactrim Mondays, Wednesdays and Fridays. SOCIAL HISTORY: The patient drinks a 12-pack of beer a day. Positive tobacco use. Positive alcohol use. Positive marijuana use. FAMILY HISTORY: Noncontributory. REVIEW OF SYSTEMS: Negative on a 10-point review except for mild pain in the right axilla. PHYSICAL EXAMINATION: GENERAL: This is a well-developed male who is in no acute distress. VITAL SIGNS: Includes temperature 97.6, blood pressure 126/74, heart rate 70, respirations 16. HEENT: Extraocular movements grossly intact. Pupils reactive to light. No icterus. Oropharynx moist mucosa without lesions. NECK: Supple without adenopathy. LUNGS: Clear breath sounds bilaterally. HEART: Regular S1, S2, without murmurs, rubs or gallops. ABDOMEN: Bowel sounds present. Soft, no tenderness appreciated. RECTAL: Not performed. EXTREMITIES: No clubbing, cyanosis or edema. The patient has swelling at the right axilla, which is tender. There is about a 1.5 cm raised lump. There is an iodoform gauze strip extending from the inside of the area of swelling where the incision was performed. The area is entirely dry. There is minimal erythema around where the iodoform gauze enters. The patient reports severe tenderness when palpated at the axilla. SKIN: No diffuse rash. The patient has a reddish hue to the skin of the face, chest and neck. NEUROLOGIC: No gross focal finding. PSYCHIATRIC: The patient is calm and cooperative. LABORATORY DATA: WBC 1.5, platelets 92, hemoglobin 15.3, 44% neutrophils, 36% lymphocytes, 11% monocytes. Creatinine 0.75, BUN 13, sodium 138, AST 234, ALT 183. IMPRESSION: 1. Abscess of the right axilla. The patient had drainage procedure at [facility]. Culture results not available. 2. Human immunodeficiency virus disease with low CD4 count. The patient on Kaletra. He recently moved from [facility] 4 months ago and says he is in the process of establishing followup for HIV through the [facility]. RECOMMENDATIONS: The area of abscess at the axilla does not appear to be severe. I recommend changing antibiotics to oral doxycycline and attempt to obtain results of the culture that was taken at [facility]. If the culture does not reveal bacteria, then I recommend removing the current dressing and reculturing the area and then decide on antibiotic based on the new culture information. Request was made for information from [facility]. Thank you for this consultation. I will follow the patient's culture information and further recommendations will be given if necessary. Otherwise, just continue to treat with doxycycline for another 10 days. MD NINOSKA Kowalski/UMER , 03:07 PM , 03:45 PM CELINE
[2017-12-28 17:34] LABS: HEMOGLOBIN A1C 4.9 % (4.3-6.0)
[2017-12-28 18:35] VITALS: BP 120/76; PULSE 67; RESP 18; TEMP 98.1; O2SAT 98
[2017-12-28] MEDS ORDERED: QUEtiapine FUMARATE 25 MG TAB PO SCH (21:00)
[2017-12-28] MEDS: MIRTAZAPINE 15 MG TAB PO SCH (22:27)
[2017-12-28] MEDS: DOXYCYCLINE HYCLATE 100 MG TAB PO SCH (22:28)
[2017-12-28] MEDS: LITHIUM CARBONATE 300 MG TAB PO SCH (22:28)
[2017-12-29 06:00] VITALS: BP 105/63; PULSE 70; RESP 18; TEMP 97.9; O2SAT 95
[2017-12-29] MEDS ORDERED: PHARMACY ORDERED LAB ONE (08:45)
[2017-12-29] MEDS: MULTIVITAMINS/MINERALS THERAPEUTIC TAB PO SCH (09:40)
[2017-12-29] MEDS: SULFAMETHOXAZOLE-TRIMETHOPRIM DS 800-160 MG TAB PO SCH (09:40)
[2017-12-29] MEDS: THIAMINE HCL 100 MG TAB PO SCH (09:41)
[2017-12-29] MEDS: FOLIC ACID 1 MG TAB PO SCH (09:41)
[2017-12-29] MEDS: LITHIUM CARBONATE 300 MG TAB PO SCH ×2 (09:42→21:47)
[2017-12-29] MEDS: LACTOBACILLUS ACIDOPHILUS TAB PO SCH ×3 (09:42→18:21)
[2017-12-29] MEDS: DOXYCYCLINE HYCLATE 100 MG TAB PO SCH ×2 (09:43→21:47)
[2017-12-29] MEDS: LOPINAVIR/RITONAVIR 200 MG/50 MG TAB PO SCH ×2 (09:43→21:47)
--- NOTE | 2017-12-29 10:16 | RADRPT ---
EXAM DATE/TIME: 12/29/2017 08:48 [facility] COMPARISON: No previous studies available for comparison. INDICATIONS : Increased lab values. MEDICAL HISTORY : Hypertension. Hepatitis C. Carcinoma, bladder.IV drug abuse. HIV. SURGICAL HISTORY : Cystoscopy. ENCOUNTER: Initial ACUITY: 1 day PAIN SCORE: 0/10 LOCATION: Bilateral upper quadrant MEASUREMENTS: LIVER: 16.1 cm length COMMON DUCT: 4 mm RIGHT KIDNEY: 10.0 x 4.8 x 2.0 cm SPLEEN: 10.1 cm length FINDINGS: LIVER: Borderline enlarged with subtle increased echogenicity. No focal mass or intrahepatic ductal dilatati on. Main portal vein is hepatopedal. COMMON DUCT: No intraluminal mass or stone visualized. GALLBLADDER: Contains no stones, demonstrates no wall thickening or pericholecystic fluid. PANCREAS: The visualized portions are within normal limits. RIGHT KIDNEY: No hydronephrosis, stone or mass. SPLEEN: No focal lesion. CONCLUSION: 1. Borderline hepatomegaly with increased hepatic echogenicity consistent with patient's history of h epatitis. Portal vein is patent and there is no evidence for significant hepatic volume loss at this time. Juaquin Sanderson MD on December 29, 2017 at 10:11 Board Certified Radiologist. This report was verified electronically.
--- NOTE | 2017-12-29 11:57 | HHI.PYPN ---
Subjective Chief Complaint: Anxiety, confusion Remarks Patient seen and examined with nurse. Chart reviewed. Case discussed with nursing staff. Case discussed in treatment team. I evaluate the patient shortly after he completed neuropsychological evaluation with Dr. Kebede. Patient is a little bit upset because of the difficulties with cognition identified by that evaluation. He does seem to reconstitute quickly however and is in fair spirits at the conclusion of our interview. Sleep was fair. He denies any SI or HI presently but does admit to some suicidal thoughts overnight. No psychotic symptoms. No side effects from medications. Agreeable to titration of Seroquel for help with mood stabilization and sleep. No acute physical complaints. Patient is desirous of placement and counselor is working on this goal. Review of Systems Except as stated in HPI: all other systems reviewed are Neg Mental Status Examination Appearance: Appropriate Consciousness: Alert Orientation: Person, Place (at least) Motor Activity: Other (no abnormal motor movements noted) Speech: Unremarkable Language: Adequate Fund of Knowledge: Adequate Attention and Concentration: Adequate Memory: Unremarkable (grossly intact on clinical exam) Mood: Other ("upset") Affect: Other (remains a little dysphoric) Thought Process & Associations: Intact, Logical, Linear Thought Content: Appropriate Hallucination Type: None Delusion Type: None Suicidal Ideation: No Suicidal Plan: No Suicidal Intention: No Homicidal Ideation: No Homicidal Plan: No Homicidal Intention: No Insight: Fair Judgment: Impulsive Mental Status Exam Remarks No signs of withdrawal noted Results Labs Test 12/28/17 12:49 Rapid Plasma Reagin NON-REACTIVE Labs reviewed. 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 Continue other psychotropics as ordered. Plan to check a lithium level after the weekend. Neuropsychology input noted and appreciated. Hospitalist input noted and appreciated. Continue to observe on the medical psychiatric unit. Continue other medications and care as ordered. Justification for Cont. Inpt. Complicating condition. Monitoring for impairment in safety. Risk for decompensation in less restrictive environment. Discharge Planning Possible placement Request HC Surrog/Guard Advoc?: No Brian Noriega MD Dec 29, 2017 11:57
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
--- NOTE | 2017-12-29 13:18 | HHI.PR ---
Subjective Remarks states pain in axilae is improving and states that swelling is coming down. afebrile. Less anxious. Back pain well controlled. Objective Vitals Vital Signs Date Time Temp Pulse Resp B/P (MAP) Pulse Ox O2 Delivery O2 Flow Rate FiO2 12/29/17 07:42 18 12/29/17 06:00 97.9 70 18 105/63 (77) 95 12/28/17 18:35 98.1 67 18 120/76 (91) 98 I/O 12/28/17 12/28/17 12/28/17 12/29/17 12/29/17 12/29/17 07:00 15:00 23:00 07:00 15:00 23:00 Intake Total 2160 ml 0 ml Balance 2160 ml 0 ml Intake Oral 2160 ml 0 ml # Voids 8 2 Result Diagram: 12/28/17 0850 12/28/17 0850 Imaging Last Impressions Liver Ultrasound 12/29/17 0000 Signed Impressions: Service Date/Time: Friday, December 29, 2017 08:48 - CONCLUSION: 1. Borderline hepatomegaly with increased hepatic echogenicity consistent with patient's history of hepatitis. Portal vein is patent and there is no evidence for significant hepatic volume loss at this time. Juaquin Sanderson MD Objective Remarks GENERAL: This is a well-nourished, well-developed patient, patient exhibits mild tremors and is anxious. SKIN: No rashes, ecchymoses. There is induration on palpation of the right axilla which is very tender. Residual abscess with drainage in place. HEAD: Atraumatic. Normocephalic. No temporal or scalp tenderness. EYES: Pupils equal round and reactive. Extraocular motions intact. No scleral icterus. No injection or drainage. ENT: Nose without bleeding, purulent drainage or septal hematoma. Throat without erythema, tonsillar hypertrophy or exudate. Uvula midline. Airway patent. NECK: Trachea midline. No JVD or lymphadenopathy. Supple, nontender, no meningeal signs. CARDIOVASCULAR: Regular rate and rhythm without murmurs, gallops, or rubs. RESPIRATORY: Clear to auscultation. Breath sounds equal bilaterally. No wheezes , rales, or rhonchi. GASTROINTESTINAL: Abdomen soft, non-tender, nondistended. No hepato-splenomegaly , or palpable masses. No guarding. MUSCULOSKELETAL: Extremities without clubbing, cyanosis, or edema. No joint tenderness, effusion, or edema noted. No calf tenderness. Negative Homans sign bilaterally. NEUROLOGICAL: Awake and alert. Cranial nerves II through XII intact. Motor and sensory grossly within normal limits. Five out of 5 muscle strength in all muscle groups. Normal speech. Procedures None Medications and IVs Current Medications Medications (Trade) Dose Ordered Sig/Marilee Route Start Time Stop Time Status Last Admin (Folate) 1 mg DAILY PO 12/28/17 09:00 01/02/18 08:59 12/29/17 09:41 (Vitamin B1) 100 mg DAILY PO 12/28/17 09:00 12/29/17 09:41 (Theragran M Tab) 1 tab DAILY PO 12/28/17 09:00 01/02/18 08:59 12/29/17 09:40 (Romazicon Inj) 0.2 mg Q1M PRN IV PUSH 12/27/17 11:45 (Ativan) 1 mg Q4H PRN PO 12/27/17 11:45 12/28/17 17:47 (Ativan Inj) 1 mg Q4H PRN IV PUSH 12/27/17 11:45 (Ativan) 2 mg Q2H PRN PO 12/27/17 11:45 12/28/17 00:22 (Ativan Inj) 2 mg Q2H PRN IV PUSH 12/27/17 11:45 (Ativan Inj) 2 mg Q1H PRN IV PUSH 12/27/17 11:45 (Ativan Inj) 2 mg Q15M PRN IV PUSH 12/27/17 11:45 (Tylenol) 650 mg Q4H PRN PO 12/27/17 11:45 12/27/17 21:28 (Milk Of Magnesia Liq) 30 ml DAILY PRN PO 12/27/17 11:45 (Mag-Al Plus Susp Liq) 30 ml Q6H PRN PO 12/27/17 11:45 (Habitrol 21 Mg Patch.24 Hr) 1 patch DAILY PRN T-DERMAL 12/27/17 11:45 (Cogentin) 1 mg Q12H PRN PO 12/27/17 11:45 (Cogentin Inj) 1 mg Q12H PRN IM 12/27/17 11:45 Miscellaneous Information 1 HS PRN T-DERMAL 12/27/17 21:00 (Zithromax) 600 mg 2XWEEK PO 12/27/17 20:00 (Lactinex) 1 tab TID PO 12/28/17 09:00 12/29/17 09:42 (Kaletra 200-50 Mg) 2 tab BID PO 12/27/17 21:00 12/29/17 09:43 (Bactrim Ds 800-160 Mg) 1 tab MoWeFr@09 PO 12/29/17 09:00 12/29/17 09:40 (Toradol) 10 mg Q6H PRN PO 12/27/17 19:45 01/01/18 19:44 12/27/17 22:20 (Lithotabs) 300 mg Q12HR PO 12/28/17 21:00 12/29/17 09:42 (Remeron) 15 mg HS PO 12/28/17 21:00 12/28/17 22:27 (Atarax) 50 mg Q6H PRN PO 12/28/17 09:30 12/28/17 12:25 (Vibratab) 100 mg Q12HR PO 12/28/17 21:00 12/29/17 09:43 (Roxicodone) 5 mg Q6H PRN PO 12/28/17 15:30 12/29/17 06:07 (SEROquel) 100 mg HS PO 12/29/17 21:00 Urinary Catheter: No Vascular Central Line Catheter: No A/P Problem List: (1) Adjustment disorder with depressed mood ICD Code: F43.21 - Adjustment disorder with depressed mood Plan: Management as per psychiatry. (2) HIV (human immunodeficiency virus infection) ICD Code: B20 - Human immunodeficiency virus [HIV] disease Status: Chronic Plan: C4 count on RNA viral load pending.. ID consulted, recommendations pending Continue Bactrim and azithromycin for prophylaxis. Continue HAART therapy with lopinavir -ritonavir (3) Alcohol withdrawal ICD Code: F10.239 - Alcohol dependence with withdrawal, unspecified (4) AIDS (acquired immune deficiency syndrome) ICD Code: B20 - Human immunodeficiency virus [HIV] disease Plan: As above. (5) Abscess of right axilla ICD Code: L02.411 - Cutaneous abscess of right axilla Status: Acute Plan: Status post drainage of abscess for the hospital. The patient was placed on broad-spectrum IV antibiotics with IV vancomycin IV Zosyn due to degree of immunosuppression. Tailor antibiotics as per wound culture. ID discontinued IV broad-spectrum antibiotics and start the patient on doxycycline orally. 12/29 Continue Doxycycline. Swelling improving. (6) Transaminitis ICD Code: R74.0 - Nonspecific elevation of levels of transaminase and lactic acid dehydrogenase [LDH] Plan: Examination is elevated likely secondary to alcohol abuse. Check hepatitis profile. 12/29 Liver ultrasound shows borderline hepatomegaly with increased hepatic echogenicity consistent with patient's history of hepatitis. Portal vein is patent there is no evidence for significant hepatic volume loss. Monitor LFTs. (7) Chronic back pain ICD Code: M54.9 - Dorsalgia, unspecified; G89.29 - Other chronic pain Plan: Patient complains of chronic low back pain. States he gets Roxicodone's as an outpatient however he states that these are prescribed in [facility]. Start the patient on Toradol on admission, however patient still complains of pain. I will place the patient back on the oxycodone, however I would not discharge patient on opiates. The patient is follow-up with outpatient pain management. 12/29 pain s seems to be controlled. Continue oxycodone. (8) Leukopenia ICD Code: D72.819 - Decreased white blood cell count, unspecified Status: Chronic Plan: Leukopenia with increased monocytes likely secondary to HIV. The patient has moderate neutropenia. Continue to monitor CBC with differential. The patient is a febrile and does not have any signs of infection. Assessment and Plan DVT prophylaxis: Ambulation. Discharge Planning Continue to monitor on the [facility] floor. Problem Qualifiers (1) Alcohol withdrawal: Qualified Codes: F10.230 - Alcohol dependence with withdrawal, uncomplicated (2) Chronic back pain: Qualified Codes: M54.5 - Low back pain; G89.29 - Other chronic pain (3) Leukopenia: Qualified Codes: D70.8 - Other neutropenia Francisco Colin MD Dec 29, 2017 13:18
[2017-12-29] MEDS: hydrOXYzine HCL 50 MG TAB PO PRN ×2 (13:40→18:21)
[2017-12-29] MEDS: NICOTINE 21 MG/24 HR PATCH T-DERMAL PRN (18:23)
--- NOTE | 2017-12-29 19:15 | HHI.IDPN ---
Note Infectious Disease Note Patient continues to have pain in the r. axilla. No fever. Has wick in the axilla wound. Transferred from [facility] after he was Hilario Acted. He was transferred for psychiatric evaluation. During the stay at [facility], he had a drainage procedure of an abscess at the right axilla. The patient tells me that he was admitted to [facility] because of pain and swelling at the right axilla. He denies chills, nausea or vomiting. He denies prior abscess at the axilla. He apparently was given a prescription for doxycycline from [facility], but had not filled the prescription yet. PAST MEDICAL HISTORY: 1. HIV disease with low CD4 count. CD4 count within the past 2 months was noted to be 13. 2. Hepatitis C. 3. Bronchitis. 4. History of bladder cancer. 5. Anxiety and depression. ALLERGIES: NO KNOWN DRUG ALLERGIES. MEDICATIONS: Current Medications Medications (Trade) Dose Ordered Sig/Marilee Route PRN Reason Start Time Stop Time Status Last Admin Dose Admin Folic Acid (Folate) 1 mg DAILY PO 12/28/17 09:00 01/02/18 08:59 12/29/17 09:41 Thiamine HCl (Vitamin B1) 100 mg DAILY PO 12/28/17 09:00 12/29/17 09:41 Multivitamins/ Minerals Therapeutic (Theragran M Tab) 1 tab DAILY PO 12/28/17 09:00 01/02/18 08:59 12/29/17 09:40 Flumazenil (Romazicon Inj) 0.2 mg Q1M PRN IV PUSH SEE LABEL COMMENTS 12/27/17 11:45 Lorazepam (Ativan) 1 mg Q4H PRN PO CIWA 8 - 10 12/27/17 11:45 12/28/17 17:47 Lorazepam (Ativan Inj) 1 mg Q4H PRN IV PUSH CIWA 8 - 10 12/27/17 11:45 Lorazepam (Ativan) 2 mg Q2H PRN PO CIWA 11-14 12/27/17 11:45 12/28/17 00:22 Lorazepam (Ativan Inj) 2 mg Q2H PRN IV PUSH CIWA 11-14 12/27/17 11:45 Lorazepam (Ativan Inj) 2 mg Q1H PRN IV PUSH CIWA 15-20 12/27/17 11:45 Lorazepam (Ativan Inj) 2 mg Q15M PRN IV PUSH CIWA > 20 12/27/17 11:45 Acetaminophen (Tylenol) 650 mg Q4H PRN PO Temp >101F 12/27/17 11:45 12/27/17 21:28 Magnesium Hydroxide (Milk Of Magnesia Liq) 30 ml DAILY PRN PO CONSTIPATION 12/27/17 11:45 Al Hydrox/Mg Hydrox/Simethicone (Mag-Al Plus Susp Liq) 30 ml Q6H PRN PO DYSPEPSIA 12/27/17 11:45 Nicotine (Habitrol 21 Mg Patch.24 Hr) 1 patch DAILY PRN T-DERMAL Nicotine craving 12/27/17 11:45 12/29/17 18:23 Benztropine Mesylate (Cogentin) 1 mg Q12H PRN PO EXTRA PYRAMIDAL SYMPTOMS 12/27/17 11:45 Benztropine Mesylate (Cogentin Inj) 1 mg Q12H PRN IM EXTRA PYRAMIDAL SYMPTOMS 12/27/17 11:45 Miscellaneous Information 1 HS PRN T-DERMAL REMOVE OLD PATCH 12/27/17 21:00 Azithromycin (Zithromax) 600 mg 2XWEEK PO 12/27/17 20:00 Lactobacillus Acidophilus (Lactinex) 1 tab TID PO 12/28/17 09:00 12/29/17 18:21 Lopinavir/ Ritonavir (Kaletra 200-50 Mg) 2 tab BID PO 12/27/17 21:00 12/29/17 09:43 Trimethoprim/ Sulfamethoxazole (Bactrim Ds 800-160 Mg) 1 tab MoWeFr@09 PO 12/29/17 09:00 12/29/17 09:40 Ketorolac Tromethamine (Toradol) 10 mg Q6H PRN PO PAIN SCALE 1 TO 10 12/27/17 19:45 01/01/18 19:44 12/27/17 22:20 [place] Carbonate (Lithotabs) 300 mg Q12HR PO 12/28/17 21:00 12/29/17 09:42 Mirtazapine (Remeron) 15 mg HS PO 12/28/17 21:00 12/28/17 22:27 Hydroxyzine HCl (Atarax) 50 mg Q6H PRN PO ANXIETY 12/28/17 09:30 12/29/17 18:21 Doxycycline Hyclate (Vibratab) 100 mg Q12HR PO 12/28/17 21:00 12/29/17 09:43 Oxycodone HCl (Roxicodone) 5 mg Q6H PRN PO PAIN SCALE 1 TO 10 12/28/17 15:30 12/29/17 18:59 Quetiapine Fumarate (SEROquel) 100 mg HS PO 12/29/17 21:00 Objective. Vital Signs Date Time Temp Pulse Resp B/P (MAP) Pulse Ox O2 Delivery O2 Flow Rate FiO2 12/29/17 14:50 18 12/29/17 06:00 97.9 70 18 105/63 (77) 95 Laboratory Tests Test 12/28/17 08:50 White Blood Count 1.5 TH/MM3 Red Blood Count 4.31 MIL/MM3 Hemoglobin 13.3 GM/DL Hematocrit 39.3 % Mean Corpuscular Volume 91.1 FL Mean Corpuscular Hemoglobin 30.8 PG Mean Corpuscular Hemoglobin Concent 33.8 % Red Cell Distribution Width 13.5 % Platelet Count 92 TH/MM3 Mean Platelet Volume 9.3 FL CBC Comment AUTO DIFF Differential Total Cells Counted 100 Neutrophils % (Manual) 44 % Band Neutrophils % 6 % Lymphocytes % 36 % Monocytes % 11 % Eosinophils % 3 % Neutrophils # (Manual) 0.8 TH/MM3 Differential Comment FINAL DIFF MANUAL Atypical Lymphocytes % Platelet Estimate LOW Platelet Morphology Comment ENLARGED Ovalocytes 1+ Laboratory Tests Test 12/28/17 08:50 12/28/17 12:49 Blood Urea Nitrogen 13 MG/DL Creatinine 0.75 MG/DL Random Glucose 113 MG/DL Total Protein 7.9 GM/DL Albumin 2.6 GM/DL Calcium Level 8.5 MG/DL Phosphorus Level 3.1 MG/DL Magnesium Level 1.8 MG/DL Alkaline Phosphatase 70 U/L Aspartate Amino Transf (AST/SGOT) 234 U/L Alanine Aminotransferase (ALT/SGPT) 183 U/L Total Bilirubin 0.8 MG/DL Sodium Level 138 MEQ/L Potassium Level 3.6 MEQ/L Chloride Level 104 MEQ/L Carbon Dioxide Level 25.0 MEQ/L Anion Gap 9 MEQ/L Estimat Glomerular Filtration Rate 112 ML/MIN Hemoglobin A1c 4.9 % Triglycerides Level 97 MG/DL Cholesterol Level 155 MG/DL LDL Cholesterol 85 MG/DL HDL Cholesterol 51.1 MG/DL Cholesterol/HDL Ratio 3.03 RATIO Vitamin B12 Level 292 PG/ML Thyroid Stimulating Hormone 3rd Gen 2.420 uIU/ML PHYSICAL EXAMINATION: GENERAL: No acute distress. HEENT: Extraocular movements grossly intact. Pupils reactive to light. No icterus. Oropharynx moist mucosa without lesions. NECK: Supple without adenopathy. LUNGS: Clear breath sounds bilaterally. HEART: Regular S1, S2, without murmurs, rubs or gallops. ABDOMEN: Bowel sounds present. Soft, no tenderness appreciated. EXTREMITIES: No clubbing, cyanosis or edema. Axilla swelling and erythema. Guaze packing in the wound removed. tiny ulcer crater with nodular area around it ~1-1/2 cm wide. SKIN: No diffuse rash. The patient has a reddish hue to the skin of the face, chest and neck. NEUROLOGIC: No gross focal finding. PSYCHIATRIC: The patient is calm and cooperative. IMPRESSION: 1. Abscess of the right axilla. Gauze packing removed and a culture was taken today. 2. Human immunodeficiency virus disease with low CD4 count. The patient on Kaletra. He recently moved from [facility] 4 months ago and says he is in the process of establishing followup for HIV through the [facility]. RECOMMENDATIONS: Continue doxycycline for 10 days. Follow the culture that was taken today. If the culture shows any bacteria that is resistant call ID for further recommendations. I will sign off now. Kishan Prasad MD Dec 29, 2017 19:15
[2017-12-29 21:01] LABS: AUTOMATED NEUTROPHIL # 0.8 TH/MM3 (1.8-7.7); BASOPHIL % 0.2 % (0.0-2.0); EOSINOPHIL # 0.2 TH/MM3 (0-0.4); EOSINOPHIL % 7.6 % (0.0-4.0); HEMATOCRIT 38.5 % (39.0-51.0); HEMOGLOBIN 12.8 GM/DL (13.0-17.0); LYMPH % 36.4 % (9.0-44.0); LYMPHOCYTE # 0.8 TH/MM3 (1.0-4.8); MEAN CELL VOLUME 91.6 FL (80.0-100.0); MEAN CORPUSCULAR HEMOGLOBIN 30.6 PG (27.0-34.0); MEAN CORPUSCULAR HGB CONC 33.4 % (32.0-36.0); MEAN PLATELET VOLUME 9.4 FL (7.0-11.0); MONO % 17.3 % (0.0-8.0); MONOCYTE # 0.4 TH/MM3 (0-0.9); NEUT % 38.5 % (16.0-70.0); PLATELET COUNT 111 TH/MM3 (150-450); RED CELL DISTRIBUTION WIDTH 13.5 % (11.6-17.2); WHITE BLOOD COUNT 2.2 TH/MM3 (4.0-11.0)
[2017-12-29] MEDS: MIRTAZAPINE 15 MG TAB PO SCH (21:47)
[2017-12-29] MEDS: QUEtiapine FUMARATE 100 MG TAB PO SCH (21:47)
[2017-12-29 22:18] LABS: BANDS 1 % (0-6); LYMPHOCYTES 40 % (9-44); MONOCYTES 9 % (0-8); NEUTROPHIL # MANUAL DIFF 0.9 TH/MM3 (1.8-7.7); POLYS (SEG NEUTROPHILS) 42 % (16-70)
[2017-12-29 22:19] LABS: OVALOCYTES 1+ (NORMAL)
[2017-12-30] MEDS: hydrOXYzine HCL 50 MG TAB PO PRN (00:48)
[2017-12-30 06:23] VITALS: BP 115/67; PULSE 75; RESP 18; TEMP 98; O2SAT 96
[2017-12-30] MEDS: THIAMINE HCL 100 MG TAB PO SCH (08:28)
[2017-12-30] MEDS: FOLIC ACID 1 MG TAB PO SCH (08:28)
[2017-12-30] MEDS: LOPINAVIR/RITONAVIR 200 MG/50 MG TAB PO SCH ×2 (08:29→21:29)
[2017-12-30] MEDS: LITHIUM CARBONATE 300 MG TAB PO SCH ×2 (08:29→21:29)
[2017-12-30] MEDS: DOXYCYCLINE HYCLATE 100 MG TAB PO SCH ×2 (08:29→21:30)
[2017-12-30] MEDS: LACTOBACILLUS ACIDOPHILUS TAB PO SCH ×3 (08:29→17:33)
[2017-12-30] MEDS: MULTIVITAMINS/MINERALS THERAPEUTIC TAB PO SCH (08:29)
[2017-12-30] MEDS: LORazepam 1 MG TAB PO PRN (09:28)
--- NOTE | 2017-12-30 09:30 | HHI.PYPN ---
Subjective Chief Complaint: Anxiety, confusion Remarks Patient is seen for follow up, chart reviewed. Discussion nursing staff reported patient to comply with treatment and was requesting to be moved 2600 were he is able to be more sociable with other peers. Patient was found lying hospital bed B, cooperative. Patient states that he has had difficulty sleeping last night due to the shortness of the patient on the unit. He states his mood is "exhausted" and continues report feeling depressed but denied any suicide ideations today. Review of Systems Except as stated in HPI: all other systems reviewed are Neg Mental Status Examination Appearance: Appropriate Consciousness: Alert Orientation: Person, Place (at least) Motor Activity: Other (no abnormal motor movements noted) Speech: Unremarkable Language: Adequate Fund of Knowledge: Adequate Attention and Concentration: Adequate Memory: Unremarkable (grossly intact on clinical exam) Mood: Other ("Exhausted") Affect: Sad, Other (remains a little dysphoric) Thought Process & Associations: Intact, Logical, Linear Thought Content: Appropriate Hallucination Type: None Delusion Type: None Suicidal Ideation: No Suicidal Plan: No Suicidal Intention: No Homicidal Ideation: No Homicidal Plan: No Homicidal Intention: No Insight: Fair Judgment: Impulsive Results Labs Labs reviewed Test 12/29/17 20:25 White Blood Count 2.2 TH/MM3 Red Blood Count 4.20 MIL/MM3 Hemoglobin 12.8 GM/DL Hematocrit 38.5 % Mean Corpuscular Volume 91.6 FL Mean Corpuscular Hemoglobin 30.6 PG Mean Corpuscular Hemoglobin Concent 33.4 % Red Cell Distribution Width 13.5 % Platelet Count 111 TH/MM3 Mean Platelet Volume 9.4 FL Neutrophils (%) (Auto) 38.5 % Lymphocytes (%) (Auto) 36.4 % Monocytes (%) (Auto) 17.3 % Eosinophils (%) (Auto) 7.6 % Basophils (%) (Auto) 0.2 % Neutrophils # (Auto) 0.8 TH/MM3 Lymphocytes # (Auto) 0.8 TH/MM3 Monocytes # (Auto) 0.4 TH/MM3 Eosinophils # (Auto) 0.2 TH/MM3 Basophils # (Auto) 0.0 TH/MM3 CBC Comment AUTO DIFF Differential Total Cells Counted 100 Neutrophils % (Manual) 42 % Band Neutrophils % 1 % Lymphocytes % 40 % Monocytes % 9 % Eosinophils % 8 % Neutrophils # (Manual) 0.9 TH/MM3 Differential Comment FINAL DIFF MANUAL Platelet Estimate LOW Platelet Morphology Comment ENLARGED Ovalocytes 1+ Hepatitis A IgM Antibody NONREACTIVE Hepatitis B Surface Antigen NONREACTIVE Hepatitis B Core IgM Antibody NONREACTIVE Hepatitis C IgG Antibody REACTIVE Date/Time Source Procedure Growth Status 12/29/17 18:44 Wound Other Gram Stain - Final Resulted 12/29/17 18:44 Wound Other Wound Culture Pending Resulted Vitals/IOs Vital Signs Date Time Temp Pulse Resp B/P (MAP) Pulse Ox O2 Delivery O2 Flow Rate FiO2 12/30/17 06:23 98.0 75 18 115/67 (83) 96 12/27/17 10:48 Room Air Intake and Output 12/30/17 12/30/17 12/31/17 08:00 16:00 00:00 Intake Total 720 ml Balance 720 ml Assessment & Plan Problem List: (1) Adjustment disorder with mixed anxiety and depressed mood ICD Codes: F43.23 - Adjustment disorder with mixed anxiety and depressed mood (2) 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 Continue current treatment. Continue recommendations for per medical team. Continue monitor with behavior. Discharge planning in progress. Justification for Cont. Inpt. At risk for further decompensation if at lower level of care Request HC Surrog/Guard Advoc?: Jaya Zheng MD Dec 30, 2017 09:30
--- NOTE | 2017-12-30 12:03 | HHI.PR ---
Subjective Remarks Denies cp/sob afebrile states could not sleep well due to noise from other patients c/o burning on left flank radiating to LLQ Objective Vitals Vital Signs Date Time Temp Pulse Resp B/P (MAP) Pulse Ox O2 Delivery O2 Flow Rate FiO2 12/30/17 06:23 98.0 75 18 115/67 (83) 96 12/30/17 01:48 20 I/O 12/29/17 12/29/17 12/29/17 12/30/17 12/30/17 12/30/17 07:00 15:00 23:00 07:00 15:00 23:00 Intake Total 0 ml 1800 ml 240 ml 480 ml Balance 0 ml 1800 ml 240 ml 480 ml Intake Oral 0 ml 1800 ml 240 ml 480 ml # Voids 2 2 3 Result Diagram: 12/29/17202412/28/17 0850 Imaging Last Impressions Liver Ultrasound 12/29/17 0000 Signed Impressions: Service Date/Time: Friday, December 29, 2017 08:48 - CONCLUSION: 1. Borderline hepatomegaly with increased hepatic echogenicity consistent with patient's history of hepatitis. Portal vein is patent and there is no evidence for significant hepatic volume loss at this time. Juaquin Sanderson MD Objective Remarks GENERAL: This is a well-nourished, well-developed patient, patient exhibits mild tremors and is anxious. SKIN: No rashes, ecchymoses. There is induration on palpation of the right axilla which is very tender. Residual abscess with drainage in place. HEAD: Atraumatic. Normocephalic. No temporal or scalp tenderness. EYES: Pupils equal round and reactive. Extraocular motions intact. No scleral icterus. No injection or drainage. ENT: Nose without bleeding, purulent drainage or septal hematoma. Throat without erythema, tonsillar hypertrophy or exudate. Uvula midline. Airway patent. NECK: Trachea midline. No JVD or lymphadenopathy. Supple, nontender, no meningeal signs. CARDIOVASCULAR: Regular rate and rhythm without murmurs, gallops, or rubs. RESPIRATORY: Clear to auscultation. Breath sounds equal bilaterally. No wheezes , rales, or rhonchi. GASTROINTESTINAL: Abdomen soft, non-tender, nondistended. No hepato-splenomegaly , or palpable masses. No guarding. MUSCULOSKELETAL: Extremities without clubbing, cyanosis, or edema. No joint tenderness, effusion, or edema noted. No calf tenderness. Negative Homans sign bilaterally. NEUROLOGICAL: Awake and alert. Cranial nerves II through XII intact. Motor and sensory grossly within normal limits. Five out of 5 muscle strength in all muscle groups. Normal speech. Procedures None Medications and IVs Current Medications Medications (Trade) Dose Ordered Sig/Marilee Route Start Time Stop Time Status Last Admin (Folate) 1 mg DAILY PO 12/28/17 09:00 01/02/18 08:59 12/30/17 08:28 (Vitamin B1) 100 mg DAILY PO 12/28/17 09:00 12/30/17 08:28 (Theragran M Tab) 1 tab DAILY PO 12/28/17 09:00 01/02/18 08:59 12/30/17 08:29 (Romazicon Inj) 0.2 mg Q1M PRN IV PUSH 12/27/17 11:45 (Ativan) 1 mg Q4H PRN PO 12/27/17 11:45 12/30/17 09:28 (Ativan Inj) 1 mg Q4H PRN IV PUSH 12/27/17 11:45 (Ativan) 2 mg Q2H PRN PO 12/27/17 11:45 12/28/17 00:22 (Ativan Inj) 2 mg Q2H PRN IV PUSH 12/27/17 11:45 (Ativan Inj) 2 mg Q1H PRN IV PUSH 12/27/17 11:45 (Ativan Inj) 2 mg Q15M PRN IV PUSH 12/27/17 11:45 (Tylenol) 650 mg Q4H PRN PO 12/27/17 11:45 12/27/17 21:28 (Milk Of Magnesia Liq) 30 ml DAILY PRN PO 12/27/17 11:45 (Mag-Al Plus Susp Liq) 30 ml Q6H PRN PO 12/27/17 11:45 (Habitrol 21 Mg Patch.24 Hr) 1 patch DAILY PRN T-DERMAL 12/27/17 11:45 12/29/17 18:23 (Cogentin) 1 mg Q12H PRN PO 12/27/17 11:45 (Cogentin Inj) 1 mg Q12H PRN IM 12/27/17 11:45 Miscellaneous Information 1 HS PRN T-DERMAL 12/27/17 21:00 (Zithromax) 600 mg 2XWEEK PO 12/27/17 20:00 (Lactinex) 1 tab TID PO 12/28/17 09:00 12/29/17 18:21 (Kaletra 200-50 Mg) 2 tab BID PO 12/27/17 21:00 12/30/17 08:29 (Bactrim Ds 800-160 Mg) 1 tab MoWeFr@09 PO 12/29/17 09:00 12/29/17 09:40 (Toradol) 10 mg Q6H PRN PO 12/27/17 19:45 01/01/18 19:44 12/27/17 22:20 (Lithotabs) 300 mg Q12HR PO 12/28/17 21:00 12/29/17 21:47 (Remeron) 15 mg HS PO 12/28/17 21:00 12/29/17 21:47 (Atarax) 50 mg Q6H PRN PO 12/28/17 09:30 12/30/17 00:48 (Vibratab) 100 mg Q12HR PO 12/28/17 21:00 12/30/17 08:29 (Roxicodone) 5 mg Q6H PRN PO 12/28/17 15:30 12/30/17 08:50 (SEROquel) 100 mg HS PO 12/29/17 21:00 12/29/17 21:47 Urinary Catheter: No Vascular Central Line Catheter: No A/P Problem List: (1) Adjustment disorder with depressed mood ICD Code: F43.21 - Adjustment disorder with depressed mood Plan: Management as per psychiatry. (2) HIV (human immunodeficiency virus infection) ICD Code: B20 - Human immunodeficiency virus [HIV] disease Status: Chronic Plan: CD4 count on RNA viral load pending. Continue Bactrim and azithromycin for prophylaxis. Continue HAART therapy with lopinavir -ritonavir (3) Alcohol withdrawal ICD Code: F10.239 - Alcohol dependence with withdrawal, unspecified Plan: No evidence of withdrawal. Continue CIWA protocol. (4) AIDS (acquired immune deficiency syndrome) ICD Code: B20 - Human immunodeficiency virus [HIV] disease Plan: As above. (5) Abscess of right axilla ICD Code: L02.411 - Cutaneous abscess of right axilla Status: Acute Plan: Status post drainage of abscess for the hospital. The patient was placed on broad-spectrum IV antibiotics with IV vancomycin IV Zosyn due to degree of immunosuppression. Tailor antibiotics as per wound culture. ID discontinued IV broad-spectrum antibiotics and start the patient on doxycycline orally. 12/30 As per ID recommendation Continue Doxycycline for a total of 10 days. wound cultures pending. (6) Transaminitis ICD Code: R74.0 - Nonspecific elevation of levels of transaminase and lactic acid dehydrogenase [LDH] Plan: Examination is elevated likely secondary to alcohol abuse. Check hepatitis profile. 12/29 Liver ultrasound shows borderline hepatomegaly with increased hepatic echogenicity consistent with patient's history of hepatitis. Portal vein is patent there is no evidence for significant hepatic volume loss. 12/30 Monitor LFTs - labs pending (7) Chronic back pain ICD Code: M54.9 - Dorsalgia, unspecified; G89.29 - Other chronic pain Plan: Patient complains of chronic low back pain. States he gets Roxicodone's as an outpatient however he states that these are prescribed in [facility]. Start the patient on Toradol on admission, however patient still complains of pain. I will place the patient back on the oxycodone, however I would not discharge patient on opiates. The patient is follow-up with outpatient pain management. 12/29 pain s seems to be controlled. Continue oxycodone. (8) Leukopenia ICD Code: D72.819 - Decreased white blood cell count, unspecified Status: Chronic Plan: Leukopenia with increased monocytes likely secondary to HIV. The patient has moderate neutropenia. Continue to monitor CBC with differential. The patient is a febrile and does not have any signs of infection. Assessment and Plan DVT prophylaxis: Ambulation. Discharge Planning Continue to monitor on the [facility] floor. Problem Qualifiers (1) Alcohol withdrawal: Qualified Codes: F10.230 - Alcohol dependence with withdrawal, uncomplicated (2) Chronic back pain: Qualified Codes: M54.5 - Low back pain; G89.29 - Other chronic pain (3) Leukopenia: Qualified Codes: D70.8 - Other neutropenia Francisco Colin MD Dec 30, 2017 12:03
[2017-12-30 12:54] LABS: AUTOMATED NEUTROPHIL # 0.7 TH/MM3 (1.8-7.7); BASOPHIL % 0.7 % (0.0-2.0); EOSINOPHIL # 0.2 TH/MM3 (0-0.4); EOSINOPHIL % 8.1 % (0.0-4.0); HEMATOCRIT 38.3 % (39.0-51.0); LYMPH % 36.8 % (9.0-44.0); LYMPHOCYTE # 0.8 TH/MM3 (1.0-4.8); MEAN CELL VOLUME 91.7 FL (80.0-100.0); MEAN CORPUSCULAR HEMOGLOBIN 31.1 PG (27.0-34.0); MEAN CORPUSCULAR HGB CONC 33.9 % (32.0-36.0); MEAN PLATELET VOLUME 9.1 FL (7.0-11.0); MONO % 19.8 % (0.0-8.0); MONOCYTE # 0.4 TH/MM3 (0-0.9); NEUT % 34.6 % (16.0-70.0); PLATELET COUNT 122 TH/MM3 (150-450); RED BLOOD COUNT 4.18 MIL/MM3 (4.50-5.90); RED CELL DISTRIBUTION WIDTH 13.4 % (11.6-17.2); WHITE BLOOD COUNT 2.2 TH/MM3 (4.0-11.0)
[2017-12-30 13:17] LABS: ALBUMIN 2.9 GM/DL (3.4-5.0); AST (GOT) 200 U/L (15-37); BICARBONATE 26.9 MEQ/L (21.0-32.0); BLOOD UREA NITROGEN 14 MG/DL (7-18); CALCIUM 8.7 MG/DL (8.5-10.1); CHLORIDE 99 MEQ/L (98-107); CREATININE 0.92 MG/DL (0.60-1.30); GLOMERULAR FILTRATION RATE 89 ML/MIN (>89); GLUCOSE,RANDOM 72 MG/DL (74-106); SODIUM (NA) 134 MEQ/L (136-145)
[2017-12-30 13:19] LABS: ALT (GPT) 225 U/L (12-78)
[2017-12-30 13:21] LABS: ALKALINE PHOSPHATASE 65 U/L (45-117); TOTAL BILIRUBIN ADULT 0.6 MG/DL (0.2-1.0); TOTAL PROTEIN 8.2 GM/DL (6.4-8.2)
[2017-12-30 13:39] LABS: MONOCYTES 18 % (0-8); NEUTROPHIL # MANUAL DIFF 0.9 TH/MM3 (1.8-7.7); POLYS (SEG NEUTROPHILS) 40 % (16-70)
[2017-12-30 13:40] LABS: LYMPHOCYTES 34 % (9-44)
[2017-12-30] MEDS: NICOTINE 21 MG/24 HR PATCH T-DERMAL PRN (14:34)
[2017-12-30] MEDS: KETOROLAC TROMETHAMINE 10 MG TAB PO PRN ×2 (14:34→21:30)
[2017-12-30 18:00] VITALS: BP 116/64; PULSE 74; RESP 18; TEMP 97.9; O2SAT 95
[2017-12-30] MEDS: MIRTAZAPINE 15 MG TAB PO SCH (21:29)
[2017-12-30] MEDS: QUEtiapine FUMARATE 100 MG TAB PO SCH (21:31)
[2017-12-31 05:48] VITALS: BP 97/52; PULSE 64; RESP 17; TEMP 97.9; O2SAT 96
[2017-12-31 07:45] LABS: AUTOMATED NEUTROPHIL # 0.4 TH/MM3 (1.8-7.7); BASOPHIL % 0.2 % (0.0-2.0); EOSINOPHIL # 0.2 TH/MM3 (0-0.4); EOSINOPHIL % 9.2 % (0.0-4.0); HEMATOCRIT 37.3 % (39.0-51.0); HEMOGLOBIN 12.7 GM/DL (13.0-17.0); LYMPH % 42.1 % (9.0-44.0); LYMPHOCYTE # 0.8 TH/MM3 (1.0-4.8); MEAN CELL VOLUME 90.6 FL (80.0-100.0); MEAN CORPUSCULAR HEMOGLOBIN 30.8 PG (27.0-34.0); MEAN PLATELET VOLUME 8.8 FL (7.0-11.0); MONO % 28.6 % (0.0-8.0); MONOCYTE # 0.6 TH/MM3 (0-0.9); NEUT % 19.9 % (16.0-70.0); PLATELET COUNT 122 TH/MM3 (150-450); RED BLOOD COUNT 4.12 MIL/MM3 (4.50-5.90); RED CELL DISTRIBUTION WIDTH 13.4 % (11.6-17.2)
[2017-12-31 08:14] LABS: ALBUMIN 2.7 GM/DL (3.4-5.0); AST (GOT) 141 U/L (15-37); BICARBONATE 25.9 MEQ/L (21.0-32.0); BLOOD UREA NITROGEN 22 MG/DL (7-18); CALCIUM 8.7 MG/DL (8.5-10.1); CHLORIDE 102 MEQ/L (98-107); CREATININE 0.95 MG/DL (0.60-1.30); GLOMERULAR FILTRATION RATE 85 ML/MIN (>89); GLUCOSE,RANDOM 77 MG/DL (74-106); SODIUM (NA) 136 MEQ/L (136-145)
[2017-12-31 08:15] LABS: ALT (GPT) 188 U/L (12-78)
[2017-12-31] MEDS: MULTIVITAMINS/MINERALS THERAPEUTIC TAB PO SCH (08:16)
[2017-12-31] MEDS: THIAMINE HCL 100 MG TAB PO SCH (08:16)
[2017-12-31] MEDS: LOPINAVIR/RITONAVIR 200 MG/50 MG TAB PO SCH ×2 (08:16→21:45)
[2017-12-31] MEDS: FOLIC ACID 1 MG TAB PO SCH (08:16)
[2017-12-31] MEDS: DOXYCYCLINE HYCLATE 100 MG TAB PO SCH ×2 (08:16→21:00)
[2017-12-31] MEDS: LACTOBACILLUS ACIDOPHILUS TAB PO SCH ×3 (08:17→17:50)
[2017-12-31] MEDS: LITHIUM CARBONATE 300 MG TAB PO SCH ×2 (08:17→21:46)
[2017-12-31 08:18] LABS: ALKALINE PHOSPHATASE 57 U/L (45-117); TOTAL BILIRUBIN ADULT 0.6 MG/DL (0.2-1.0); TOTAL PROTEIN 7.7 GM/DL (6.4-8.2)
[2017-12-31] MEDS: NICOTINE 21 MG/24 HR PATCH T-DERMAL PRN (08:18)
[2017-12-31 09:04] LABS: LYMPHOCYTES 38 % (9-44); MONOCYTES 16 % (0-8); NEUTROPHIL # MANUAL DIFF 0.7 TH/MM3 (1.8-7.7); POLYS (SEG NEUTROPHILS) 34 % (16-70)
--- NOTE | 2017-12-31 10:19 | HHI.PYPN ---
Subjective Chief Complaint: Anxiety, confusion Remarks Patient seen for follow, chart reviewed. Discussion nursing staff reported the patient is positive for MRSA, continues to be med seeking and refused lithium this morning. Patient was found lying in hospital bed, cooperative. Patient states he is feeling "better", continue supportive sleep that is "off-and-on". Patient states her mood has been "alright feeling less depressed denying suicide ideations today. Importance of adherence to treatment was reviewed which patient agrees to take his lithium today. Review of Systems Except as stated in HPI: all other systems reviewed are Neg Mental Status Examination Appearance: Appropriate Consciousness: Alert Orientation: Person, Place (at least) Motor Activity: Other (no abnormal motor movements noted) Speech: Unremarkable Language: Adequate Fund of Knowledge: Adequate Attention and Concentration: Adequate Memory: Unremarkable (grossly intact on clinical exam) Mood: Other ("Exhausted") Affect: Sad, Other (remains a little dysphoric) Thought Process & Associations: Intact, Logical, Linear Thought Content: Appropriate Hallucination Type: None Delusion Type: None Suicidal Ideation: No Suicidal Plan: No Suicidal Intention: No Homicidal Ideation: No Homicidal Plan: No Homicidal Intention: No Insight: Fair Judgment: Impulsive Results Labs Test 12/30/17 11:13 12/31/17 07:04 White Blood Count 2.2 TH/MM3 2.0 TH/MM3 Red Blood Count 4.18 MIL/MM3 4.12 MIL/MM3 Hemoglobin 13.0 GM/DL 12.7 GM/DL Hematocrit 38.3 % 37.3 % Mean Corpuscular Volume 91.7 FL 90.6 FL Mean Corpuscular Hemoglobin 31.1 PG 30.8 PG Mean Corpuscular Hemoglobin Concent 33.9 % 34.0 % Red Cell Distribution Width 13.4 % 13.4 % Platelet Count 122 TH/MM3 122 TH/MM3 Mean Platelet Volume 9.1 FL 8.8 FL Neutrophils (%) (Auto) 34.6 % 19.9 % Lymphocytes (%) (Auto) 36.8 % 42.1 % Monocytes (%) (Auto) 19.8 % 28.6 % Eosinophils (%) (Auto) 8.1 % 9.2 % Basophils (%) (Auto) 0.7 % 0.2 % Neutrophils # (Auto) 0.7 TH/MM3 0.4 TH/MM3 Lymphocytes # (Auto) 0.8 TH/MM3 0.8 TH/MM3 Monocytes # (Auto) 0.4 TH/MM3 0.6 TH/MM3 Eosinophils # (Auto) 0.2 TH/MM3 0.2 TH/MM3 Basophils # (Auto) 0.0 TH/MM3 0.0 TH/MM3 CBC Comment AUTO DIFF AUTO DIFF Differential Total Cells Counted 100 100 Neutrophils % (Manual) 40 % 34 % Lymphocytes % 34 % 38 % Monocytes % 18 % 16 % Eosinophils % 8 % 12 % Neutrophils # (Manual) 0.9 TH/MM3 0.7 TH/MM3 Differential Comment FINAL DIFF MANUAL FINAL DIFF MANUAL Atypical Lymphocytes % Platelet Estimate LOW LOW Platelet Morphology Comment NORMAL NORMAL Red Cell Morphology Comment NORMAL Blood Urea Nitrogen 14 MG/DL 22 MG/DL Creatinine 0.92 MG/DL 0.95 MG/DL Random Glucose 72 MG/DL 77 MG/DL Total Protein 8.2 GM/DL 7.7 GM/DL Albumin 2.9 GM/DL 2.7 GM/DL Calcium Level 8.7 MG/DL 8.7 MG/DL Alkaline Phosphatase 65 U/L 57 U/L Aspartate Amino Transf (AST/SGOT) 200 U/L 141 U/L Alanine Aminotransferase (ALT/SGPT) 225 U/L 188 U/L Total Bilirubin 0.6 MG/DL 0.6 MG/DL Sodium Level 134 MEQ/L 136 MEQ/L Potassium Level 4.0 MEQ/L 4.3 MEQ/L Chloride Level 99 MEQ/L 102 MEQ/L Carbon Dioxide Level 26.9 MEQ/L 25.9 MEQ/L Anion Gap 8 MEQ/L 8 MEQ/L Estimat Glomerular Filtration Rate 89 ML/MIN 85 ML/MIN Date/Time Source Procedure Growth Status 12/29/17 18:44 Wound Other Gram Stain - Final Resulted 12/29/17 18:44 Wound Culture - Preliminary S. 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 Patient currently now on contact precautions due to wound culture showing MRSA. Patient continue recommendations per prior medical team. Continue to monitor mood and behavior. Discharge planning in progress Justification for Cont. Inpt. At risk for further decompensation if at lower level of care Request HC Surrog/Guard Advoc?: No Jaya Espino MD Dec 31, 2017 10:19
[2017-12-31] MEDS: LORazepam 1 MG TAB PO PRN (10:57)
[2017-12-31] MEDS: FLUTICASONE PROPIONATE 50 MCG/ACT 16 GM NASAL SPRAY NASAL SCH ×2 (12:00→21:45)
--- NOTE | 2017-12-31 12:49 | HHI.PR ---
Subjective Remarks c/o nasal congestion. C/o pain however was sleeping comfortably when I entered the room. Denies cp/sob Feels tired today Objective Vitals Vital Signs Date Time Temp Pulse Resp B/P (MAP) Pulse Ox O2 Delivery O2 Flow Rate FiO2 12/31/17 05:48 97.9 64 17 97/52 (67) 96 12/31/17 00:45 20 12/30/17 22:30 18 12/30/17 18:00 97.9 74 18 116/64 (81) 95 I/O 12/30/17 12/30/17 12/30/17 12/31/17 12/31/17 12/31/17 07:00 15:00 23:00 07:00 15:00 23:00 Intake Total 240 ml 1440 ml 1440 ml 240 ml 0 ml Balance 240 ml 1440 ml 1440 ml 240 ml 0 ml Intake Oral 240 ml 1440 ml 1440 ml 240 ml 0 ml # Voids 3 2 3 Result Diagram: 12/31/17 0704 12/31/17 0704 Imaging Last 72 hours Impressions Liver Ultrasound 12/29/17 0000 Signed Impressions: Service Date/Time: Friday, December 29, 2017 08:48 - CONCLUSION: 1. Borderline hepatomegaly with increased hepatic echogenicity consistent with patient's history of hepatitis. Portal vein is patent and there is no evidence for significant hepatic volume loss at this time. Juaquin Sanderson MD Objective Remarks GENERAL: This is a well-nourished, well-developed patient, patient exhibits mild tremors and is anxious. SKIN: No rashes, ecchymoses. There is induration on palpation of the right axilla which is very tender. Residual abscess with drainage in place. HEAD: Atraumatic. Normocephalic. No temporal or scalp tenderness. EYES: Pupils equal round and reactive. Extraocular motions intact. No scleral icterus. No injection or drainage. ENT: Nose without bleeding, purulent drainage or septal hematoma. Throat without erythema, tonsillar hypertrophy or exudate. Uvula midline. Airway patent. NECK: Trachea midline. No JVD or lymphadenopathy. Supple, nontender, no meningeal signs. CARDIOVASCULAR: Regular rate and rhythm without murmurs, gallops, or rubs. RESPIRATORY: Clear to auscultation. Breath sounds equal bilaterally. No wheezes , rales, or rhonchi. GASTROINTESTINAL: Abdomen soft, non-tender, nondistended. No hepato-splenomegaly , or palpable masses. No guarding. MUSCULOSKELETAL: Extremities without clubbing, cyanosis, or edema. No joint tenderness, effusion, or edema noted. No calf tenderness. Negative Homans sign bilaterally. NEUROLOGICAL: Awake and alert. Cranial nerves II through XII intact. Motor and sensory grossly within normal limits. Five out of 5 muscle strength in all muscle groups. Normal speech. Procedures None Medications and IVs Current Medications Medications (Trade) Dose Ordered Sig/Marilee Route Start Time Stop Time Status Last Admin (Folate) 1 mg DAILY PO 12/28/17 09:00 01/02/18 08:59 12/31/17 08:16 (Vitamin B1) 100 mg DAILY PO 12/28/17 09:00 12/31/17 08:16 (Theragran M Tab) 1 tab DAILY PO 12/28/17 09:00 01/02/18 08:59 12/31/17 08:16 (Romazicon Inj) 0.2 mg Q1M PRN IV PUSH 12/27/17 11:45 (Ativan) 1 mg Q4H PRN PO 12/27/17 11:45 12/31/17 10:57 (Ativan Inj) 1 mg Q4H PRN IV PUSH 12/27/17 11:45 (Ativan) 2 mg Q2H PRN PO 12/27/17 11:45 12/28/17 00:22 (Ativan Inj) 2 mg Q2H PRN IV PUSH 12/27/17 11:45 (Ativan Inj) 2 mg Q1H PRN IV PUSH 12/27/17 11:45 (Ativan Inj) 2 mg Q15M PRN IV PUSH 12/27/17 11:45 (Tylenol) 650 mg Q4H PRN PO 12/27/17 11:45 12/27/17 21:28 (Milk Of Magnesia Liq) 30 ml DAILY PRN PO 12/27/17 11:45 (Mag-Al Plus Susp Liq) 30 ml Q6H PRN PO 12/27/17 11:45 (Habitrol 21 Mg Patch.24 Hr) 1 patch DAILY PRN T-DERMAL 12/27/17 11:45 3/25/18 08:18 (Cogentin) 1 mg Q12H PRN PO 12/27/17 11:45 (Cogentin Inj) 1 mg Q12H PRN IM 12/27/17 11:45 Miscellaneous Information 1 HS PRN T-DERMAL 12/27/17 21:00 (Zithromax) 600 mg 2XWEEK PO 12/27/17 20:00 (Lactinex) 1 tab TID PO 12/28/17 09:00 12/30/17 17:33 (Kaletra 200-50 Mg) 2 tab BID PO 12/27/17 21:00 12/31/17 08:16 (Bactrim Ds 800-160 Mg) 1 tab MoWeFr@09 PO 12/29/17 09:00 12/29/17 09:40 (Toradol) 10 mg Q6H PRN PO 12/27/17 19:45 01/01/18 19:44 12/30/17 21:30 (Lithotabs) 300 mg Q12HR PO 12/28/17 21:00 12/30/17 21:29 (Remeron) 15 mg HS PO 12/28/17 21:00 12/30/17 21:29 (Atarax) 50 mg Q6H PRN PO 12/28/17 09:30 12/30/17 00:48 (Vibratab) 100 mg Q12HR PO 12/28/17 21:00 12/31/17 08:16 (Roxicodone) 5 mg Q6H PRN PO 12/28/17 15:30 12/31/17 08:17 (SEROquel) 100 mg HS PO 12/29/17 21:00 12/30/17 21:31 (Flonase Raul Spr) 1 spray BID NASAL 12/31/17 12:00 A/P Problem List: (1) Adjustment disorder with depressed mood ICD Code: F43.21 - Adjustment disorder with depressed mood Plan: Management as per psychiatry. Currently on Seroquel (2) HIV (human immunodeficiency virus infection) ICD Code: B20 - Human immunodeficiency virus [HIV] disease Status: Chronic Plan: Continue Bactrim and azithromycin for prophylaxis. Continue HAART therapy with lopinavir -ritonavir 12/31 HIV viral load of 909100, CD4 count pending. (3) Alcohol withdrawal ICD Code: F10.239 - Alcohol dependence with withdrawal, unspecified (4) AIDS (acquired immune deficiency syndrome) ICD Code: B20 - Human immunodeficiency virus [HIV] disease Plan: As above. (5) Abscess of right axilla ICD Code: L02.411 - Cutaneous abscess of right axilla Status: Acute Plan: Status post drainage of abscess for the hospital. The patient was placed on broad-spectrum IV antibiotics with IV vancomycin IV Zosyn due to degree of immunosuppression. Tailor antibiotics as per wound culture. ID discontinued IV broad-spectrum antibiotics and start the patient on doxycycline orally. 12/30 As per ID recommendation Continue Doxycycline for a total of 10 days. wound cultures pending. 12/31 Wound culture positive for MRSA. Continue Doxycycline. Follow sensitivities. (6) Transaminitis ICD Code: R74.0 - Nonspecific elevation of levels of transaminase and lactic acid dehydrogenase [LDH] Plan: Examination is elevated likely secondary to alcohol abuse. Check hepatitis profile. 12/29 Liver ultrasound shows borderline hepatomegaly with increased hepatic echogenicity consistent with patient's history of hepatitis. Portal vein is patent there is no evidence for significant hepatic volume loss. 12/31 LFT's trending down. Continue to monitor LFT's. (7) Chronic back pain ICD Code: M54.9 - Dorsalgia, unspecified; G89.29 - Other chronic pain Plan: Patient complains of chronic low back pain. States he gets Roxicodone's as an outpatient however he states that these are prescribed in [facility]. Start the patient on Toradol on admission, however patient still complains of pain. I will place the patient back on the oxycodone, however I would not discharge patient on opiates. The patient is follow-up with outpatient pain management. 12/29 pain seems to be controlled. Continue oxycodone. (8) Leukopenia ICD Code: D72.819 - Decreased white blood cell count, unspecified Status: Chronic Plan: Leukopenia with increased monocytes likely secondary to HIV. The patient has moderate neutropenia. Continue to monitor CBC with differential. The patient is a febrile and does not have any signs of infection. (9) Nasal congestion ICD Code: R09.81 - Nasal congestion Plan: Start Flonase intranasally. Assessment and Plan DVT prophylaxis: Ambulation. Discharge Planning Continue to monitor on the [facility] floor. Problem Qualifiers (1) Alcohol withdrawal: Qualified Codes: F10.230 - Alcohol dependence with withdrawal, uncomplicated (2) Chronic back pain: Qualified Codes: M54.5 - Low back pain; G89.29 - Other chronic pain (3) Leukopenia: Qualified Codes: D70.8 - Other neutropenia Francisco Colin MD Dec 31, 2017 12:49
[2017-12-31] MEDS: hydrOXYzine HCL 50 MG TAB PO PRN (16:22)
[2017-12-31] MEDS: MIRTAZAPINE 15 MG TAB PO SCH (21:46)
[2017-12-31] MEDS: QUEtiapine FUMARATE 100 MG TAB PO SCH (21:46)
[2018-01-01 05:29] VITALS: BP 94/52; PULSE 71; RESP 16; TEMP 98.3; O2SAT 97
--- NOTE | 2018-01-01 09:51 | HHI.PR ---
Subjective Remarks sweats overnight lumbar spine compression fx chronically - takes oxycodone at home prn on eforce no cough diarrhea resolved no urinary symptoms Objective Vital Signs Date Time Temp Pulse Resp B/P (MAP) Pulse Ox O2 Delivery O2 Flow Rate FiO2 01/01/18 05:29 98.3 71 16 94/52 (66) 97 12/31/17 22:47 18 I/O 12/31/17 12/31/17 12/31/17 01/01/18 01/01/18 01/01/18 07:00 15:00 23:00 07:00 15:00 23:00 Intake Total 240 ml 0 ml 600 ml 360 ml Balance 240 ml 0 ml 600 ml 360 ml Intake Oral 240 ml 0 ml 600 ml 360 ml # Voids 3 3 Result Diagram: 12/31/17 0704 12/31/17 0704 Objective Remarks Awake, alert, oriented. Pleasant gentleman. Not in acute distress. Right axilla abscess wound and dressing. Heart rate is regular, no murmur appreciated. Lungs sounds are clear. Abdomen is soft and nontender. No calf asymmetry or edema in the lower extremities. 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 Right temporal area with 1 staple left from prior head injury A/P Assessment and Plan Impression: MRSA for right axillary abscess HIV on HAART therapy with Kaletra 2 tablets twice a day. Low CD4 counts. AIDS Leukopenia Absolute neutropenia History of alcohol abuse History of bladder cancer History of Kaposi's sarcoma Plan: Infectious disease recommendations noted. Patient is growing MRSA in his right axillary abscess on December 31, 2017 cultures. Continue doxycycline for a total of 10 days until January 08, 2018 per ID. Continue HAART medications. Continue prophylactic medications with Bactrim, azithromycin. We'll discuss with ID regarding whether patient should get Neupogen. Patient states that he used to get these previously. Regarding his pain control, we will increase oxycodone to 10 mg by mouth every 6 hours when necessary. Patient is fully aware of risk of chronic opiate use. Contact isolation for MRSA. Neutropenic precautions. Hospice consult per patient's request with Cheryl Patient is also requesting Ativan for sleep. Since he is already on Remeron per his psychiatrist, I have written an order for the nursing staff to check with the psychiatrist whether they would like to switch to Ativan. We'll leave that decision up to psychiatrist. DVT prophylaxis with ambulation. Attending Attestation Patient, nursing staff Fabiola Phillips MD Jan 01, 2018 09:51
[2018-01-01] MEDS: LITHIUM CARBONATE 300 MG TAB PO SCH ×3 (10:15→21:21)
[2018-01-01] MEDS: MULTIVITAMINS/MINERALS THERAPEUTIC TAB PO SCH (10:15)
[2018-01-01] MEDS: LACTOBACILLUS ACIDOPHILUS TAB PO SCH ×3 (10:15→17:53)
[2018-01-01] MEDS: LOPINAVIR/RITONAVIR 200 MG/50 MG TAB PO SCH ×2 (10:16→21:12)
[2018-01-01] MEDS: FLUTICASONE PROPIONATE 50 MCG/ACT 16 GM NASAL SPRAY NASAL SCH ×2 (10:16→21:13)
[2018-01-01] MEDS: THIAMINE HCL 100 MG TAB PO SCH (10:16)
[2018-01-01] MEDS: FOLIC ACID 1 MG TAB PO SCH (10:16)
[2018-01-01] MEDS: DOXYCYCLINE HYCLATE 100 MG TAB PO SCH ×2 (10:16→21:20)
[2018-01-01] MEDS: SULFAMETHOXAZOLE-TRIMETHOPRIM DS 800-160 MG TAB PO SCH (10:16)
[2018-01-01 11:19] LABS: LYMPHOCYTES, ABSOLUTE ND /uL (850-3900)
[2018-01-01 11:20] LABS: CD3-/CD16+CD56+ PERCENT ND % (4-25); CD3-CD16+CD56+ (ABSOLUTE) ND /uL (70-760)
--- NOTE | 2018-01-01 11:52 | HHI.PYPN ---
Subjective Chief Complaint: Anxiety, confusion Remarks Patient seen and examined. Chart reviewed. Case discussed with nursing staff. On my exam, patient admits to some ongoing dysphoria. He has been ruminating on a friend who from a drug overdose and finds this particularly distressing because neither the patient nor friend's suspected he had a substance use issue. The patient himself denies any suicidal or homicidal ideation presently. No psychotic symptoms. The patient does not like the combination of Remeron and Seroquel, finding it too sedating. He also does not like the Remeron because he believes it is causing dry mouth saying that he has never had this side effect from his other current psychotropics. We discussed discontinuing the Remeron and either treating with lithium and Seroquel alone or adding a different antidepressant if need be. He denies any other side effects from medications. No acute physical complaints. Review of Systems Except as stated in HPI: all other systems reviewed are Neg Mental Status Examination Appearance: Appropriate Consciousness: Alert Orientation: Person, Place (again at least) Motor Activity: Other (no motoric abnormalities noted) Speech: Unremarkable Language: Adequate Fund of Knowledge: Adequate Attention and Concentration: Adequate Memory: Unremarkable (remains grossly intact on clinical exam) Mood: Other (dysphoric) Affect: Other (remains downcast with some affective reactivity today) Thought Process & Associations: Intact, Logical, Linear Thought Content: Appropriate Hallucination Type: None Delusion Type: None Suicidal Ideation: No Suicidal Plan: No Suicidal Intention: No Homicidal Ideation: No Homicidal Plan: No Homicidal Intention: No Insight: Fair Judgment: Impulsive Mental Status Exam Remarks No signs of withdrawal noted. CIWA scores reviewed. Results Labs Test 01/01/18 07:42 [place] Level 0.5 MEQ/L Date/Time Source Procedure Growth Status 12/29/17 18:44 Wound Other Gram Stain - Final Complete 12/29/17 18:44 Wound Culture - Final S. Aureus Mrsa Complete Labs reviewed. 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 Titrate lithium to 300 mg 3 times daily and plan to check a follow-up lithium level later this week. Continue Seroquel as ordered. Neither exam nor vital signs support ongoing alcohol withdrawal, discontinue CIWA scale. Hospitalist input noted and appreciated. Continue to monitor on the medical psychiatric unit. Continue other medications and care as ordered. Justification for Cont. Inpt. Medication changes. Risk for decompensation in less restrictive environment. Discharge Planning Pending stabilization. Case discussed with counselor. Request HC Surrog/Guard Advoc?: No Brian Noriega MD Jan 01, 2018 11:52
[2018-01-01 18:19] VITALS: BP 101/60; PULSE 72; RESP 17; TEMP 98; O2SAT 95
[2018-01-01] MEDS: hydrOXYzine HCL 50 MG TAB PO PRN (18:37)
[2018-01-01] MEDS: ACETAMINOPHEN 325 MG TAB PO PRN (21:12)
[2018-01-01] MEDS: QUEtiapine FUMARATE 100 MG TAB PO SCH (21:12)
[2018-01-02 04:30] VITALS: BP 101/53; PULSE 59; RESP 17; TEMP 97.5; O2SAT 97
[2018-01-02] MEDS: LACTOBACILLUS ACIDOPHILUS TAB PO SCH ×3 (08:04→18:15)
[2018-01-02] MEDS: LOPINAVIR/RITONAVIR 200 MG/50 MG TAB PO SCH ×2 (08:04→21:00)
[2018-01-02] MEDS: DOXYCYCLINE HYCLATE 100 MG TAB PO SCH ×2 (08:04→21:00)
[2018-01-02] MEDS: FLUTICASONE PROPIONATE 50 MCG/ACT 16 GM NASAL SPRAY NASAL SCH ×2 (08:08→21:00)
[2018-01-02] MEDS: LITHIUM CARBONATE 300 MG TAB PO SCH ×3 (08:08→21:00)
--- NOTE | 2018-01-02 11:27 | HHI.PYPN ---
Subjective Chief Complaint: Anxiety, confusion Remarks Patient seen and examined. Chart reviewed. Case discussed with nursing staff. Case discussed in treatment team. On my examination today, the patient reports that he is pleased with his psychotropic regimen, which he describes as "perfect." He reports that he slept well overnight. Mood is improving. No SI/ HI. Denies side effects from medications. Dry mouth is abating now that Remeron has been discontinued. No acute physical complaints. Remains interested in placement, and counselor is working on this. Review of Systems Except as stated in HPI: all other systems reviewed are Neg Mental Status Examination Appearance: Appropriate Consciousness: Alert Orientation: Person, Place, Date/Time, Situation Motor Activity: Other (no abnormal motor movements noted) Speech: Unremarkable Language: Adequate Fund of Knowledge: Adequate Attention and Concentration: Adequate Mood: Appropriate Affect: Appropriate Thought Process & Associations: Intact, Logical, Linear Thought Content: Appropriate Hallucination Type: None Delusion Type: None Suicidal Ideation: No Suicidal Plan: No Suicidal Intention: No Homicidal Ideation: No Homicidal Plan: No Homicidal Intention: No Mental Status Exam Remarks Insight and judgment are fair Results Labs Test 01/01/18 13:07 Date/Time Source Procedure Growth Status 12/29/17 18:44 Wound Other Gram Stain - Final Complete 12/29/17 18:44 Wound Culture - Final S. Aureus Mrsa Complete Labs reviewed. 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 Continue Seroquel as ordered. Hospitalist input noted and appreciated. Continue to monitor on medical psychiatric unit. Continue other medications and care as ordered. Justification for Cont. Inpt. Complicating condition. Discharge Planning Placement once medically cleared. Case discussed with counselor. Request HC Surrog/Guard Advoc?: No Brian Noriega MD Jan 02, 2018 11:27
--- NOTE | 2018-01-02 14:44 | HHI.PR ---
Subjective Remarks Patient is in bed he appears not acute distress. Says he was sweating earlier today. No fever or chills. Says temperature in the room fluctuates. No pain at the wound site. No fever or chills overnight. Eating fairly well. Objective Vitals Vital Signs Date Time Temp Pulse Resp B/P (MAP) Pulse Ox O2 Delivery O2 Flow Rate FiO2 01/02/18 04:30 97.5 59 17 101/53 (69) 97 01/01/18 18:19 98.0 72 17 101/60 (74) 95 I/O 01/01/18 01/01/18 01/01/18 01/02/18 01/02/18 01/02/18 07:00 15:00 23:00 07:00 15:00 23:00 Intake Total 600 ml 1440 ml 600 ml 720 ml Balance 600 ml 1440 ml 600 ml 720 ml Intake Oral 600 ml 1440 ml 600 ml 720 ml # Voids 3 1 1 Result Diagram: 12/31/17 0704 12/31/17 0704 Imaging Last Impressions Liver Ultrasound 12/29/17 0000 Signed Impressions: Service Date/Time: Friday, December 29, 2017 08:48 - CONCLUSION: 1. Borderline hepatomegaly with increased hepatic echogenicity consistent with patient's history of hepatitis. Portal vein is patent and there is no evidence for significant hepatic volume loss at this time. Juaquin Sanderson MD Objective Remarks GENERAL: This is a well-nourished, well-developed patient, patient exhibits mild tremors and is anxious. SKIN: No rashes, ecchymoses. Induration on palpation of the right axilla which is tender. Residual abscess with dressing in place c/d/i. CARDIOVASCULAR: Regular rate and rhythm without murmurs, gallops, or rubs. RESPIRATORY: Clear to auscultation. Breath sounds equal bilaterally. No wheezes , rales, or rhonchi. GASTROINTESTINAL: Abdomen soft, non-tender, nondistended. No hepato-splenomegaly , or palpable masses. No guarding. MUSCULOSKELETAL: Extremities without clubbing, cyanosis, or edema. No joint tenderness, effusion, or edema noted. No calf tenderness. Negative Homans sign bilaterally. NEUROLOGICAL: Awake and alert. Cranial nerves II through XII intact. Motor and sensory grossly within normal limits. Five out of 5 muscle strength in all muscle groups. Normal speech. Procedures None A/P Problem List: (1) Adjustment disorder with depressed mood ICD Code: F43.21 - Adjustment disorder with depressed mood (2) HIV (human immunodeficiency virus infection) ICD Code: B20 - Human immunodeficiency virus [HIV] disease Status: Chronic (3) Alcohol withdrawal ICD Code: F10.239 - Alcohol dependence with withdrawal, unspecified (4) AIDS (acquired immune deficiency syndrome) ICD Code: B20 - Human immunodeficiency virus [HIV] disease (5) Abscess of right axilla ICD Code: L02.411 - Cutaneous abscess of right axilla Status: Acute (6) Transaminitis ICD Code: R74.0 - Nonspecific elevation of levels of transaminase and lactic acid dehydrogenase [LDH] (7) Chronic back pain ICD Code: M54.9 - Dorsalgia, unspecified; G89.29 - Other chronic pain (8) Leukopenia ICD Code: D72.819 - Decreased white blood cell count, unspecified Status: Chronic (9) Nasal congestion ICD Code: R09.81 - Nasal congestion Assessment and Plan Adjustment disorder with depressed mood Management as per psychiatry. Currently on Seroquel HIV (human immunodeficiency virus infection) Continue Bactrim and azithromycin for prophylaxis. Continue HAART therapy with lopinavir -ritonavir 12/31 HIV viral load of 888994, CD4 count pending Alcohol withdrawal ICD Code: F10.239 - Alcohol dependence with withdrawal, unspecified AIDS (acquired immune deficiency syndrome) As above. Abscess of right axilla- Status post drainage of abscess for the hospital. The patient was placed on broad-spectrum IV antibiotics with IV vancomycin IV Zosyn due to degree of immunosuppression. Tailor antibiotics as per wound culture. ID discontinued IV broad-spectrum antibiotics and start the patient on doxycycline orally. As per ID recommendation Continue Doxycycline for a total of 10 days. Wound culture positive for MRSA. Continue Doxycycline. Follow sensitivities. Transaminitis - likely secondary to alcohol abuse. Check hepatitis profile. Liver ultrasound shows borderline hepatomegaly with increased hepatic echogenicity consistent with patient's history of hepatitis. Portal vein is patent there is no evidence for significant hepatic volume loss. LFT's trending down. Continue to monitor LFT's. Chronic back pain- Patient complains of chronic low back pain. States he gets Roxicodone's as an outpatient however he states that these are prescribed in [facility]. Start the patient on Toradol on admission, however patient still complains of pain. I will place the patient back on the oxycodone, however I would not discharge patient on opiates. The patient is follow-up with outpatient pain management. Pain seems to be controlled. Continue oxycodone. Leukopenia. Chronic Leukopenia with increased monocytes likely secondary to HIV. The patient has moderate neutropenia. Continue to monitor CBC with differential. The patient is a febrile and does not have any signs of infection. Nasal congestion On Flonase intranasally. Assessment and Plan DVT prophylaxis: Ambulation. Discharge Planning Continue to monitor on the [facility] floor. Problem Qualifiers (1) Alcohol withdrawal: Qualified Codes: F10.230 - Alcohol dependence with withdrawal, uncomplicated (2) Chronic back pain: Qualified Codes: M54.5 - Low back pain; G89.29 - Other chronic pain (3) Leukopenia: Qualified Codes: D70.8 - Other neutropenia Caren Dennis MD Jan 02, 2018 14:44
--- NOTE | 2018-01-02 15:12 | PD.TTN ---
Patient Problems 1. Discharge planning 2. Medication compliance 3. Knowledge deficit 4. Lack of coping skills Progress Toward Goals Provider Present: Dr. León Noriega Provider Input: 01/02/2018: patient's medication is being switch to address patient's mood, patient will require dc from medical prior to going into a placement Nurse(s) Present: FLORENCE Dyson Nurse(s) Input: 01/02/2018; patient is eating and taking his medication, does not participate or engage outside of his room due to medical Psychiatric Counselors Present: YONI Lyle Psych Therapist Input: 01/02/2018; counselor will verify with [facility] that patient is a fit for there independent living placements Group Spec/RT/OT/DAY Present: Burt Chen OT Group Spec/RT/OT/DAY Input: 01/02/2018; patient has been unable to participate with activities outside of his room due to medical Documentation Scribe: Diya Richard Jan 02, 2018 15:12
[2018-01-02] MEDS: ACETAMINOPHEN 325 MG TAB PO PRN (16:11)
[2018-01-02 18:34] VITALS: BP 94/52; PULSE 56; RESP 18; TEMP 97.9
[2018-01-02] MEDS: QUEtiapine FUMARATE 100 MG TAB PO SCH (21:00)
[2018-01-03 06:00] VITALS: BP 96/52; PULSE 52; RESP 16; TEMP 98; O2SAT 92
[2018-01-03] MEDS: LACTOBACILLUS ACIDOPHILUS TAB PO SCH ×3 (08:42→17:16)
[2018-01-03] MEDS: SULFAMETHOXAZOLE-TRIMETHOPRIM DS 800-160 MG TAB PO SCH (08:42)
[2018-01-03] MEDS: DOXYCYCLINE HYCLATE 100 MG TAB PO SCH ×2 (08:42→20:26)
[2018-01-03] MEDS: FLUTICASONE PROPIONATE 50 MCG/ACT 16 GM NASAL SPRAY NASAL SCH ×2 (08:43→20:29)
[2018-01-03] MEDS: LITHIUM CARBONATE 300 MG TAB PO SCH ×3 (08:44→20:28)
--- NOTE | 2018-01-03 09:00 | HHI.PR ---
Subjective Remarks Patient is concerned about his pain medications. His right axillary area is pretty much healed up No other new complaints Wants his pain controlled Objective Vitals Vital Signs Date Time Temp Pulse Resp B/P (MAP) Pulse Ox O2 Delivery O2 Flow Rate FiO2 01/03/18 06:00 98.0 52 16 96/52 (67) 92 01/02/18 18:34 97.9 56 18 94/52 (66) I/O 01/02/18 01/02/18 01/02/18 01/03/18 01/03/18 01/03/18 06:59 14:59 22:59 06:59 14:59 22:59 Intake Total 720 ml 2160 ml 240 ml 480 ml Output Total 2 ml Balance 720 ml 2158 ml 240 ml 480 ml Intake Oral 720 ml 2160 ml 240 ml 480 ml Output Urine Total 2 ml # Voids 1 4 3 Result Diagram: 12/31/17 0704 12/31/17 0704 Other Results Laboratory Tests Test 01/01/18 07:42 01/01/18 13:07 [place] Level 0.5 MEQ/L Absolute Lymphocytes (Cell Immunity 1110 Percent CD3 Cells 90 % Absolute CD3 Count 995 Percent CD3-/CD16+/CD56+ Cells 7 % Absolute CD3-/CD16+/CD56+ Count 79 Percent CD4 Cells 2 % Absolute CD4 Count 24 T-[place]/Suppressor Ratio 0.1 Percent CD8 Cells 86 % Absolute CD8 Count 942 Percent CD19 Cells 3 % Absolute CD19 Count 31 Imaging Last Impressions Liver Ultrasound 12/29/17 0000 Signed Impressions: Service Date/Time: Friday, December 29, 2017 08:48 - CONCLUSION: 1. Borderline hepatomegaly with increased hepatic echogenicity consistent with patient's history of hepatitis. Portal vein is patent and there is no evidence for significant hepatic volume loss at this time. Juaquin Sanderson MD Objective Remarks GENERAL: Awake alert and oriented talkative and cooperative SKIN: Warm and dry. Right axillary much improved HEAD: Atraumatic. Normocephalic. EYES: Pupils equal and round. No scleral icterus. No injection or drainage. Extraocular muscles intact ENT: No nasal bleeding or discharge. Mucous membranes pink and moist. Tongue is midline NECK: Trachea midline. No JVD. Supple S1-S2 no S3 or S4 CARDIOVASCULAR: Regular rate and rhythm. RESPIRATORY: No accessory muscle use. Clear to auscultation. Breath sounds equal bilaterally. GASTROINTESTINAL: Abdomen soft, non-tender, nondistended. Hepatic and splenic margins not palpable. MUSCULOSKELETAL: Extremities without clubbing, cyanosis, or edema. No obvious deformities. NEUROLOGICAL: Awake and alert. No obvious cranial nerve deficits. Motor grossly within normal limits. Five out of 5 muscle strength in the arms and legs. Normal speech. PSYCHIATRIC: INAppropriate mood and affect; insight and judgment ABnormal. Procedures None Medications and IVs Current Medications Lorazepam (Ativan Inj) 1 mg ONCE ONCE IM Last administered on 12/26/17at 22:00 ; Start 12/26/17 at 22:00; Stop 12/26/17 at 22:01; Status DC Doxycycline Hyclate (Vibramycin) 100 mg ONCE ONCE PO Last administered on 12/26at 22:00; Start 12/26/17 at 22:00; Stop 12/26/17 at 22:01; Status DC Doxycycline Hyclate (Vibramycin) 100 mg BID PO ; Start 12/27/17 at 21:00; Stop 12/27/17 at 21:00; Status DC Folic Acid (Folate) 1 mg DAILY PO Last administered on 01/01/18at 10:16; Start 12/28/17 at 09:00; Stop 01/01/18 at 13:50; Status DC Thiamine HCl (Vitamin B1) 100 mg DAILY PO Last administered on 01/01/18at 10:16 ; Start 12/28/17 at 09:00; Stop 01/01/18 at 13:50; Status DC Multivitamins/ Minerals Therapeutic (Theragran M Tab) 1 tab DAILY PO Last administered on 01/01/18at 10:15; Start 12/28/17 at 09:00; Stop 01/01/18 at 13:50 ; Status DC Flumazenil (Romazicon Inj) 0.2 mg Q1M PRN IV PUSH SEE LABEL COMMENTS; Start at 11:45; Stop 01/01/18 at 13:50; Status DC Lorazepam (Ativan) 1 mg Q4H PRN PO CIWA 8 - 10 Last administered on 12/31/17at 10:57; Start 12/27/17 at 11:45; Stop 01/01/18 at 13:50; Status DC Lorazepam (Ativan Inj) 1 mg Q4H PRN IV PUSH CIWA 8 - 10; Start 12/27/17 at 11: 45; Stop 01/01/18 at 13:50; Status DC Lorazepam (Ativan) 2 mg Q2H PRN PO CIWA 11-14 Last administered on 12/28/17at 00 :22; Start 12/27/17 at 11:45; Stop 01/01/18 at 13:50; Status DC Lorazepam (Ativan Inj) 2 mg Q2H PRN IV PUSH CIWA 11-14; Start 12/27/17 at 11:45 ; Stop 01/01/18 at 13:50; Status DC Lorazepam (Ativan Inj) 2 mg Q1H PRN IV PUSH CIWA 15-20; Start 12/27/17 at 11:45 ; Stop 01/01/18 at 13:50; Status DC Lorazepam (Ativan Inj) 2 mg Q15M PRN IV PUSH CIWA > 20; Start 12/27/17 at 11:45 ; Stop 01/01/18 at 13:50; Status DC Diphenhydramine HCl (Benadryl) 50 mg HS PRN PO INSOMNIA; Start 12/27/17 at 21: 00; Stop 12/28/17 at 09:25; Status DC Acetaminophen (Tylenol) 650 mg Q4H PRN PO Temp >101F Last administered on at 16:11; Start 12/27/17 at 11:45 Magnesium Hydroxide (Milk Of Magnesia Liq) 30 ml DAILY PRN PO CONSTIPATION; Start 12/27/17 at 11:45 Al Hydrox/Mg Hydrox/Simethicone (Mag-Al Plus Susp Liq) 30 ml Q6H PRN PO DYSPEPSIA; Start 12/27/17 at 11:45 Nicotine (Habitrol 21 Mg Patch.24 Hr) 1 patch DAILY PRN T-DERMAL Nicotine craving Last administered on 12/31/17at 08:18; Start 12/27/17 at 11:45 Benztropine Mesylate (Cogentin) 1 mg Q12H PRN PO EXTRA PYRAMIDAL SYMPTOMS; Start 12/27/17 at 11:45 Benztropine Mesylate (Cogentin Inj) 1 mg Q12H PRN IM EXTRA PYRAMIDAL SYMPTOMS; Start 12/27/17 at 11:45 Miscellaneous Information 1 HS PRN T-DERMAL REMOVE OLD PATCH; Start 12/27/17 at 21:00 Ibuprofen (Motrin) 600 mg ONCE ONCE PO Last administered on 12/27/17at 18:48; Start 12/27/17 at 19:00; Stop 12/27/17 at 19:01; Status DC Azithromycin (Zithromax) 600 mg 2XWEEK PO ; Start 12/27/17 at 20:00 Lactobacillus Acidophilus (Lactinex) 1 tab TID PO Last administered on at 08:42; Start 12/28/17 at 09:00 Lopinavir/ Ritonavir (Kaletra 200-50 Mg) 2 tab BID PO Last administered on 01/02at 21:00; Start 12/27/17 at 21:00 Trimethoprim/ Sulfamethoxazole (Bactrim Ds 800-160 Mg) 1 tab MoWeFr@09 PO Last administered on 01/03/18at 08:42; Start 12/29/17 at 09:00 Vancomycin HCl 1000 mg/Sodium Chloride 250 ml @ 250 mls/hr Q12H IV Last administered on 12/28/17at 08:57; Start 12/27/17 at 21:00; Stop 12/28/17 at 15:08 ; Status DC Pharmacy Profile Note 0 ml @ 0 mls/hr UNSCH OTHER ; Start 12/27/17 at 19:45; Stop 12/28/17 at 15:08; Status DC Piperacillin Sod/ Tazobactam Sod 100 ml @ 200 mls/hr Q8H IV Last administered on 12/28/17at 12:25; Start 12/27/17 at 20:00; Stop 12/28/17 at 15:08; Status DC Ketorolac Tromethamine (Toradol) 10 mg Q6H PRN PO PAIN SCALE 1 TO 10 Last administered on 12/30/17at 21:30; Start 12/27/17 at 19:45; Stop 01/01/18 at 19:44 ; Status DC Miscellaneous Information SPECIFIC LAB TO BE ... ONCE ONCE .XX ; Start 12/29 at 08:45; Stop 12/29/17 at 08:46; Status Cancel [place] Carbonate (Lithotabs) 300 mg Q12HR PO Last administered on 01/01/18at 10 :15; Start 12/28/17 at 21:00; Stop 01/01/18 at 11:54; Status DC Quetiapine Fumarate (SEROquel) 50 mg HS PO Last administered on 12/28/17at 22:27 ; Start 12/28/17 at 21:00; Stop 12/29/17 at 11:58; Status DC Mirtazapine (Remeron) 15 mg HS PO Last administered on 12/31/17at 21:46; Start 12/28/17 at 21:00; Stop 01/01/18 at 11:54; Status DC Hydroxyzine HCl (Atarax) 50 mg Q6H PRN PO ANXIETY Last administered on at 18:37; Start 12/28/17 at 09:30 Oxycodone/ Acetaminophen (Percocet 5-325 Mg) 1 tab Q4H PRN PO PAIN SCALE 1 TO 10 Last administered on 12/28/17at 15:01; Start 12/28/17 at 14:00; Stop 12/28/17 at 15:23; Status DC Doxycycline Hyclate (Vibratab) 100 mg Q12HR PO Last administered on 01/03/18at 08:42; Start 12/28/17 at 21:00; Stop 01/08/18 at 09:00 Oxycodone HCl (Roxicodone) 5 mg Q6H PRN PO PAIN SCALE 1 TO 10 Last administered on 12/31/17at 21:47; Start 12/28/17 at 15:30; Stop 01/01/18 at 09:47 ; Status DC Quetiapine Fumarate (SEROquel) 100 mg HS PO Last administered on 01/02/18at 21: 00; Start 12/29/17 at 21:00 Fluticasone Propionate (Flonase Raul Spr) 1 spray BID NASAL Last administered on 01/03/18at 08:43; Start 12/31/17 at 12:00 Oxycodone HCl (Roxicodone) 10 mg Q6H PRN PO PAIN SCALE 1 TO 10; Start 01/01/18 at 16:00; Stop 01/01/18 at 16:00; Status DC Oxycodone HCl (Roxicodone) 10 mg Q6H PRN PO PAIN SCALE 1 TO 10 Last administered on 01/03/18at 05:32; Start 01/01/18 at 11:00 [place] Carbonate (Lithotabs) 300 mg DAILY@0900,1500,2100 PO Last administered on 01/03/18at 08:44; Start 01/01/18 at 15:00 A/P Problem List: (1) Adjustment disorder with depressed mood ICD Code: F43.21 - Adjustment disorder with depressed mood Plan: Management as per psychiatry. Currently on Seroquel (2) HIV (human immunodeficiency virus infection) ICD Code: B20 - Human immunodeficiency virus [HIV] disease Status: Chronic Plan: Continue Bactrim and azithromycin for prophylaxis. Continue HAART therapy with lopinavir -ritonavir 12/31 HIV viral load of [id number], CD4 count absolute is 24 (3) Alcohol withdrawal ICD Code: F10.239 - Alcohol dependence with withdrawal, unspecified (4) AIDS (acquired immune deficiency syndrome) ICD Code: B20 - Human immunodeficiency virus [HIV] disease Plan: As above. (5) Abscess of right axilla ICD Code: L02.411 - Cutaneous abscess of right axilla Status: Acute Plan: Status post drainage of abscess for the hospital. The patient was placed on broad-spectrum IV antibiotics with IV vancomycin IV Zosyn due to degree of immunosuppression. Tailor antibiotics as per wound culture. ID discontinued IV broad-spectrum antibiotics and start the patient on doxycycline orally. 12/30 As per ID recommendation Continue Doxycycline for a total of 10 days. wound cultures pending. 12/31 Wound culture positive for MRSA. Continue Doxycycline. Follow sensitivities. (6) Transaminitis ICD Code: R74.0 - Nonspecific elevation of levels of transaminase and lactic acid dehydrogenase [LDH] Plan: Examination is elevated likely secondary to alcohol abuse. Check hepatitis profile. 12/29 Liver ultrasound shows borderline hepatomegaly with increased hepatic echogenicity consistent with patient's history of hepatitis. Portal vein is patent there is no evidence for significant hepatic volume loss. 12/31 LFT's trending down. Continue to monitor LFT's. (7) Chronic back pain ICD Code: M54.9 - Dorsalgia, unspecified; G89.29 - Other chronic pain Plan: Patient complains of chronic low back pain. States he gets Roxicodone's as an outpatient however he states that these are prescribed in [facility]. Start the patient on Toradol on admission, however patient still complains of pain. I will place the patient back on the oxycodone, however I would not discharge patient on opiates. The patient is follow-up with outpatient pain management. 12/29 pain seems to be controlled. Continue oxycodone. (8) Leukopenia ICD Code: D72.819 - Decreased white blood cell count, unspecified Status: Chronic Plan: Leukopenia with increased monocytes likely secondary to HIV. The patient has moderate neutropenia. Continue to monitor CBC with differential. The patient is a febrile and does not have any signs of infection. (9) Nasal congestion ICD Code: R09.81 - Nasal congestion Plan: Start Flonase intranasally. Assessment and Plan Adjustment disorder with depressed mood Management as per psychiatry. Currently on Seroquel HIV (human immunodeficiency virus infection) Continue Bactrim and azithromycin for prophylaxis. Continue HAART therapy with lopinavir -ritonavir 12/31 HIV viral load of [id number], CD4 count pending Alcohol withdrawal ICD Code: F10.239 - Alcohol dependence with withdrawal, unspecified AIDS (acquired immune deficiency syndrome) As above. Abscess of right axilla- Status post drainage of abscess for the hospital. The patient was placed on broad-spectrum IV antibiotics with IV vancomycin IV Zosyn due to degree of immunosuppression. Tailor antibiotics as per wound culture. ID discontinued IV broad-spectrum antibiotics and start the patient on doxycycline orally. As per ID recommendation Continue Doxycycline for a total of 10 days. Wound culture positive for MRSA. Continue Doxycycline. Follow sensitivities. Transaminitis - likely secondary to alcohol abuse. Check hepatitis profile. Liver ultrasound shows borderline hepatomegaly with increased hepatic echogenicity consistent with patient's history of hepatitis. Portal vein is patent there is no evidence for significant hepatic volume loss. LFT's trending down. Continue to monitor LFT's. Chronic back pain- Patient complains of chronic low back pain. States he gets Roxicodone's as an outpatient however he states that these are prescribed in [facility]. Start the patient on Toradol on admission, however patient still complains of pain. I will place the patient back on the oxycodone, however I would not discharge patient on opiates. The patient is follow-up with outpatient pain management. Pain seems to be controlled. Continue oxycodone. Leukopenia. Chronic Leukopenia with increased monocytes likely secondary to HIV. The patient has moderate neutropenia. Continue to monitor CBC with differential. The patient is a febrile and does not have any signs of infection. Nasal congestion On Flonase intranasally. Assessment and Plan DVT prophylaxis: Ambulation. Discharge Planning Continue to monitor on the [facility] floor. Problem Qualifiers (1) Alcohol withdrawal: Qualified Codes: F10.230 - Alcohol dependence with withdrawal, uncomplicated (2) Chronic back pain: Qualified Codes: M54.5 - Low back pain; G89.29 - Other chronic pain (3) Leukopenia: Qualified Codes: D70.8 - Other neutropenia Wilber Araujo DO Jan 03, 2018 09:00
[2018-01-03] MEDS: guaiFENesin E.R. 600 MG TAB PO SCH ×3 (10:00→20:26)
[2018-01-03] MEDS: LOPINAVIR/RITONAVIR 200 MG/50 MG TAB PO SCH ×2 (10:46→20:26)
[2018-01-03] MEDS: NICOTINE 21 MG/24 HR PATCH T-DERMAL PRN (12:27)
--- NOTE | 2018-01-03 15:13 | HHI.PYPN ---
Subjective Chief Complaint: Anxiety, confusion Remarks Reviewed electronic medical record and discussed case with staff. Follow-up performed in patient's room. Patient sitting in a chair watching television, alert and oriented. He advises that he has been "sleeping better since they took me off o the Remeron". He reports that he has had a good appetite and "feels much better". Patient is aware that he his discharge is planned for Monday to [facility] and is pleased with this placement. Mental Status Examination Appearance: Appropriate Consciousness: Alert Orientation: Person, Place, Date/Time, Situation Motor Activity: Other (no abnormal motor movements noted) Speech: Unremarkable Language: Adequate Fund of Knowledge: Adequate Attention and Concentration: Adequate Mood: Appropriate Affect: Appropriate Thought Process & Associations: Intact, Logical, Linear Thought Content: Appropriate Hallucination Type: None Delusion Type: None Suicidal Ideation: No Suicidal Plan: No Suicidal Intention: No Homicidal Ideation: No Homicidal Plan: No Homicidal Intention: No Results Labs Date/Time Source Procedure Growth Status 12/29/17 18:44 Wound Other Gram Stain - Final Complete 12/29/17 18:44 Wound Culture - Final S. 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 Justification for Cont. Inpt. Moving this patient to a lower level of care would result in decompensation. Appropriate placement has been identified and patient will be discharged on Monday. Request HC Surrog/Guard Advoc?: No Meghan Weber Jan 03, 2018 15:12
[2018-01-03 18:00] VITALS: BP 105/65; PULSE 66; RESP 18; TEMP 98.2; O2SAT 98
[2018-01-03] MEDS: QUEtiapine FUMARATE 100 MG TAB PO SCH (20:26)
[2018-01-04 05:55] VITALS: BP 120/65; PULSE 63; RESP 18; TEMP 97.7; O2SAT 95
[2018-01-04] MEDS: LOPINAVIR/RITONAVIR 200 MG/50 MG TAB PO SCH ×2 (08:38→21:20)
[2018-01-04] MEDS: DOXYCYCLINE HYCLATE 100 MG TAB PO SCH (08:38)
[2018-01-04] MEDS: guaiFENesin E.R. 600 MG TAB PO SCH ×2 (08:38→09:41)
[2018-01-04] MEDS: LACTOBACILLUS ACIDOPHILUS TAB PO SCH ×3 (08:39→17:50)
[2018-01-04] MEDS: LITHIUM CARBONATE 300 MG TAB PO SCH ×3 (08:40→21:19)
[2018-01-04] MEDS: FLUTICASONE PROPIONATE 50 MCG/ACT 16 GM NASAL SPRAY NASAL SCH ×2 (08:51→21:15)
--- NOTE | 2018-01-04 09:42 | HHI.PR ---
Subjective Remarks 01-03Patient is concerned about his pain medications. His right axillary area is pretty much healed up No other new complaints Wants his pain controlled 01-04 states his pain is better thinks he is being dced tomorrow no new complaints Objective Vitals Vital Signs Date Time Temp Pulse Resp B/P (MAP) Pulse Ox O2 Delivery O2 Flow Rate FiO2 01/04/18 05:55 97.7 63 18 120/65 (83) 95 01/03/18 18:00 98.2 66 18 105/65 (78) 98 I/O 01/03/18 01/03/18 01/03/18 01/04/18 01/04/18 01/04/18 06:59 14:59 22:59 06:59 14:59 22:59 Intake Total 240 ml 2400 ml 960 ml 0 ml 960 ml Balance 240 ml 2400 ml 960 ml 0 ml 960 ml Intake Oral 240 ml 2400 ml 960 ml 0 ml 960 ml # Voids 3 4 3 1 # Bowel Movements 4 Result Diagram: 12/31/17 0704 12/31/17 0704 Other Results Laboratory Tests Test 01/01/18 13:07 Absolute Lymphocytes (Cell Immunity 1110 Percent CD3 Cells 90 % Absolute CD3 Count 995 Percent CD3-/CD16+/CD56+ Cells 7 % Absolute CD3-/CD16+/CD56+ Count 79 Percent CD4 Cells 2 % Absolute CD4 Count 24 [place]/Suppressor Ratio 0.1 Percent CD8 Cells 86 % Absolute CD8 Count 942 Percent CD19 Cells 3 % Absolute CD19 Count 31 Imaging Last Impressions Liver Ultrasound 12/29/17 0000 Signed Impressions: Service Date/Time: Friday, December 29, 2017 08:48 - CONCLUSION: 1. Borderline hepatomegaly with increased hepatic echogenicity consistent with patient's history of hepatitis. Portal vein is patent and there is no evidence for significant hepatic volume loss at this time. Juaquin Sanderson MD Objective Remarks GENERAL: Awake alert and oriented talkative and cooperative SKIN: Warm and dry. Right axillary much improved HEAD: Atraumatic. Normocephalic. EYES: Pupils equal and round. No scleral icterus. No injection or drainage. Extraocular muscles intact ENT: No nasal bleeding or discharge. Mucous membranes pink and moist. Tongue is midline NECK: Trachea midline. No JVD. Supple S1-S2 no S3 or S4 CARDIOVASCULAR: Regular rate and rhythm. RESPIRATORY: No accessory muscle use. Clear to auscultation. Breath sounds equal bilaterally. GASTROINTESTINAL: Abdomen soft, non-tender, nondistended. Hepatic and splenic margins not palpable. MUSCULOSKELETAL: Extremities without clubbing, cyanosis, or edema. No obvious deformities. NEUROLOGICAL: Awake and alert. No obvious cranial nerve deficits. Motor grossly within normal limits. Five out of 5 muscle strength in the arms and legs. Normal speech. PSYCHIATRIC: INAppropriate mood and affect; insight and judgment ABnormal. Procedures None Medications and IVs Current Medications Lorazepam (Ativan Inj) 1 mg ONCE ONCE IM Last administered on 12/26/17at 22:00 ; Start 12/26/17 at 22:00; Stop 12/26/17 at 22:01; Status DC Doxycycline Hyclate (Vibramycin) 100 mg ONCE ONCE PO Last administered on 12/26at 22:00; Start 12/26/17 at 22:00; Stop 12/26/17 at 22:01; Status DC Doxycycline Hyclate (Vibramycin) 100 mg BID PO ; Start 12/27/17 at 21:00; Stop 12/27/17 at 21:00; Status DC Folic Acid (Folate) 1 mg DAILY PO Last administered on 01/01/18at 10:16; Start 12/28/17 at 09:00; Stop 01/01/18 at 13:50; Status DC Thiamine HCl (Vitamin B1) 100 mg DAILY PO Last administered on 01/01/18at 10:16 ; Start 12/28/17 at 09:00; Stop 01/01/18 at 13:50; Status DC Multivitamins/ Minerals Therapeutic (Theragran M Tab) 1 tab DAILY PO Last administered on 01/01/18at 10:15; Start 12/28/17 at 09:00; Stop 01/01/18 at 13:50 ; Status DC Flumazenil (Romazicon Inj) 0.2 mg Q1M PRN IV PUSH SEE LABEL COMMENTS; Start at 11:45; Stop 01/01/18 at 13:50; Status DC Lorazepam (Ativan) 1 mg Q4H PRN PO CIWA 8 - 10 Last administered on 12/31/17at 10:57; Start 12/27/17 at 11:45; Stop 01/01/18 at 13:50; Status DC Lorazepam (Ativan Inj) 1 mg Q4H PRN IV PUSH CIWA 8 - 10; Start 12/27/17 at 11: 45; Stop 01/01/18 at 13:50; Status DC Lorazepam (Ativan) 2 mg Q2H PRN PO CIWA 11-14 Last administered on 12/28/17at 00 :22; Start 12/27/17 at 11:45; Stop 01/01/18 at 13:50; Status DC Lorazepam (Ativan Inj) 2 mg Q2H PRN IV PUSH CIWA 11-14; Start 12/27/17 at 11:45 ; Stop 01/01/18 at 13:50; Status DC Lorazepam (Ativan Inj) 2 mg Q1H PRN IV PUSH CIWA 15-20; Start 12/27/17 at 11:45 ; Stop 01/01/18 at 13:50; Status DC Lorazepam (Ativan Inj) 2 mg Q15M PRN IV PUSH CIWA > 20; Start 12/27/17 at 11:45 ; Stop 01/01/18 at 13:50; Status DC Diphenhydramine HCl (Benadryl) 50 mg HS PRN PO INSOMNIA; Start 12/27/17 at 21: 00; Stop 12/28/17 at 09:25; Status DC Acetaminophen (Tylenol) 650 mg Q4H PRN PO Temp >101F Last administered on at 16:11; Start 12/27/17 at 11:45 Magnesium Hydroxide (Milk Of Magnesia Liq) 30 ml DAILY PRN PO CONSTIPATION; Start 12/27/17 at 11:45 Al Hydrox/Mg Hydrox/Simethicone (Mag-Al Plus Susp Liq) 30 ml Q6H PRN PO DYSPEPSIA; Start 12/27/17 at 11:45 Nicotine (Habitrol 21 Mg Patch.24 Hr) 1 patch DAILY PRN T-DERMAL Nicotine craving Last administered on 01/03/18at 12:27; Start 12/27/17 at 11:45 Benztropine Mesylate (Cogentin) 1 mg Q12H PRN PO EXTRA PYRAMIDAL SYMPTOMS; Start 12/27/17 at 11:45 Benztropine Mesylate (Cogentin Inj) 1 mg Q12H PRN IM EXTRA PYRAMIDAL SYMPTOMS; Start 12/27/17 at 11:45 Miscellaneous Information 1 HS PRN T-DERMAL REMOVE OLD PATCH; Start 12/27/17 at 21:00 Ibuprofen (Motrin) 600 mg ONCE ONCE PO Last administered on 12/27/17at 18:48; Start 12/27/17 at 19:00; Stop 12/27/17 at 19:01; Status DC Azithromycin (Zithromax) 600 mg 2XWEEK PO ; Start 12/27/17 at 20:00 Lactobacillus Acidophilus (Lactinex) 1 tab TID PO Last administered on at 08:39; Start 12/28/17 at 09:00 Lopinavir/ Ritonavir (Kaletra 200-50 Mg) 2 tab BID PO Last administered on 01/04at 08:38; Start 12/27/17 at 21:00 Trimethoprim/ Sulfamethoxazole (Bactrim Ds 800-160 Mg) 1 tab MoWeFr@09 PO Last administered on 01/03/18at 08:42; Start 12/29/17 at 09:00 Vancomycin HCl 1000 mg/Sodium Chloride 250 ml @ 250 mls/hr Q12H IV Last administered on 12/28/17at 08:57; Start 12/27/17 at 21:00; Stop 12/28/17 at 15:08 ; Status DC Pharmacy Profile Note 0 ml @ 0 mls/hr UNSCH OTHER ; Start 12/27/17 at 19:45; Stop 12/28/17 at 15:08; Status DC Piperacillin Sod/ Tazobactam Sod 100 ml @ 200 mls/hr Q8H IV Last administered on 12/28/17at 12:25; Start 12/27/17 at 20:00; Stop 12/28/17 at 15:08; Status DC Ketorolac Tromethamine (Toradol) 10 mg Q6H PRN PO PAIN SCALE 1 TO 10 Last administered on 12/30/17at 21:30; Start 12/27/17 at 19:45; Stop 01/01/18 at 19:44 ; Status DC Miscellaneous Information SPECIFIC LAB TO BE ASPEN... ONCE ONCE .XX ; Start 12/29 at 08:45; Stop 12/29/17 at 08:46; Status Cancel [place] Carbonate (Lithotabs) 300 mg Q12HR PO Last administered on 01/01/18at 10 :15; Start 12/28/17 at 21:00; Stop 01/01/18 at 11:54; Status DC Quetiapine Fumarate (SEROquel) 50 mg HS PO Last administered on 12/28/17at 22:27 ; Start 12/28/17 at 21:00; Stop 12/29/17 at 11:58; Status DC Mirtazapine (Remeron) 15 mg HS PO Last administered on 12/31/17at 21:46; Start 12/28/17 at 21:00; Stop 01/01/18 at 11:54; Status DC Hydroxyzine HCl (Atarax) 50 mg Q6H PRN PO ANXIETY Last administered on at 18:37; Start 12/28/17 at 09:30 Oxycodone/ Acetaminophen (Percocet 5-325 Mg) 1 tab Q4H PRN PO PAIN SCALE 1 TO 10 Last administered on 12/28/17at 15:01; Start 12/28/17 at 14:00; Stop 12/28/17 at 15:23; Status DC Doxycycline Hyclate (Vibratab) 100 mg Q12HR PO Last administered on 01/04/18at 08:38; Start 12/28/17 at 21:00; Stop 01/08/18 at 09:00 Oxycodone HCl (Roxicodone) 5 mg Q6H PRN PO PAIN SCALE 1 TO 10 Last administered on 12/31/17at 21:47; Start 12/28/17 at 15:30; Stop 01/01/18 at 09:47 ; Status DC Quetiapine Fumarate (SEROquel) 100 mg HS PO Last administered on 01/03/18at 20: 26; Start 12/29/17 at 21:00 Fluticasone Propionate (Flonase Raul Spr) 1 spray BID NASAL Last administered on 01/04/18at 08:51; Start 12/31/17 at 12:00 Oxycodone HCl (Roxicodone) 10 mg Q6H PRN PO PAIN SCALE 1 TO 10; Start 01/01/18 at 16:00; Stop 01/01/18 at 16:00; Status DC Oxycodone HCl (Roxicodone) 10 mg Q6H PRN PO PAIN SCALE 1 TO 10 Last administered on 01/04/18at 08:30; Start 01/01/18 at 11:00 [place] Carbonate (Lithotabs) 300 mg DAILY@0900,1500,2100 PO Last administered on 01/04/18at 08:40; Start 01/01/18 at 15:00 Guaifenesin (Mucinex Er) 600 mg BID PO Last administered on 01/04/18at 08:38; Start 01/03/18 at 10:00 A/P Problem List: (1) Adjustment disorder with depressed mood ICD Code: F43.21 - Adjustment disorder with depressed mood Plan: Management as per psychiatry. Currently on LITHIUM (2) HIV (human immunodeficiency virus infection) ICD Code: B20 - Human immunodeficiency virus [HIV] disease Status: Chronic Plan: Continue Bactrim and azithromycin for prophylaxis. Continue HAART therapy with lopinavir -ritonavir 12/31 HIV viral load of 188734, CD4 count absolute is 24 (3) Alcohol withdrawal ICD Code: F10.239 - Alcohol dependence with withdrawal, unspecified Plan: IMPROVED (4) AIDS (acquired immune deficiency syndrome) ICD Code: B20 - Human immunodeficiency virus [HIV] disease Plan: As above. (5) Abscess of right axilla ICD Code: L02.411 - Cutaneous abscess of right axilla Status: Acute Plan: Status post drainage of abscess for the hospital. The patient was placed on broad-spectrum IV antibiotics with IV vancomycin IV Zosyn due to degree of immunosuppression. Tailor antibiotics as per wound culture. ID discontinued IV broad-spectrum antibiotics and start the patient on doxycycline orally. 12/30 As per ID recommendation Continue Doxycycline for a total of 10 days. wound cultures pending. 12/31 Wound culture positive for MRSA. Continue switch to tetracycline for 10days (6) Transaminitis ICD Code: R74.0 - Nonspecific elevation of levels of transaminase and lactic acid dehydrogenase [LDH] Plan: Examination is elevated likely secondary to alcohol abuse. Check hepatitis profile. 12/29 Liver ultrasound shows borderline hepatomegaly with increased hepatic echogenicity consistent with patient's history of hepatitis. Portal vein is patent there is no evidence for significant hepatic volume loss. 12/31 LFT's trending down. Continue to monitor LFT's. (7) Chronic back pain ICD Code: M54.9 - Dorsalgia, unspecified; G89.29 - Other chronic pain Plan: Patient complains of chronic low back pain. States he gets Roxicodone's as an outpatient however he states that these are prescribed in [facility]. Start the patient on Toradol on admission, however patient still complains of pain. I will place the patient back on the oxycodone, however I would not discharge patient on opiates. The patient is follow-up with outpatient pain management. 12/29 pain seems to be controlled. Continue oxycodone. (8) Leukopenia ICD Code: D72.819 - Decreased white blood cell count, unspecified Status: Chronic Plan: Leukopenia with increased monocytes likely secondary to HIV. The patient has moderate neutropenia. Continue to monitor CBC with differential. The patient is a febrile and does not have any signs of infection. (9) Nasal congestion ICD Code: R09.81 - Nasal congestion Plan: Start Flonase intranasally. Assessment and Plan Adjustment disorder with depressed mood Management as per psychiatry. Currently on Seroquel HIV (human immunodeficiency virus infection) Continue Bactrim and azithromycin for prophylaxis. Continue HAART therapy with lopinavir -ritonavir 12/31 HIV viral load of 743422, CD4 count pending Alcohol withdrawal ICD Code: F10.239 - Alcohol dependence with withdrawal, unspecified AIDS (acquired immune deficiency syndrome) As above. Abscess of right axilla- Status post drainage of abscess for the hospital. The patient was placed on broad-spectrum IV antibiotics with IV vancomycin IV Zosyn due to degree of immunosuppression. Tailor antibiotics as per wound culture. ID discontinued IV broad-spectrum antibiotics and start the patient on doxycycline orally. As per ID recommendation Continue Doxycycline for a total of 10 days. Wound culture positive for MRSA.SWITCH TO TETRACYCLINE FOR 10 DAYS QID Transaminitis - likely secondary to alcohol abuse. Check hepatitis profile. Liver ultrasound shows borderline hepatomegaly with increased hepatic echogenicity consistent with patient's history of hepatitis. Portal vein is patent there is no evidence for significant hepatic volume loss. LFT's trending down. Continue to monitor LFT's. Chronic back pain- Patient complains of chronic low back pain. States he gets Roxicodone's as an outpatient however he states that these are prescribed in [facility]. Start the patient on Toradol on admission, however patient still complains of pain. I will place the patient back on the oxycodone, however I would not discharge patient on opiates. The patient is follow-up with outpatient pain management. Pain seems to be controlled. Continue oxycodone. Leukopenia. Chronic Leukopenia with increased monocytes likely secondary to HIV. The patient has moderate neutropenia. Continue to monitor CBC with differential. The patient is a febrile and does not have any signs of infection. Nasal congestion On Flonase intranasally. Assessment and Plan DVT prophylaxis: Ambulation. Discharge Planning Continue to monitor on the [facility] floor. Discharge Planning PENDING PSYCHIATRIC CLEARANCE Problem Qualifiers (1) Alcohol withdrawal: Qualified Codes: F10.230 - Alcohol dependence with withdrawal, uncomplicated (2) Chronic back pain: Qualified Codes: M54.5 - Low back pain; G89.29 - Other chronic pain (3) Leukopenia: Qualified Codes: D70.8 - Other neutropenia Wilber Araujo DO Jan 04, 2018 09:42
[2018-01-04] MEDS ORDERED: TETRACYCLINE HCL 500 MG CAP PO SCH (09:45)
[2018-01-04] MEDS: TETRACYCLINE HCL 250 MG CAP PO SCH ×3 (11:56→21:18)
--- NOTE | 2018-01-04 15:19 | HHI.PYPN ---
Subjective Chief Complaint: Anxiety, confusion Remarks Reviewed electronic medical record and discussed with staff. Patient is to be discharged tomorrow. Follow-up performed in patient's room . Patient reports that he is "feeling cranky". Staff relay that patient is entitled and curses at them. Patient presents as somatic and expresses some anxiety about the new living arrangements. He reports that he slept well and has a good appetite. He does not appear to be in any distress. Mental Status Examination Appearance: Appropriate Consciousness: Alert Orientation: Person, Place, Date/Time, Situation Motor Activity: Other (no abnormal motor movements noted) Speech: Unremarkable Language: Adequate Fund of Knowledge: Adequate Attention and Concentration: Adequate Mood: Appropriate Affect: Appropriate Thought Process & Associations: Intact, Logical, Linear Thought Content: Appropriate Hallucination Type: None Delusion Type: None Suicidal Ideation: No Suicidal Plan: No Suicidal Intention: No Homicidal Ideation: No Homicidal Plan: No Homicidal Intention: No Results Labs Test 01/04/18 11:07 [place] Level 0.8 MEQ/L Date/Time Source Procedure Growth Status 12/29/17 18:44 Wound Other Gram Stain - Final Complete 12/29/17 18:44 Wound Culture - Final S. 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 Justification for Cont. Inpt. Pending discharge tomorrow barring any unforeseen difficulties. Request HC Surrog/Guard Advoc?: No Meghan Weber Jan 04, 2018 15:19
[2018-01-04 18:21] VITALS: BP 131/69; PULSE 65; RESP 16; TEMP 97.6; O2SAT 96
[2018-01-04] MEDS: QUEtiapine FUMARATE 100 MG TAB PO SCH (21:18)
[2018-01-05] MEDS: TETRACYCLINE HCL 250 MG CAP PO SCH ×2 (04:56→09:38)
[2018-01-05 06:00] VITALS: BP 94/56; PULSE 46; RESP 18; TEMP 98; O2SAT 95
[2018-01-05] MEDS: guaiFENesin E.R. 600 MG TAB PO SCH (08:45)
[2018-01-05 09:05] VITALS: BP 103/59; PULSE 56
[2018-01-05] MEDS: FLUTICASONE PROPIONATE 50 MCG/ACT 16 GM NASAL SPRAY NASAL SCH (09:38)
[2018-01-05] MEDS: LACTOBACILLUS ACIDOPHILUS TAB PO SCH (09:39)
[2018-01-05] MEDS: SULFAMETHOXAZOLE-TRIMETHOPRIM DS 800-160 MG TAB PO SCH (09:39)
[2018-01-05] MEDS: LOPINAVIR/RITONAVIR 200 MG/50 MG TAB PO SCH (09:39)
[2018-01-05] MEDS: LITHIUM CARBONATE 300 MG TAB PO SCH (09:40)
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
[2018-01-05] MEDS ORDERED: LITH300T3 PO (11:11)
[2018-01-05] MEDS ORDERED: SERO100T PO (11:11)
[2018-01-05] MEDS ORDERED: VIBR50SY PO (11:49)
[2018-01-05] MEDS ORDERED: OXYC-392 PO (11:50)
--- NOTE | 2018-01-05 12:52 | HHI.PR ---
Subjective Remarks Patient seen and examined, doing well stable he will be discharged today Objective Vitals Vital Signs Date Time Temp Pulse Resp B/P (MAP) Pulse Ox O2 Delivery O2 Flow Rate FiO2 01/05/18 09:05 56 103/59 (74) 01/05/18 06:00 98.0 46 18 94/56 (69) 95 01/04/18 18:21 97.6 65 16 131/69 (89) 96 I/O 01/04/18 01/04/18 01/04/18 01/05/18 01/05/18 01/05/18 07:00 15:00 23:00 07:00 15:00 23:00 Intake Total 0 ml 1680 ml 3360 ml 240 ml 960 ml Balance 0 ml 1680 ml 3360 ml 240 ml 960 ml Intake Oral 0 ml 1680 ml 3360 ml 240 ml 960 ml # Voids 1 7 4 # Bowel Movements 4 Objective Remarks GENERAL: This is a well-nourished, well-developed patient, in no apparent distress. SKIN: No rashes, warm and dry HEAD: Atraumatic. Normocephalic. EYES: Pupils equal round and reactive. Extraocular motions intact. No scleral icterus. ENT: Nose without bleeding, or drainage, Airway patent. NECK: Trachea midline. Supple CARDIOVASCULAR: Regular rate and rhythm without murmurs, gallops, or rubs. RESPIRATORY: Fair air entry bilaterally. No wheezes, rales, or rhonchi. GASTROINTESTINAL: Abdomen soft, non-tender, nondistended. Positive bowel sounds MUSCULOSKELETAL: Extremities without clubbing, cyanosis, or edema. Pedal pulses appreciated NEUROLOGICAL: Awake and alert. Moves all extremity. Normal speech.no focal neurological deficit Procedures None A/P Problem List: (1) Adjustment disorder with depressed mood ICD Code: F43.21 - Adjustment disorder with depressed mood (2) HIV (human immunodeficiency virus infection) ICD Code: B20 - Human immunodeficiency virus [HIV] disease Status: Chronic (3) Alcohol withdrawal ICD Code: F10.239 - Alcohol dependence with withdrawal, unspecified (4) AIDS (acquired immune deficiency syndrome) ICD Code: B20 - Human immunodeficiency virus [HIV] disease (5) Abscess of right axilla ICD Code: L02.411 - Cutaneous abscess of right axilla Status: Acute (6) Transaminitis ICD Code: R74.0 - Nonspecific elevation of levels of transaminase and lactic acid dehydrogenase [LDH] (7) Chronic back pain ICD Code: M54.9 - Dorsalgia, unspecified; G89.29 - Other chronic pain (8) Leukopenia ICD Code: D72.819 - Decreased white blood cell count, unspecified Status: Chronic (9) Nasal congestion ICD Code: R09.81 - Nasal congestion Assessment and Plan Adjustment disorder with depressed mood Management as per psychiatry. Currently on Seroquel HIV (human immunodeficiency virus infection) Continue Bactrim and azithromycin for prophylaxis. Continue HAART therapy with lopinavir -ritonavir 12/31 HIV viral load of 615308, CD4 count pending Alcohol withdrawal ICD Code: F10.239 - Alcohol dependence with withdrawal, unspecified AIDS (acquired immune deficiency syndrome) As above. Abscess of right axilla- Status post drainage of abscess for the hospital. The patient was placed on broad-spectrum IV antibiotics with IV vancomycin IV Zosyn due to degree of immunosuppression. Tailor antibiotics as per wound culture. ID discontinued IV broad-spectrum antibiotics and start the patient on doxycycline orally. As per ID recommendation Continue Doxycycline for a total of 10 days. Wound culture positive for MRSA.SWITCH TO TETRACYCLINE FOR 10 DAYS QID Transaminitis - likely secondary to alcohol abuse. Check hepatitis profile. Liver ultrasound shows borderline hepatomegaly with increased hepatic echogenicity consistent with patient's history of hepatitis. Portal vein is patent there is no evidence for significant hepatic volume loss. LFT's trending down. Continue to monitor LFT's. Chronic back pain- Patient complains of chronic low back pain. States he gets Roxicodone's as an outpatient however he states that these are prescribed in [facility]. Start the patient on Toradol on admission, however patient still complains of pain. I will place the patient back on the oxycodone, however I would not discharge patient on opiates. The patient is follow-up with outpatient pain management. Pain seems to be controlled. Continue oxycodone. Leukopenia. Chronic Leukopenia with increased monocytes likely secondary to HIV. The patient has moderate neutropenia. Continue to monitor CBC with differential. The patient is a febrile and does not have any signs of infection. Nasal congestion On Flonase intranasally. Assessment and Plan DVT prophylaxis: Ambulation. 01/05: Stable Problem Qualifiers (1) Alcohol withdrawal: Qualified Codes: F10.230 - Alcohol dependence with withdrawal, uncomplicated (2) Chronic back pain: Qualified Codes: M54.5 - Low back pain; G89.29 - Other chronic pain (3) Leukopenia: Qualified Codes: D70.8 - Other neutropenia Dagoberto Blake MD Jan 05, 2018 12:52
--- NOTE | 2018-01-05 13:06 | HHI.PR ---
Subjective Remarks 47 years old male with history of HIV AIDS alcoholism admitted for abscess in the right axilla transaminitis chronic back pain, ID consulted patient had I&D, placed on IV antibiotic, recommended doxycycline 10 days at discharge wound culture showed MRSA. Lengthy discussion on the day of discharge with the patient he asked for narcotic I explained to him we cannot give him more than limited number, and he was advised extensively about following up with the health department for his AIDS medication Objective Vitals Vital Signs Date Time Temp Pulse Resp B/P (MAP) Pulse Ox O2 Delivery O2 Flow Rate FiO2 01/05/18 09:05 56 103/59 (74) 01/05/18 06:00 98.0 46 18 94/56 (69) 95 01/04/18 18:21 97.6 65 16 131/69 (89) 96 I/O 01/04/18 01/04/18 01/04/18 01/05/18 01/05/18 01/05/18 07:00 15:00 23:00 07:00 15:00 23:00 Intake Total 0 ml 1680 ml 3360 ml 240 ml 960 ml Balance 0 ml 1680 ml 3360 ml 240 ml 960 ml Intake Oral 0 ml 1680 ml 3360 ml 240 ml 960 ml # Voids 1 7 4 # Bowel Movements 4 Objective Remarks GENERAL: This is a well-nourished, well-developed patient, in no apparent distress. SKIN: No rashes, warm and dry HEAD: Atraumatic. Normocephalic. EYES: Pupils equal round and reactive. Extraocular motions intact. No scleral icterus. ENT: Nose without bleeding, or drainage, Airway patent. NECK: Trachea midline. Supple CARDIOVASCULAR: Regular rate and rhythm without murmurs, gallops, or rubs. RESPIRATORY: Fair air entry bilaterally. No wheezes, rales, or rhonchi. GASTROINTESTINAL: Abdomen soft, non-tender, nondistended. Positive bowel sounds MUSCULOSKELETAL: Extremities without clubbing, cyanosis, or edema. Pedal pulses appreciated NEUROLOGICAL: Awake and alert. Moves all extremity. Normal speech.no focal neurological deficit Procedures None A/P Problem List: (1) Adjustment disorder with depressed mood ICD Code: F43.21 - Adjustment disorder with depressed mood (2) HIV (human immunodeficiency virus infection) ICD Code: B20 - Human immunodeficiency virus [HIV] disease Status: Chronic (3) Alcohol withdrawal ICD Code: F10.239 - Alcohol dependence with withdrawal, unspecified (4) AIDS (acquired immune deficiency syndrome) ICD Code: B20 - Human immunodeficiency virus [HIV] disease (5) Abscess of right axilla ICD Code: L02.411 - Cutaneous abscess of right axilla Status: Acute (6) Transaminitis ICD Code: R74.0 - Nonspecific elevation of levels of transaminase and lactic acid dehydrogenase [LDH] (7) Chronic back pain ICD Code: M54.9 - Dorsalgia, unspecified; G89.29 - Other chronic pain (8) Leukopenia ICD Code: D72.819 - Decreased white blood cell count, unspecified Status: Chronic (9) Nasal congestion ICD Code: R09.81 - Nasal congestion Assessment and Plan Adjustment disorder with depressed mood Management as per psychiatry. Currently on Seroquel HIV (human immunodeficiency virus infection) Continue Bactrim and azithromycin for prophylaxis. Continue HAART therapy with lopinavir -ritonavir 12/31 HIV viral load of 667223, CD4 count pending Alcohol withdrawal ICD Code: F10.239 - Alcohol dependence with withdrawal, unspecified AIDS (acquired immune deficiency syndrome) As above. Abscess of right axilla- Status post drainage of abscess for the hospital. The patient was placed on broad-spectrum IV antibiotics with IV vancomycin IV Zosyn due to degree of immunosuppression. Tailor antibiotics as per wound culture. ID discontinued IV broad-spectrum antibiotics and start the patient on doxycycline orally. As per ID recommendation Continue Doxycycline for a total of 10 days. Wound culture positive for MRSA.SWITCH TO TETRACYCLINE FOR 10 DAYS QID Transaminitis - likely secondary to alcohol abuse. Check hepatitis profile. Liver ultrasound shows borderline hepatomegaly with increased hepatic echogenicity consistent with patient's history of hepatitis. Portal vein is patent there is no evidence for significant hepatic volume loss. LFT's trending down. Continue to monitor LFT's. Chronic back pain- Patient complains of chronic low back pain. States he gets Roxicodone's as an outpatient however he states that these are prescribed in [facility]. Start the patient on Toradol on admission, however patient still complains of pain. I will place the patient back on the oxycodone, however I would not discharge patient on opiates. The patient is follow-up with outpatient pain management. Pain seems to be controlled. Continue oxycodone. Leukopenia. Chronic Leukopenia with increased monocytes likely secondary to HIV. The patient has moderate neutropenia. Continue to monitor CBC with differential. The patient is a febrile and does not have any signs of infection. Nasal congestion On Flonase intranasally. Assessment and Plan DVT prophylaxis: Ambulation. 01/05: Stable medically for discharge Problem Qualifiers (1) Alcohol withdrawal: Qualified Codes: F10.230 - Alcohol dependence with withdrawal, uncomplicated (2) Chronic back pain: Qualified Codes: M54.5 - Low back pain; G89.29 - Other chronic pain (3) Leukopenia: Qualified Codes: D70.8 - Other neutropenia Dagoberto Blake MD Jan 05, 2018 13:06
== END 2018-01-05 13:15 | disposition home or self-care (01) | DRG 882 ==
LOC: NEDAMB 20:26 → NEDA 12-27 11:37 → H260 12-27 12:30 → H4EA 12-27 20:11
PROVIDERS: ADMIT Psychiatry & Neurology Psychiatry; ATTEND Psychiatry & Neurology Psychiatry
DX: F43.23 Adjustment disorder with mixed anxiety and depressed mood (principal); B20 Human immunodeficiency virus [HIV] disease; D70.9 Neutropenia, unspecified; R45.851 Suicidal ideations; F02.80 Dementia in other diseases classified elsewhere, unspecified severity, without behavioral disturbance, psychotic disturbance, mood disturbance, and anxiety; E83.51 Hypocalcemia; R16.0 Hepatomegaly, not elsewhere classified; F10.230 Alcohol dependence with withdrawal, uncomplicated; L02.411 Cutaneous abscess of right axilla; G89.29 Other chronic pain; R73.9 Hyperglycemia, unspecified; I10 Essential (primary) hypertension; M54.5 Low back pain; R74.0 Nonspecific elevation of levels of transaminase and lactic acid dehydrogenase [LDH]; B19.20 Unspecified viral hepatitis C without hepatic coma; R09.81 Nasal congestion; B95.62 Methicillin resistant Staphylococcus aureus infection as the cause of diseases classified elsewhere; R68.2 Dry mouth, unspecified; T43.025A Adverse effect of tetracyclic antidepressants, initial encounter; F12.90 Cannabis use, unspecified, uncomplicated; G47.9 Sleep disorder, unspecified; M48.56XD Collapsed vertebra, not elsewhere classified, lumbar region, subsequent encounter for fracture with routine healing; Z85.831 Personal history of malignant neoplasm of soft tissue; Z91.5 Personal history of self-harm; Z85.51 Personal history of malignant neoplasm of bladder; Z72.0 Tobacco use
CPT/HCPCS: 76705; 80053; 80061; 80074; 80178; 82607; 82747; 83036; 83735; 84100; 84425; 84443; 85007; 85027; 86355; 86357; 86359; 86360; 86403; 86592; 87070; 87147; 87186; 87205; 87536; 96372; 99285; J2060; J2543; J3370; J7050

== ENCOUNTER 2018-01-20 21:32 | Emergency (ER) | payer MEDICAID, OTHER ==
[~2018-01-20] VITALS: Ht 177.8 cm; Wt 67.0 kg
[~2018-01-20 21:32] MED LIST changes: -LORA-475 PO; +OXYC-392 PO; -OXYC-395 PO; +VIBR50SY PO
[2018-01-20 21:42] VITALS: BP 117/89; PULSE 121; RESP 18; TEMP 98; O2SAT 97
--- NOTE | 2018-01-20 22:09 | PD ---
HPI Chief Complaint: Psychiatric Symptoms Time Seen by Provider: 21:56 Travel History International Travel<30 days: No Contact w/Intl Traveler<30days: No Traveled to known affect area: No History of Present Illness HPI 47-year-old male that presents to the ED for evaluation of Hilario act. Patient was brought here as a BA as apparently he contacted the police multiple times that he wanted to kill himself. He has a history of substance abuse and drinks heavily. Patient comes here intoxicated and is hard to get any history from him. Per patient he says he will not talk to me in triage as there is too many people in the area. No further history can be obtained from the patient. He states that he all he wants to do is go home and shot himself. I reviewed his medical records and has a history of AIDS, bladder cancer, Kyposi sarcoma. PFSH Past Medical History Autoimmune Disease: Yes (HIV/AIDS) Anxiety: Yes Depression: Yes Cancer: Yes (BLADDER) Cardiovascular Problems: No Diabetes: No Diminished Hearing: No Endocrine: No Gastrointestinal Disorders: No Genitourinary: No Headaches: No Hepatitis: Yes (HEP C) Hypertension: Yes Immune Disorder: Yes Implanted Vascular Access Dvce: No Musculoskeletal: No Neurologic: No Psychiatric: Yes (MDD) Reproductive: No Respiratory: Yes (BRONCHITIS) Seizures: No Past Surgical History Genitourinary Surgery: Yes (CYSTOSCOPY) Other Surgery: No Social History Alcohol Use: Yes (12 PACK DAILY) Tobacco Use: Yes (1/2PPD) Substance Use: Yes (MARIJUANA) Allergies-Medications (Allergen,Severity, Reaction): Coded Allergies: No Known Allergies (Unverified Adverse Reaction, Unknown, 12/25/17) Reported Meds & Prescriptions Reported Meds & Active Scripts Active Oxycodone (Oxycodone HCl) 5 Mg Tab 5 Mg PO Q6H PRN Vibramycin Liq (Doxycycline Calcium) 50 Mg/5 Ml Syrp 100 Mg PO BID 9 Days Seroquel (Quetiapine Fumarate) 100 Mg Tab 100 Mg PO DAILY 7 Days [place] Carbonate 300 Mg Tab 300 Mg PO Q12HR 7 Days Zithromax (Azithromycin) 600 Mg Tab 600 Mg PO 2XWEEK Acidophilus/l-Sporogenes (Lactobacillus Acidophilus) 35 Million Cell-25 Million Cell Tab 1 Tab PO TID [guaiFENesin ER] 600 MG Tabcr 600 Mg PO BID Kaletra (Lopinavir/Ritonavir) 200-50 Mg Tab 2 Tab PO BID Sulfamethoxazole-Trimethoprim 800-160 Mg Tab 1 Tab PO MOWEFR@09 30 Days Review of Systems ROS Limitations: Intoxication, Refused, Combative Except as stated in HPI: all other systems reviewed are Neg Physical Exam Exam Limitations: Intoxication, Refused, Combative Narrative GENERAL: SKIN: Warm and dry. HEAD: Atraumatic. Normocephalic. EYES: Pupils equal and round. No scleral icterus. No injection or drainage. ENT: No nasal bleeding or discharge. Mucous membranes pink and moist. Tongue is midline. No uvula deviation NECK: Trachea midline. No JVD. CARDIOVASCULAR: Regular rate and rhythm. No murmurs, S3, S4. RESPIRATORY: No accessory muscle use. Clear to auscultation. Breath sounds equal bilaterally. GASTROINTESTINAL: Abdomen soft, non-tender, nondistended. Hepatic and splenic margins not palpable. MUSCULOSKELETAL: Extremities without clubbing, cyanosis, or edema. No obvious deformities. Full range of motion of the upper and lower extremities bilaterally. 2+ pulses bilaterally. NEUROLOGICAL: Awake and alert. No obvious cranial nerve deficits. Motor grossly within normal limits. Five out of 5 muscle strength in the arms and legs. Normal speech. PSYCHIATRIC: Appropriate mood and affect; insight and judgment normal. Data Data Last Documented VS Vital Signs Date Time Temp Pulse Resp B/P (MAP) Pulse Ox O2 Delivery O2 Flow Rate FiO2 01/20/18 21:42 98.0 121 18 117/89 (98) 97 Orders Orders Complete Blood Count With Diff (01/20/18 21:48) Comprehensive Metabolic Panel (01/20/18 21:48) Thyroid Stimulating Hormone (01/20/18 21:48) Psych Screen (01/20/18 21:48) Drug Screen, Random Urine (01/20/18 21:48) Alcohol (Ethanol) (01/20/18 21:48) Salicylates (Aspirin) (01/20/18 21:48) Tylenol (Acetaminophen) (01/20/18 21:48) [place] (Li) (01/20/18 21:50) Labs Laboratory Tests Test 01/20/18 21:55 [facility] Medical Decision Making Medical Screen Exam Complete: Yes Emergency Medical Condition: Yes Medical Record Reviewed: Yes Differential Diagnosis Depression versus suicidal ideation versus anxiety versus adjustment disorder versus mood disorder versus bipolar disorder versus schizophrenia versus paranoid disorder versus psychosis versus substance abuse versus alcohol abuse versus alcohol induced psychosis versus homicidality addition versus cutting versus personality disorder Narrative Course 27-year-old male that presents to the ED for evaluation of psych. Patient was properly examined to the best of my ability but minimal history Obtained from the patient as Patient will not talk to me in the triage ambulance room where he was initially put in. No further information obtained. patient aggressive and refuses to cooperate. Smells heavily of alcohol. Labs ordered. patient will be medically cleared pending lab results. Rajesh Chris Jan 20, 2018 22:09
[2018-01-20 22:18] LABS: AUTOMATED NEUTROPHIL # 0.9 TH/MM3 (1.8-7.7); BASOPHIL % 0.1 % (0.0-2.0); EOSINOPHIL # 0.2 TH/MM3 (0-0.4); EOSINOPHIL % 6.1 % (0.0-4.0); HEMATOCRIT 39.8 % (39.0-51.0); HEMOGLOBIN 13.7 GM/DL (13.0-17.0); LYMPH % 57.4 % (9.0-44.0); LYMPHOCYTE # 2.1 TH/MM3 (1.0-4.8); MEAN CELL VOLUME 89.4 FL (80.0-100.0); MEAN CORPUSCULAR HEMOGLOBIN 30.8 PG (27.0-34.0); MEAN CORPUSCULAR HGB CONC 34.5 % (32.0-36.0); MEAN PLATELET VOLUME 8.7 FL (7.0-11.0); MONO % 12.2 % (0.0-8.0); MONOCYTE # 0.4 TH/MM3 (0-0.9); NEUT % 24.2 % (16.0-70.0); PLATELET COUNT 125 TH/MM3 (150-450); RED BLOOD COUNT 4.45 MIL/MM3 (4.50-5.90); RED CELL DISTRIBUTION WIDTH 13.3 % (11.6-17.2); WHITE BLOOD COUNT 3.6 TH/MM3 (4.0-11.0)
[2018-01-20 22:54] LABS: ALKALINE PHOSPHATASE 67 U/L (45-117); ALT (GPT) 213 U/L (12-78); AST (GOT) 382 U/L (15-37); BICARBONATE 23.9 MEQ/L (21.0-32.0); BLOOD UREA NITROGEN 10 MG/DL (7-18); CHLORIDE 112 MEQ/L (98-107); CREATININE 0.79 MG/DL (0.60-1.30); GLOMERULAR FILTRATION RATE 106 ML/MIN (>89); GLUCOSE,RANDOM 96 MG/DL (74-106); SODIUM (NA) 143 MEQ/L (136-145); TOTAL BILIRUBIN ADULT 0.2 MG/DL (0.2-1.0); TOTAL PROTEIN 8.7 GM/DL (6.4-8.2)
[2018-01-20 22:56] LABS: ACETAMINOPHEN LESS THAN 2.0 MCG/ML (10.0-30.0)
[2018-01-21 01:45] LABS: LYMPHOCYTES 56 % (9-44); MONOCYTES 7 % (0-8); POLYS (SEG NEUTROPHILS) 28 % (16-70)
[2018-01-21 05:33] VITALS: BP 104/64; PULSE 90; RESP 18; O2SAT 98
[2018-01-21 08:55] VITALS: BP 110/78; PULSE 78; PULSE 88; RESP 18; O2SAT 98
[2018-01-21 14:05] VITALS: BP 105/58; PULSE 71; RESP 20
== END 2018-01-21 18:10 ==
LOC: NEPD 21:32 → NEPJ 01-21 18:10
DX: F10.129 Alcohol abuse with intoxication, unspecified (principal); B20 Human immunodeficiency virus [HIV] disease; F32.9 Major depressive disorder, single episode, unspecified; F17.200 Nicotine dependence, unspecified, uncomplicated; F12.90 Cannabis use, unspecified, uncomplicated; Y90.8 Blood alcohol level of 240 mg/100 ml or more; Z79.899 Other long term (current) drug therapy
CPT/HCPCS: 80053; 80178; 80307; 84443; 85007; 85027; 99285

== ENCOUNTER 2018-01-26 04:27 | Emergency (ER) | payer MEDICAID, OTHER ==
[~2018-01-26] VITALS: Ht 177.8 cm; Wt 78.0 kg
[~2018-01-26 04:27] MED LIST changes: -VIBR50SY PO; -guaiFENesin ER PO
[2018-01-26 04:45] VITALS: BP 120/77; PULSE 82; RESP 16; TEMP 98.6; O2SAT 97
--- NOTE | 2018-01-26 05:01 | PD ---
HPI Chief Complaint: Psychiatric Symptoms Time Seen by Provider: 04:49 Travel History International Travel<30 days: No Contact w/Intl Traveler<30days: No Traveled to known affect area: No History of Present Illness HPI 47-year-old white male presents emergency department under Hilario act. Patient was seen at [facility] and medically cleared. He sent here to be seen by psychiatry. The patient endorses suicidal ideation. He states that he has a plan but will not elaborate. He states that he is depressed over his mother passing a year ago. He lives with his brother. He states that he has been compliant with his HIV medications. He denies any toxic ingestions. He does smoke marijuana and drinks alcohol. No homicidal ideation. No medical complaints PFSH Past Medical History Autoimmune Disease: Yes (HIV/AIDS) Anxiety: Yes Depression: Yes Cancer: Yes (BLADDER) Cardiovascular Problems: Yes (MD) Diabetes: No Diminished Hearing: No Endocrine: No Gastrointestinal Disorders: No Genitourinary: No Headaches: No Hepatitis: Yes (HEP C) Hypertension: Yes Immune Disorder: Yes Implanted Vascular Access Dvce: No Musculoskeletal: No Neurologic: No Psychiatric: Yes (MDD) Reproductive: No Respiratory: Yes (BRONCHITIS) Seizures: No Tetanus Vaccination: < 5 Years Past Surgical History Genitourinary Surgery: Yes (CYSTOSCOPY) Other Surgery: No Social History Alcohol Use: Yes (12 PACK DAILY) Tobacco Use: Yes (1/2PPD) Substance Use: Yes (marijuana, alcohol) Allergies-Medications (Allergen,Severity, Reaction): Coded Allergies: No Known Allergies (Verified Adverse Reaction, Unknown, 01/21/18) Reported Meds & Prescriptions Reported Meds & Active Scripts Active Oxycodone (Oxycodone HCl) 5 Mg Tab 5 Mg PO Q6H PRN Seroquel (Quetiapine Fumarate) 100 Mg Tab 100 Mg PO DAILY 7 Days Edie Carbonate 300 Mg Tab 300 Mg PO Q12HR 7 Days Acidophilus/l-Sporogenes (Lactobacillus Acidophilus) 35 Million Cell-25 Million Cell Tab 1 Tab PO TID Kaletra (Lopinavir/Ritonavir) 200-50 Mg Tab 2 Tab PO BID Review of Systems General / Constitutional: No: Fever Eyes: No: Visual changes HENT: No: Headaches Cardiovascular: No: Chest Pain or Discomfort Respiratory: No: Shortness of Breath Gastrointestinal: No: Abdominal Pain Genitourinary: No: Dysuria Musculoskeletal: No: Pain Skin: No Rash Neurologic: No: Weakness Psychiatric: Positive: Depression, Suicidal Ideations, Mood Disorder, Substance Abuse, No: Anxiety, Disorder of Thought, Homicidal Ideation Endocrine: No: Polydipsia Hematologic/Lymphatic: No: Easy Bruising Physical Exam Narrative GENERAL: Well-nourished, well-developed patient. SKIN: Warm and dry. HEAD: Normocephalic and atraumatic. EYES: No scleral icterus. No injection or drainage. ENT: No nasal drainage noted. Mucous membranes pink. Airway patent. NECK: Supple, trachea midline. Moves head freely without obvious discomfort. CARDIOVASCULAR: Regular rate and rhythm without murmurs, gallops, or rubs. RESPIRATORY: Breath sounds equal bilaterally. No accessory muscle use. GASTROINTESTINAL: Abdomen soft, non-tender, nondistended. EXTREMITIES: No cyanosis or edema. BACK: Nontender without obvious deformity. No CVA tenderness. NEURO: Patient is alert and oriented. no sensorimotor deficits. Nonfocal. Normal speech. PSYCH: No delusions. No auditory or visual hallucinations. Data Data Last Documented VS Vital Signs Date Time Temp Pulse Resp B/P (MAP) Pulse Ox O2 Delivery O2 Flow Rate FiO2 01/26/18 04:45 98.6 82 16 120/77 (91) 97 MDM Medical Decision Making Medical Screen Exam Complete: Yes Emergency Medical Condition: Yes Medical Record Reviewed: Yes Interpretation(s) Patient laboratory tests have been reviewed. Differential Diagnosis MDM: High Differential diagnoses: Schizophrenia, schizoaffective disorder, bipolar, anxiety, depression, adjustment reaction, mood disorder NOS, ODD, depressive disorder NOS, dementia, dementia with agitation, psychosis NOS, substance induced mood disorder, DMDD, Asperger syndrome, infection,electrolyte abnormality, malingering. Narrative Course Mental health screening discussed with the patient. Psychiatric screen ordered. The patient has been medically cleared over at [facility]. I concur. This medical clearance for psychiatric admission Diagnosis Primary Impression: Medical clearance for psychiatric admission Condition: Douglas King Jan 26, 2018 05:01
[2018-01-26] MEDS ORDERED: IBUPROFEN 600 MG TAB PO ONE (06:30)
[2018-01-26 07:35] VITALS: BP 104/59; PULSE 88; RESP 17; O2SAT 96
[2018-01-26 11:37] VITALS: BP 112/65; PULSE 79; RESP 16; TEMP 98.7; O2SAT 98
[2018-01-26 15:51] VITALS: BP 99/64; PULSE 85; RESP 18; TEMP 98.7; O2SAT 97
--- NOTE | 2018-01-26 17:41 | PD ---
Physical Exam Date Seen by Provider: Jan 26, 2018 Time Seen by Provider: 17:39 Narrative For full history and physical examination please see previous notes. Data Data Last Documented VS Vital Signs Date Time Temp Pulse Resp B/P (MAP) Pulse Ox O2 Delivery O2 Flow Rate FiO2 01/26/18 17:34 01/26/18 15:51 98.7 85 18 97 Room Air Orders Orders Ibuprofen (Motrin) (01/26/18 06:30) Diet Regular Basic (01/26/18 Breakfast) Diet Regular Basic (01/26/18 Lunch) Diet Regular Basic (01/26/18 Dinner) Ed Discharge Order (01/26/18 17:38) MDM Medical Record Reviewed: Yes Supervised Visit with DARWIN: No Narrative Course Patient is 47-year-old male that presented to emergency department from [facility] under Hilario act for psychiatric evaluation. Patient was seen and evaluated, medically cleared. He was evaluated by psychiatry, the Hilario act was lifted. Please see psychiatry notes for full evaluation. Patient will be discharged home at this time. Diagnosis Primary Impression: Substance induced mood disorder Referrals: [facility] day Patient Instructions: General Instructions Departure Forms: Tests/Procedures Additional Instruction: Follow-up with Paul Vela Follow-up with a primary doctor at the [facility] Return to emergency department for any new worsening symptoms Disposition: 01 DISCHARGE HOME Condition: Stable Chanel Ma Jan 26, 2018 17:41
--- NOTE | 2018-01-26 18:00 | PD ---
History of Present Illness Chief Complaint: Psychiatric Symptoms Time Seen by Provider: 17:00 Travel History International Travel<30 Days: No Contact w/Intl Traveler<30days: No Known affected area: No Legal Status Legal Status: Involuntary Hilario Act Signed By: VELIA Flores physician [facility] History of Present Illness: 47-year-old single, male who presents voluntarily to the ED for reported suicidal ideation. Patient is well-known to this facility as last inpatient admission was from December 27 - January 05, 2018. More recently patient was sent to the [facility] where he states he was discharged after 2 days. Reviewed electronic medical records and discussed case with staff. Patient was transferred to this facility from [facility] under a Hilario act. Patient reportedly stated to the physician at [facility] that he "wanted to go to critical access hospital with his mom, I want to kill myself right now". Follow-up was conducted in patient's room and J pod with [facility] personnel psychologist present. Patient awake, alert, and oriented 4. His speech is clear, logical, and organized. His mood is good his affect is slightly irritable. Patient observed ambulating in halls without difficulty. His gait is steady. He lives by himself in an apartment. I can elicit no delusional material. Patient denies auditory or visual hallucinations. He reports that he has intermittent thoughts of self-harm but no plan. He denies homicidal ideation. Patient's recent admission he was noted to have some Yawkey II characteristics. When asked if he had followed up at [facility], patient indicated he had not and proceeded to give several excuses. Patient has presented at this facility on numerous occasions with the same complaint, he has been admitted, evaluated, and treated. He indicates today that what he "really needs is detox from alcohol". When advised that he had been sent to the [facility] for that purpose he stated that "they did not really detox me, they only gave me 1 mg of Ativan". Patient was advised that perhaps this is what the [facility] felt was appropriate for him. Discussed with patient the importance of following up outpatient and establishing care for continuity. Consulted with BRANDO Garcia who assessed the patient in his room with myself present. She concurs with the assessment. Patient states that he will follow up outpatient at [facility]. He has been provided with the address and phone number and was told to return if his condition should worsen. PFSH Past Medical History Autoimmune Disease: Yes (HIV/AIDS) Anxiety: Yes Depression: Yes Cancer: Yes (BLADDER) Cardiovascular Problems: Yes ([place]) Diabetes: No Diminished Hearing: No Endocrine: No Gastrointestinal Disorders: No Genitourinary: No Headaches: No Hepatitis: Yes (HEP C) Hypertension: Yes Immune Disorder: Yes Implanted Vascular Access Dvce: No Musculoskeletal: No Neurologic: No Psychiatric: Yes (MDD) Reproductive: No Respiratory: Yes (BRONCHITIS) Seizures: No Tetanus Vaccination: < 5 Years Past Surgical History Genitourinary Surgery: Yes (CYSTOSCOPY) Other Surgery: No Psychiatric History Psychiatric History Extensive history of inpatient admissions. Most recently was sent to the [facility] for his discharge after 2 days. Last time admitted this facility December 27 - January 05 of this year. History of multiple visits for EtOH and polysubstance abuse. Hx Psychiatric Treatment: Patient with a hx of depression and anxiety with an inpatient admission Dec 2017 for adjustment d/o. Well known to ED for alcohol intoxication and polysubstance abuse. History of Inpatient Treatment: Yes Guns or firearms in home: No Social History Hx Alcohol Use: Yes (12 PACK DAILY) Hx Tobacco Use: Yes (1/2PPD) Hx Substance Use: Yes (marijuana, alcohol) Substance Use Type: Alcohol Other Substances Used: 12 pack beer/day Hx of Substance Use Treatment: No Allergies-Medications (Allergen,Severity, Reaction): Coded Allergies: No Known Allergies (Verified Adverse Reaction, Unknown, 01/21/18) Reported Meds & Prescriptions Reported Meds & Active Scripts Active Oxycodone (Oxycodone HCl) 5 Mg Tab 5 Mg PO Q6H PRN Seroquel (Quetiapine Fumarate) 100 Mg Tab 100 Mg PO DAILY 7 Days [place] Carbonate 300 Mg Tab 300 Mg PO Q12HR 7 Days Acidophilus/l-Sporogenes (Lactobacillus Acidophilus) 35 Million Cell-25 Million Cell Tab 1 Tab PO TID Kaletra (Lopinavir/Ritonavir) 200-50 Mg Tab 2 Tab PO BID Mental Status Examination Appearance: Appropriate Consciousness: Alert Orientation: x4 Motor Activity: Normal gait Speech: Unremarkable Language: Adequate Fund of Knowledge: Adequate Attention and Concentration: Adequate Memory: Unremarkable Mood: Appropriate, Good Affect: Irritable Thought Process & Associations: Intact (Patient comes across as entitled) Thought Content: Appropriate Hallucination Type: None Delusion Type: None Suicidal Ideation: No Suicidal Plan: No Suicidal Intention: No Homicidal Ideation: No Homicidal Plan: No Homicidal Intention: No Insight: Fair Judgment: Adequate [facility] Medical Decision Making Medical Record Reviewed: Yes Assessment/Plan 47-year-old single, male he was transferred under Hilario act from [facility] for reported suicidal ideation. Upon examination today patient is alert and oriented 4 his speech is clear, organized, and logical. His mood is good his affect is slightly irritable. Patient is well-known to this facility and has been admitted inpatient on multiple occasions. He also has an extensive history of EtOH abuse as well as polysubstance abuse. Most recently was at the [facility] on complaints to this provider that "they only gave me 1 mg of Ativan". Patient reports that he needs to have detox for EtOH. Patient does not meet Hilario act criteria nor does he meet inpatient admission criteria. He therefore will be discharged with instructions to follow-up at [facility] outpatient unless Avenue. Patient acknowledges understanding of follow-up plan and states that he will comply with it. Request HC Surrog/Guard Advoc?: No Orders Orders Ibuprofen (Motrin) (01/26/18 06:30) Diet Regular Basic (01/26/18 Breakfast) Diet Regular Basic (01/26/18 Lunch) Ed Discharge Order (01/26/18 17:38) Results Vital Signs Date Time Temp Pulse Resp B/P (MAP) Pulse Ox O2 Delivery O2 Flow Rate FiO2 01/26/18 17:34 01/26/18 15:51 98.7 85 18 99/64 (76) 97 Room Air 01/26/18 11:37 98.7 79 16 112/65 (81) 98 Room Air 01/26/18 07:35 88 17 104/59 (74) 96 Room Air 01/26/18 04:45 98.6 82 16 120/77 (91) 97 Diagnosis Primary Impression: Substance induced mood disorder Psychiatrically Cleared: Yes Referrals: [facility] 1 day Departure Forms: Tests/Procedures Patient Instructions: General Instructions Additional Instructions: Follow-up with [facility] Follow-up with a primary doctor at the [facility] Return to emergency department for any new worsening symptoms Disposition: 01 DISCHARGE HOME Condition: Stable Meghan Weber Jan 26, 2018 18:00
== END 2018-01-26 17:43 | disposition home or self-care (01) ==
LOC: NEPD 04:27 → NEPJ 17:43
DX: F19.94 Other psychoactive substance use, unspecified with psychoactive substance-induced mood disorder (principal); B20 Human immunodeficiency virus [HIV] disease; F12.90 Cannabis use, unspecified, uncomplicated; F17.210 Nicotine dependence, cigarettes, uncomplicated
CPT/HCPCS: 99283

== ENCOUNTER 2018-01-27 10:56 | Emergency (ER) | payer MEDICAID, OTHER ==
[~2018-01-27 10:56] MED LIST changes: -SULF1TAB23 PO; -ZITH600T PO
--- NOTE | 2018-01-27 11:06 | PD ---
HPI Chief Complaint: Psych/Hilario Act Time Seen by Provider: 11:01 Travel History International Travel<30 days: No Contact w/Intl Traveler<30days: No Traveled to known affect area: No History of Present Illness HPI 47-year-old male brought here under the Hilario act transferred from outside facility, presents with depression and wanting to kill himself. He was previously medically cleared prior to arrival. He denies any acute medical issues at this time. He has no known drug allergies. PFSH Past Medical History Autoimmune Disease: Yes (HIV/AIDS) Anxiety: Yes Depression: Yes Cancer: Yes (BLADDER) Cardiovascular Problems: Yes ([place]) Diabetes: No Diminished Hearing: No Endocrine: No Gastrointestinal Disorders: No Genitourinary: No Headaches: No Hepatitis: Yes (HEP C) Hypertension: Yes Immune Disorder: Yes Implanted Vascular Access Dvce: No Musculoskeletal: No Neurologic: No Psychiatric: Yes (MDD) Reproductive: No Respiratory: Yes (BRONCHITIS) Seizures: No Past Surgical History Genitourinary Surgery: Yes (CYSTOSCOPY) Other Surgery: No Social History Alcohol Use: Yes (12 PACK DAILY) Tobacco Use: Yes (1/2PPD) Substance Use: Yes (marijuana, alcohol) Allergies-Medications (Allergen,Severity, Reaction): Coded Allergies: No Known Allergies (Verified Adverse Reaction, Unknown, 01/21/18) Reported Meds & Prescriptions Reported Meds & Active Scripts Active Oxycodone (Oxycodone HCl) 5 Mg Tab 5 Mg PO Q6H PRN Seroquel (Quetiapine Fumarate) 100 Mg Tab 100 Mg PO DAILY 7 Days [place] Carbonate 300 Mg Tab 300 Mg PO Q12HR 7 Days Acidophilus/l-Sporogenes (Lactobacillus Acidophilus) 35 Million Cell-25 Million Cell Tab 1 Tab PO TID Kaletra (Lopinavir/Ritonavir) 200-50 Mg Tab 2 Tab PO BID Review of Systems Except as stated in HPI: all other systems reviewed are Neg General / Constitutional: No: Fever Eyes: No: Visual changes HENT: No: Headaches Cardiovascular: No: Chest Pain or Discomfort Respiratory: No: Shortness of Breath Gastrointestinal: No: Abdominal Pain Genitourinary: No: Dysuria Musculoskeletal: No: Pain Skin: No Rash Neurologic: No: Weakness Psychiatric: No: Depression Endocrine: No: Polydipsia Hematologic/Lymphatic: No: Easy Bruising Physical Exam Narrative GENERAL: Patient appears in no acute distress. SKIN: Warm and dry. HEAD: Atraumatic. Normocephalic. EYES: Pupils equal and round. No scleral icterus. No injection or drainage. ENT: No nasal bleeding or discharge. Mucous membranes pink and moist. Pharynx is clear. NECK: Trachea midline. No JVD. CARDIOVASCULAR: Regular rate and rhythm. RESPIRATORY: No accessory muscle use. Clear to auscultation. Breath sounds equal bilaterally. MUSCULOSKELETAL: Extremities without clubbing, cyanosis, or edema. No obvious deformities. NEUROLOGICAL: Awake and alert. No obvious cranial nerve deficits. Motor grossly within normal limits. Five out of 5 muscle strength in the arms and legs. Normal speech. PSYCHIATRIC: Appropriate mood and affect; insight and judgment normal. Data Data Orders Orders Psych Screen (01/27/18 11:07) [facility] Medical Decision Making Medical Screen Exam Complete: Yes Emergency Medical Condition: Yes Differential Diagnosis Hilario act. Suicidal ideation. Malingering Narrative Course Patient previously medically clear for psychiatric evaluation. Psych screen is ordered. Condition: Stable Burt Wbeber Jan 27, 2018 11:06
--- NOTE | 2018-01-27 15:27 | PD ---
History of Present Illness Chief Complaint: Psychiatric Symptoms Time Seen by Provider: 14:59 Travel History International Travel<30 Days: No Contact w/Intl Traveler<30days: No Known affected area: No History of Present Illness: Patient is a 47 y.o male who was transferred from [facility] under a Hilario Act that states that he , "wants to take pills and kill himself." Patient states he went to [facility] due to a cough and accidently stated, " I feel so bad I want to kill myself" and they placed him under a Hilario Act. He is currently under the care of Dr. Ly for depression and take Lithum 300 mg bid; Trazodone and Celexa. Patient states that his comment was a mistake and he has no intention of harming himself or others. Patient present alert and oriented x 4. Good insight and judgement. Speech within normal limits for rate, tone and volume. Focus and concentration intact. No motor abnormalities. No delusions or auditory hallucinations. He is well groomed and looks his stated age. 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 He acknowledges a long history of depression. He denies any alcohol and drug use. States he lives in an apartment in [place] and is very happy with his life. Patient does not meet Hilario Act criteria. He is at low risk for self harm. He states that due to a change in his health coverage will no longer be able to see Dr. Ly. He plans to go to [facility] on Monday during their open access appointments to re-establish with a provider. Dx: Depression and Anxiety [facility] Past Medical History Narrative Medical Currently under the care of Dr. Ly and has a change in his health care, will be going to [facility] on Monday to re-establish with a provider. He is currently on Rock, Trazodone and Celexa. Autoimmune Disease: Yes (HIV/AIDS) Anxiety: Yes Depression: Yes Cancer: Yes (BLADDER) Cardiovascular Problems: Yes ([place]) Diabetes: No Diminished Hearing: No Endocrine: No Gastrointestinal Disorders: No Genitourinary: No Headaches: No Hepatitis: Yes (HEP C) Hypertension: Yes Immune Disorder: Yes Implanted Vascular Access Dvce: No Musculoskeletal: No Neurologic: No Psychiatric: Yes (MDD) Reproductive: No Respiratory: Yes (BRONCHITIS) Seizures: No Past Surgical History Genitourinary Surgery: Yes (CYSTOSCOPY) Other Surgery: No Psychiatric History Psychiatric History Hx Psychiatric Treatment: Patient with a hx of depression and anxiety with an inpatient admission Dec 2017 for adjustment d/o. Well known to ED for alcohol intoxication and polysubstance abuse. History of Inpatient Treatment: Yes Social History Hx Alcohol Use: Yes (12 PACK DAILY) Hx Tobacco Use: Yes (1/2PPD) Hx Substance Use: Yes (marijuana, alcohol) Substance Use Type: Alcohol Other Substances Used: 12 pack beer/day Hx of Substance Use Treatment: No Allergies-Medications (Allergen,Severity, Reaction): Coded Allergies: No Known Allergies (Verified Adverse Reaction, Unknown, 01/21/18) Reported Meds & Prescriptions Reported Meds & Active Scripts Active Oxycodone (Oxycodone HCl) 5 Mg Tab 5 Mg PO Q6H PRN Seroquel (Quetiapine Fumarate) 100 Mg Tab 100 Mg PO DAILY 7 Days [place] Carbonate 300 Mg Tab 300 Mg PO Q12HR 7 Days Acidophilus/l-Sporogenes (Lactobacillus Acidophilus) 35 Million Cell-25 Million Cell Tab 1 Tab PO TID Kaletra (Lopinavir/Ritonavir) 200-50 Mg Tab 2 Tab PO BID Mental Status Examination Appearance: Appropriate Consciousness: Alert Orientation: x4 Motor Activity: Normal gait Speech: Unremarkable Language: Adequate Fund of Knowledge: Adequate Attention and Concentration: Adequate Memory: Unremarkable Mood: Appropriate Affect: Appropriate Thought Process & Associations: Intact Thought Content: Appropriate Hallucination Type: None Delusion Type: None Suicidal Ideation: No Suicidal Plan: No Suicidal Intention: No Homicidal Ideation: No Homicidal Plan: No Homicidal Intention: No Insight: Adequate Judgment: Adequate MDM Medical Decision Making Medical Record Reviewed: Yes Assessment/Plan Patient has long history of depression and anxiety and has been under the care of Dr. Ly. He made a comment at [facility] that lead to a Hilario Act. Patient states he did not mean to make the comment and that he is not suicidal or homicidal. Patient states that he has a change in insurance and can no longer see Dr. Ly for his lithium, trazodone and celexa. He plans to go to [facility] on Monday to re-establish with a provider. Patient does not meet Hilario Act criteria. He is at low risk for self harm. Will lift the Hilario Act and patient will follow up with [facility]. Orders Orders Psych Screen (01/27/18 11:07) Diet Regular Basic (01/27/18 Lunch) Diagnosis Primary Impression: Depression with anxiety Psychiatrically Cleared: Yes Disposition: DISCHARGE HOME Condition: Stable Elina Stafford Jan 27, 2018 15:26
--- NOTE | 2018-01-27 15:37 | PD ---
Physical Exam Date Seen by Provider: Jan 27, 2018 Time Seen by Provider: 15:36 Narrative 47-year-old male previously medically cleared for psychiatric evaluation, has been seen and evaluated by psychiatric staff and deemed psychiatrically stable for discharge at this time. Patient remains medically stable for discharge. Patient is to follow-up with [facility]. Data Data Orders Orders Psych Screen (01/27/18 11:07) Diet Regular Basic (01/27/18 Lunch) MDM Medical Record Reviewed: Yes Supervised Visit with DARWIN: Yes Narrative Course 47-year-old male previously medically cleared for psychiatric evaluation, has been seen and evaluated by psychiatric staff and deemed psychiatrically stable for discharge at this time. Patient remains medically stable for discharge. Patient is to follow-up with [facility]. Diagnosis Primary Impression: Depression with anxiety Disposition: 01 DISCHARGE HOME Condition: Stable Burt Webber Jan 27, 2018 15:37
== END 2018-01-27 16:42 | disposition home or self-care (01) ==
LOC: NEDAMB 10:56 → NEPJ 16:42
DX: F41.8 Other specified anxiety disorders (principal); I10 Essential (primary) hypertension; F17.200 Nicotine dependence, unspecified, uncomplicated; Z21 Asymptomatic human immunodeficiency virus [HIV] infection status; Z85.51 Personal history of malignant neoplasm of bladder; Z86.79 Personal history of other diseases of the circulatory system
CPT/HCPCS: 99283

== ENCOUNTER 2018-02-14 12:34 | Emergency (ER) | payer MEDICAID, OTHER ==
[~2018-02-14] VITALS: Ht 182.9 cm; Wt 73.0 kg
[2018-02-14 12:51] VITALS: BP 137/77; PULSE 98; RESP 22; TEMP 99.4; O2SAT 97
[2018-02-14] MEDS ORDERED: SODIUM CHLOR 0.9% 1000 ML INJ 1,000 ML IV ONE (13:45)
--- NOTE | 2018-02-14 14:04 | PD ---
HPI Chief Complaint: GI Complaint Time Seen by Provider: 13:30 Travel History International Travel<30 days: No Contact w/Intl Traveler<30days: No Traveled to known affect area: No History of Present Illness HPI Patient is a 47-year-old male with history of HIV who presents the emergency room with multiple complaints. Patient reports that he has been having nausea, vomiting and diarrhea for the past few days, reports that it was initially associated abdominal pain. Patient reports that no abdominal pain at this time , reports that he just feels sick and nauseous. Patient reports that he thinks he may just have a virus but came to the emergency room as he would really like to see psychiatry. Patient reports that he is depressed as he is HIV, reports that he is tired of always being sick. Patient reports that he just wants to end his life, reports that he just wants to jump off a bridge end of his life. Patient at this time is voluntary and contracts for safety requesting help. Patient denies any fevers or chills, patient reports that he is compliant on his HIV regimen. Patient unsure when his last CD4 count was but said it was normal the last time it was checked [facility] Past Medical History Autoimmune Disease: Yes (HIV/AIDS) Anxiety: Yes Depression: Yes Cancer: Yes (BLADDER) Cardiovascular Problems: Yes (DE) Diabetes: No Diminished Hearing: No Endocrine: No Gastrointestinal Disorders: No Genitourinary: No Headaches: No Hepatitis: Yes (HEP C) Hypertension: Yes Immune Disorder: Yes Implanted Vascular Access Dvce: No Musculoskeletal: No Neurologic: No Psychiatric: Yes (MDD) Reproductive: No Respiratory: Yes (BRONCHITIS) Seizures: No Past Surgical History Genitourinary Surgery: Yes (CYSTOSCOPY) Other Surgery: No Social History Alcohol Use: Yes (12 PACK DAILY) Tobacco Use: Yes (1/2PPD) Substance Use: Yes (marijuana, alcohol) Allergies-Medications (Allergen,Severity, Reaction): Coded Allergies: No Known Allergies (Verified Adverse Reaction, Unknown, 01/21/18) Reported Meds & Prescriptions Reported Meds & Active Scripts Active Oxycodone (Oxycodone HCl) 5 Mg Tab 5 Mg PO Q6H PRN Seroquel (Quetiapine Fumarate) 100 Mg Tab 100 Mg PO DAILY 7 Days [place] Carbonate 300 Mg Tab 300 Mg PO Q12HR 7 Days Acidophilus/l-Sporogenes (Lactobacillus Acidophilus) 35 Million Cell-25 Million Cell Tab 1 Tab PO TID Kaletra (Lopinavir/Ritonavir) 200-50 Mg Tab 2 Tab PO BID Review of Systems General / Constitutional: No: Fever Eyes: No: Visual changes HENT: No: Headaches Cardiovascular: No: Chest Pain or Discomfort Respiratory: No: Shortness of Breath Gastrointestinal: Positive: Nausea, Vomiting, Diarrhea, Abdominal Pain Genitourinary: No: Dysuria Musculoskeletal: No: Pain Skin: No Rash Neurologic: No: Weakness Psychiatric: Positive: Depression, Suicidal Ideations, No: Homicidal Ideation Endocrine: No: Polydipsia Hematologic/Lymphatic: No: Easy Bruising Physical Exam Narrative GENERAL: NAD SKIN: Focused skin assessment warm/dry. HEAD: Atraumatic. Normocephalic. EYES: Pupils equal and round. No scleral icterus. No injection or drainage. ENT: No nasal bleeding or discharge. Mucous membranes pink and moist. NECK: Trachea midline. No JVD. CARDIOVASCULAR: Regular rate and rhythm. No murmur appreciated. RESPIRATORY: No accessory muscle use. Clear to auscultation. Breath sounds equal bilaterally. GASTROINTESTINAL: Abdomen soft, non-tender, nondistended. Hepatic and splenic margins not palpable. MUSCULOSKELETAL: No obvious deformities. No clubbing. No cyanosis. No edema. NEUROLOGICAL: Awake and alert. No obvious cranial nerve deficits. Motor grossly within normal limits. Normal speech. PSYCHIATRIC: Depressed mood and affect; insight and judgment normal. Data Data Last Documented VS Vital Signs Date Time Temp Pulse Resp B/P (MAP) Pulse Ox O2 Delivery O2 Flow Rate FiO2 02/14/18 14:15 99.4 86 18 141/76 (97) 97 Room Air Orders Orders Complete Blood Count With Diff (02/14/18 13:34) Comprehensive Metabolic Panel (02/14/18 13:34) Lipase (02/14/18 13:34) Prothrombin Time / Inr (Pt) (02/14/18 13:34) Act Partial Throm Time (Ptt) (02/14/18 13:34) Urinalysis - C+S If Indicated (02/14/18 13:34) Iv Access Insert/Monitor (02/14/18 13:34) Ecg Monitoring (02/14/18 13:34) Oximetry (02/14/18 13:34) NPO (02/14/18 13:34) Drug Screen, Random Urine (02/14/18 13:34) Alcohol (Ethanol) (02/14/18 13:34) Salicylates (Aspirin) (02/14/18 13:34) Tylenol (Acetaminophen) (02/14/18 13:34) Sodium Chlor 0.9% 1000 Ml Inj (Ns 1000 M (02/14/18 13:45) Labs Laboratory Tests Test 02/14/18 14:11 White Blood Count 2.8 TH/MM3 Red Blood Count 4.48 MIL/MM3 Hemoglobin 13.7 GM/DL Hematocrit 39.7 % Mean Corpuscular Volume 88.6 FL Mean Corpuscular Hemoglobin 30.6 PG Mean Corpuscular Hemoglobin Concent 34.5 % Red Cell Distribution Width 13.9 % Platelet Count 135 TH/MM3 Mean Platelet Volume 8.3 FL Neutrophils (%) (Auto) 59.4 % Lymphocytes (%) (Auto) 16.9 % Monocytes (%) (Auto) 20.6 % Eosinophils (%) (Auto) 2.7 % Basophils (%) (Auto) 0.4 % Neutrophils # (Auto) 1.7 TH/MM3 Lymphocytes # (Auto) 0.5 TH/MM3 Monocytes # (Auto) 0.6 TH/MM3 Eosinophils # (Auto) 0.1 TH/MM3 Basophils # (Auto) 0.0 TH/MM3 CBC Comment DIFF FINAL Differential Comment Prothrombin Time 9.9 SEC Prothromb Time International Ratio 1.0 RATIO Activated Partial Thromboplast Time 25.7 SEC Blood Urea Nitrogen 10 MG/DL Creatinine 0.72 MG/DL Random Glucose 96 MG/DL Total Protein 7.7 GM/DL Albumin 2.8 GM/DL Calcium Level 7.8 MG/DL Alkaline Phosphatase 78 U/L Aspartate Amino Transf (AST/SGOT) 474 U/L Alanine Aminotransferase (ALT/SGPT) 362 U/L Total Bilirubin 0.5 MG/DL Sodium Level 137 MEQ/L Potassium Level 4.8 MEQ/L Chloride Level 103 MEQ/L Carbon Dioxide Level 25.0 MEQ/L Anion Gap 9 MEQ/L Estimat Glomerular Filtration Rate 118 ML/MIN Lipase 90 U/L Salicylates Level 4.4 MG/DL Acetaminophen Level LESS THAN 2.0 MCG/ML Ethyl Alcohol Level 6 MG/DL MDM Medical Decision Making Medical Screen Exam Complete: Yes Emergency Medical Condition: Yes Medical Record Reviewed: Yes Interpretation(s) Vital Signs Date Time Temp Pulse Resp B/P (MAP) Pulse Ox O2 Delivery O2 Flow Rate FiO2 02/14/18 12:51 99.4 98 22 137/77 (97) 97 Differential Diagnosis Viral syndrome, electrolyte abnormality, depression, suicidal ideations, substance abuse, gastritis, gastroenteritis, cholecystitis, appendicitis Narrative Course During the course of the patients emergency department visit, the patients history, examination, and differential diagnosis were reviewed with the patient. The patient was placed on a cafeteria monitor with oximetry and frequent blood pressure monitoring. The patient had an IV access obtained and blood work sent for analysis. The patient was initially provided IV fluids. Patient with no longer abdominal pain, no nausea or vomiting. Patient reports generalized weakness. Abdomen is soft, nontender, nondistended, no peritoneal signs. Plan to obtain blood work, will obtain psychiatric screening labs as well, patient contracts for safety and is voluntarily presenting to emergency room for depression with suicidal ideations. The patients laboratory studies were reviewed and remarkable for CBC & BMP Diagram 02/14/18 14:11 Total Protein 7.7, Albumin 2.8 L, Calcium Level 7.8 L, Alkaline Phosphatase 78, Aspartate Amino Transf (AST/SGOT) 474 H, Alanine Aminotransferase (ALT/SGPT) 362 H, Total Bilirubin 0.5 LFTs are at baseline Patient re-evaluated, abdomen is soft, nt/nd, no peritoneal signs, patient cleared for psychiatric evaluation. Diagnosis Primary Impression: Depression Qualified Codes: F32.9 - Major depressive disorder, single episode, unspecified Additional Impression: Abdominal pain Qualified Codes: R10.84 - Generalized abdominal pain Patient Instructions: General Instructions Additional Instructions: Please provide patient with a copy of their lab work and studies at discharge* * Please follow up with your primary care doctor in 2-3 days Return to the ER if symptoms worsen or progress Return to the ER as needed Ina Griffiths DO February 14, 2018 14:04
[2018-02-14 14:15] VITALS: BP 141/76; PULSE 86; RESP 18; TEMP 99.4; O2SAT 97
[2018-02-14 14:22] LABS: AUTOMATED NEUTROPHIL # 1.7 TH/MM3 (1.8-7.7); BASOPHIL % 0.4 % (0.0-2.0); EOSINOPHIL # 0.1 TH/MM3 (0-0.4); EOSINOPHIL % 2.7 % (0.0-4.0); HEMATOCRIT 39.7 % (39.0-51.0); HEMOGLOBIN 13.7 GM/DL (13.0-17.0); LYMPH % 16.9 % (9.0-44.0); LYMPHOCYTE # 0.5 TH/MM3 (1.0-4.8); MEAN CELL VOLUME 88.6 FL (80.0-100.0); MEAN CORPUSCULAR HEMOGLOBIN 30.6 PG (27.0-34.0); MEAN CORPUSCULAR HGB CONC 34.5 % (32.0-36.0); MEAN PLATELET VOLUME 8.3 FL (7.0-11.0); MONO % 20.6 % (0.0-8.0); MONOCYTE # 0.6 TH/MM3 (0-0.9); NEUT % 59.4 % (16.0-70.0); PLATELET COUNT 135 TH/MM3 (150-450); RED BLOOD COUNT 4.48 MIL/MM3 (4.50-5.90); RED CELL DISTRIBUTION WIDTH 13.9 % (11.6-17.2); WHITE BLOOD COUNT 2.8 TH/MM3 (4.0-11.0)
[2018-02-14 14:33] LABS: PROTHROMBIN TIME - PATIENT 9.9 SEC (9.8-11.6)
[2018-02-14 14:53] LABS: ALKALINE PHOSPHATASE 78 U/L (45-117); TOTAL BILIRUBIN ADULT 0.5 MG/DL (0.2-1.0); TOTAL PROTEIN 7.7 GM/DL (6.4-8.2)
[2018-02-14 15:00] LABS: ALBUMIN 2.8 GM/DL (3.4-5.0); ALT (GPT) 362 U/L (12-78); AST (GOT) 474 U/L (15-37); BLOOD UREA NITROGEN 10 MG/DL (7-18); CALCIUM 7.8 MG/DL (8.5-10.1); CHLORIDE 103 MEQ/L (98-107); CREATININE 0.72 MG/DL (0.60-1.30); GLOMERULAR FILTRATION RATE 118 ML/MIN (>89); GLUCOSE,RANDOM 96 MG/DL (74-106); SODIUM (NA) 137 MEQ/L (136-145)
[2018-02-14 15:01] LABS: ACETAMINOPHEN LESS THAN 2.0 MCG/ML (10.0-30.0)
[2018-02-14 17:21] VITALS: BP 145/95; PULSE 91; RESP 18; TEMP 100; O2SAT 95
--- NOTE | 2018-02-14 17:41 | PD ---
Physical Exam Narrative This is a patient that has been medically clear by previous ED provider who is pending psych evaluation. I was asked by patient's nurse to evaluate him because his temperature is 100F and he feels like he is going through alcohol withdrawal. Pt has history of HIV on antiviral with unknown CD4 count and alcohol abuse here stating he is suicidal and depressed. Pt had diarrhea yesterday but denies any vomiting or abdominal pain. Pt said he does have some cough and congestion. Will do CXR since pt is HIV+. Labs reviewed, WBC is at baseline. LFTs are around baseline. Pt has no abdominal tenderness on exam. Pt is drinking water now and requesting gatorade. Said his last alcohol intake was yesterday. Will place pt on CIWA protocol while pending psych evaluation. UA and urine drug screen still pending. CXR negative. UA negative. Pt is still awaiting psych. Data Data Last Documented VS Vital Signs Date Time Temp Pulse Resp B/P (MAP) Pulse Ox O2 Delivery O2 Flow Rate FiO2 02/14/18 23:53 81 16 142/98 (113) 96 Room Air 02/14/18 17:21 100.0 Orders Orders Complete Blood Count With Diff (02/14/18 13:34) Comprehensive Metabolic Panel (02/14/18 13:34) Lipase (02/14/18 13:34) Prothrombin Time / Inr (Pt) (02/14/18 13:34) Act Partial Throm Time (Ptt) (02/14/18 13:34) Urinalysis - C+S If Indicated (02/14/18 13:34) Iv Access Insert/Monitor (02/14/18 13:34) Ecg Monitoring (02/14/18 13:34) Oximetry (02/14/18 13:34) NPO (02/14/18 13:34) Drug Screen, Random Urine (02/14/18 13:34) Alcohol (Ethanol) (02/14/18 13:34) Salicylates (Aspirin) (02/14/18 13:34) Tylenol (Acetaminophen) (02/14/18 13:34) Sodium Chlor 0.9% 1000 Ml Inj (Ns 1000 M (02/14/18 13:45) Alcohol Withdrawal Asmt-Ciwa ONCE (02/14/18 17:35) Flumazenil Inj (Romazicon Inj) (02/14/18 17:45) Lorazepam (Ativan) (02/14/18 17:45) Lorazepam Inj (Ativan Inj) (02/14/18 17:45) Lorazepam (Ativan) (02/14/18 17:45) Lorazepam Inj (Ativan Inj) (02/14/18 17:45) Lorazepam Inj (Ativan Inj) (02/14/18 17:45) Lorazepam Inj (Ativan Inj) (02/14/18 17:45) Influenzae A/B Antigen (02/14/18 17:35) Chest, Single Ap (02/14/18 ) Psych Screen (02/14/18 18:40) Labs Laboratory Tests Test 02/14/18 14:11 02/14/18 17:47 White Blood Count 2.8 TH/MM3 Red Blood Count 4.48 MIL/MM3 Hemoglobin 13.7 GM/DL Hematocrit 39.7 % Mean Corpuscular Volume 88.6 FL Mean Corpuscular Hemoglobin 30.6 PG Mean Corpuscular Hemoglobin Concent 34.5 % Red Cell Distribution Width 13.9 % Platelet Count 135 TH/MM3 Mean Platelet Volume 8.3 FL Neutrophils (%) (Auto) 59.4 % Lymphocytes (%) (Auto) 16.9 % Monocytes (%) (Auto) 20.6 % Eosinophils (%) (Auto) 2.7 % Basophils (%) (Auto) 0.4 % Neutrophils # (Auto) 1.7 TH/MM3 Lymphocytes # (Auto) 0.5 TH/MM3 Monocytes # (Auto) 0.6 TH/MM3 Eosinophils # (Auto) 0.1 TH/MM3 Basophils # (Auto) 0.0 TH/MM3 CBC Comment DIFF FINAL Differential Comment Prothrombin Time 9.9 SEC Prothromb Time International Ratio 1.0 RATIO Activated Partial Thromboplast Time 25.7 SEC Blood Urea Nitrogen 10 MG/DL Creatinine 0.72 MG/DL Random Glucose 96 MG/DL Total Protein 7.7 GM/DL Albumin 2.8 GM/DL Calcium Level 7.8 MG/DL Alkaline Phosphatase 78 U/L Aspartate Amino Transf (AST/SGOT) 474 U/L Alanine Aminotransferase (ALT/SGPT) 362 U/L Total Bilirubin 0.5 MG/DL Sodium Level 137 MEQ/L Potassium Level 4.8 MEQ/L Chloride Level 103 MEQ/L Carbon Dioxide Level 25.0 MEQ/L Anion Gap 9 MEQ/L Estimat Glomerular Filtration Rate 118 ML/MIN Lipase 90 U/L Salicylates Level 4.4 MG/DL Acetaminophen Level LESS THAN 2.0 MCG/ML Ethyl Alcohol Level 6 MG/DL Urine Color YELLOW Urine Turbidity CLEAR Urine pH 5.5 Urine Specific [place] 1.014 Urine Protein NEG mg/dL Urine Glucose (UA) NEG mg/dL Urine Ketones NEG mg/dL Urine Occult Blood NEG Urine Nitrite NEG Urine Bilirubin NEG Urine Urobilinogen 2.0 MG/DL Urine Leukocyte Esterase NEG Urine RBC LESS THAN 1 /hpf Microscopic Urinalysis Comment CULT NOT INDICATED Urine Opiates Screen NEG Urine Barbiturates Screen NEG Urine Amphetamines Screen POS Urine Benzodiazepines Screen NEG Urine Cocaine Screen NEG Urine Cannabinoids Screen NEG MDM Supervised Visit with DARWIN: No Diagnosis Primary Impression: Depression Qualified Codes: F32.9 - Major depressive disorder, single episode, unspecified Patient Instructions: General Instructions Additional Instruction: Please provide patient with a copy of their lab work and studies at discharge* * Please follow up with your primary care doctor in 2-3 days Return to the ER if symptoms worsen or progress Return to the ER as needed Jane Figueroa DO February 14, 2018 17:41
[2018-02-14] MEDS ORDERED: LORazepam 2 MG/ML VIAL IV PUSH PRN ×4 (17:45)
[2018-02-14] MEDS ORDERED: FLUMAZENIL 0.5 MG/5 ML VIAL IV PUSH PRN (17:45)
[2018-02-14] MEDS ORDERED: LORazepam 2 MG TAB PO PRN (17:45)
--- NOTE | 2018-02-14 17:54 | RADRPT ---
EXAM DATE/TIME: 02/14/2018 17:41 [place] COMPARISON: CHEST PA & LAT, November 22, 2017, 8:07. INDICATIONS : Cough. MEDICAL HISTORY : None. SURGICAL HISTORY : None. ENCOUNTER: Initial ACUITY: 1 day PAIN SCORE: 0/10 LOCATION: Bilateral chest FINDINGS: A single view of the chest demonstrates the lungs to be symmetrically aerated without evidence of mas s, infiltrate or effusion. The cardiomediastinal contours are unremarkable. Osseous structures are intact. CONCLUSION: No acute disease. Edgadro Armando MD on February 14, 2018 at 17:51 Board Certified Radiologist. This report was verified electronically.
[2018-02-14 18:31] LABS: BILIRUBIN, URINE NEG (NEG); BLOOD, URINE NEG (NEG); GLUCOSE,URINE NEG (NEG); KETONE, URINE NEG (NEG); NITRITE,URINE NEG (NEG); PH, URINE 5.5 (5.0-8.5); URINE COLOR YELLOW (YELLW/STRAW); URINE LEUKOCYTE ESTERASE NEG (NEG)
[2018-02-14 23:53] VITALS: BP 142/98; PULSE 81; RESP 16; O2SAT 96
[2018-02-15] MEDS: LORazepam 1 MG TAB PO PRN ×2 (05:06→10:04)
[2018-02-15 08:22] VITALS: BP 143/91; PULSE 81; RESP 18; O2SAT 98
--- NOTE | 2018-02-15 09:47 | PD ---
Data Data Last Documented VS Vital Signs Date Time Temp Pulse Resp B/P (MAP) Pulse Ox O2 Delivery O2 Flow Rate FiO2 02/15/18 08:22 81 18 143/91 (108) 98 Room Air 02/14/18 17:21 100.0 Orders Orders Complete Blood Count With Diff (02/14/18 13:34) Comprehensive Metabolic Panel (02/14/18 13:34) Lipase (02/14/18 13:34) Prothrombin Time / Inr (Pt) (02/14/18 13:34) Act Partial Throm Time (Ptt) (02/14/18 13:34) Urinalysis - C+S If Indicated (02/14/18 13:34) Iv Access Insert/Monitor (02/14/18 13:34) Ecg Monitoring (02/14/18 13:34) Oximetry (02/14/18 13:34) NPO (02/14/18 13:34) Drug Screen, Random Urine (02/14/18 13:34) Alcohol (Ethanol) (02/14/18 13:34) Salicylates (Aspirin) (02/14/18 13:34) Tylenol (Acetaminophen) (02/14/18 13:34) Sodium Chlor 0.9% 1000 Ml Inj (Ns 1000 M (02/14/18 13:45) Alcohol Withdrawal Asmt-Ciwa ONCE (02/14/18 17:35) Flumazenil Inj (Romazicon Inj) (02/14/18 17:45) Lorazepam (Ativan) (02/14/18 17:45) Lorazepam Inj (Ativan Inj) (02/14/18 17:45) Lorazepam (Ativan) (02/14/18 17:45) Lorazepam Inj (Ativan Inj) (02/14/18 17:45) Lorazepam Inj (Ativan Inj) (02/14/18 17:45) Lorazepam Inj (Ativan Inj) (02/14/18 17:45) Influenzae A/B Antigen (02/14/18 17:35) Chest, Single Ap (02/14/18 ) Psych Screen (02/14/18 18:40) Diet Regular Basic (02/15/18 Breakfast) Labs Laboratory Tests Test 02/14/18 14:11 02/14/18 17:47 White Blood Count 2.8 TH/MM3 Red Blood Count 4.48 MIL/MM3 Hemoglobin 13.7 GM/DL Hematocrit 39.7 % Mean Corpuscular Volume 88.6 FL Mean Corpuscular Hemoglobin 30.6 PG Mean Corpuscular Hemoglobin Concent 34.5 % Red Cell Distribution Width 13.9 % Platelet Count 135 TH/MM3 Mean Platelet Volume 8.3 FL Neutrophils (%) (Auto) 59.4 % Lymphocytes (%) (Auto) 16.9 % Monocytes (%) (Auto) 20.6 % Eosinophils (%) (Auto) 2.7 % Basophils (%) (Auto) 0.4 % Neutrophils # (Auto) 1.7 TH/MM3 Lymphocytes # (Auto) 0.5 TH/MM3 Monocytes # (Auto) 0.6 TH/MM3 Eosinophils # (Auto) 0.1 TH/MM3 Basophils # (Auto) 0.0 TH/MM3 CBC Comment DIFF FINAL Differential Comment Prothrombin Time 9.9 SEC Prothromb Time International Ratio 1.0 RATIO Activated Partial Thromboplast Time 25.7 SEC Blood Urea Nitrogen 10 MG/DL Creatinine 0.72 MG/DL Random Glucose 96 MG/DL Total Protein 7.7 GM/DL Albumin 2.8 GM/DL Calcium Level 7.8 MG/DL Alkaline Phosphatase 78 U/L Aspartate Amino Transf (AST/SGOT) 474 U/L Alanine Aminotransferase (ALT/SGPT) 362 U/L Total Bilirubin 0.5 MG/DL Sodium Level 137 MEQ/L Potassium Level 4.8 MEQ/L Chloride Level 103 MEQ/L Carbon Dioxide Level 25.0 MEQ/L Anion Gap 9 MEQ/L Estimat Glomerular Filtration Rate 118 ML/MIN Lipase 90 U/L Salicylates Level 4.4 MG/DL Acetaminophen Level LESS THAN 2.0 MCG/ML Ethyl Alcohol Level 6 MG/DL Urine Color YELLOW Urine Turbidity CLEAR Urine pH 5.5 Urine Specific [place] 1.014 Urine Protein NEG mg/dL Urine Glucose (UA) NEG mg/dL Urine Ketones NEG mg/dL Urine Occult Blood NEG Urine Nitrite NEG Urine Bilirubin NEG Urine Urobilinogen 2.0 MG/DL Urine Leukocyte Esterase NEG Urine RBC LESS THAN 1 /hpf Microscopic Urinalysis Comment CULT NOT INDICATED Urine Opiates Screen NEG Urine Barbiturates Screen NEG Urine Amphetamines Screen POS Urine Benzodiazepines Screen NEG Urine Cocaine Screen NEG Urine Cannabinoids Screen NEG MDM Supervised Visit with DARWIN: No Narrative Course I have been informed by psychiatric staff that this patient has been cleared psychiatrically. They have been previously been cleared medically. Patient general labs are normal other than some elevation of LFTs. Vital signs are normal Diagnosis Primary Impression: Depression Qualified Codes: F32.9 - Major depressive disorder, single episode, unspecified Patient Instructions: General Instructions Additional Instruction: Please provide patient with a copy of their lab work and studies at discharge* * Please follow up with your primary care doctor in 2-3 days Return to the ER if symptoms worsen or progress Return to the ER as needed Disposition: 01 DISCHARGE HOME Condition: Stable Manuel Hays MD February 15, 2018 09:47
--- NOTE | 2018-02-15 10:07 | PD ---
History of Present Illness Chief Complaint: GI Complaint Time Seen by Provider: 09:00 Travel History International Travel<30 Days: No Contact w/Intl Traveler<30days: No Known affected area: No Legal Status Legal Status: Voluntary History of Present Illness: This is a 47-year-old, single, male who is well-known to this facility. He presents voluntarily reporting suicidal ideation. His last psychiatric inpatient admission was from December 27 - January 05, 2018. At which time he was discharged to [facility] for help and a clear follow-up plan. Patient is HIV positive and historically noncompliant with medical as well as mental health care. Reviewed electronic medical record, labs, and discussed case with staff. Patient was found sleeping quietly in a darkened room. He wakes to verbal stimuli. He is clean and neatly groomed. His speech is clear, organized, logical. He is alert and oriented 4. Patient endorses suicide however his plan is vague. When asked if he had followed up outpatient since the last visit , patient began to make excuses that he had "other things to do". He went on to complain that he had no way to get there. There is no indication of internal stimulation. Patient denies being homicidal or having auditory or visual hallucinations. In the middle of the interview the patient blurted out "but I am going to be homeless". Explained to patient that we do not have the capacity nor the scope to house people simply because they are homeless. Patient is requesting to be given bus tickets back to [place]. He states that [facility] is where he is treated for his HIV as well as has been previously treated for mental health issues. The nurse is working on seeing if we can arrange for transport back to [place]. PFSH Past Medical History Autoimmune Disease: Yes (HIV/AIDS) Anxiety: Yes Depression: Yes Cancer: Yes (BLADDER) Cardiovascular Problems: Yes ([place]) Diabetes: No Diminished Hearing: No Endocrine: No Gastrointestinal Disorders: No Genitourinary: No Headaches: No Hepatitis: Yes (HEP C) Hypertension: Yes Immune Disorder: Yes Implanted Vascular Access Dvce: No Musculoskeletal: No Neurologic: No Psychiatric: Yes (MDD) Reproductive: No Respiratory: Yes (BRONCHITIS) Seizures: No Tetanus Vaccination: < 5 Years Influenza Vaccination: Yes ?: Not Past Surgical History Genitourinary Surgery: Yes (CYSTOSCOPY) Other Surgery: No Psychiatric History Psychiatric History Extensive history of polysubstance abuse, depression, and cluster B traits. Hx Psychiatric Treatment: Patient with a hx of major depressive disorder and anxiety with an inpatient admission Dec 2017 for adjustment d/o. Well known to ED for alcohol intoxication and polysubstance abuse. Last Jpod visit January 27 as a BA; BA lifted patient to follow up with [facility]. History of Inpatient Treatment: Yes Social History This gentleman is well-known to this facility. He tends to exhibit some cluster B characteristics. He typically has an entitled attitude and is demanding. However, he refuses to follow-up once outpatient. He tends to present voluntarily every time he finds himself in a homeless situation. He typically ends up in this position due to conflicts with what ever longterm or person he is living with at the time. We have seen on multiple occasions for polysubstance abuse and alcohol abuse as well. Hx Alcohol Use: Yes (12 PACK DAILY) Hx Tobacco Use: Yes (1/2PPD) Hx Substance Use: Yes (marijuana, alcohol) Substance Use Type: Alcohol, Amphetamines-Stimulants Other Substances Used: 12 pack beer/day Hx of Substance Use Treatment: No Allergies-Medications (Allergen,Severity, Reaction): Coded Allergies: No Known Allergies (Verified Adverse Reaction, Unknown, 01/21/18) Reported Meds & Prescriptions Reported Meds & Active Scripts Active Oxycodone (Oxycodone HCl) 5 Mg Tab 5 Mg PO Q6H PRN Seroquel (Quetiapine Fumarate) 100 Mg Tab 100 Mg PO DAILY 7 Days [place] Carbonate 300 Mg Tab 300 Mg PO Q12HR 7 Days Acidophilus/l-Sporogenes (Lactobacillus Acidophilus) 35 Million Cell-25 Million Cell Tab 1 Tab PO TID Kaletra (Lopinavir/Ritonavir) 200-50 Mg Tab 2 Tab PO BID Mental Status Examination Appearance: Appropriate, Well dressed/well groomed Consciousness: Alert, Vigilant Motor Activity: Normal gait Speech: Unremarkable Language: Adequate Fund of Knowledge: Adequate Attention and Concentration: Adequate Memory: Unremarkable Mood: Anxious Affect: Anxious Thought Process & Associations: Intact Thought Content: Appropriate Hallucination Type: None Delusion Type: None Suicidal Ideation: Yes Suicidal Plan: Yes (He mentions vague plans) Suicidal Intention: No Homicidal Ideation: No Homicidal Plan: No Homicidal Intention: No Insight: Adequate Judgment: Adequate MDM Medical Decision Making Medical Record Reviewed: Yes Assessment/Plan This is a 47-year-old single, male who presents voluntarily to this facility for reported suicidal ideation. Patient is well-known to this facility and has presented here on multiple occasions, typically 2-3 times a month, with the same complaint. These visits seem to coincide with when he has been asked to leave group homes or places he has been living. Upon examination this morning he was found resting quietly in no apparent distress. He became anxious when discharge was mentioned. He reports that "I am going to be homeless soon". His speech is clear, logical, and organized. There is no indication of internal stimulation. While he endorses suicidal ideation he has vague at best plans. He denies being homicidal, or experiencing auditory or visual hallucinations. Again, he does not appear to be in any distress and I do not feel at this time that he would receive any benefit from an inpatient admission. Although he claims to endorse suicidal ideation, he showed himself to be future oriented when he requested a bus pass to [place] so that he could return to [facility]. He states that is where he has been treated previously for his HIV as well as mental health issues. This most recent visit is identical in pattern to his previous visits, which appear to be malingering in an effort to provide group home for himself. He will be discharged to home. The nurse is working on getting him transportation to [place] per his request. Once again, he is advised to establish and follow up outpatient. Orders Orders Complete Blood Count With Diff (02/14/18 13:34) Comprehensive Metabolic Panel (02/14/18 13:34) Lipase (02/14/18 13:34) Prothrombin Time / Inr (Pt) (02/14/18 13:34) Act Partial Throm Time (Ptt) (02/14/18 13:34) Urinalysis - C+S If Indicated (02/14/18 13:34) Iv Access Insert/Monitor (02/14/18 13:34) Ecg Monitoring (02/14/18 13:34) Oximetry (02/14/18 13:34) NPO (02/14/18 13:34) Drug Screen, Random Urine (02/14/18 13:34) Alcohol (Ethanol) (02/14/18 13:34) Salicylates (Aspirin) (02/14/18 13:34) Tylenol (Acetaminophen) (02/14/18 13:34) Sodium Chlor 0.9% 1000 Ml Inj (Ns 1000 M (02/14/18 13:45) Alcohol Withdrawal Asmt-Ciwa ONCE (02/14/18 17:35) Flumazenil Inj (Romazicon Inj) (02/14/18 17:45) Lorazepam (Ativan) (02/14/18 17:45) Lorazepam Inj (Ativan Inj) (02/14/18 17:45) Lorazepam (Ativan) (02/14/18 17:45) Lorazepam Inj (Ativan Inj) (02/14/18 17:45) Lorazepam Inj (Ativan Inj) (02/14/18 17:45) Lorazepam Inj (Ativan Inj) (02/14/18 17:45) Influenzae A/B Antigen (02/14/18 17:35) Chest, Single Ap (02/14/18 ) Psych Screen (02/14/18 18:40) Diet Regular Basic (02/15/18 Breakfast) Ed Discharge Order (02/15/18 09:47) Results Vital Signs Date Time Temp Pulse Resp B/P (MAP) Pulse Ox O2 Delivery O2 Flow Rate FiO2 02/15/18 08:22 81 18 143/91 (108) 98 Room Air 02/14/18 23:53 81 16 142/98 (113) 96 Room Air 02/14/18 17:21 100.0 91 18 145/95 (112) 95 Room Air 02/14/18 14:15 99.4 86 18 141/76 (97) 97 Room Air 02/14/18 14:15 97 Room Air 02/14/18 12:51 99.4 98 22 137/77 (97) 97 Laboratory Tests Test 02/14/18 14:11 02/14/18 17:47 White Blood Count 2.8 Red Blood Count 4.48 Hemoglobin 13.7 Hematocrit 39.7 Mean Corpuscular Volume 88.6 Mean Corpuscular Hemoglobin 30.6 Mean Corpuscular Hemoglobin Concent 34.5 Red Cell Distribution Width 13.9 Platelet Count 135 Mean Platelet Volume 8.3 Neutrophils (%) (Auto) 59.4 Lymphocytes (%) (Auto) 16.9 Monocytes (%) (Auto) 20.6 Eosinophils (%) (Auto) 2.7 Basophils (%) (Auto) 0.4 Neutrophils # (Auto) 1.7 Lymphocytes # (Auto) 0.5 Monocytes # (Auto) 0.6 Eosinophils # (Auto) 0.1 Basophils # (Auto) 0.0 CBC Comment DIFF FINAL Differential Comment Prothrombin Time 9.9 Prothromb Time International Ratio 1.0 Activated Partial Thromboplast Time 25.7 Blood Urea Nitrogen 10 Creatinine 0.72 Random Glucose 96 Total Protein 7.7 Albumin 2.8 Calcium Level 7.8 Alkaline Phosphatase 78 Aspartate Amino Transf (AST/SGOT) 474 Alanine Aminotransferase (ALT/SGPT) 362 Total Bilirubin 0.5 Sodium Level 137 Potassium Level 4.8 Chloride Level 103 Carbon Dioxide Level 25.0 Anion Gap 9 Estimat Glomerular Filtration Rate 118 Lipase 90 Salicylates Level 4.4 Acetaminophen Level LESS THAN 2.0 Ethyl Alcohol Level 6 Urine Color YELLOW Urine Turbidity CLEAR Urine pH 5.5 Urine Specific [place] 1.014 Urine Protein NEG Urine Glucose (UA) NEG Urine Ketones NEG Urine Occult Blood NEG Urine Nitrite NEG Urine Bilirubin NEG Urine Urobilinogen 2.0 Urine Leukocyte Esterase NEG Urine RBC LESS THAN 1 Microscopic Urinalysis Comment CULT NOT INDICATED Urine Opiates Screen NEG Urine Barbiturates Screen NEG Urine Amphetamines Screen POS Urine Benzodiazepines Screen NEG Urine Cocaine Screen NEG Urine Cannabinoids Screen NEG Diagnosis Primary Impression: Depression Additional Impression: Malingering Psychiatrically Cleared: Yes Patient Instructions: General Instructions Additional Instructions: Please provide patient with a copy of their lab work and studies at discharge* * Please follow up with your primary care doctor in 2-3 days Return to the ER if symptoms worsen or progress Return to the ER as needed Disposition: 01 DISCHARGE HOME Condition: Stable Problem Qualifiers Primary Impression: Depression Qualified Codes: F32.9 - Major depressive disorder, single episode, unspecified Meghan Weber February 15, 2018 10:07
== END 2018-02-15 10:37 | disposition home or self-care (01) ==
LOC: NEPD 12:34
DX: F32.9 Major depressive disorder, single episode, unspecified (principal); B20 Human immunodeficiency virus [HIV] disease; F17.200 Nicotine dependence, unspecified, uncomplicated; Z79.899 Other long term (current) drug therapy; Z91.19 Patient's noncompliance with other medical treatment and regimen
CPT/HCPCS: 71045; 80053; 80307; 81001; 83690; 85025; 85610; 85730; 96361; 96374; 99284; J2060; J7030